=== PATIENT | male | born 1945 | race Caucasian/White ===

== ENCOUNTER → 2018-08-05 10:46 | Outpatient (CLI) | payer MEDICARE, SELFPAY ==
[2018-08-05 11:51] LABS: Alanine Aminotransferase 47 IU/L (21-72); Albumin 4.3 g/dL (3.5-5.0); Albumin Globulin Ratio 1.4 (1.0-2.8); Alkaline Phosphatase 85 U/L (38-126); Aspartate Aminotransferase 38 IU/L (17-59); Bilirubin Total 0.5 mg/dL (0.2-1.3); Blood Urea Nitrogen 19 mg/dL (9-20); Calcium 9.2 mg/dL (8.4-10.2); Carbon Dioxide 30 mmol/L (22-32); Chloride 101 mmol/L (98-107); Estimated Glomerular Filt Rate > 60.0 mL/min (>60); Glucose 139 mg/dL (80-110); HEMOLYSIS < 15 (0-50); Magnesium 2.2 mg/dL (1.6-2.3); Sodium 142 mmol/L (137-145); Total Protein 7.3 g/dL (6.3-8.2)
[2018-08-05 12:33] LABS: Thyroid Stimulating Hormone 2.31 uIU/mL (0.47-4.68)
[2018-08-07 14:20] LABS: Lipoprofile NMR SEE SEPERATE REPORT
== END ==
PROVIDERS: PCP Family Medicine; Visit Provider Specialist
DX: E78.2 Mixed hyperlipidemia (principal); I10 Essential (primary) hypertension
CPT/HCPCS: 36415; 80053; 83704; 83735; 84443

== ENCOUNTER → 2019-04-21 10:41 | Outpatient (CLI) | payer MEDICARE, SELFPAY ==
--- NOTE | 2019-04-21 | DI.US.S_ITS ---
PROCEDURE: US ARTERIAL DUPLEX LE BI INDICATIONS: CLAUDICATION TECHNIQUE: Color and pulse Doppler interrogation was performed of both lower extremity arterial systems, with image documentation. COMPARISON: Located Within [facility], , ABD AORTA ANEURYSM SCREENING, 03/05/2018, 15:48. FINDINGS: Normal-appearing, triphasic waveforms are seen throughout. The flow velocities are likewise within normal limits. No focal area of increased flow velocity is seen to suggest a focal stenosis. Antegrade flow is confirmed to the distal aspects of each of the trifurcation vessels. No significant lozano scale abnormality is seen. IMPRESSION: No hemodynamically significant stenosis can be seen. Dictated by: Oscar Sandoval M.D. on 04/21/2019 at 14:26 Approved by: Oscar Sandoval M.D. on 04/21/2019 at 14:27
== END ==
PROVIDERS: PCP Family Medicine; Visit Provider Family Medicine
DX: I73.9 Peripheral vascular disease, unspecified (principal)
CPT/HCPCS: 93925

== ENCOUNTER → 2019-07-02 11:14 | Outpatient (CLI) | payer MEDICARE, SELFPAY ==
[2019-07-02 12:57] LABS: Alanine Aminotransferase 32 IU/L (21-72); Albumin 4.2 g/dL (3.5-5.0); Albumin Globulin Ratio 1.4 (1.0-2.8); Alkaline Phosphatase 76 U/L (38-126); Aspartate Aminotransferase 27 IU/L (17-59); BUN Creatinine Ratio 15.5 (6-22); Bilirubin Total 0.6 mg/dL (0.2-1.3); Blood Urea Nitrogen 17 mg/dL (9-20); Calcium 9.2 mg/dL (8.4-10.2); Carbon Dioxide 26 mmol/L (22-32); Chloride 101 mmol/L (98-107); Estimated Glomerular Filt Rate > 60.0 mL/min (>60); Glucose 147 mg/dL (80-110); HEMOLYSIS < 15 (0-50); Magnesium 2.1 mg/dL (1.6-2.3); Sodium 139 mmol/L (137-145); Total Protein 7.2 g/dL (6.3-8.2)
[2019-07-02 13:24] LABS: Thyroid Stimulating Hormone 2.23 uIU/mL (0.47-4.68)
[2019-07-06 08:51] LABS: Lipoprofile NMR SEE SEPERATE REPORT
== END ==
PROVIDERS: PCP Family Medicine; Visit Provider Physician Assistant Medical
DX: I48.0 Paroxysmal atrial fibrillation (principal); E78.2 Mixed hyperlipidemia; E03.9 Hypothyroidism, unspecified
CPT/HCPCS: 36415; 80053; 83704; 83735; 84443

== ENCOUNTER → 2019-07-24 13:31 | Outpatient (CLI) | payer MEDICARE, SELFPAY ==
[2019-07-24 14:06] LABS: Blood Urea Nitrogen 18 mg/dL (9-20); Calcium 9.4 mg/dL (8.4-10.2); Carbon Dioxide 26 mmol/L (22-32); Chloride 101 mmol/L (98-107); Estimated Glomerular Filt Rate > 60.0 mL/min (>60); Glucose 109 mg/dL (80-110); HEMOLYSIS < 15 (0-50); Magnesium 1.9 mg/dL (1.6-2.3); Potassium 4.5 mmol/L (3.4-5.1); Sodium 140 mmol/L (137-145)
== END ==
PROVIDERS: PCP Family Medicine; Visit Provider Specialist
DX: I48.0 Paroxysmal atrial fibrillation (principal); I10 Essential (primary) hypertension; E78.2 Mixed hyperlipidemia
CPT/HCPCS: 36415; 80048; 83735

== ENCOUNTER → 2019-12-28 14:49 | Outpatient (CLI) | payer MEDICARE, SELFPAY ==
--- NOTE | 2019-12-28 | DI.ECHO.S_ITS ---
[facility] +---------+ : : [address] : [place] : : : : [id number] : : : : Phone: [phone] Echocardiogram Report + + :Name: NAE COX Study Date: 12/28/2019 Height: 75 in : :[facility] Weight: 339 lb : : Gender: Male BSA: 2.7 m2 : :: 1945 Age: 74 yrs BP: 118/52 mmHg: :Reason For Study: Cardiomyopathy, Dilated : :Ordering Physician: Jim : :Shivam Performed By: Ramon Chang : :Referring: JIM CHAPPELL : + + Interpretation Summary Left ventricular systolic function is normal without focal wall motion abnormalities with the ejection fraction grossly estimated to be 60-65% and appears slightly more dynamic compared to the previous study. The left ventricle is mildly dilated with mild concentric left ventricular hypertrophy that is unchanged compared to the previous study. Diastolic parameters suggest probable normal left ventricular diastolic function and normal filling pressures that are possibly mildly lower compared to the previous study. The right ventricle is mildly dilated but systolic function is normal and appears slightly more dynamic compared to the previous study. Pulmonary artery pressures cannot be estimated because of the lack of a measurable TR jet velocity but the IVC suggests a CVP of around 3 mmHg which is lower compared to the previous study. The left atrium is severely dilated and has significantly increased in size since the prior echo exam. The right atrium is mildly dilated and has mildly increased in size. There is mild aortic valve sclerosis but no significant valvular heart disease. The aortic root is mildly dilated that is unchanged compared to the previous study. Procedure: A two-dimensional transthoracic echocardiogram with color flow and Doppler was performed. The study quality was technically adequate. Prior echo performed on 01/04/17. The patient was in normal sinus rhythm during the exam. Left Ventricle: The left ventricle is mildly dilated. There is mild concentric left ventricular hypertrophy. This is unchanged compared to the previous study. Left ventricular systolic function is normal without focal wall motion abnormalities. The ejection fraction is estimated to be 60-65%. This is slightly more dynamic compared to the previous study. Diastolic parameters suggest probable normal left ventricular diastolic function and normal filling pressures. This is possibly lower compared to the previous study. Right Ventricle: The right ventricle is mildly dilated. The right ventricular systolic function is normal. This is slightly more dynamic compared to the previous study. Atria: The left atrium is severely dilated. The left atrium has significantly increased in size since the prior echo exam. The right atrium is mildly dilated. The right atrium has mildly increased in size since the prior echo exam. The interatrial septum is intact with no evidence for an atrial septal defect. Mitral Valve: The mitral valve leaflets appear mildly thickened, but open well. There is trace mitral regurgitation. This is unchanged compared to the previous study. Aortic Valve: The aortic valve is not well visualized. There is mild aortic valve sclerosis. The aortic valve is mildly calcified. The aortic valve opens well. There is no aortic valve stenosis. No aortic regurgitation is present. Tricuspid Valve: The tricuspid valve is normal in structure and function. There is trace tricuspid regurgitation. Pulmonary artery pressures cannot be estimated because of the lack of a measurable TR jet velocity but the IVC suggests a CVP of around 3 mmHg. This is lower compared to the previous study. Pulmonic Valve: The pulmonic valve is not well visualized. There is no pulmonic valvular regurgitation. There is no significant valvular heart disease. Great Vessels: The aortic root is mildly dilated. This is unchanged compared to the previous study. The ascending aorta could not be visualized. The IVC is of normal diameter and collapses greater than 50% with a sniff. This suggests a low right atrial pressure of 3 mm Hg. Pericardium/ Pleura There is no pericardial effusion. There is no pleural effusion. MMode/2D Measurements & Calculations LVIDd: 6.1 cm LVOT diam: 2.7 cm LVIDs: 4.0 cm Ao root diam: 4.0 cm FS: 34.6 % Aortic Jxn: 3.6 cm EPSS: 0.57 cm IVSd: 1.3 cm LVPWd: 1.3 cm LV carmona. diameter/BSA (cm/m^2): 2.2 LV sys. diameter/BSA (cm/m^2): 1.5 LA A2 area: 47.0 cm2 RA long axis: 6.5 cm LA A4 area: 47.2 cm2 RA area: 27.3 cm2 LA length (vol): 7.3 cm RA vol: 97.0 ml LA vol: 257.3 ml RA : 35.3 ml/m2 LA vol index: 93.7 ml/m2 TAPSE: 2.8 cm Doppler Measurements & Calculations Ao V2 max: 169.7 cm/sec LVOT Max Larry: 159.2 cm/sec Ao V2 mean: 118.6 cm/sec LV V1 max P.1 mmHg Ao max P.5 mmHg LV V1 VTI: 36.1 cm Ao mean P.7 mmHg MARTIR(I,D): 5.6 cm2 Ao V2 VTI: 36.8 cm MARTIR(V,D): 5.4 cm2 sev ratio: 0.98 MARTIR indexed to BSA (cm^2/m^2): 2.1 MV E max larry: 96.2 cm/sec PA V2 max: 128.1 cm/sec MV A max larry: 84.3 cm/sec PA V2 mean: 91.7 cm/sec MV E/A: 1.1 PA mean P.8 mmHg Med Peak E' Larry: 8.4 cm/sec PA Accel Time: 0.12 sec E/E' med: 11.5 Lat Peak E' Larry: 9.0 cm/sec E/E' lat: 10.7 E/e' average: 11.1 MV dec time: 0.20 sec SV(LVOT): 207.7 ml Reading Physician:TAI
== END ==
PROVIDERS: PCP Family Medicine; Visit Provider Specialist
DX: I42.0 Dilated cardiomyopathy (principal); I35.8 Other nonrheumatic aortic valve disorders
CPT/HCPCS: 93306

== ENCOUNTER → 2019-12-31 10:45 | Outpatient (CLI) | payer MEDICARE, SELFPAY ==
[2019-12-31 12:41] LABS: Alanine Aminotransferase 25 IU/L (<50); Albumin 4.4 g/dL (3.5-5.0); Albumin Globulin Ratio 1.4 (1.0-2.8); Alkaline Phosphatase 91 U/L (38-126); Aspartate Aminotransferase 35 IU/L (17-59); BUN Creatinine Ratio 13.8 (6-22); Bilirubin Total 0.5 mg/dL (0.2-1.3); Blood Urea Nitrogen 18 mg/dL (9-20); Calcium 9.3 mg/dL (8.4-10.2); Carbon Dioxide 25 mmol/L (22-32); Chloride 98 mmol/L (98-107); Estimated Glomerular Filt Rate 53.8 mL/min (>60); Globulin 3.2 g/dL (1.7-4.1); Glucose 133 mg/dL (80-110); HEMOLYSIS < 15 (0-50); Magnesium 2.5 mg/dL (1.6-2.3); Potassium 4.8 mmol/L (3.4-5.1); Sodium 138 mmol/L (137-145); Total Protein 7.6 g/dL (6.3-8.2)
[2020-01-04 08:45] LABS: Lipoprofile NMR SEE SEPERATE REPORT
== END ==
PROVIDERS: PCP Family Medicine; Visit Provider Specialist
DX: I48.0 Paroxysmal atrial fibrillation (principal); I10 Essential (primary) hypertension; E78.2 Mixed hyperlipidemia
CPT/HCPCS: 36415; 80053; 83704; 83735

== ENCOUNTER 2020-01-07 15:59 | Inpatient (IN) | payer MEDICARE, SELFPAY ==
[2020-01-07] VITALS (18 sets, daily range): BP systolic 95–138; BP diastolic 50–74; PULSE 72–87; RESP 14–24; TEMP 36.2–37.1; O2SAT 93–100; BMI 38.5; BMI 44.9
--- NOTE | 2020-01-07 16:22 | DI.RAD.S_ITS ---
PROCEDURE: XR CHEST 1V INDICATIONS: chest pain TECHNIQUE: One view of the chest was acquired. COMPARISON: [facility], , CHEST 1 VIEW, 04/09/2015, 20:48. FINDINGS: Surgical changes and devices: None. Lungs and pleura: There is a vague area of increased density within the left hilar region and left infrahilar region. No large effusion or pneumothorax is evident. Mediastinum: Mediastinal contours appear normal. Heart size is borderline enlarged. Bones and chest wall: No suspicious bony lesions. Overlying soft tissues appear unremarkable. IMPRESSION: Left hilar interstitial prominence may be related to chronic interstitial changes. However, developing left infrahilar pneumonia is difficult to exclude and clinical correlation is recommended. Dictated by: Deniz Hsieh M.D. on 01/07/2020 at 16:01 Approved by: Deniz Hsieh M.D. on 01/07/2020 at 16:02
--- NOTE | 2020-01-07 17:10 | ED_ITS ---
HPI - Arrhythmia/Palpitations General Chief Complaint: Arrhythmia/Palpitations Stated Complaint: irregular heart rate and short of breath Time Seen by Provider: 01/07/20 16:29 Source: patient and family () Mode of arrival: Wheelchair Limitations: no limitations History of Present Illness HPI narrative: This is a 74-year-old male who comes to the emergency department with complaint of irregular heart rate and shortness of breath. Patient states that he has felt lightheaded especially when he gets up to walk around. He has not had any syncope but has felt like he might. He has had increasing shortness of breath particularly with exertion. Patient states he knows his blood pressure is a little low at home that his pulse was irregular. He has felt more fatigued over the last several days. Patient states he has not any chest pain or pressure. He states he can lie flat and has not had any difficulty typically does on 1 side or the other. He has had swelling in his lower extremities but states that his normal amount any has had an increase in his weight is up about 10 lb from his last visit. Patient states he does use BiPAP at home with oxygen at night. He has a history of atrial fibrillation and has been cardioverted [address] 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 He did have an 8 echo about a week and a half ago. He has not any cardiac stents or heart catheterizations. He is on aspirin daily as well as medications for his heart, blood pressure, cholesterol, levothyroxine as well as sertraline and omeprazole. Patient has had back surgery x2, knee surgery, carpal tunnel and cataract surgery. Quit smoking 35 years ago but does chew tobacco denies any illicit but does drink 4-5 alcoholic drinks in the evening. PCP is Dr. Landon. Related Data Home Medications Medication Instructions Recorded Confirmed allopurinol 300 mg PO BEDTIME #0 12/09/11 01/07/20 cholecalciferol (vitamin D3) 2,000 unit PO DAILY #0 12/09/11 01/07/20 [Vitamin D3] Prilosec OTC 20 mg PO DAILY #0 12/31/11 01/07/20 psyllium husk [Metamucil] 0.52 gm PO DAILY #0 12/31/11 01/07/20 telmisartan [Micardis] 80 mg PO QPM #0 05/01/17 01/07/20 magnesium oxide 400 mg PO QPM #0 05/15/17 01/07/20 aspirin 81 mg PO QPM 01/07/20 01/07/20 atorvastatin 40 mg PO QPM 01/07/20 01/07/20 diltiazem HCl [Cartia XT] 120 mg PO QPM 01/07/20 01/07/20 furosemide 40 mg PO QAM 01/07/20 01/07/20 levothyroxine 100 mcg PO DAILY 01/07/20 01/07/20 magnesium oxide 800 mg PO QAM 01/07/20 01/07/20 mirtazapine 30 mg PO QPM 01/07/20 01/07/20 sertraline 100 mg PO DAILY 01/07/20 01/07/20 testosterone cypionate 200 mg IM Q2W 01/07/20 01/07/20 Allergies Allergy/AdvReac Type Severity Reaction Status Date / Time epinephrine [EPINEPHRINE] AdvReac Mild EXACERBATES Verified 01/07/20 16:15 TREMORS gabapentin [GABAPENTIN] AdvReac Mild GLOOM AND Verified 01/07/20 16:15 DOOM Review of Systems Review of Systems ROS Unobtainable: All systems reviewed & are unremarkable except as noted in HPI and below Patient History Social History household members: spouse Smoking Status: Current every day smoker alcohol intake: current tobacco type: smokeless tobacco Alcohol type: wine Substance Use Type: does not use Exam Narrative Exam Narrative: GENERAL: Alert and oriented x three, obese male in mild distress. Patient appears pale. HEENT: Head normocephalic, atraumatic, EOMI, pupils reactive, face symmetric, positive for conjunctival pallor bilaterally, moist mucous membranes NECK: Supple, full range of motion CARDIOVASCULAR: Irregularly right rate and rhythm without murmurs, rubs or gallops. No JVD. Patient has bilateral lower extremity edema that is 2+. RESPIRATORY: Breath sounds equal bilaterally, no wheezes rales or rhonchi. Patient has mild tachypnea with no accessory muscle use. Speaks in full sentences. ABDOMEN: Soft, nontender. Normoactive bowel sounds all 4 quadrants. No guarding or rebound, rigidity, no mass. Patient has brown stool but positive stool guaiac on BETTY, no mass. No bright red blood is noted. : No CVA tenderness EXTREMITIES: Normal range of motion, no clubbing or edema. Neurovascularly intact NEUROLOGICAL: Cranial nerves II through XII grossly intact. Moving all extremities SKIN: Warm, dry, no petechiae, no rashes or lesions. Initial Vital Signs Initial Vital Signs: Vital Signs Blood Pressure 134/64 01/07/20 16:10 Pulse Oximetry 100 01/07/20 16:10 Course Orders Ordered: ED Orders 01/07/20 16:22 XR chest 1V Stat EKG-12 Lead Stat 01/07/20 16:32 BNP [NT-proBNP (BNP-Adult 18+)] Stat Complete Blood Count AUTO DIFF Stat Comprehensive Metabolic Panel Stat DD [D Dimer] Stat Lipase Stat Partial Thromboplastin Time Stat Prothrombin Time INR Stat Troponin & CK Cardiac Panel Stat 01/07/20 17:39 Packed Cells Stat Type and Screen Stat Discontinued Medications Furosemide (Lasix) 40 mg IV NOW ONE Stop: 01/07/20 18:41 Last Admin: 01/07/20 20:04 Dose: 40 mg Documented by: HELEN Vital Signs Vital signs: Vital Signs - 8 hr 01/07/20 16:10 01/07/20 16:17 01/07/20 16:30 Temperature 97.9 F Pulse Rate 74 Respiratory Rate 24 16 Blood Pressure Blood Pressure [Right Arm] 134/64 136/64 111/51 L Pulse Oximetry 100 99 100 01/07/20 16:31 01/07/20 17:00 01/07/20 17:30 Temperature Pulse Rate 72 72 73 Respiratory Rate 20 14 20 Blood Pressure Blood Pressure [Right Arm] 111/55 L 106/54 L 111/55 L Pulse Oximetry 98 97 99 01/07/20 18:05 01/07/20 18:10 01/07/20 18:48 Temperature 98.4 F Pulse Rate 73 87 Respiratory Rate 22 20 15 Blood Pressure 123/57 L Blood Pressure [Right Arm] 95/50 L 116/55 L Pulse Oximetry 93 100 01/07/20 19:07 01/07/20 19:11 01/07/20 20:00 Temperature 98.4 F 98.4 F 98.5 F Pulse Rate 80 80 75 Respiratory Rate 16 16 18 Blood Pressure 137/65 133/62 Blood Pressure [Right Arm] 137/65 Pulse Oximetry 100 MDM - Arrhythmia/Palpitations Lab Data Attestation: I reviewed the patient's lab results. Result diagrams: 01/07/20 16:32 01/07/20 16:32 Labs: Lab Results 01/07/20 01/07/20 01/07/20 Range/Units 16:32 16:32 16:32 WBC 4.3 L (4.5-11.0) X10^3/uL RBC 2.56 L (4.5-5.9) X10^6/uL Hgb 4.2 L* (13.5-17.5) g/dL Hct 15.0 L* (41-53) % MCV 58.5 L (80-100) fL MCH 16.5 L (26-34) PG MCHC 28.2 L (30-36) % RDW 20.5 H (11.6-14.8) % Plt Count 158 (150-400) X10^3/uL Neut % (Auto) 67.5 (50-75) % Lymph % (Auto) 18.9 L (25-40) % [place] % (Auto) 10.0 (3-14) % Eos % (Auto) 1.8 L (2-4) % Baso % (Auto) 1.8 (0-2) % Neut # (Auto) 2900 (1689-4992) /uL Lymph # (Auto) 800 L (1228-9910) /uL [place] # (Auto) 400 (0-900) /uL Eos # (Auto) 100 (0-450) /uL Baso # (Auto) 100 (0-100) /uL RBC Morphology See below Hypochromasia 3+ H Microcytosis 3+ H Tear Drop Cells 1+ H Ovalocytes 1+ H PT 14.2 H (10.1-12.7) SECONDS INR 1.2 (0.9-1.3) APTT 29 (26.4-36.2) SECONDS D-Dimer (<230) ng/mL Sodium 138 (137-145) mmol/L Potassium 4.5 (3.4-5.1) mmol/L Chloride 99 (98-107) mmol/L Carbon Dioxide 25 (22-32) mmol/L BUN 22 H (9-20) mg/dL Creatinine 1.30 H (0.66-1.25) mg/dL Estimated GFR 53.8 L (>60) mL/min BUN/Creatinine Ratio 16.9 (6-22) Glucose 124 H (80-110) mg/dL Calcium 9.0 (8.4-10.2) mg/dL Total Bilirubin 0.3 (0.2-1.3) mg/dL AST 31 (17-59) IU/L ALT 22 (<50) IU/L Alkaline Phosphatase 80 (38-126) U/L Total Creatine Kinase 25 L (55-170) U/L CK-MB (CK-2) TNP CK-MB (CK-2) Rel Index TNP Troponin I 0.016 (0.01-0.034) ng/mL NT-Pro-B Natriuret Pep (<450) pg/mL Total Protein 7.3 (6.3-8.2) g/dL Albumin 4.2 (3.5-5.0) g/dL Globulin 3.1 (1.7-4.1) g/dL Albumin/Globulin Ratio 1.4 (1.0-2.8) Lipase 135 (23-300) U/L Blood Type Antibody Screen Crossmatch 01/07/20 01/07/20 01/07/20 Range/Units 16:32 16:32 17:39 WBC (4.5-11.0) X10^3/uL RBC (4.5-5.9) X10^6/uL Hgb (13.5-17.5) g/dL Hct (41-53) % MCV (80-100) fL MCH (26-34) PG MCHC (30-36) % RDW (11.6-14.8) % Plt Count (150-400) X10^3/uL Neut % (Auto) (50-75) % Lymph % (Auto) (25-40) % [place] % (Auto) (3-14) % Eos % (Auto) (2-4) % Baso % (Auto) (0-2) % Neut # (Auto) (1177-4692) /uL Lymph # (Auto) (0076-7620) /uL [place] # (Auto) (0-900) /uL Eos # (Auto) (0-450) /uL Baso # (Auto) (0-100) /uL RBC Morphology Hypochromasia Microcytosis Tear Drop Cells Ovalocytes PT (10.1-12.7) SECONDS INR (0.9-1.3) APTT (26.4-36.2) SECONDS D-Dimer < 200 (<230) ng/mL Sodium (137-145) mmol/L Potassium (3.4-5.1) mmol/L Chloride (98-107) mmol/L Carbon Dioxide (22-32) mmol/L BUN (9-20) mg/dL Creatinine (0.66-1.25) mg/dL Estimated GFR (>60) mL/min BUN/Creatinine Ratio (6-22) Glucose (80-110) mg/dL Calcium (8.4-10.2) mg/dL Total Bilirubin (0.2-1.3) mg/dL AST (17-59) IU/L ALT (<50) IU/L Alkaline Phosphatase (38-126) U/L Total Creatine Kinase (55-170) U/L CK-MB (CK-2) CK-MB (CK-2) Rel Index Troponin I (0.01-0.034) ng/mL NT-Pro-B Natriuret Pep 929 H (<450) pg/mL Total Protein (6.3-8.2) g/dL Albumin (3.5-5.0) g/dL Globulin (1.7-4.1) g/dL Albumin/Globulin Ratio (1.0-2.8) Lipase (23-300) U/L Blood Type A Positive Antibody Screen Negative Crossmatch See Detail Point of Care Testing Stool Occult Blood Positive Imaging Data Chest x-ray: Radiologist's Impresson: [address] [id number] XRay Report Signed Patient: Romeo Henning RMR#: [id number] : 4Acct:[id number] Age/Sex: 74 / MDate of Service: 01/07/20 Loc: ED Accession Number: [id number] Procedure: XR chest 1V Ordering Provider: Kimberly Bueno D.O. PROCEDURE: XR CHEST 1V INDICATIONS: chest pain TECHNIQUE: One view of the chest was acquired. COMPARISON: [facility], CHEST 1 VIEW, 04/09/2015, 20:48. FINDINGS: Surgical changes and devices: None. Lungs and pleura: There is a vague area of increased density within the left hil ar region and left infrahilar region. No large effusion or pneumothorax is evident. Mediastinum: Mediastinal contours appear normal. Heart size is borderline enlarged. Bones and chest wall: No suspicious bony lesions. Overlying soft tissues appear unremarkable. IMPRESSION: Left hilar interstitial prominence may be related to chronic interstitial changes. However, developing left infrahilar pneumonia is difficult to exclude and clinical correlation is recommended. Dictated by: Deniz Hsieh M.D. on 01/07/2020 at 16:01 Approved by: Deniz Hsieh M.D. on 01/07/2020 at 16:02 ECG Data Attestation: I personally reviewed and interpreted this ECG as follows: Interpretation: AFib with a rate of 74 QRS of for 141 QTC of 417. Patient does have some ST depression V2 through V4 which appears new from EKG on 2014. No elevation noted. MDM Narrative Medical decision making narrative: Patient's labs show hemoglobin of 4.2, patient has microcytosis with an RDW of 20. Patient also has normal platelets of 158 and no slightly low white count. Coags show a PT of 14.2 but INR is 1.2 with PTT of 29. Chemistry show elevated 22 creatinine 1.3 which appears normal compared to his December 31, 2019. He was 1 in July. Troponin is negative with BNP of nine hundred twenty-nine. Otherwise normal LFTs. Patient's guaiac is positive. Patient has stated his stools are cristy in color he is not apprec iate any melena or bright red blood. Patient has not had any other sources of bleeding but his hemoglobin is quite low today. Unclear the exact time frame but likely he is having symptomatic anemia which exacerbated his atrial fibrillation. He does have an elevated BNP with some bilateral lower extremity edema some of this could be 3rd spacing secondary to his anemia but I would also be concerned about a little bit of CHF and plan for Lasix in between transfusion. Patient did get consent. Spoke with Dr. Walters who accepts for admission. Discharge Plan Departure Patient Disposition: Admitted As Inpatient Clinical Impression: Symptomatic anemia, Atrial fibrillation Discharge Date/Time: 01/07/20 20:23 Referrals: Tong Landon MD [Primary Care Provider] - Admit Date/Time: 01/07/20 20:19 Admit Provider: Omid Walters
[2020-01-07 17:28] LABS: Add Manual Diff / Slide Review NO; Basophils Absolute Auto 100 /uL (0-100); Basophils Percent Auto 1.8 % (0-2); Eosinophils Absolute Auto 100 /uL (0-450); Eosinophils Percent Auto 1.8 % (2-4); Hemoglobin 4.2 g/dL (13.5-17.5); Lymphocytes Absolute Auto 800 /uL (1100-4500); Lymphocytes Percent Auto 18.9 % (25-40); Mean Corpuscular HGB Conc 28.2 % (30-36); Mean Corpuscular Hemoglobin 16.5 PG (26-34); Mean Corpuscular Volume 58.5 fL (80-100); Monocytes Absolute Auto 400 /uL (0-900); Neutrophils Absolute Auto 2900 /uL (1500-7000); Neutrophils Percent Auto 67.5 % (50-75); Platelet Count 158 X10^3/uL (150-400); Red Blood Cell Count 2.56 X10^6/uL (4.5-5.9); Red Cell Distribution Width 20.5 % (11.6-14.8); White Blood Cell Count 4.3 X10^3/uL (4.5-11.0)
[2020-01-07 17:32] LABS: INR 1.2 (0.9-1.3); Prothrombin Time 14.2 SECONDS (10.1-12.7)
[2020-01-07 17:34] LABS: PTT Partial Thromboplastin Tim 29 SECONDS (26.4-36.2)
[2020-01-07 17:36] LABS: Alanine Aminotransferase 22 IU/L (<50); Albumin 4.2 g/dL (3.5-5.0); Albumin Globulin Ratio 1.4 (1.0-2.8); Alkaline Phosphatase 80 U/L (38-126); Aspartate Aminotransferase 31 IU/L (17-59); BUN Creatinine Ratio 16.9 (6-22); Bilirubin Total 0.3 mg/dL (0.2-1.3); Blood Urea Nitrogen 22 mg/dL (9-20); Carbon Dioxide 25 mmol/L (22-32); Chloride 99 mmol/L (98-107); Creatine Kinase 25 U/L (55-170); Estimated Glomerular Filt Rate 53.8 mL/min (>60); Globulin 3.1 g/dL (1.7-4.1); Glucose 124 mg/dL (80-110); HEMOLYSIS < 15 (0-50); Lipase 135 U/L (23-300); Potassium 4.5 mmol/L (3.4-5.1); Sodium 138 mmol/L (137-145); Total Protein 7.3 g/dL (6.3-8.2)
[2020-01-07 17:42] LABS: D Dimer < 200 ng/mL (<230)
[2020-01-07 17:45] LABS: NT-proBNP (BNP-Adult 18+) 929 pg/mL (<450)
[2020-01-07 17:48] LABS: Hypochromasia 3+; Microcytosis 3+; Troponin I 0.016 ng/mL (0.01-0.034)
[2020-01-07 17:49] LABS: Ovalocytes 1+; Tear Drop Cells 1+
[2020-01-07] MEDS: FUROSEMIDE 40 MG/4 ML VIAL IV (20:04)
--- NOTE | 2020-01-07 20:31 | PC.NURSE ---
Pt arrived from ED via stretcher. Ambulated to bed. Steady on feet during transfer. VSS, 2L NC to help with work of breathing; sats 100% Oriented to room and call system. Elizabeth at bedside.
--- NOTE | 2020-01-07 22:23 | PC.NURSE ---
Addendum entered by Juliet Pete RMichael 01/07/20 23:47: Per SHELLIE James, Dr Walters wanted telemetry continued Original Note: Dr. Walters paged to obtain orders. Tele placed on pt.
[2020-01-07] MEDS: SODIUM CHLORIDE 0.9% FLUSH 10 ML IV (23:05)
[2020-01-08] VITALS (20 sets, daily range): BP systolic 123–157; BP diastolic 55–88; PULSE 14–92; RESP 14–71; TEMP 36.4–37.1; O2SAT 97–100
[2020-01-08] MEDS: MIRTAZAPINE 15 MG TABLET 30 MG PO ×3 (00:32→21:43)
[2020-01-08] MEDS: dilTIAZem CD 120 MG CAP PO ×2 (00:32→18:21)
--- NOTE | 2020-01-08 02:03 | PC.NURSE ---
Addendum entered by Juliet Pete R.N. 01/09/20 00:42: late entry: 699 Day RNCourtney, informed of noted 11kg weight loss overnight even after rezeroing bed. Requested she inform MD when he rounds. Addendum entered by Juliet Pete R.N. 01/08/20 06:51: Dr Walters informed earlier of continued low/critical hgb/hct and order received to transfuse 2 additional units of PRBC. Transfusion of 1st of 2 units started at this time. Addendum entered by Juliet Pete R.N. 01/08/20 05:58: Slept at intervals. Denies any pain. No stools this shift. Original Note: 2304 Blood transfusion complete with no adverse reaction noted. 2345: Patient is alert and oriented. Breath sounds CTA with RA sat of 98% but placed back on oxygen per NC at 2L/min after discussion with who reports patient has sleep apnea and uses bipap + 1-2L oxygen at night. HR irregular and does have past history of afib; telemetry reading at 2240 was afib CVR. Denies nausea. BT present and abdomen is soft. Is able to void sitting on side of bed and using urinal; denies dysuria, frequency or urgency. Is able to turn self in bed. Reports weakness with ambulation and states he was using walker at home; gait not assessed at this time. Denies pain. Has bilateral foot neuropathy. Fall risk score is high and bed alarm is activated; patient verbalizes understanding.
[2020-01-08 05:36] LABS: INR 1.3 (0.9-1.3); Prothrombin Time 14.7 SECONDS (10.1-12.7)
[2020-01-08 05:43] LABS: Alanine Aminotransferase 22 IU/L (<50); Albumin 3.9 g/dL (3.5-5.0); Albumin Globulin Ratio 1.3 (1.0-2.8); Alkaline Phosphatase 74 U/L (38-126); Aspartate Aminotransferase 30 IU/L (17-59); BUN Creatinine Ratio 16.2 (6-22); Bilirubin Total 0.6 mg/dL (0.2-1.3); Blood Urea Nitrogen 21 mg/dL (9-20); Calcium 9.1 mg/dL (8.4-10.2); Carbon Dioxide 29 mmol/L (22-32); Chloride 101 mmol/L (98-107); Estimated Glomerular Filt Rate 53.8 mL/min (>60); Globulin 3.1 g/dL (1.7-4.1); Glucose 109 mg/dL (80-110); HEMOLYSIS < 15 (0-50); Potassium 4.2 mmol/L (3.4-5.1); Sodium 140 mmol/L (137-145)
[2020-01-08 05:51] LABS: Add Manual Diff / Slide Review NO; Basophils Absolute Auto 100 /uL (0-100); Basophils Percent Auto 2.7 % (0-2); Eosinophils Absolute Auto 100 /uL (0-450); Eosinophils Percent Auto 2.3 % (2-4); Lymphocytes Absolute Auto 1100 /uL (1100-4500); Lymphocytes Percent Auto 25.2 % (25-40); Mean Corpuscular HGB Conc 29.1 % (30-36); Mean Corpuscular Hemoglobin 17.8 PG (26-34); Mean Corpuscular Volume 61.3 fL (80-100); Monocytes Absolute Auto 500 /uL (0-900); Monocytes Percent Auto 11.7 % (3-14); Neutrophils Absolute Auto 2400 /uL (1500-7000); Neutrophils Percent Auto 58.1 % (50-75); Platelet Count 156 X10^3/uL (150-400); Red Cell Distribution Width 23.2 % (11.6-14.8); White Blood Cell Count 4.2 X10^3/uL (4.5-11.0)
[2020-01-08] MEDS: LEVOTHYROXINE 100 MCG TABLET PO (05:56)
[2020-01-08 06:06] LABS: Hemoglobin 5.2 g/dL (13.5-17.5)
[2020-01-08 06:07] LABS: Hematocrit 17.8 % (41-53)
[2020-01-08] MEDS: SODIUM CHLORIDE 0.9% FLUSH 10 ML IV ×4 (06:47→23:19)
[2020-01-08 06:56] LABS: Anisocytosis 3+; Hypochromasia 3+; Microcytosis 3+; Ovalocytes 1+; Tear Drop Cells 1+
[2020-01-08] MEDS: FUROSEMIDE 40 MG/4 ML VIAL IV ×2 (09:46→19:44)
--- NOTE | 2020-01-08 10:24 | PC.NURSE ---
Patient guiac tested positive. Patient had large formed, soft bowel movement at 10:20.
--- NOTE | 2020-01-08 12:43 | PC.NURSE ---
Addendum entered by Courtney Yeboah R.N. 01/08/20 15:10: Pts h&h only went up to 6 and 22. 2U of PRBCS ordered and h&h after done. Addendum entered by Courtney Yeboah R.N. 01/08/20 14:05: Patient does have occasional sob, but recovers decently. He was on o2 last night and does not need it during the day. Original Note: Patients second unit of blood almost done infusing. He had a large bowel movement that did guiac positive x1. into see patient and ordered h&H to be drawn after second unit of blood and protonix bid. Patient remains npo. will be over to consult with him later today. He may need a possible egd and colonoscopy.
[2020-01-08] MEDS: PANTOPRAZOLE 40 MG VIAL IV ×2 (13:31→23:18)
[2020-01-08] MEDS: SERTRALINE 50 MG TABLET 100 MG PO (13:31)
[2020-01-08 14:32] LABS: Hematocrit 22.3 % (41-53)
[2020-01-08 14:35] LABS: Hemoglobin 6.9 g/dL (13.5-17.5)
--- NOTE | 2020-01-08 14:47 | P.CONS_ITS ---
History of Present Illness Consult details Date Patient Seen: 01/08/20 Time Patient Seen: 12:45 Chief complaint: irregular heart rate and short of breath Reason for consult: GI bleed Requesting provider: Omid Walters Narrative: This is a 74-year-old man who came into the ER last evening with complaint of weakness and lightheadedness. He says that when he was at home he got up to go to the bathroom and suddenly felt like he was going to fall to the floor. He told his and she brought him into the ER. In the ER he was found to have a hemoglobin of 4. He was admitted to the hospital and has been gradually transfused over the course of the day. I was consulted as the source of his anemia suspected to be his GI tract. The patient denies any abdominal pain, or heartburn. He says he has not noticed any bloody stool, but he does notice some dark colored stool which he has noticed for a long time, he is not sure how long. Past medical history: Atrial fibrillation status post cardioversion times 4 Lower extremity edema BARBER, with BiPAP an oxygen at night Hypo thyroid GERD Depression Hyperlipidemia Gout Past surgical history: spine surgery carpal tunnel release no chest or abdominal surgery Social: Former smoker ETOH times 4-5 per day Lives with spouse Allergies: Epinephrine, gabapentin Family history: No known family history of colon cancers, or colon disorders ROS: Denies syncope, but felt like he may pass out. Reports increasing shortness of breath, increasing WOODS, denies dyspnea on lying down, reports subjective palpitations, fatigue, denies chest pain or chest pressure, reports lower extremity edema which has improved with Lasix, reports sleep apnea and use of BiPAP at home with oxygen at night; Thirteen system review is otherwise negative other than as mentioned below and in HPI. PE: GENERAL: Alert, oriented, comfortable, appears stated age, morbidly obese HENT: Normocephalic, atraumatic. Hearing intact. Oral mucosa is pink and moist. EYES: Conjunctiva pink, sclera white, no periorbital swelling. CARDIOVASCULAR: Regular rate. Trace pedal edema. RESPIRATORY: Non-tachypneic, breathing comfortably on room air. GASTROINTESTINAL: Abdomen soft, obese, rounded, nontender and non-distended GENITALURINARY: No flank tenderness. MUSCULOSKELETAL: Equal tone and mass bilaterally. SKIN: Warm, dry, soft, appropriate color for ethnicity. No other lesions, rashes, or wounds. NEURO: Alert and Oriented X 3. No gross sensory deficits, or cognitive issues. PSYCH: Appropriate affect and mood. Meds Home Medications and Allergies Home Medications Medication Instructions Recorded Confirmed Type allopurinol 300 mg PO BEDTIME #0 12/09/11 01/07/20 History cholecalciferol (vitamin D3) 2,000 unit PO DAILY #0 12/09/11 01/07/20 History [Vitamin D3] Prilosec OTC 20 mg PO DAILY #0 12/31/11 01/07/20 History psyllium husk [Metamucil] 0.52 gm PO DAILY #0 12/31/11 01/07/20 History telmisartan [Micardis] 80 mg PO QPM #0 05/01/17 01/07/20 History magnesium oxide 400 mg PO QPM #0 05/15/17 01/07/20 History aspirin 81 mg PO QPM 01/07/20 01/07/20 History atorvastatin 40 mg PO QPM 01/07/20 01/07/20 History diltiazem HCl [Cartia XT] 120 mg PO QPM 01/07/20 01/07/20 History furosemide 40 mg PO QAM 01/07/20 01/07/20 History levothyroxine 100 mcg PO DAILY 01/07/20 01/07/20 History magnesium oxide 800 mg PO QAM 01/07/20 01/07/20 History mirtazapine 30 mg PO QPM 01/07/20 01/07/20 History sertraline 100 mg PO DAILY 01/07/20 01/07/20 History testosterone cypionate 200 mg IM Q2W 01/07/20 01/07/20 History Allergies Allergy/AdvReac Type Severity Reaction Status Date / Time epinephrine [EPINEPHRINE] AdvReac Mild EXACERBATES Verified 01/07/20 16:15 TREMORS gabapentin [GABAPENTIN] AdvReac Mild GLOOM AND Verified 01/07/20 16:15 DOOM Exam Vital Signs (past 8 hours): - 01/08/20 06:49 01/08/20 07:05 01/08/20 07:07 Temperature 98.1 F 98.7 F Pulse Rate 75 77 Respiratory Rate 18 18 Blood Pressure 139/55 L 136/65 Pulse Oximetry 98 01/08/20 09:14 01/08/20 09:25 01/08/20 09:56 Temperature 98.7 F 98.7 F 98.7 F Pulse Rate 77 78 78 Respiratory Rate 18 14 14 Blood Pressure 136/60 134/74 134/74 Pulse Oximetry 100 01/08/20 10:11 01/08/20 13:00 01/08/20 13:15 Temperature 98.1 F 98 F 98.6 F Pulse Rate 81 76 92 H Respiratory Rate 17 16 16 Blood Pressure 137/76 135/72 125/73 Pulse Oximetry 98 Oxygen Delivery Method Nasal Cannula Oxygen Flow Rate 0 Objective ECG Impression: Chest x-ray 01/07/2020 IMPRESSION: Left hilar interstitial prominence may be related to chronic interstitial changes. However, developing left infrahilar pneumonia is difficult to exclude and clinical correlation is recommended. Labs Result Diagrams: 01/09/20 17:30 01/09/20 05:45 Labs: Laboratory Results - last 24 hr 01/07/20 01/07/20 01/07/20 16:32 16:32 16:32 WBC 4.3 L RBC 2.56 L Hgb 4.2 L* Hct 15.0 L* MCV 58.5 L MCH 16.5 L MCHC 28.2 L RDW 20.5 H Plt Count 158 Neut % (Auto) 67.5 Lymph % (Auto) 18.9 L [place] % (Auto) 10.0 Eos % (Auto) 1.8 L Baso % (Auto) 1.8 Neut # (Auto) 2900 Lymph # (Auto) 800 L [place] # (Auto) 400 Eos # (Auto) 100 Baso # (Auto) 100 RBC Morphology See below Hypochromasia 3+ H Anisocytosis Microcytosis 3+ H Tear Drop Cells 1+ H Ovalocytes 1+ H PT 14.2 H INR 1.2 APTT 29 D-Dimer Sodium 138 Potassium 4.5 Chloride 99 Carbon Dioxide 25 BUN 22 H Creatinine 1.30 H Estimated GFR 53.8 L BUN/Creatinine Ratio 16.9 Glucose 124 H Calcium 9.0 Total Bilirubin 0.3 AST 31 ALT 22 Alkaline Phosphatase 80 Total Creatine Kinase 25 L CK-MB (CK-2) TNP CK-MB (CK-2) Rel Index TNP Troponin I 0.016 NT-Pro-B Natriuret Pep Total Protein 7.3 Albumin 4.2 Globulin 3.1 Albumin/Globulin Ratio 1.4 Lipase 135 Blood Type Antibody Screen Crossmatch 01/07/20 01/07/20 01/07/20 16:32 16:32 17:39 WBC RBC Hgb Hct MCV MCH MCHC RDW Plt Count Neut % (Auto) Lymph % (Auto) [place] % (Auto) Eos % (Auto) Baso % (Auto) Neut # (Auto) Lymph # (Auto) [place] # (Auto) Eos # (Auto) Baso # (Auto) RBC Morphology Hypochromasia Anisocytosis Microcytosis Tear Drop Cells Ovalocytes PT INR APTT D-Dimer < 200 Sodium Potassium Chloride Carbon Dioxide BUN Creatinine Estimated GFR BUN/Creatinine Ratio Glucose Calcium Total Bilirubin AST ALT Alkaline Phosphatase Total Creatine Kinase CK-MB (CK-2) CK-MB (CK-2) Rel Index Troponin I NT-Pro-B Natriuret Pep 929 H Total Protein Albumin Globulin Albumin/Globulin Ratio Lipase Blood Type A Positive Antibody Screen Negative Crossmatch See Detail 01/08/20 01/08/20 01/08/20 05:10 05:10 05:10 WBC 4.2 L RBC 2.90 L Hgb 5.2 L* Hct 17.8 L* MCV 61.3 L MCH 17.8 L MCHC 29.1 L RDW 23.2 H Plt Count 156 Neut % (Auto) 58.1 Lymph % (Auto) 25.2 [place] % (Auto) 11.7 Eos % (Auto) 2.3 Baso % (Auto) 2.7 H Neut # (Auto) 2400 Lymph # (Auto) 1100 [place] # (Auto) 500 Eos # (Auto) 100 Baso # (Auto) 100 RBC Morphology See below Hypochromasia 3+ H Anisocytosis 3+ H Microcytosis 3+ H Tear Drop Cells 1+ H Ovalocytes 1+ H PT 14.7 H INR 1.3 APTT D-Dimer Sodium 140 Potassium 4.2 Chloride 101 Carbon Dioxide 29 BUN 21 H Creatinine 1.30 H Estimated GFR 53.8 L BUN/Creatinine Ratio 16.2 Glucose 109 Calcium 9.1 Total Bilirubin 0.6 AST 30 ALT 22 Alkaline Phosphatase 74 Total Creatine Kinase CK-MB (CK-2) CK-MB (CK-2) Rel Index Troponin I NT-Pro-B Natriuret Pep Total Protein 7.0 Albumin 3.9 Globulin 3.1 Albumin/Globulin Ratio 1.3 Lipase Blood Type Antibody Screen Crossmatch 01/08/20 14:25 WBC RBC Hgb 6.9 L* Hct 22.3 L MCV MCH MCHC RDW Plt Count Neut % (Auto) Lymph % (Auto) [place] % (Auto) Eos % (Auto) Baso % (Auto) Neut # (Auto) Lymph # (Auto) [place] # (Auto) Eos # (Auto) Baso # (Auto) RBC Morphology Hypochromasia Anisocytosis Microcytosis Tear Drop Cells Ovalocytes PT INR APTT D-Dimer Sodium Potassium Chloride Carbon Dioxide BUN Creatinine Estimated GFR BUN/Creatinine Ratio Glucose Calcium Total Bilirubin AST ALT Alkaline Phosphatase Total Creatine Kinase CK-MB (CK-2) CK-MB (CK-2) Rel Index Troponin I NT-Pro-B Natriuret Pep Total Protein Albumin Globulin Albumin/Globulin Ratio Lipase Blood Type Antibody Screen Crossmatch Assessment & Plan Assessment and plan (1) Symptomatic anemia: Current visit: Yes Status: Acute (2) Atrial fibrillation: Current visit: Yes Status: Acute (3) GERD (gastroesophageal reflux disease): Current visit: Yes Status: Acute (4) Gout: Current visit: Yes Status: Acute (5) Morbid obesity with BMI of 40.0-44.9, adult: Current visit: Yes Status: Acute (6) History of cardioversion: Current visit: Yes Status: Acute (7) BARBER (obstructive sleep apnea): Current visit: Yes Status: Acute Assessment & Plan narrative: This is a 74-year-old man with significant anemia with a hemoglobin of 4 on admission. He has gradually been transfused up to 6.9. I've been consulted to evaluate him for a GI source of his bleeding. I spoke with the patient and with Dr. Walters. I recommend that we get him transf used up and stable, give him clear liquids as tolerated today and tomorrow. Start a bowel prep tomorrow as long as his hemoglobin has reached an adequate threshold, I would suspect at least 8 would be appropriate. So long as he is able to tolerate the bowel prep and get a good clean out, we can scope him on Saturday. Plan: Transfuse to hemoglobin greater than 8 Clear liquid diet today and tomorrow Bowel prep tomorrow pending adequately transfused EGD and colonoscopy on Saturday Time Spent With Patient Time with patient: 25 - 35 minutes
--- NOTE | 2020-01-08 15:15 | CM.DANOTE ---
Discharge Planning/Care Management DCP: assessment: case received, EMR reivewed. At this time: 1514 no H&P is available. Masonry Supervisor: Dr. Fuller has a partial consult note in draft. Conferred with SHELLIE Valdez who stated that pt has just received an order for 2 more units of blood for a total of 6 thus far. Met then with pt and his Elizabeth. Introduced self and role. Updated d/c plan template with current info given by both/see those notes below. Pt is a 74 year old who admitted to care of Dr. Walters last night. PCP: Dr. Barnett Payer: Medicare and [employer]. Admission status: INPT: confirmed now by UR SHELLIE Cook. Elizabeth said her understanding of the POC at this point is that pt will go to surgery for a colonoscopy and endoscopy on Wednesday 01/10. She thinks that pt will stay in hospital until then but is not certain. P: will check in tomorrow and follow. Anticipate that more physician documentation will be available by then and thus should have a clearer idea of POC going forward. Advanced directive, confirm from FAMILY Start: 01/07/20 21:06 Freq: Q24H Status: Complete Protocol: Document 01/07/20 20:31 GMP (Rec: 01/07/20 22:21 GMP [id number]) Co-Signed By Kelly Durbin RN 01/07/20 20:31 Advance Directive, confirm on record Time 20:31 Person contacted pt Copy received No Advanced directive available on record No CM Discharge Assessment Start: 01/08/20 15:09 Freq: Status: Active Protocol: Document 01/08/20 15:09 ITV (Rec: 01/08/20 15:15 ITV [id number]) Discharge Planning Assessment Advance Directives? Yes History Provided By Patient,Family Member,Medical Record Prior Living Arrangements House Household Members spouse Is patient alert and oriented? Yes DME Already Rented / Owned FWW / Walker,Oxygen,Other Comment has 2 4wws, one for in house, one for outside has a fww which he keeps upstairs so that when he gets out of bed he can use this. is on BIPAP at night with oxygen: vendor: [employer] Updated in Patient Room with Yes name and ext. # of Shredder Tender Review Status In Process
--- NOTE | 2020-01-08 18:08 | PM.HP.1 ---
History of Present Illness History of Present Illness Date Patient Seen: 01/08/20 Time Patient Seen: 08:01 Chief complaint: irregular heart rate and short of breath Narrative: Patient is 74-year-old male presenting to the emergency room with complaint of feeling weak lightheaded when getting up around to walk and irregular heart rate with shortness of breath. Has a history of atrial fibrillation intermittently the past on calcium channel ngoc and baby aspirin. He had not noticed any bleeding bright red blood vomiting up anything anything black or melanotic below. Has felt increasingly fatigued over the past several days denies chest pain or pressure able to lay flat in bed without getting short of breath had noted that his weight was up about 10 lb from his last visit. Has probably sleep apnea could uses BiPAP at home with oxygen. History of atrial fibrillation as mentioned been cardioverted 4 times. Echo week and half ago. No stents are heart catheterizations or MIs. Takes a baby aspirin a day and meds for lipid and blood pressure control as well as levothyroxine antidepressant and peptic acid medicine. Patient History Comment: Patient has had two back surgeries for cardioversion ends knee surgery carpal tunnel surgery and cataract surgery. Patient has 30+ year smoking history chews tobacco some attend now and has 4-5 alcoholic drinks in the evening Social history is lives at home with spouse and supportive family in the area with good social support system. Family & Social History Social History: household members spouse Prior Living Arrangements House Safety & Behavioral: Feels Safe in Current Yes Environment Been Physically Hurt or No Threatened By a Person Suicidal Ideation Description None Suicide Plan Description No Plan Tobacco & Substance use: Tobacco type smokeless tobacco Smoking Status Current every day smoker alcohol intake current alcohol intake frequency 3 or more drinks per day Substance Use Type does not use Meds Home Medications and Allergies Home Medications Medication Instructions Recorded Confirmed Type allopurinol 300 mg PO BEDTIME #0 12/09/11 01/07/20 History cholecalciferol (vitamin D3) 2,000 unit PO DAILY #0 12/09/11 01/07/20 History [Vitamin D3] Prilosec OTC 20 mg PO DAILY #0 12/31/11 01/07/20 History psyllium husk [Metamucil] 0.52 gm PO DAILY #0 12/31/11 01/07/20 History telmisartan [Micardis] 80 mg PO QPM #0 05/01/17 01/07/20 History magnesium oxide 400 mg PO QPM #0 05/15/17 01/07/20 History aspirin 81 mg PO QPM 01/07/20 01/07/20 History atorvastatin 40 mg PO QPM 01/07/20 01/07/20 History diltiazem HCl [Cartia XT] 120 mg PO QPM 01/07/20 01/07/20 History furosemide 40 mg PO QAM 01/07/20 01/07/20 History levothyroxine 100 mcg PO DAILY 01/07/20 01/07/20 History magnesium oxide 800 mg PO QAM 01/07/20 01/07/20 History mirtazapine 30 mg PO QPM 01/07/20 01/07/20 History sertraline 100 mg PO DAILY 01/07/20 01/07/20 History testosterone cypionate 200 mg IM Q2W 01/07/20 01/07/20 History Allergies Allergy/AdvReac Type Severity Reaction Status Date / Time epinephrine [EPINEPHRINE] AdvReac Mild EXACERBATES Verified 01/07/20 16:15 TREMORS gabapentin [GABAPENTIN] AdvReac Mild GLOOM AND Verified 01/07/20 16:15 DOOM Exam Vital Signs (past 8 hours): - 01/08/20 10:11 01/08/20 13:00 01/08/20 13:15 Temperature 98.1 F 98 F 98.6 F Pulse Rate 81 76 92 H Respiratory Rate 17 16 16 Blood Pressure 137/76 135/72 125/73 Pulse Oximetry 98 01/08/20 15:18 01/08/20 16:24 01/08/20 16:47 Temperature 98.6 F 98.4 F 98.5 F Pulse Rate 83 82 81 Respiratory Rate 19 18 19 Blood Pressure 157/67 H 123/65 140/81 Pulse Oximetry 97 Oxygen Delivery Method Nasal Cannula Oxygen Flow Rate 0 Narrative Exam Narrative: Elderly gentleman lying in bed fatigued in appearance Speech is clear clear and cognitive function intact PERRLA EOMs intact Neck supple without mass although obese Cardiovascular exam shows an irregular rate and rhythm without murmurs most consistent with atrial fibrillation which is was reported from [place] Respiratory breath sounds are equal bilaterally without raises wheezes or rales. Abdomen shows obese abdomen but nontender no guarding or rebound bowel sounds present no mass noted guaiac what showed brown stool but positive guaiac no bright red no bright red blood shows no CVA tenderness Extremities show normal range of motion without clubbing there is 1+ edema Neuro exam shows cranial nerves intact sensory and motor are intact and symmetrical speech clear Skin warm dry without rashes again lesions or breakdowns Objective Labs Result Diagrams: 01/08/20 14:25 01/08/20 05:10 Labs: Laboratory Results - last 24 hr 01/07/20 01/08/20 01/08/20 17:39 05:10 05:10 WBC 4.2 L RBC 2.90 L Hgb 5.2 L* Hct 17.8 L* MCV 61.3 L MCH 17.8 L MCHC 29.1 L RDW 23.2 H Plt Count 156 Neut % (Auto) 58.1 Lymph % (Auto) 25.2 [place] % (Auto) 11.7 Eos % (Auto) 2.3 Baso % (Auto) 2.7 H Neut # (Auto) 2400 Lymph # (Auto) 1100 [place] # (Auto) 500 Eos # (Auto) 100 Baso # (Auto) 100 RBC Morphology See below Hypochromasia 3+ H Anisocytosis 3+ H Microcytosis 3+ H Tear Drop Cells 1+ H Ovalocytes 1+ H PT 14.7 H INR 1.3 Sodium Potassium Chloride Carbon Dioxide BUN Creatinine Estimated GFR BUN/Creatinine Ratio Glucose Calcium Total Bilirubin AST ALT Alkaline Phosphatase Total Protein Albumin Globulin Albumin/Globulin Ratio Blood Type A Positive Antibody Screen Negative Crossmatch See Detail 01/08/20 01/08/20 05:10 14:25 WBC RBC Hgb 6.9 L* Hct 22.3 L MCV MCH MCHC RDW Plt Count Neut % (Auto) Lymph % (Auto) [place] % (Auto) Eos % (Auto) Baso % (Auto) Neut # (Auto) Lymph # (Auto) [place] # (Auto) Eos # (Auto) Baso # (Auto) RBC Morphology Hypochromasia Anisocytosis Microcytosis Tear Drop Cells Ovalocytes PT INR Sodium 140 Potassium 4.2 Chloride 101 Carbon Dioxide 29 BUN 21 H Creatinine 1.30 H Estimated GFR 53.8 L BUN/Creatinine Ratio 16.2 Glucose 109 Calcium 9.1 Total Bilirubin 0.6 AST 30 ALT 22 Alkaline Phosphatase 74 Total Protein 7.0 Albumin 3.9 Globulin 3.1 Albumin/Globulin Ratio 1.3 Blood Type Antibody Screen Crossmatch Assessment & Plan Assessment & Plan narrative: Assessment 1. Severe anemia with guaiac-positive stool. Hemoglobin is 4 and in the emergency room. This is I think the cause of his symptoms of weakness lightheadedness dizziness and shortness of breath. No prior history of GI bleed patient was unaware of bleeding denies any significant abdominal pain and that would help determine a focus. Patient count alone of that transfusion initiated in the emergency room will continue until we get a safe hematocrit. Anticipate that he will have upper and lower endoscopy. Assessment 2. Atrial fibrillation this is been intermittent however patient has been cardioverted out of atrial fibrillation 4 times prior. At this point blood pressure is improving as his H&H improved with transfusion. And a IA he think he is asymptomatic with respect to his AFib I think his symptoms were due to his anemia. If he becomes symptomatic secondary to fib or has changes will get cardiology consult. Troponin and cardiac enzymes were negative in the ER. Assessment 3. Hypertension. Patient has a history of using diltiazem which probably helps with a rate control as well. Will continue that at this point since he has good rate control on this regimen at this point. Assessment 4. Crack chronic edema possible fluid overload. I do not think patient is in overt congestive heart failure but we will continue to give extra Lasix in between units of packed red cells. Continue to monitor labs and renal function. Assessment 5. Hypothyroidism patient feels euthyroid lab is not been checked yet at this point will stay on same dose. Assessment 6. Depression patient is on sertraline 100 mg and feels stable on that point. Will continue with that medication during this admission Assessment 7. Peptic acid reflux disease. Patient not having severe peptic pain but some reflux symptoms and will continue on proton pump inhibitor at this point gout given his GI bleed. Assessment 8 gout patient has been on allopurinol. Takes that at night. No evidence of gout at this time. Time Spent With Patient Time with patient: Greater than 35 minutes Quality VTE Deep Vein Thrombosis/Pulmonary Embolism Present on Admission: No
[2020-01-08] MEDS: ATORVASTATIN 20 MG TABLET 40 MG PO (18:21)
[2020-01-08] MEDS: MAGNESIUM OXIDE 400 MG TABLET PO (18:22)
[2020-01-08] MEDS: TELMISARTAN 40 MG TABLET 80 MG PO (21:43)
--- NOTE | 2020-01-09 00:39 | PC.NURSE ---
Addendum entered by Juliet Pete R.N. 01/09/20 06:06: Noted an additional 3.5kg weight loss this morning but did have 2 doses of IV Lasix yesterday. Addendum entered by Juliet Pete R.N. 01/09/20 05:54: States he was able to sleep well tonight. No stools. Voiding well. Denies pain. Original Note: 2312 PRBC infused without adverse reaction. 2340 Patient is alert and oriented. Breath sounds CTA with RA sat 97%. HR irregular; has history of afib. Telemetry reading was afib CVR with rate of 66. Denies nausea. BT present and is passing flatus. Has urinary urgency/frequency after receiving Lasix but denies at this time; also denies dysuria. Is voiding per urinal while sitting at bedside. Is able to turn self in bed. Noted trace bilateral LE edema. Denies pain. Fall risk score is high and bed alarm is activated.
[2020-01-09 00:46] LABS: Hematocrit 26.3 % (41-53); Hemoglobin 8.1 g/dL (13.5-17.5)
[2020-01-09 05:28] VITALS: BP 141/62; PULSE 71; RESP 18; TEMP 36.5; O2SAT 100
[2020-01-09] MEDS: LEVOTHYROXINE 100 MCG TABLET PO (05:45)
[2020-01-09 06:08] LABS: Add Manual Diff / Slide Review NO; Basophils Absolute Auto 100 /uL (0-100); Basophils Percent Auto 2.4 % (0-2); Eosinophils Absolute Auto 200 /uL (0-450); Eosinophils Percent Auto 4.5 % (2-4); Hematocrit 26.8 % (41-53); Hemoglobin 8.3 g/dL (13.5-17.5); Lymphocytes Absolute Auto 1200 /uL (1100-4500); Lymphocytes Percent Auto 24.6 % (25-40); Mean Corpuscular HGB Conc 31.1 % (30-36); Mean Corpuscular Volume 67.7 fL (80-100); Monocytes Absolute Auto 600 /uL (0-900); Monocytes Percent Auto 12.3 % (3-14); Neutrophils Absolute Auto 2700 /uL (1500-7000); Neutrophils Percent Auto 56.2 % (50-75); Platelet Count 156 X10^3/uL (150-400); Red Blood Cell Count 3.96 X10^6/uL (4.5-5.9); Red Cell Distribution Width 29.3 % (11.6-14.8); White Blood Cell Count 4.8 X10^3/uL (4.5-11.0)
[2020-01-09 06:17] LABS: Alanine Aminotransferase 35 IU/L (<50); Albumin 4.1 g/dL (3.5-5.0); Albumin Globulin Ratio 1.2 (1.0-2.8); Alkaline Phosphatase 82 U/L (38-126); Aspartate Aminotransferase 51 IU/L (17-59); BUN Creatinine Ratio 12.9 (6-22); Bilirubin Total 0.8 mg/dL (0.2-1.3); Blood Urea Nitrogen 18 mg/dL (9-20); Calcium 9.4 mg/dL (8.4-10.2); Carbon Dioxide 31 mmol/L (22-32); Chloride 100 mmol/L (98-107); Estimated Glomerular Filt Rate 49.4 mL/min (>60); Globulin 3.5 g/dL (1.7-4.1); Glucose 109 mg/dL (80-110); HEMOLYSIS < 15 (0-50); Potassium 3.7 mmol/L (3.4-5.1); Sodium 141 mmol/L (137-145); Total Protein 7.6 g/dL (6.3-8.2)
[2020-01-09 06:40] LABS: Hypochromasia 3+
[2020-01-09 06:41] LABS: Anisocytosis 2+
[2020-01-09 06:42] LABS: Microcytosis 3+; Ovalocytes 1+
[2020-01-09 06:43] LABS: Poikilocytosis 2+
[2020-01-09 08:30] VITALS: BP 130/73; PULSE 69; RESP 16; TEMP 36.8; O2SAT 100
--- NOTE | 2020-01-09 08:31 | PC.NURSE ---
Addendum entered by Evans Pratt R.N. 01/09/20 13:40: spoke with Dr. Clinton regarding 's concern about facial droop she noted on Pt. No new orders. Pt follows direction well. facial expression equal when asked to smile. Moves tongue equally left to right up and down. Moves jaw symetrically. assesment reported to Dr. Clinton. will continue to monitor and notify of any changes. Pt presently sitting in chair, chair alarm on. Continues on golytely prep. Original Note: Pt easily arousable, offers no overt c/o. On [place] O2 at 2 ltrs. discussed plan of care. See Nursing assessment. Tele intact. and Daughter at Bedside. Passed on info and told family that Dr. Fuller would see them this afternoon.
[2020-01-09] MEDS: PANTOPRAZOLE 40 MG VIAL IV ×2 (09:36→21:13)
[2020-01-09] MEDS: SODIUM CHLORIDE 0.9% FLUSH 10 ML IV ×2 (09:37→21:14)
[2020-01-09] MEDS: SERTRALINE 50 MG TABLET 100 MG PO (09:37)
[2020-01-09 12:07] VITALS: BP 137/90; PULSE 77; RESP 19; TEMP 36.8; O2SAT 97
--- NOTE | 2020-01-09 12:15 | PM.PN.1 ---
Subjective Subjective Date Patient Seen: 01/09/20 Time Patient Seen: 12:15 Interval history: Met with patient in review chart. Patient had uneventful night. Patient denies any shortness of breath or chest pain. He has not had any bowel movements over the last 12 hours. He has had no further evidence of blood per rectum. He denies any abdominal pain is not had any abdominal pain. He did have a episode of reflux after he took his Zoloft this morning but he did not sit up right and he is on a clear liquid diet. He is hungry. The plan is for colonoscopy and EGD tomorrow morning. Review of systems is negative other than above Exam Vital Signs (past 8 hours): - 01/09/20 05:28 01/09/20 08:30 01/09/20 12:07 Temperature 97.7 F 98.3 F 98.2 F Pulse Rate 71 69 77 Respiratory Rate 18 16 19 Blood Pressure 141/62 H 130/73 137/90 Pulse Oximetry 100 100 97 Oxygen Delivery Method Nasal Cannula Oxygen Flow Rate 0 Narrative Exam Narrative: Afebrile vital signs are stable. Blood pressure stable and no evidence of time cardia with normal O2 sats on room air Patient is alert and oriented in no apparent distress lying in hospital bed. HEENT: Unremarkable Neck: Supple without adenopathy or thyromegaly Chest: Clear to auscultation without wheezes rhonchi or crackles Cor: Irregularly irregular rhythm at a well-controlled rate Abdomen: Obese, positive bowel sounds, soft, nontender, nondistended, no hepatosplenomegaly Extremities: No edema, pulses intact Neurologic exam nonfocal Skin no rashes Objective Labs Result Diagrams: 01/09/20 05:45 01/09/20 05:45 Labs: Laboratory Results - last 24 hr 01/07/20 01/08/20 01/09/20 17:39 14:25 00:31 WBC RBC Hgb 6.9 L* 8.1 L Hct 22.3 L 26.3 L MCV MCH MCHC RDW Plt Count Neut % (Auto) Lymph % (Auto) [place] % (Auto) Eos % (Auto) Baso % (Auto) Neut # (Auto) Lymph # (Auto) [place] # (Auto) Eos # (Auto) Baso # (Auto) RBC Morphology Hypochromasia Poikilocytosis Anisocytosis Microcytosis Ovalocytes Sodium Potassium Chloride Carbon Dioxide BUN Creatinine Estimated GFR BUN/Creatinine Ratio Glucose Calcium Total Bilirubin AST ALT Alkaline Phosphatase Total Protein Albumin Globulin Albumin/Globulin Ratio Blood Type A Positive Antibody Screen Negative Crossmatch See Detail 01/09/20 01/09/20 05:45 05:45 WBC 4.8 RBC 3.96 L Hgb 8.3 L Hct 26.8 L MCV 67.7 L D MCH 21.0 L MCHC 31.1 RDW 29.3 H Plt Count 156 Neut % (Auto) 56.2 Lymph % (Auto) 24.6 L [place] % (Auto) 12.3 Eos % (Auto) 4.5 H Baso % (Auto) 2.4 H Neut # (Auto) 2700 Lymph # (Auto) 1200 [place] # (Auto) 600 Eos # (Auto) 200 Baso # (Auto) 100 RBC Morphology See below Hypochromasia 3+ H Poikilocytosis 2+ H Anisocytosis 2+ H Microcytosis 3+ H Ovalocytes 1+ H Sodium 141 Potassium 3.7 Chloride 100 Carbon Dioxide 31 BUN 18 Creatinine 1.40 H Estimated GFR 49.4 L BUN/Creatinine Ratio 12.9 Glucose 109 Calcium 9.4 Total Bilirubin 0.8 AST 51 ALT 35 Alkaline Phosphatase 82 Total Protein 7.6 Albumin 4.1 Globulin 3.5 Albumin/Globulin Ratio 1.2 Blood Type Antibody Screen Crossmatch Assessment & Plan Assessment & Plan narrative: 74-year-old male admitted for severe anemia secondary to presumed GI bleed Assessment 1. Anemia secondary to acute blood loss source gastrointestinal system. Patient is hemodynamically stable. He has had no further evidence of acute bleed. Plan: Proceed with C scope an EGD tomorrow He has had adequate response to 6 units of packed red blood cells and H&H is stable. We will continue to monitor closely Will continue on clear liquid diet and then he will be NPO after midnight. He will take the prep for the colonoscopy. Will continue on IV proton pump inhibitor Assessment 2. Paroxysmal atrial fibrillation currently in atrial fibrillation with a well-controlled rate Plan: Continue on diltiazem Patient has not been anticoagulated in Um unclear as to why but certainly anticoagulation is contraindicated at this time. He will continue with the diltiazem. We will continue to monitor. Assessment 3. Hypertension currently well controlled Plan: Continue on diltiazem and angiotensin receptor ngoc telmisartan. Continue to monitor. Assessment 4. Hypothyroidism Plan: Continue on outpatient medication Assessment 5. Depression no acute issues Plan: Continue on outpatient Zoloft Appreciate surgical consult Quality VTE Deep Vein Thrombosis/Pulmonary Embolism Present on Admission: No
[2020-01-09] MEDS: PEG3350/SOD SULF,BICARB,CL/KCL 4,000 ML SOLUTION 4000 ML PO ×2 (13:40→18:45)
--- NOTE | 2020-01-09 14:56 | PC.NURSE ---
Pt has had two watery stools since starting bowel prep, brown in color. Pt is sitting up in chair. R.lower lip slightly droopy. Evans actually called Dr. Clinton about this and she is aware. Patient is A&Ox3, memory good, and when he smiles, it is symmetrical. He is resting comfortably in his chair.
[2020-01-09 15:33] VITALS: BP 127/65; PULSE 79; RESP 19; TEMP 36.4; O2SAT 98
[2020-01-09] MEDS: dilTIAZem CD 120 MG CAP PO (16:55)
[2020-01-09] MEDS: MAGNESIUM OXIDE 400 MG TABLET PO (16:55)
[2020-01-09] MEDS: ATORVASTATIN 20 MG TABLET 40 MG PO (16:55)
[2020-01-09 17:50] LABS: Hematocrit 28.3 % (41-53); Hemoglobin 8.6 g/dL (13.5-17.5)
--- NOTE | 2020-01-09 19:00 | P.PN_ITS ---
Subjective Subjective Date Patient Seen: 01/09/20 Time Patient Seen: 19:00 Interval history: No acute events overnight. Pt denies pain. Is taking bowel prep, but still passing brown stool and clumps of stool. Exam Vital Signs (past 8 hours): - 01/09/20 12:07 01/09/20 15:33 Temperature 98.2 F 97.5 F L Pulse Rate 77 79 Respiratory Rate 19 19 Blood Pressure 137/90 127/65 Pulse Oximetry 97 98 Oxygen Delivery Method Nasal Cannula Oxygen Flow Rate 0 Narrative Exam Narrative: Gen: alert, comfortable, appears stated age; HEENT: Unremarkable; MMM, no icterus; no sleral injection Neck: Supple without adenopathy or thyromegaly Chest: non-tachypneic, breathing comfortably on room air Cor: Irregularly irregular rhythm; normal rate Abdomen: Obese, positive bowel sounds, soft, nontender, nondistended, no hepatosplenomegaly Extremities: No edema, pulses intact Neurologic exam nonfocal Skin: no rashes, no petechiae Objective Labs Result Diagrams: 01/09/20 17:30 01/09/20 05:45 Labs: Laboratory Results - last 24 hr 01/07/20 01/09/20 01/09/20 17:39 00:31 05:45 WBC 4.8 RBC 3.96 L Hgb 8.1 L 8.3 L Hct 26.3 L 26.8 L MCV 67.7 L D MCH 21.0 L MCHC 31.1 RDW 29.3 H Plt Count 156 Neut % (Auto) 56.2 Lymph % (Auto) 24.6 L [place] % (Auto) 12.3 Eos % (Auto) 4.5 H Baso % (Auto) 2.4 H Neut # (Auto) 2700 Lymph # (Auto) 1200 [place] # (Auto) 600 Eos # (Auto) 200 Baso # (Auto) 100 RBC Morphology See below Hypochromasia 3+ H Poikilocytosis 2+ H Anisocytosis 2+ H Microcytosis 3+ H Ovalocytes 1+ H Sodium Potassium Chloride Carbon Dioxide BUN Creatinine Estimated GFR BUN/Creatinine Ratio Glucose Calcium Total Bilirubin AST ALT Alkaline Phosphatase Total Protein Albumin Globulin Albumin/Globulin Ratio Blood Type A Positive Antibody Screen Negative Crossmatch See Detail 01/09/20 01/09/20 05:45 17:30 WBC RBC Hgb 8.6 L Hct 28.3 L MCV MCH MCHC RDW Plt Count Neut % (Auto) Lymph % (Auto) [place] % (Auto) Eos % (Auto) Baso % (Auto) Neut # (Auto) Lymph # (Auto) [place] # (Auto) Eos # (Auto) Baso # (Auto) RBC Morphology Hypochromasia Poikilocytosis Anisocytosis Microcytosis Ovalocytes Sodium 141 Potassium 3.7 Chloride 100 Carbon Dioxide 31 BUN 18 Creatinine 1.40 H Estimated GFR 49.4 L BUN/Creatinine Ratio 12.9 Glucose 109 Calcium 9.4 Total Bilirubin 0.8 AST 51 ALT 35 Alkaline Phosphatase 82 Total Protein 7.6 Albumin 4.1 Globulin 3.5 Albumin/Globulin Ratio 1.2 Blood Type Antibody Screen Crossmatch Assessment & Plan Assessment and plan (1) History of cardioversion: Current visit: Yes Status: Acute (2) Morbid obesity with BMI of 40.0-44.9, adult: Current visit: Yes Status: Acute (3) Gout: Current visit: Yes Status: Acute (4) GERD (gastroesophageal reflux disease): Current visit: Yes Status: Acute (5) BARBER (obstructive sleep apnea): Current visit: Yes Status: Acute (6) Atrial fibrillation: Current visit: Yes Status: Acute (7) Symptomatic anemia: Current visit: Yes Status: Acute Assessment & Plan narrative: This is a 74-year-old man with significant anemia with a hemoglobin of 4 on admission. He has gradually been transfused up to >8Hgb. I've been consulted to evaluate him for a GI source of his bleeding. He has been taking clears today, and has started the bowel prep. Per the nurse, he still has some dark stool and solid pieces in the output. He will drink more prep, as tolerated. Plan: Recheck CBC prior to scopes for Hgb >8 NPO at midnight tonight EGD and colonoscopy on Saturday Time Spent With Patient Time with patient: 15-24 minutes Quality VTE Deep Vein Thrombosis/Pulmonary Embolism Present on Admission: No
[2020-01-09 19:19] VITALS: BP 125/60; PULSE 81; RESP 19; TEMP 36.5; O2SAT 99
[2020-01-09] MEDS: MIRTAZAPINE 15 MG TABLET 30 MG PO (21:13)
[2020-01-09] MEDS: TELMISARTAN 40 MG TABLET 80 MG PO (21:13)
[2020-01-09 23:30] VITALS: BP 138/83; PULSE 84; RESP 20; TEMP 36.4; O2SAT 100
[2020-01-10] VITALS (14 sets, daily range): BP systolic 101–166; BP diastolic 35–85; PULSE 69–95; RESP 11–18; TEMP 36.6–37.1; O2SAT 86–99
--- NOTE | 2020-01-10 | PATH_ITS ---
[facility] Accession Number: [id number] . 01 Material submitted: . PART A: duodenum - DUODENUM PART B: gastrointestinal site - GASTRIC ANTRUM PART C: gastrointestinal site - ULCER ON THE GREATER CURVE PART D: esophagus - DISTAL ESOPHAGUS PART E: foreign object - CECAL FOREIGN BODY PART F: colon - CECAL POLYP PART G: colon - COLON POLYP 120 CM . 01 Clinical history: . IRREGULAR HEART RATE AND SHORT OF BREATH . 02 Diagnosis: A. Duodenum, Biopsy: Duodenal mucosa with no diagnostic abnormality. Negative for active inflammation, features of sprue, dysplasia, or malignancy. . B. Gastric Antrum, Biopsy: Gastric antral and body-type mucosa with mild chronic gastritis. Negative for H. pylori organisms by IHC. Negative for intestinal metaplasia. Negative for dysplasia or malignancy. . C. Ulcer on Greater Curvature: Gastric body-type mucosa with a small focus of mucosal erosion and mild chronic gastritis. Negative for H. pylori organisms by IHC. Negative for intestinal metaplasia. Negative for dysplasia or malignancy. . D. Distal Esophagus: Active esophagitis. Negative for fungal organisms by PAS stain. Intraepithelial eosinophils are not increased. Negative for dysplasia or malignancy. . E. Cecal Foreign Body: Gold-colored metal dental crown identified by gross examination. . F. Cecal Polyp: Multiple (approximately eight) portions of tubular adenoma. . G. Colon Polyp at 120 cm: Tubular adenoma. . [facility] 01/15/2020 1245 Local . 02 Electronically signed: . Elva Morales MD, Pathologist NPI- [id number] . 01 Gross description: . (A) Received in formalin, labeled duodenum, are multiple fragments of lozano-white tissue (0.8 x 0.2 x 0.1 cm in aggregate). Entirely submitted in cassette A1. (B) Received in formalin, labeled gastric antrum, are multiple fragments of lozano-white tissue (0.4 x 0.1 by less than 0.1 cm in aggregate). Entirely submitted in cassette B1. (C) Received in formalin, labeled gastric ulcer, the greater curve, is a fragment of hardin tissue (0.2 x 0.1 x 0.1 cm). Entirely submitted in cassette C1. (D) Received in formalin, labeled distal esophagus, are multiple fragments of lozano-white tissue (0.8 x 0.2 by less than 0.1 cm in aggregate). Filtered and entirely submitted in cassette D1. (E) Received in formalin, labeled cecal foreign body, is a gold-colored metal dental crown (1.4 x 1.0 x 0.6 cm). No tissue is identified. The specimen is for gross identification only; therefore, no sections are submitted. (F) Received in formalin, labeled colon cecal polyp, are multiple pieces of hardin rubbery tissue (1.5 x 0.8 x 0.5 cm in aggregate). Entirely submitted in cassette F1. (G) Received in formalin, labeled colon polyp, 120 cm, is a fragment of hardin tissue (0.2 x 0.2 x 0.2 cm). Entirely submitted in cassette G1. ([id number]) /MRV 01/12/2020 [facility] Local . 02 Microscopic: . An immunohistochemical stain was performed on blocks B1 and C1 to evaluate for Helicobacter organisms and is negative for blocks B1 and C1. The control stain showed appropriate reactivity. . D. A PAS stain is performed and is negative for fungal organisms. The control stain shows appropriate reactivity. . * This test was developed and its performance characteristics determined by [employer]. It has not been cleared or approved by the U.S. Food and Drug Administration. The FDA has determined that such clearance or approval is not necessary. This test is used for clinical purposes. It should not be regarded as investigational or for research. . 02 Pathologist provided ICD-10: K63.5 . 02 CPT . 851507, 869032, 823688, 357016, 106462, 654950, E39416, 613046 Performed at: 01 [facility] [address] [place] [address] [address], [place], [place] [id number] MD Joey Beckham MD Phone: [phone] Performed at: 02 [facility] [address] [place] [id number] MD Dorene Romero MD Phone: [phone]
--- NOTE | 2020-01-10 02:20 | PC.NURSE ---
2320 Patient assessed. Is alert and oriented. Breath sounds CTA; oxygen applied at 2L/min per NC for sleep as has sleep apnea and home bipap has not been brought in. O2 sat on 2L is 100%. HR irregular and telemetry reading is afib CVR with BBB. Denies nausea. Reports loose stools related to Go-Lytely prep. Voiding per urinal with no dysuria, frequency or urgency. Is able to move self in bed. Out of bed with SBA and walker. Chronic bilateral foot neuropathy. Denies pain. Fall risk score is high and bed alarm is activated. NPO after 0000 for EGD/colonoscopy in the morning.
[2020-01-10 05:25] LABS: Add Manual Diff / Slide Review NO; Basophils Absolute Auto 100 /uL (0-100); Basophils Percent Auto 1.5 % (0-2); Eosinophils Absolute Auto 200 /uL (0-450); Eosinophils Percent Auto 3.3 % (2-4); Hematocrit 25.6 % (41-53); Hemoglobin 7.9 g/dL (13.5-17.5); Lymphocytes Absolute Auto 1200 /uL (1100-4500); Lymphocytes Percent Auto 21.7 % (25-40); Mean Corpuscular HGB Conc 30.9 % (30-36); Mean Corpuscular Volume 67.9 fL (80-100); Monocytes Absolute Auto 700 /uL (0-900); Monocytes Percent Auto 12.3 % (3-14); Neutrophils Absolute Auto 3300 /uL (1500-7000); Neutrophils Percent Auto 61.2 % (50-75); Platelet Count 142 X10^3/uL (150-400); Red Blood Cell Count 3.77 X10^6/uL (4.5-5.9); Red Cell Distribution Width 30.1 % (11.6-14.8); White Blood Cell Count 5.4 X10^3/uL (4.5-11.0)
[2020-01-10 05:39] LABS: Anisocytosis 3+; Hypochromasia 2+; Microcytosis 3+
[2020-01-10 05:40] LABS: Poikilocytosis 2+; Tear Drop Cells 1+
[2020-01-10 05:41] LABS: Ovalocytes 1+; Polychromasia 1+
--- NOTE | 2020-01-10 09:02 | PM.PREOP ---
Pre-operative Note Interval Note History & Physical reviewed/Exam performed by Physician: Yes Changes to H&P: Yes H&P completed within 30 days and has changed as indicated here:: The patient has been transfused up to 7.9. He is hemodynamically stable and mentating well. He has completed his bowel prep and is passing clear yellowish fluid from below. We have discussed the risks and benefits of upper and lower endoscopy, and procedures for biopsy or hemostasis. Risks of bleeding, perforation, risk of anesthesia, need for additional procedures, need to transfer to tertiary care, need for prolonged hospitalization, need for additional transfusions were discussed with the patient who desires to proceed.
[2020-01-10] MEDS: LACTATED RINGERS 1,000 ML 42 ML IV ×2 (09:37→11:02)
--- NOTE | 2020-01-10 09:43 | SUR.HOLD ---
Received brief verbal update from Evans,primary nurse, regarding patient's need for CIWA protocol and hx of ETOH. Primary nurse also reports that patient has right sided facial droop, present on Saturday01/09/2020, that admitting physician is aware of. On arrival to PACU, patient is GCS 15, no facial droop noted by this nurse when smiling. 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 Notified Anesthesiology and Endo RN of conversation with primary nurse.
--- NOTE | 2020-01-10 10:18 | PC.NURSE ---
Addendum entered by Evans Pratt R.N. 01/10/20 14:55: 's Alina and Clinton in to speak with Pt and his . See new orders. Pt restful, slightly nauseous when up moving. Will start cliq this afternoon. Addendum entered by Evans Pratt R.N. 01/10/20 12:54: Pt arrived back to floor at 12:05. Pt states he is a bit groggy. Pt foolows commands offers no overt c/o. VSS, 97% RA. attentive at bedside. Addendum entered by Evans Pratt R.N. 01/10/20 10:19: Pt continues off the floor at this time. Original Note: Pt a&o offers no overt c/o. Aware of pending scope. at bedside. Pt to OR at 09:20
--- NOTE | 2020-01-10 11:12 | PM.OP.1 ---
Operative Date/Time/Diagnoses Date of procedure: 01/10/20 Time of procedure: 11:12 Pre-op diagnosis: GI bleed, morbid obesity, high risk endoscopy procedure Post-op diagnosis: other (1) EGD: low grade duodenitis, gastritis, and esophagitis; healing ulcer on greater curve of stomach with no visible vessel or active bleeding 2) Colonoscopy: foreign body in cecum (dental filling); Large bleeding polyp in ascending colon at verge of cecum; small polyp at 120 cm) Procedure & Clinicians Procedure: 1) EGD with biopsy of duodenum, gastric antrum, healed gastric ulcer in greater curve, mucosa GE junction, and sloughing epithelium of distal esophagus with cold forceps 2) Colonoscopy with removal foriegn body (dental crown), piecemeal removal of large oozing polyp in ascending colon at cecal verge completely removed piecemeal with hot snare; hemostasis with hot snare; small polyp at 120cm removed with cold forceps; multiple non-bleeding telangiectasias throughout the colon Same procedure as scheduled: Yes Indications: GI bleed with hgb 4 on admission Surgeon: Allyn Fuller Click Yes if Unassisted: Yes Anesthesia Type: General Operative Notes Findings: 1) non bleeding inflammation of duodenum, gastric antrum, distal esophagus, healed gastric ulcer on greater curve; epithelial sloughing of distal esophagus 2) cecal foriegn body (dental crown), large oozing polyp in ascending colon at cecal verge; small polyp at 120cm; multiple non-bleeding telangiectasias throughout the colon Specimen(s): other (biopsies of duodenum, gastric antrum, ulcer in gastric body, distal esophagus; foriegn body (dental crown) from colon; ascending colon large polyp, 120cm small polyp) Estimated Blood Loss (mL): 2 Blood products transfused: none Procedure in detail: The patient was brought to the room and placed in supine position. Lower extremity sequential compression devices were placed on both legs and turned on. General anesthesia was induced patient was intubated by the anesthesiologist. He was then placed in left lateral decubitus position with all bony prominences padded. A surgical time-out was performed. A bite block was placed to protect the lips, teeth, and tongue. The gastroscope was then passed through the bite block and into the esophagus without incident. A tubular view of the esophagus was maintained as the scope was advanced down the esophagus. In the distal 1/3 of the esophagus there was seen epithelial sloughing and evidence of moderate esophagitis without any significant bleeding. The scope was then passed into the stomach, and down to the pylorus. I popped through the pylorus and into the duodenum, and around to the 3rd part of the duodenum. There were some nonbleeding telangiectasias, and some low-grade inflammation of the mucosa. Biopsies were taken for the duodenum, 2nd and 3rd part, and duodenal bulb. I then pulled the scope back into the stomach and biopsy the antrum where saw some low-grade endoscopic gastritis. There was healing ulcer along the greater curve of the stomach, with no exposed vessel in no active bleeding. I took biopsies from the edge of this. I retroflexed and looked up into the cardia, and there was no significant hiatal hernia. No other findings within the stomach were seen to explain the bleeding. I then pulled back into the esophagus and biopsied the distal esophagus where he had some evidence of esophagitis and epithelial sloughing. I then pulled back through the esophagus and found no other pathology. The endoscope was then removed and attention was turned to the colonoscopy. A rectal exam was then performed revealing [no significant abnormalities]. The colonoscope was then introduced to the rectum and advanced to the cecum in the usual fashion. []The cecum was identified by the appendiceal orifice, the mucosal tri-fold, and the ileocecal valve. In the cecum there was foreign body, which looks like a crown from dental work. Was sitting right knee appendiceal orifice. Did not seem to be a source of injury or bleeding. This was removed with a Larry net. The scope was then put back in the low back to the cecum, and the scope was then retracted while rotating side to side and examining each mucosal fold. Just outside the cecum, in the ascending colon was a large partially circumferential polyp which was oozing. The polyp was removed piecemeal with hot snare, until it was completely removed. The bleeding surface was cauterized, and good hemostasis was achieved. At 120 cm another polyp was found, which was fairly benign-appearing, and was completely removed with cold forceps. There were a few small nonbleeding telangiectasias throughout the colon, but no significant source of bleeding other than that using polyp in the upper endoscopy findings were seen. At the conclusion of the procedure retroflexion was performed and [small grade 1-2 internal hemorrhoids without stigmata of bleeding were seen]. The scope was then withdrawn from the rectum the procedure was concluded. The patient tolerated the procedure well and was transferred to the PACU in stable condition. Complications: none Post-operative Condition: stable Disposition: PACU Plan for aftercare: Continue high-dose PPI, follow-up hemoglobin levels, repeat colonoscopy in 3 months to re-evaluate ascending colon polypectomy site, other recommendations to follow pending biopsy results. Consider empiric treatment of H pylori. Addendum: This is a high risk, and prolonged procedure on a patient with a high BMI and severe anemia. This necessitated an anesthesiologist in order to place the patient under general anesthesia and manage his sedation throughout the procedure.
--- NOTE | 2020-01-10 12:12 | SUR.PHASEI ---
Transferred patient to floor, room 207, in stable condition. No distress noted. RR even and unlabored. Report to SHELLIE Valdez.
--- NOTE | 2020-01-10 12:53 | CM.DPC ---
DCP: continued: case discussed in Team Rounds. Pt has been placed today on CIWA protocol as has history of daily alcohol intake. Score: 1 He was taken to surgery this morning at about 0930 and remains in recovery room. Dr. Fuller's op report is reviewed. Endoscopy and colonoscopy completed: findings of large bleeding polyp and dental crown in colon/see her report for details. DCP team will continue to follow as POC unfolds to assist with d/c issues and options.
--- NOTE | 2020-01-10 14:11 | PM.PN.1 ---
Subjective Subjective Date Patient Seen: 01/10/20 Time Patient Seen: 14:11 Interval history: Patient is alert and oriented but somnolent because he had EGD and colonoscopy this morning. He had uneventful night and tolerated the prep without significant difficulty. He denies any further blood or cristy colored stools. He denies any abdominal pain but is having cramping. He denies any chest pain lightheadedness or dizziness. He denies any shortness of breath He does have a CPAP machine that he uses at home. He has not been using it here. Reviewed op note from EGD and colonoscopy. [place] was found that was quite jagged. He had at losing polyp in the colon as well as healed gastric ulcer and inflammation of the esophagus Reviewed with patient his patient previously was on anticoagulation with warfarin for many years and had no further AFib and so was taken off of this several years ago. He had a recent echo and labs and has a follow-up with Dr. Pollack on . Dr. Langley is his regional wildlife agent. Review of systems is negative other than above Exam Vital Signs (past 8 hours): - 01/10/20 09:00 01/10/20 11:20 01/10/20 11:26 Temperature 98.0 F Pulse Rate 78 85 95 H Respiratory Rate 16 12 14 Blood Pressure 149/71 H 119/59 L 106/36 L Pulse Oximetry 95 86 L 89 L 01/10/20 11:30 01/10/20 11:33 01/10/20 11:41 Temperature Pulse Rate 89 88 87 Respiratory Rate 14 12 11 L Blood Pressure 105/35 L 106/36 L 124/51 L Pulse Oximetry 94 91 95 01/10/20 12:05 01/10/20 12:35 01/10/20 13:05 Temperature 98.3 F 98.2 F 97.9 F Pulse Rate 82 78 81 Respiratory Rate 17 16 16 Blood Pressure 135/74 152/80 H 151/85 H Pulse Oximetry 97 97 99 Oxygen Delivery Method Nasal Cannula Oxygen Flow Rate 1 Narrative Exam Narrative: Alert and cooperative in no apparent distress HEENT: Unremarkable Neck: Supple without adenopathy or masses Chest: Clear to auscultation without wheezes rhonchi or crackles Cor: Regular rate and rhythm without murmur but distant S1-S2 Abdomen: Positive bowel sounds, hyperactive, soft, nontender, nondistended, obese Extremities: No edema pulses intact Neurologic exam is nonfocal cranial nerves 2-12 are grossly intact. There is no evidence of facial droop. There is no facial paralysis no other neurologic abnormality noted Objective Labs Result Diagrams: 01/10/20 04:52 01/09/20 05:45 Labs: Laboratory Results - last 24 hr 01/09/20 01/10/20 17:30 04:52 WBC 5.4 RBC 3.77 L Hgb 8.6 L 7.9 L Hct 28.3 L 25.6 L MCV 67.9 L MCH 21.0 L MCHC 30.9 RDW 30.1 H Plt Count 142 L Neut % (Auto) 61.2 Lymph % (Auto) 21.7 L [place] % (Auto) 12.3 Eos % (Auto) 3.3 Baso % (Auto) 1.5 Neut # (Auto) 3300 Lymph # (Auto) 1200 [place] # (Auto) 700 Eos # (Auto) 200 Baso # (Auto) 100 RBC Morphology See below Polychromasia 1+ H Hypochromasia 2+ H Poikilocytosis 2+ H Anisocytosis 3+ H Microcytosis 3+ H Tear Drop Cells 1+ H Ovalocytes 1+ H Assessment & Plan Assessment & Plan narrative: 74-year-old male Assessment 1. Severe anemia secondary to acute GI blood loss. Please see op note from EGD and colonoscopy. Oozing from colonic polyp and crown found in colon. This likely was contributing. No further acute loss. Hemoglobin hematocrit are stable. He is status post 6 units packed red blood cells and last received on 01/08/2020. Plan: Will discuss with surgery but I imagine will do clear liquids and advance as tolerated. Will continue on IV Protonix. Assessment 2. Paroxysmal atrial fibrillation not on anticoagulation obviously anticoagulation contraindicated this time. Plan: Will reassess as outpatient. Will continue diltiazem orally. Assessment 3. Depression stable Plan: Continue on sertraline and Remeron Assessment 4. Hypothyroidism stable Plan: Continue on same thyroid Assessment 5. Hypertension stable plan continue on same telmisartan, Lasix, diltiazem Assessment 6. DVT prophylaxis Plan: Continue with SCDs Assessment 7. Acute renal insufficiency suspect related to GI bleed Plan: Will reassess today Anticipated patient remains stable is able to tolerate p.o. and has no further GI loss or and H&H remained stable will likely be able to be discharged home tomorrow Quality VTE Deep Vein Thrombosis/Pulmonary Embolism Present on Admission: No
[2020-01-10 14:12] LABS: Alanine Aminotransferase 40 IU/L (<50); Albumin 3.8 g/dL (3.5-5.0); Albumin Globulin Ratio 1.2 (1.0-2.8); Alkaline Phosphatase 73 U/L (38-126); Aspartate Aminotransferase 89 IU/L (17-59); BUN Creatinine Ratio 12.5 (6-22); Bilirubin Total 0.7 mg/dL (0.2-1.3); Blood Urea Nitrogen 15 mg/dL (9-20); Calcium 9.3 mg/dL (8.4-10.2); Carbon Dioxide 32 mmol/L (22-32); Chloride 99 mmol/L (98-107); Globulin 3.3 g/dL (1.7-4.1); Glucose 99 mg/dL (80-110); HEMOLYSIS < 15 (0-50); Potassium 3.7 mmol/L (3.4-5.1); Sodium 141 mmol/L (137-145); Total Protein 7.1 g/dL (6.3-8.2)
[2020-01-10] MEDS: ATORVASTATIN 20 MG TABLET 40 MG PO (16:46)
[2020-01-10] MEDS: MAGNESIUM OXIDE 400 MG TABLET PO (16:49)
[2020-01-10] MEDS: dilTIAZem CD 120 MG CAP PO (16:49)
[2020-01-10] MEDS: TELMISARTAN 40 MG TABLET 80 MG PO (20:26)
[2020-01-10] MEDS: MIRTAZAPINE 15 MG TABLET 30 MG PO (20:26)
[2020-01-10] MEDS: PANTOPRAZOLE 40 MG VIAL IV (20:26)
[2020-01-10] MEDS: SODIUM CHLORIDE 0.9% FLUSH 10 ML IV (20:27)
[2020-01-11 03:45] VITALS: BP 126/71; PULSE 78; RESP 18; TEMP 37.1; O2SAT 95
--- NOTE | 2020-01-11 03:48 | PC.NURSE ---
0348 Pt. awake moved him to room 216. Coordinator notified & pt. informed that he is now in room 216.
[2020-01-11] MEDS: LEVOTHYROXINE 100 MCG TABLET PO (06:08)
[2020-01-11 06:41] LABS: Add Manual Diff / Slide Review NO; Basophils Absolute Auto 100 /uL (0-100); Basophils Percent Auto 1.4 % (0-2); Eosinophils Absolute Auto 200 /uL (0-450); Eosinophils Percent Auto 3.4 % (2-4); Hematocrit 25.8 % (41-53); Hemoglobin 7.7 g/dL (13.5-17.5); Lymphocytes Absolute Auto 1000 /uL (1100-4500); Lymphocytes Percent Auto 19.4 % (25-40); Mean Corpuscular Hemoglobin 20.9 PG (26-34); Mean Corpuscular Volume 69.7 fL (80-100); Monocytes Absolute Auto 500 /uL (0-900); Monocytes Percent Auto 9.2 % (3-14); Neutrophils Absolute Auto 3600 /uL (1500-7000); Neutrophils Percent Auto 66.6 % (50-75); Platelet Count 141 X10^3/uL (150-400); Red Cell Distribution Width 30.1 % (11.6-14.8); White Blood Cell Count 5.4 X10^3/uL (4.5-11.0)
[2020-01-11 06:45] LABS: Alanine Aminotransferase 47 IU/L (<50); Albumin 3.8 g/dL (3.5-5.0); Albumin Globulin Ratio 1.2 (1.0-2.8); Alkaline Phosphatase 79 U/L (38-126); Aspartate Aminotransferase 52 IU/L (17-59); BUN Creatinine Ratio 11.7 (6-22); Bilirubin Total 0.7 mg/dL (0.2-1.3); Blood Urea Nitrogen 14 mg/dL (9-20); Calcium 8.9 mg/dL (8.4-10.2); Carbon Dioxide 29 mmol/L (22-32); Chloride 101 mmol/L (98-107); Globulin 3.2 g/dL (1.7-4.1); Glucose 112 mg/dL (80-110); HEMOLYSIS < 15 (0-50); Potassium 3.6 mmol/L (3.4-5.1); Sodium 140 mmol/L (137-145)
[2020-01-11 07:02] LABS: Anisocytosis 3+; Hypochromasia 2+; Poikilocytosis 1+
[2020-01-11 07:03] LABS: Microcytosis 3+; Polychromasia 1+; Tear Drop Cells 1+
[2020-01-11 07:04] LABS: Ovalocytes 1+
[2020-01-11 08:00] VITALS: BP 137/61; PULSE 72; RESP 18; TEMP 36.6; O2SAT 96
[2020-01-11] MEDS: MULTIVITAMIN 1 TABLET 1 TAB PO (08:34)
[2020-01-11] MEDS: THIAMINE 100 MG TABLET PO (08:34)
[2020-01-11] MEDS: FOLIC ACID 1 MG TABLET PO (08:35)
[2020-01-11] MEDS: SODIUM CHLORIDE 0.9% FLUSH 10 ML IV (08:35)
[2020-01-11] MEDS: SERTRALINE 50 MG TABLET 100 MG PO (08:35)
[2020-01-11] MEDS: PANTOPRAZOLE 40 MG VIAL IV (08:35)
[2020-01-11 11:39] VITALS: BP 125/64; PULSE 78; RESP 18; TEMP 36.7; O2SAT 98
--- NOTE | 2020-01-11 13:36 | P.DS_ITS ---
History of Present Illness History of Present Illness Date Patient Seen: 01/11/20 Time Patient Seen: 13:37 Chief complaint: irregular heart rate and short of breath Narrative: See history and physical patient presented with a GI bleed and a hemoglobin 4 Discharge Providers Provider Date of admission: 01/07/20 20:19 Discharge Date: 01/11/20 Primary care physician: Tong Landon MD Discharge provider: Tong Landon MD Summary Hospital Course Discharge Diagnosis: Severe anemia secondary to acute GI blood loss Bleeding colon polyp and healed gastric ulcers Paroxysmal atrial fibrillation Depression Hypothyroidism Hypertension Acute renal insufficiency Hospital Course: Severe anemia secondary to acute GI blood loss. Patient was noted to have a hematocrit of 4 on admission. Over the course of the next 48 hours he got 6 units of packed red blood cells. He remained stable and slowly i mproved. In hematocrit has been stat essentially stable maybe a slightly decreased over the last 3 days. He has had no other symptoms and will go home on iron discharge today discharge follow-up with me in 2 days. Bleeding colon polyp and abnormality in stomach which was not actively bleeding healed ulcers. Colonoscopy an EGD done and treatment was applied at that time. Due to the abnormality is recommendation was for follow-up in 3 months repeats scopes. Did not appear to be actively bleeding. Will be seen by in 1 week and followed. Patient will be placed on Prilosec 40 b.i.d. and followed. Alcohol abuse. Patient has reduced his alcohol intake significantly. It was recommended that he stop and we discussed this. Will see how that goes. Paroxysmal atrial fibrillation. Has appointment with planting supervisor on . Clearly will not be anticoagulated but rate is controlled at this time. No changes has been made. Hypothyroidism. Stable continue on usual dose follow-up as scheduled as outpatient. Hypertension. Been doing well. No change at this time. Will follow. Exam Vital Signs (past 8 hours): - 01/11/20 08:00 01/11/20 11:39 Temperature 98 F 98.1 F Pulse Rate 72 78 Respiratory Rate 18 18 Blood Pressure 137/61 125/64 Pulse Oximetry 96 98 Oxygen Delivery Method Room Air Oxygen Flow Rate 0 Narrative Exam Narrative: Alert obese male lying in bed no acute distress. Bulbar conjunctiva pink. Mucous membranes moist gums appear normal color. Neck supple without adenopathy JVD or bruits. Lungs are clear. Heart regular rate and rhythm although distant. Abdomen is obese soft positive bowel sounds nontender no hepatosplenomegaly no masses extremities without cyanosis clubbing edema. Neurologic exam is nonfocal psychologically interactive appropriate with no other changes Objective Labs Result Diagrams: 01/11/20 05:48 01/11/20 05:48 Labs: Laboratory Results - last 24 hr 01/10/20 01/11/20 01/11/20 04:52 05:48 05:48 WBC 5.4 RBC 3.70 L Hgb 7.7 L Hct 25.8 L MCV 69.7 L MCH 20.9 L MCHC 30.0 RDW 30.1 H Plt Count 141 L Neut % (Auto) 66.6 Lymph % (Auto) 19.4 L [place] % (Auto) 9.2 Eos % (Auto) 3.4 Baso % (Auto) 1.4 Neut # (Auto) 3600 Lymph # (Auto) 1000 L [place] # (Auto) 500 Eos # (Auto) 200 Baso # (Auto) 100 RBC Morphology See below Polychromasia 1+ H Hypochromasia 2+ H Poikilocytosis 1+ H Anisocytosis 3+ H Microcytosis 3+ H Tear Drop Cells 1+ H Ovalocytes 1+ H Sodium 141 140 Potassium 3.7 3.6 Chloride 99 101 Carbon Dioxide 32 29 BUN 15 14 Creatinine 1.20 1.20 Estimated GFR 59.0 L 59.0 L BUN/Creatinine Ratio 12.5 11.7 Glucose 99 112 H Calcium 9.3 8.9 Total Bilirubin 0.7 0.7 AST 89 H 52 ALT 40 47 Alkaline Phosphatase 73 79 Total Protein 7.1 7.0 Albumin 3.8 3.8 Globulin 3.3 3.2 Albumin/Globulin Ratio 1.2 1.2 Discharge Plan Discharge Plan Patient Disposition: Home Discharge orders & Medications Prescriptions: New ferrous gluconate 324 mg (37.5 mg iron) tablet 324 mg PO BID Qty: 90 RF: 2 omeprazole 40 mg capsule,delayed release(DR/EC) 40 mg PO BID Qty: 90 RF: 0 Continued allopurinol 300 MG tablet 300 mg PO BEDTIME Qty: 0 RF: 0 cholecalciferol (vitamin D3) [Vitamin D3] 2,000 unit Tablet 2,000 unit PO DAILY Qty: 0 RF: 0 psyllium husk [Metamucil] 0.52 GM capsule 0.52 gm PO DAILY Qty: 0 RF: 0 telmisartan [Micardis] 80 MG tablet 80 mg PO QPM Qty: 0 RF: 0 magnesium oxide 400 MG capsule 400 mg PO QPM Qty: 0 RF: 0 sertraline 100 mg tablet 100 mg PO DAILY RF: 0 levothyroxine 100 mcg tablet 100 mcg PO DAILY RF: 0 mirtazapine 30 mg tablet 30 mg PO QPM RF: 0 atorvastatin 40 mg Tablet 40 mg PO QPM RF: 0 diltiazem HCl [Cartia XT] 120 mg Capsule,Extended Release 24hr 120 mg PO QPM RF: 0 furosemide 20 mg Tablet 40 mg PO QAM RF: 0 testosterone cypionate 200 mg/mL Oil 200 mg IM Q2W RF: 0 magnesium oxide 400 mg magnesium Capsule 800 mg PO QAM RF: 0 Discontinued Prilosec OTC 20 MG tablet,delayed release (DR/EC) 20 mg PO DAILY Qty: 0 RF: 0 aspirin 81 mg Tablet,Delayed Release (Dr/Ec) 81 mg PO QPM RF: 0 Other Ambulatory Orders: Complete Blood Count MAN DIFF (Stat) Timeframe: 2 Days Facility: [facility] - Location: Laboratory Ordered By: Tong Landon Follow up/Referrals: Tong Landon MD [Primary Care Provider] - 01/13/20 Allyn Fuller MD [Physician] - 1 Week (follow up in 10 -14 days to review patholo gy results and follow up plans) Discharge Health Status Multidrug resistant organism: No MDRO Diet/Activity/Treatments Diet: Diet as Tolerated Activity: as tolerated Discharge Data Primary Care Provider: Tong Landon Quality VTE Deep Vein Thrombosis/Pulmonary Embolism Present on Admission: No
--- NOTE | 2020-01-11 15:43 | PC.NURSE ---
AM NOTE - pt is alert, denies abd pain or nausea, savanah gen diet, states no dizziness when up ambul to br, hat placed for stool, voiding only, hr occassionally irreg 90, after lunch Dr. Landon in to dc home, req that we contact surgery to locate the crown that had been removed, called [facility] and Dr. Fuller not in today, contacted surgery and change over Elsa was in yesterday and said that the tooth was put in a cup by , pt will contact office to follow up, saline lock dc'd, tele dc'd, reviewed dc instructions with pt, scripts sent electronically to [facility], belongings gathered, including cell phone, no advertiser, has clothing, glasses, tsf to and escorted by cardiac rehabilitation program director to family car.
== END 2020-01-11 15:48 | disposition home or self-care (01) | DRG 394 ==
LOC: ED 19:19 → AC 20:20
PROVIDERS: Family Medicine; Surgery; Admitting Provider Family Medicine; Emergency Provider Emergency Medicine; PCP Family Medicine; Referring Provider Emergency Medicine; Visit Provider Family Medicine
PROC: 0DJ08ZZ Inspection of Upper Intestinal Tract, Via Natural or Artificial Opening Endoscopic (ICD-10-PCS; CPT 43235; principal; 2020-01-10 09:00)
PROC: 0DJD8ZZ Inspection of Lower Intestinal Tract, Via Natural or Artificial Opening Endoscopic (ICD-10-PCS; CPT 45378; 2020-01-10 09:00)
DX: K63.5 Polyp of colon (principal); K92.1 Melena; Z68.41 Body mass index [BMI] 40.0-44.9, adult; D62 Acute posthemorrhagic anemia; E66.01 Morbid (severe) obesity due to excess calories; G47.33 Obstructive sleep apnea (adult) (pediatric); I48.0 Paroxysmal atrial fibrillation; T18.4XXA Foreign body in colon, initial encounter; X58.XXXA Exposure to other specified factors, initial encounter; K29.80 Duodenitis without bleeding; K29.70 Gastritis, unspecified, without bleeding; K20.9 Esophagitis, unspecified; K25.9 Gastric ulcer, unspecified as acute or chronic, without hemorrhage or perforation; Z72.0 Tobacco use; N28.9 Disorder of kidney and ureter, unspecified
CPT/HCPCS: 36415; 36430; 71045; 80053; 82272; 82550; 83690; 83880; 84484; 85014; 85018; 85025; 85379; 85610; 85730; 86850; 86900; 86901; 93005; 96374; 99285; P9016; C9113; J0330; J1940; J2704; J3010

== ENCOUNTER → 2020-01-13 13:15 | Outpatient (CLI) | payer MEDICARE, SELFPAY ==
[2020-01-07 20:56] VITALS: BMI 44.9
[2020-01-13 13:31] LABS: Hematocrit 27.3 % (41-53); Hemoglobin 8.2 g/dL (13.5-17.5); Mean Corpuscular Volume 70.1 fL (80-100); Platelet Count 139 X10^3/uL (150-400); Red Cell Distribution Width 30.8 % (11.6-14.8); White Blood Cell Count 5.8 X10^3/uL (4.5-11.0)
[2020-01-13 14:07] LABS: Anisocytosis 3+; Neutrophils Absolute Manual 3538 /uL (3000-5900); Nucleated Red Blood Cells 1 #/Diff; Platelet Estimate Decreased on smear; Total Cells Counted 100
[2020-01-13 14:08] LABS: Hypochromasia 2+; Microcytosis 2+; Poikilocytosis 2+; Polychromasia 1+
[2020-01-13 14:10] LABS: Ovalocytes 1+; Tear Drop Cells 1+
== END ==
PROVIDERS: PCP Family Medicine; Referring Provider Family Medicine; Visit Provider Family Medicine
DX: D64.9 Anemia, unspecified (principal)
CPT/HCPCS: 36415; 85025

== ENCOUNTER → 2020-01-20 13:11 | Outpatient (CLI) | payer MEDICARE, SELFPAY ==
[2020-01-07 20:56] VITALS: BMI 44.9
[2020-01-20 13:45] LABS: Add Manual Diff / Slide Review NO; Basophils Absolute Auto 100 /uL (0-100); Eosinophils Absolute Auto 200 /uL (0-450); Eosinophils Percent Auto 3.2 % (2-4); Hematocrit 28.6 % (41-53); Hemoglobin 8.9 g/dL (13.5-17.5); Lymphocytes Absolute Auto 1300 /uL (1100-4500); Lymphocytes Percent Auto 22.7 % (25-40); Mean Corpuscular Hemoglobin 21.6 PG (26-34); Mean Corpuscular Volume 69.8 fL (80-100); Monocytes Absolute Auto 700 /uL (0-900); Monocytes Percent Auto 12.5 % (3-14); Neutrophils Absolute Auto 3300 /uL (1500-7000); Neutrophils Percent Auto 59.6 % (50-75); Platelet Count 216 X10^3/uL (150-400); Red Blood Cell Count 4.09 X10^6/uL (4.5-5.9); Red Cell Distribution Width 30.5 % (11.6-14.8); White Blood Cell Count 5.6 X10^3/uL (4.5-11.0)
[2020-01-20 13:56] LABS: Anisocytosis 3+; Dimorphic RBC 2; Ovalocytes 1+
[2020-01-20 16:17] LABS: BUN Creatinine Ratio 13.6 (6-22); Blood Urea Nitrogen 15 mg/dL (9-20); Calcium 9.8 mg/dL (8.4-10.2); Carbon Dioxide 29 mmol/L (22-32); Chloride 100 mmol/L (98-107); Estimated Glomerular Filt Rate > 60.0 mL/min (>60); Glucose 113 mg/dL (80-110); HEMOLYSIS < 15 (0-50); Potassium 4.3 mmol/L (3.4-5.1); Sodium 139 mmol/L (137-145)
[2020-01-20 17:21] LABS: Thyroid Stimulating Hormone 3.24 uIU/mL (0.47-4.68)
== END ==
PROVIDERS: PCP Family Medicine; Referring Provider Specialist; Visit Provider Specialist
DX: I48.0 Paroxysmal atrial fibrillation (principal); I42.0 Dilated cardiomyopathy; D64.9 Anemia, unspecified
CPT/HCPCS: 36415; 80048; 83735; 84443; 85025

== ENCOUNTER → 2020-04-10 13:25 | Outpatient (CLI) | payer MEDICARE, SELFPAY ==
[2020-03-30 10:33] VITALS: BMI 44.9
[2020-04-11 03:08] LABS: COVID19 Sendout Not Detected (Not Detect)
== END ==
PROVIDERS: PCP Family Medicine; Visit Provider Registered Nurse
DX: Z01.812 Encounter for preprocedural laboratory examination (principal)
CPT/HCPCS: 87635

== ENCOUNTER 2020-04-13 09:50 | Day surgery (SDC) | payer MEDICARE, SELFPAY ==
[2020-01-07 20:56] VITALS: BMI 44.9
[2020-03-30 10:33] VITALS: BMI 44.9
--- NOTE | 2020-04-13 | PATH_ITS ---
[facility] Accession Number: [id number] . 01 Material submitted: . PART A: duodenum - DUODENAL MUCOSA BIOPSY PART B: gastrointestinal site - GASTRIC ANTRUM MUCOSA BIOPSY PART C: gastrointestinal site - GASTRIC POLYP (CARDIA OF STOMACH) PART D: esophagus - DISTAL ESOPHAGUS BIOPSY . 01 Clinical history: . EGD/COLONOSCOPY . 02 Diagnosis: A. Duodenum, Biopsy: Duodenal mucosa with no diagnostic abnormality. Negative for active inflammation, features of sprue, dysplasia, or malignancy. . B. Stomach, Antrum, Biopsy: Antral mucosa with no diagnostic abnormality. Negative for Helicobacter by immunohistochemistry. Negative for intestinal metaplasia. Negative for dysplasia and malignancy. . C. Stomach, Polyp, Biopsy: Gastric hyperplastic polyp. Negative for Helicobacter by immunohistochemistry. Negative for intestinal metaplasia. Negative for dysplasia and malignancy. . D. Distal Esophagus, Biopsy: Squamous mucosa with no diagnostic abnormality. Intraepithelial eosinophils are not increased. Negative for dysplasia and malignancy. . . . . . . . . . . . . . . . . . . . . . . . . . . . . . . . . . . . . . . [facility] 04/15/2020 1605 Local . 02 Electronically signed: . Dorene Romero MD, Pathologist NPI- [id number] . 01 Gross description: . Part A: DUODENAL MUCOSA BIOPSY: Received in formalin is 1 fragment(s) of hardin, soft tissue measuring 0.2 x 0.2 x 0.1 cm submitted entirely in 1 cassette(s) Part B: GASTRIC ANTRUM MUCOSA BIOPSY: Received in formalin is 1 fragment(s) of hardin, soft tissue measuring 0.1 x 0.1 x 0.1 cm submitted entirely in 1 cassette(s) Part C: GASTRIC POLYP (CARDIA OF STOMACH): Received in formalin is 1 fragment(s) of hardin, soft tissue measuring 0.2 x 0.2 x 0.2 cm submitted entirely in 1 cassette(s) Part D: DISTAL ESOPHAGUS BIOPSY: Received in formalin is 1 fragment(s) of hardin, soft tissue measuring 0.2 x 0.2 x 0.1 cm submitted entirely in 1 cassette(s) /[facility] 04/13/2020 2044 Local . 02 Microscopic: . B.-C. Immunohistochemical stains were performed to evaluate for Helicobacter organisms on blocks B and C, and are both negative. The control stain showed appropriate reactivity. . D. A PAS stain was performed to evaluate for fungal organisms, and is negative. The control stain showed appropriate reactivity. . * This test was developed and its performance characteristics determined by [employer] It has not been cleared or approved by the U.S. Food and Drug Administration. The FDA has determined that such clearance or approval is not necessary. This test is used for clinical purposes. It should not be regarded as investigational or for research. . 02 Pathologist provided ICD-10: K92.2 . 02 CPT . 836507, 046055, 133765, U41702, 491199 Performed at: 01 [facility] [address] [facility], [place], [place] [id number] MD Joey Beckham MD Phone: [phone] Performed at: 02 [facility] [address] [place], [place] [id number] MD Dorene Romero MD Phone: [phone]
[2020-04-13] MEDS: LACTATED RINGERS 1,000 ML 100 ML IV (10:30)
[2020-04-13 10:34] VITALS: BP 160/84; PULSE 82; RESP 20; TEMP 36.4; O2SAT 99; BMI 40.8
--- NOTE | 2020-04-13 10:45 | SUR.PREOP ---
Out-patient, didn't order IP precautions.
[2020-04-13 10:59] VITALS: BMI 40.8
[2020-04-13 11:27] LABS: Add Manual Diff / Slide Review NO; Basophils Absolute Auto 100 /uL (0-100); Eosinophils Absolute Auto 200 /uL (0-450); Eosinophils Percent Auto 3.9 % (2-4); Hematocrit 37.1 % (41-53); Hemoglobin 12.2 g/dL (13.5-17.5); Lymphocytes Absolute Auto 1200 /uL (1100-4500); Lymphocytes Percent Auto 21.9 % (25-40); Mean Corpuscular HGB Conc 32.9 % (30-36); Mean Corpuscular Hemoglobin 27.1 PG (26-34); Mean Corpuscular Volume 82.4 fL (80-100); Monocytes Absolute Auto 500 /uL (0-900); Monocytes Percent Auto 9.5 % (3-14); Neutrophils Absolute Auto 3400 /uL (1500-7000); Neutrophils Percent Auto 63.7 % (50-75); Platelet Count 112 X10^3/uL (150-400); Red Cell Distribution Width 19.1 % (11.6-14.8); White Blood Cell Count 5.3 X10^3/uL (4.5-11.0)
--- NOTE | 2020-04-13 11:36 | PM.PREOP ---
Pre-operative Note COVID-19 COVID-19 status: Negative Interval Note History & Physical reviewed/Exam performed by Physician: Yes Changes to H&P: No
--- NOTE | 2020-04-13 12:37 | PM.OP.ENDO ---
Operative Date/Time/Diagnoses Date of procedure: 04/13/20 Time of procedure: 12:37 Pre-op diagnosis: history of GI bleed, gastritis, duodenitis Post-op diagnosis: other (gastric polyp at cardia, gastritis, duodenitis) Procedure & Clinicians Study performed: 1) EGD with biopsy of duodenal bulb, gastric antral mucosa, gastric cardia polyp, distal esophagus 2) surveillance Colonoscopy Same procedure as scheduled: Yes Indications: GI bleed, gastritis, duodenitis, esophagitis three months ago, now on double dose PPI; colonoscopy with piecemeal resection of tubular adenoma Surgeon: Allyn Fuller Procedure Notes SCOAP/Timeout: Performed Procedure in detail: The patient was brought to the room and placed in left lateral decubitus position with all bony prominences padded. General anesthesia was induced by Dr. Alberto, and the patient was intubated. A bite block was positioned in the patient's mouth to protect the lips, teeth, and tongue for the procedure. A time-out was performed. Once adequately sedated, the procedure was begun. The lubricated gastroscope was passed through the bite block and across the tongue and into the esophagus without incident. A tubular view of the esophagus was maintained as the scope was advanced through the esophagus and into the stomach. The scope was advanced through the stomach and to the pylorus. The scope was gently popped through the pylorus and into the duodenal bulb. The scope was flexed and advanced into the second and third portions of the duodenum. The duodenum and duodenal bulb had some mild duodenitis present in the bulb. This was biopsied.. The scope was withdrawn into the stomach. The stomach had some moderate endoscopic gastritis in the antrum. This was biopsied. The scope was retroflexed and the gastric cardia was examined. There was a small polyp in the gastric cardia right next to the hiatus, and this was biopsied. The hiatus appeared otherwise normal. The scope was then straightened, and withdrawn into the esophagus. The Z-line was at 45 cm, and appeared normal. The distal esophagus appeared normal, and was biopsied. The scope was then withdrawn through the esophagus with a tubular view. The scope was then withdrawn from the patient and this portion of the procedure was concluded. Attention was then turned to the colonoscopic exam. A rectal exam was performed revealing no abnormalities. The colonoscope was then introduced to the rectum and advanced to the cecum in the usual fashion. The cecum was identified by the appendiceal orifice, the mucosal tri-fold, and the ileocecal valve. The area of the prior polypectomy, was clean, with no signs of residual polyp or regrowth. The scope was then retracted while rotating side to side and examining each mucosal fold. At the conclusion of the procedure retroflexion was performed and moderate grade 2-3 internal hemorrhoids without stigmata of bleeding were seen. The scope was then withdrawn from the rectum the procedure was concluded. The patient was awaken from anesthesia and extubated, he tolerated the procedure well and was transferred to the PACU in stable condition. Scope withdrawal time: 23 Findings: gastritis, internal hemorrhoids and other findings (Gastric polyp in the cardia, duodenitis) Specimen(s): other (Duodenal bulb, gastric antrum, polyp from gastric cardia, distal esophagus) Complications: none Impression: Much improvement in the colon, with no signs of any residual polyp were regrowth of the polyp which was removed from the cecum. Although he has had some improvement in his gastritis, he does have some residual gastritis and should continue on the double-dose PPI. Post-procedure Recommendations: Colonscopy in 3 years (Due to history of large tubular adenoma in the cecum will need surveillance colonoscopy in 3 years) and Other recommendation (Repeat EGD will depend on pathology results from biopsies) Follow up: as needed
[2020-04-13 13:13] VITALS: BP 126/83; PULSE 94; PULSE 96; RESP 14; RESP 16; TEMP 36.3; O2SAT 92
[2020-04-13 13:17] VITALS: BP 124/86; PULSE 89; PULSE 96; RESP 16; O2SAT 93; O2SAT 94
[2020-04-13 13:22] VITALS: BP 106/70; PULSE 82; RESP 14; O2SAT 94
[2020-04-13 13:28] VITALS: BP 120/90; PULSE 81; RESP 14; O2SAT 92
--- NOTE | 2020-04-13 13:49 | SUR.PHASEII ---
Reported off to Dagoberto Madrid RN. Pt enjoying ice, denies pain other than sore throat.
[2020-04-13 13:50] VITALS: BP 129/78; PULSE 74; RESP 20; TEMP 36.4; O2SAT 93
== END 2020-04-13 14:02 | disposition home or self-care (01) ==
PROVIDERS: PCP Family Medicine; Referring Provider Surgery; Visit Provider Surgery
PROC: 0DJ08ZZ Inspection of Upper Intestinal Tract, Via Natural or Artificial Opening Endoscopic (ICD-10-PCS; CPT 43235; principal; 2020-04-13 11:00)
PROC: 0DJD8ZZ Inspection of Lower Intestinal Tract, Via Natural or Artificial Opening Endoscopic (ICD-10-PCS; CPT 45378; 2020-04-13 11:00)
DX: K29.70 Gastritis, unspecified, without bleeding (principal); Z86.010 Personal history of colon polyps; I48.91 Unspecified atrial fibrillation; E66.01 Morbid (severe) obesity due to excess calories; D64.9 Anemia, unspecified; F17.210 Nicotine dependence, cigarettes, uncomplicated; G47.33 Obstructive sleep apnea (adult) (pediatric); Z68.41 Body mass index [BMI] 40.0-44.9, adult; K64.1 Second degree hemorrhoids; K31.7 Polyp of stomach and duodenum; K29.80 Duodenitis without bleeding
CPT/HCPCS: 43239; 45378; 85025; 99152; J0330; J2704; J3010

== ENCOUNTER → 2020-05-11 11:24 | Outpatient (CLI) | payer MEDICARE, SELFPAY ==
[2020-03-30 10:33] VITALS: BMI 44.9
[2020-05-11 12:40] LABS: Add Manual Diff / Slide Review NO; Basophils Absolute Auto 100 /uL (0-100); Basophils Percent Auto 1.2 % (0-2); Eosinophils Absolute Auto 200 /uL (0-450); Eosinophils Percent Auto 3.8 % (2-4); Hematocrit 40.1 % (41-53); Hemoglobin 13.5 g/dL (13.5-17.5); Lymphocytes Absolute Auto 1500 /uL (1100-4500); Lymphocytes Percent Auto 25.4 % (25-40); Mean Corpuscular HGB Conc 33.6 % (30-36); Mean Corpuscular Volume 83.2 fL (80-100); Monocytes Absolute Auto 600 /uL (0-900); Monocytes Percent Auto 9.6 % (3-14); Neutrophils Absolute Auto 3500 /uL (1500-7000); Platelet Count 121 X10^3/uL (150-400); Red Blood Cell Count 4.82 X10^6/uL (4.5-5.9); Red Cell Distribution Width 17.4 % (11.6-14.8); White Blood Cell Count 5.8 X10^3/uL (4.5-11.0)
[2020-05-11 13:26] LABS: Alanine Aminotransferase 42 IU/L (<50); Albumin 4.3 g/dL (3.5-5.0); Albumin Globulin Ratio 1.4 (1.0-2.8); Alkaline Phosphatase 108 U/L (38-126); Aspartate Aminotransferase 37 IU/L (17-59); BUN Creatinine Ratio 13.6 (6-22); Bilirubin Total 0.5 mg/dL (0.2-1.3); Blood Urea Nitrogen 14 mg/dL (9-20); Carbon Dioxide 29 mmol/L (22-32); Chloride 99 mmol/L (98-107); Cholesterol 154 mg/dL (140-199); Estimated Glomerular Filt Rate > 60.0 mL/min (>60); Globulin 3.1 g/dL (1.7-4.1); Glucose 143 mg/dL (80-110); HDL Cholesterol 36 mg/dL (40-60); HEMOLYSIS < 15 (0-50); LDL Cholesterol Calculated 64 mg/dL (<100); Magnesium 1.8 mg/dL (1.6-2.3); Potassium 4.6 mmol/L (3.4-5.1); Sodium 138 mmol/L (137-145); Total Protein 7.4 g/dL (6.3-8.2); Triglycerides 269 mg/dL (35-150); VLDL Cholesterol Calculated 54 mg/dL (2-30)
== END ==
PROVIDERS: PCP Family Medicine; Referring Provider Specialist; Visit Provider Family Medicine
DX: I48.0 Paroxysmal atrial fibrillation (principal); I42.0 Dilated cardiomyopathy; D64.9 Anemia, unspecified; E78.5 Hyperlipidemia, unspecified
CPT/HCPCS: 36415; 80053; 80061; 83735; 85025

== ENCOUNTER → 2020-11-01 11:05 | Outpatient (CLI) | payer MEDICARE, SELFPAY ==
[2020-03-30 10:33] VITALS: BMI 44.9
[2020-11-01 13:08] LABS: Add Manual Diff / Slide Review NO; Basophils Absolute Auto 100 /uL (0-100); Basophils Percent Auto 1.2 % (0-2); Eosinophils Absolute Auto 200 /uL (0-450); Eosinophils Percent Auto 3.4 % (2-4); Hematocrit 32.5 % (41-53); Hemoglobin 10.3 g/dL (13.5-17.5); Lymphocytes Absolute Auto 1200 /uL (1100-4500); Lymphocytes Percent Auto 24.3 % (25-40); Mean Corpuscular HGB Conc 31.8 % (30-36); Mean Corpuscular Hemoglobin 26.2 PG (26-34); Mean Corpuscular Volume 82.3 fL (80-100); Monocytes Absolute Auto 500 /uL (0-900); Monocytes Percent Auto 9.3 % (3-14); Neutrophils Absolute Auto 3200 /uL (1500-7000); Neutrophils Percent Auto 61.8 % (50-75); Platelet Count 162 X10^3/uL (150-400); Red Blood Cell Count 3.94 X10^6/uL (4.5-5.9); Red Cell Distribution Width 15.4 % (11.6-14.8); White Blood Cell Count 5.1 X10^3/uL (4.5-11.0)
[2020-11-01 13:43] LABS: Alanine Aminotransferase 41 IU/L (<50); Albumin 4.3 g/dL (3.5-5.0); Albumin Globulin Ratio 1.5 (1.0-2.8); Alkaline Phosphatase 96 U/L (38-126); Aspartate Aminotransferase 37 IU/L (17-59); BUN Creatinine Ratio 15.2 (6-22); Bilirubin Total 0.5 mg/dL (0.2-1.3); Blood Urea Nitrogen 16 mg/dL (9-20); Calcium 9.2 mg/dL (8.4-10.2); Carbon Dioxide 31 mmol/L (22-32); Chloride 100 mmol/L (98-107); Estimated Glomerular Filt Rate > 60.0 mL/min (>60); Globulin 2.9 g/dL (1.7-4.1); Glucose 151 mg/dL (80-110); HEMOLYSIS < 15 (0-50); Magnesium 1.9 mg/dL (1.6-2.3); Potassium 4.8 mmol/L (3.4-5.1); Sodium 137 mmol/L (137-145); Total Protein 7.2 g/dL (6.3-8.2)
== END ==
PROVIDERS: PCP Family Medicine; Referring Provider Specialist; Visit Provider Specialist
DX: R06.09 Other forms of dyspnea (principal); I48.0 Paroxysmal atrial fibrillation; E78.2 Mixed hyperlipidemia
CPT/HCPCS: 36415; 80053; 80061; 83704; 83735; 85025

== ENCOUNTER 2021-10-17 12:09 | Emergency (ER) | payer MEDICARE, SELFPAY ==
[2021-01-02 09:05] VITALS: BMI 44.9
[2021-10-17] VITALS (34 sets, daily range): BP systolic 128–189; BP diastolic 65–108; PULSE 67–92; RESP 13–23; TEMP 36.8–37.2; O2SAT 98–100; BMI 44.9
--- NOTE | 2021-10-17 12:42 | DI.RAD.S_ITS ---
PROCEDURE: XR CHEST 2V INDICATIONS: shortness of breath TECHNIQUE: 2 views of the chest were acquired. COMPARISON: [facility], CHEST 2 VIEW, 01/30/2015, 11:07. [facility], CHEST 1 VIEW, 01/28/2015, 13:23. [facility], CHEST 1 VIEW, 04/09/2015, 20:48. [facility], XR CHEST 1V, 01/07/2020, 16:28. FINDINGS: Surgical changes and devices: None. Lungs and pleura: There is pleural thickening or pleural based mass in the right apex. No pleural effusions or pneumothorax. Mediastinum: Mediastinal contours are normal. Heart size is normal. Bones and chest wall: No suspicious bony abnormalities. Soft tissues appear unremarkable. IMPRESSION: Pleural thickening or pleural based mass in the right apex. Recommend CT with contrast for follow-up evaluation. The result was discussed with Lionel Lisa. Dictated by: Odalys Jackman M.D. on 10/17/2021 at 13:25 Approved by: Odalys Jackman M.D. on 10/17/2021 at 13:31
[2021-10-17 13:44] LABS: Add Manual Diff / Slide Review NO; Basophils Absolute Auto 100 /uL (0-100); Eosinophils Absolute Auto 200 /uL (0-450); Eosinophils Percent Auto 3.3 % (2-4); Lymphocytes Absolute Auto 700 /uL (1100-4500); Lymphocytes Percent Auto 15.6 % (25-40); Mean Corpuscular HGB Conc 29.9 % (30-36); Mean Corpuscular Hemoglobin 20.4 PG (26-34); Monocytes Absolute Auto 400 /uL (0-900); Monocytes Percent Auto 8.1 % (3-14); Neutrophils Absolute Auto 3400 /uL (1500-7000); Platelet Count 148 X10^3/uL (150-400); Red Blood Cell Count 3.05 X10^6/uL (4.5-5.9); Red Cell Distribution Width 18.5 % (11.6-14.8); White Blood Cell Count 4.8 X10^3/uL (4.5-11.0)
[2021-10-17 13:46] LABS: Hematocrit 20.7 % (41-53); Hemoglobin 6.2 g/dL (13.5-17.5)
[2021-10-17 13:51] LABS: Alanine Aminotransferase 16 IU/L (<50); Albumin 4.2 g/dL (3.5-5.0); Albumin Globulin Ratio 1.4 (1.0-2.8); Alkaline Phosphatase 62 U/L (38-126); Aspartate Aminotransferase 23 IU/L (17-59); BUN Creatinine Ratio 9.8 (6-22); Bilirubin Total 0.4 mg/dL (0.2-1.3); Blood Urea Nitrogen 13 mg/dL (9-20); Calcium 9.2 mg/dL (8.4-10.2); Carbon Dioxide 29 mmol/L (22-32); Chloride 100 mmol/L (98-107); Estimated Glomerular Filt Rate 52.1 mL/min (>60); Globulin 2.9 g/dL (1.7-4.1); Glucose 173 mg/dL (80-110); HEMOLYSIS < 15 (0-50); Potassium 4.2 mmol/L (3.4-5.1); Sodium 138 mmol/L (137-145); Total Protein 7.1 g/dL (6.3-8.2)
[2021-10-17 13:52] LABS: Lactate (Lactic Acid) 2.5 mmol/L (0.7-2.1)
[2021-10-17 13:56] LABS: COVID19 -Nasal RAPID Negative (Negative)
[2021-10-17 14:00] LABS: NT-proBNP (BNP-Adult 18+) 802 pg/mL (<450)
[2021-10-17 14:03] LABS: Troponin I < 0.012 ng/mL (0.01-0.034)
[2021-10-17 14:14] LABS: Anisocytosis 2+; Hypochromasia 1+; Poikilocytosis 1+; Target Cells 1+
[2021-10-17 14:15] LABS: Ovalocytes 1+
[2021-10-17 14:17] LABS: D Dimer < 200 ng/mL (<230)
--- NOTE | 2021-10-17 14:17 | DI.CT.S_ITS ---
PROCEDURE: CT CHEST W CON INDICATIONS: ?lung mass on CXR TECHNIQUE: After the administration of intravenous contrast, 5 mm thick sections acquired from the pulmonary apices to the posterior costophrenic angles. 1 mm axial lung, 5 mm thick coronal and sagittal reformats and 7 mm axial MIP were acquired. For radiation dose reduction, the following was used: automated exposure control, adjustment of mA and/or kV according to patient size. COMPARISON: [facility], CR, XR CHEST 2V, 10/17/2021, 12:40. FINDINGS: Image quality: Excellent. Lungs and pleura: There is a plaque-like pleural base soft tissue mass in the superior right hemithorax along the right upper lobe measuring up to approximately 4.2 x 0.8 x 3.6 cm. There are a few small foci of calcifications within the mass. More anteriorly along the right upper lobe, there is a a smaller region of pleural thickening measuring up to approximately 1.3 x 0.4 cm. Elsewhere, there is mild dependent atelectasis bilaterally. No acute consolidation. No pleural effusions or pneumothorax. Central and peripheral airways are patent and normal in caliber. Mediastinum: Heart size is normal. No pericardial effusion. There is coronary arterial vascular calcification. No mediastinal or hilar adenopathy by size criteria. Thoracic aorta and central pulmonary arteries are normal in size. Esophagus is normal in caliber. No hiatal hernia. Bones and chest wall: No suspicious bony lesions. No vertebral body compression fractures. No axillary or supraclavicular adenopathy by size criteria. The visualized thyroid demonstrates no discrete nodules. Abdomen: Visualized upper abdominal solid organs appear normal. Upper abdominal bowel loops are normal in caliber. IMPRESSION: 1. Plaque-like pleural base masses demonstrated along the right upper lobe. The findings are nonspecific and the differential includes sequelae of prior trauma or infection. However, the differential also includes neoplastic process such as mesothelioma. Consider further evaluation with PET-CT. Given the plaque-like appearance, there is increased risk of pneumothorax with percutaneous biopsy. Dictated by: Joey Johnson M.D. on 10/17/2021 at 15:20 Approved by: Joey Johnson M.D. on 10/17/2021 at 15:33
[2021-10-17 14:21] LABS: INR 1.7 (0.9-1.3); Prothrombin Time 19.6 SECONDS (10.1-12.7)
--- NOTE | 2021-10-17 14:54 | ED_ITS ---
HPI - SOB/Dyspnea <Lionel Lisa PA-C - Last Filed: 10/17/21 20:49> General Chief Complaint: Shortness of Breath/Dyspnea Stated Complaint: Shortness of Breath/fatigue x14 Time Seen by Provider: 10/17/21 12:35 Source: patient Mode of arrival: Wheelchair Limitations: no limitations History of Present Illness HPI Narrative: 76-year-old male with past medical history AFib, cardiomyopathy, GERD, peptic ulcer, gout, GI bleed presents to the ED with 2 weeks of worsening shortness of breath. Patient's shortness of breath is worse with activity. Shortness of breath not aggravated by position. No history of DVTs/PE. Patient is on Eliquis for the AFib. Patient denies fever, chills, cough, chest pain, nausea, vomiting, abdominal pain, dysuria, syncope. Patient does endorse lightheadedness. Patient has a history of anemia for which he has been transfused in the past. His hemoglobin a week ago was 6.9, not transfused at that time. The cause of the GI bleed was attribute it to a polyp that they found, and his H&H remained stable after the polyp removal. Related Data Home Medications Medication Instructions Recorded Confirmed allopurinol 300 mg tablet 300 mg PO BEDTIME #0 12/09/11 01/10/21 cholecalciferol (vitamin D3) 50 2,000 unit PO DAILY #0 12/09/11 01/10/21 mcg (2,000 unit) tablet (Vitamin D3) psyllium husk 0.52 gram capsule 500 gm PO DAILY #0 12/31/11 01/10/21 (Metamucil) telmisartan 80 mg tablet (Micardis) 80 mg PO QPM #0 05/01/17 01/10/21 furosemide 20 mg tablet 40 mg PO QAM 01/07/20 01/10/21 levothyroxine 100 mcg tablet 100 mcg PO DAILY 01/07/20 01/10/21 magnesium oxide 400 mg PO QAM 01/07/20 01/10/21 mirtazapine 30 mg tablet 30 mg PO QPM 01/07/20 01/10/21 sertraline 100 mg tablet 100 mg PO DAILY 01/07/20 01/10/21 testosterone cypionate 200 mg/mL 200 mg IM Q2W 01/07/20 04/13/20 intramuscular oil apixaban 5 mg tablet (Eliquis) 5 mg PO BID 01/10/21 01/10/21 diltiazem HCl 120 mg 300 mg PO QPM cap 01/10/21 01/10/21 capsule,extended release 24 hr (Cartia XT) rosuvastatin 40 mg tablet 40 mg PO DAILY 01/10/21 01/10/21 Previous Rx's Medication Instructions Recorded ferrous gluconate 324 mg (37.5 mg 324 mg PO BID #90 tab 01/11/20 iron) tablet omeprazole 40 mg capsule,delayed 40 mg PO BID #90 cap 01/11/20 release sodium,potassium,mag sulfates 17.5 177 ml PO DAILY #354 ml 01/25/20 gram-3.13 gram-1.6 gram oral soln Allergies Allergy/AdvReac Type Severity Reaction Status Date / Time epinephrine [EPINEPHRINE] AdvReac Mild EXACERBATES Verified 10/17/21 12:43 TREMORS gabapentin [GABAPENTIN] AdvReac Mild GLOOM AND Verified 10/17/21 12:43 DOOM Review of Systems <Lionel Lisa PA-C - Last Filed: 10/17/21 20:49> Review of Systems ROS Unobtainable: All systems reviewed & are unremarkable except as noted in HPI and below Constitutional Constitutional: Denies chills, Reports fatigue, Denies fever(s), Denies frequent falls, Denies lethargy and Denies weakness Eyes Eyes: Denies change in vision, Denies eye discharge, Denies irritation and David es loss of vision ENT Ears, Nose, Mouth, and Throat: Denies change in voice, Denies dizziness, Denies neck pain, Denies sore throat and Denies throat swelling Cardiovascular Cardiovascular: Denies chest pain, Denies irregular heart rhythm, Reports lightheadedness, Denies palpitations, Reports dyspnea, Reports dyspnea on exertion and Denies orthopnea Respiratory Respiratory: Denies cough, Reports dyspnea, Reports dyspnea on exertion and Denies wheezing Gastrointestinal Gastrointestinal: Denies abdominal pain, Denies change in bowel habits, Denies diarrhea, Denies nausea and Denies vomiting Genitourinary Genitourinary: Denies hematuria, Denies flank pain, Denies urinary incontinence and Denies urinary urgency Musculoskeletal Musculoskeletal: Denies back pain, Denies muscle weakness, Denies neck pain, Denies numbness and Denies tingling Integumentary/Breasts Skin/Breast: Denies pruritus, Denies erythema, Denies rash and Denies wounds Neurologic Neurologic: Denies behavioral changes, Denies confusion, Denies dizziness, Denies frequent falls, Denies loss of vision, Denies numbness, Denies tingling and Denies weakness Psychiatric Psychiatric: Denies anxiety, Denies behavioral changes, Denies confusion, Denies depression, Denies homicidal ideation and Denies suicidal ideation Endocrine Endocrine: Reports fatigue, Denies flushing and Denies palpitations Hematologic/Lymphatic Hematologic/Lymphatic: Denies easy bruising Allergic/Immunologic Allergic/Immunologic: Denies urticaria, Denies throat swelling and Denies wheezing Patient History <Lionel Lisa PA-C - Last Filed: 10/17/21 20:49> Medical History Anemia Arthritis Depression Elevated cholesterol History of back pain History of GI bleed HTN (hypertension) Hypothyroidism Knee pain, bilateral Neuropathy BARBER (obstructive sleep apnea) Shortness of breath Sleep apnea Family History Father Loud snoring Hypertension Heart disease Alcohol abuse Mother Obesity Family/Other Restless leg Obesity Hypertension Depression Anxiety Social History household members: spouse Smoking Status: Former smoker alcohol intake: current Smoking Status: Former smoker tobacco type: smokeless tobacco alcohol intake frequency: 0-2 drinks per day Alcohol type: wine Substance Use Type: does not use Exam <Lionel Lisa PA-C - Last Filed: 10/17/21 20:49> Initial Vital Signs Initial Vital Signs: Vital Signs Temperature 98.4 F 10/17/21 12:38 Pulse Rate 91 H 10/17/21 12:38 Respiratory Rate 18 10/17/21 12:38 Blood Pressure 174/80 H 10/17/21 12:38 Pulse Oximetry 99 10/17/21 12:38 Const General: cooperative HENMT Head: normal to inspection Eyes General: appearance normal, both eyes and all related structures Neck Neck: normal visual inspection Chest Chest: normal inspection of the chest Resp Effort & Inspection: normal respiratory effort Auscultation: clear to auscultation bilaterally Cardio Rate: regular rate Rhythm: abnormal rhythm (AFib) irregularly irregular GI Other: Abdomen is soft, nontender to palpation. Abdomen appears distended, which is baseline. Abdomen is not tense. General: No CVA tenderness Neuro General: patient alert, patient awake and patient oriented x3 Extrem Right lower extremity: edema Left lower extremity: edema <Omid Dow DO - Last Filed: 10/18/21 07:03> Initial Vital Signs Initial Vital Signs: Vital Signs Temperature 98.4 F 10/17/21 12:38 Pulse Rate 91 H 10/17/21 12:38 Respiratory Rate 18 10/17/21 12:38 Blood Pressure 174/80 H 10/17/21 12:38 Pulse Oximetry 99 10/17/21 12:38 Course <Lionel Lisa PA-C - Last Filed: 10/17/21 20:49> Course Course Narrative: Guaiac-positive for GI bleed. H&H 6.2/20.7, PT INR 1.7, lactate 2.5, creatinine 1.33. Started transfusion of PRBCs, 2 units. Will recheck CBC. Lactate improved to 2.2 after fluids. Cardiology consulted, they recommend pausing Eliquis until the GI bleed is controlled. Dr. Braxton from surgery consulted, she recommends outpatient follow-up with [facility] for further workup. Patient to hold Eliquis until the GI bleed is addressed. Patient's repeat CBC shows hemoglobin of 7.3 post 2 units PRBCs, vitals stable, SOB improved. Precautions discussed with patient. Patient verbalizes understanding. Discharged home. Orders Ordered: Discontinued Medications Sodium Chloride (Normal Saline 0.9%) 1,000 mls @ 1,000 mls/hr IV BOLUS ONE Stop: 10/17/21 15:01 Last Infusion: 10/17/21 19:07 Dose: 0 mls/hr Documented by: Admin: 10/17/21 16:30 Dose: 1,000 mls/hr Documented by: LEVI Vital Signs Vital signs: Vital Signs - 8 hr 10/17/21 13:00 10/17/21 13:11 10/17/21 13:30 Temperature Pulse Rate 85 92 H 83 Respiratory Rate 20 20 22 Blood Pressure 154/67 H 176/79 H Pulse Oximetry 100 99 99 10/17/21 13:31 10/17/21 14:00 10/17/21 14:30 Temperature Pulse Rate 80 77 73 Respiratory Rate 18 16 17 Blood Pressure 134/65 128/67 Pulse Oximetry 99 98 100 10/17/21 14:51 10/17/21 14:54 10/17/21 15:00 Temperature 98.3 F Pulse Rate 77 72 76 Respiratory Rate 19 16 18 Blood Pressure 139/77 139/77 152/75 H Pulse Oximetry 99 100 10/17/21 15:11 10/17/21 15:15 10/17/21 15:30 Temperature 99 F Pulse Rate 77 77 75 Respiratory Rate 16 17 17 Blood Pressure 154/69 H 154/69 H 140/73 Pulse Oximetry 100 99 10/17/21 15:45 10/17/21 15:54 10/17/21 16:00 Temperature 98.5 F Pulse Rate 71 80 84 Respiratory Rate 17 17 20 Blood Pressure 144/71 H 166/81 H 166/81 H Pulse Oximetry 99 100 10/17/21 16:15 10/17/21 16:30 10/17/21 16:45 Temperature Pulse Rate 76 74 71 Respiratory Rate 17 15 17 Blood Pressure 138/71 136/65 135/68 Pulse Oximetry 100 99 98 10/17/21 17:00 10/17/21 17:15 10/17/21 17:26 Temperature 98.7 F 99 F Pulse Rate 71 69 78 Respiratory Rate 17 13 16 Blood Pressure 138/65 142/78 H 142/78 H Pulse Oximetry 100 100 10/17/21 17:30 10/17/21 17:31 10/17/21 17:41 Temperature 98.4 F Pulse Rate 70 70 68 Respiratory Rate 18 17 16 Blood Pressure 175/90 H 174/88 H Pulse Oximetry 99 99 10/17/21 17:45 10/17/21 18:00 10/17/21 18:15 Temperature Pulse Rate 77 89 69 Respiratory Rate 21 23 19 Blood Pressure 174/88 H 189/108 H 146/79 H Pulse Oximetry 99 99 98 10/17/21 18:26 10/17/21 18:30 10/17/21 18:45 Temperature 98.7 F Pulse Rate 69 80 73 Respiratory Rate 14 21 16 Blood Pressure 170/79 H 170/79 H 182/87 H Pulse Oximetry 99 99 10/17/21 18:59 10/17/21 19:00 Temperature 99 F Pulse Rate 67 75 Respiratory Rate 17 19 Blood Pressure 182/87 H 160/77 H Pulse Oximetry 99 <Omid Dow, DO - Last Filed: 10/18/21 07:03> Orders Ordered: Discontinued Medications Sodium Chloride (Normal Saline 0.9%) 1,000 mls @ 1,000 mls/hr IV BOLUS ONE Stop: 10/17/21 15:01 Last Infusion: 10/17/21 19:07 Dose: 0 mls/hr Documented by: Admin: 10/17/21 16:30 Dose: 1,000 mls/hr Documented by: LEVI Vital Signs Vital signs: Vital Signs - 8 hr 10/17/21 13:00 10/17/21 13:11 10/17/21 13:30 Temperature Pulse Rate 85 92 H 83 Respiratory Rate 20 20 22 Blood Pressure 154/67 H 176/79 H Pulse Oximetry 100 99 99 10/17/21 13:31 10/17/21 14:00 10/17/21 14:30 Temperature Pulse Rate 80 77 73 Respiratory Rate 18 16 17 Blood Pressure 134/65 128/67 Pulse Oximetry 99 98 100 10/17/21 14:51 10/17/21 14:54 10/17/21 15:00 Temperature 98.3 F Pulse Rate 77 72 76 Respiratory Rate 19 16 18 Blood Pressure 139/77 139/77 152/75 H Pulse Oximetry 99 100 10/17/21 15:11 10/17/21 15:15 10/17/21 15:30 Temperature 99 F Pulse Rate 77 77 75 Respiratory Rate 16 17 17 Blood Pressure 154/69 H 154/69 H 140/73 Pulse Oximetry 100 99 10/17/21 15:45 10/17/21 15:54 10/17/21 16:00 Temperature 98.5 F Pulse Rate 71 80 84 Respiratory Rate 17 17 20 Blood Pressure 144/71 H 166/81 H 166/81 H Pulse Oximetry 99 100 10/17/21 16:15 10/17/21 16:30 10/17/21 16:45 Temperature Pulse Rate 76 74 71 Respiratory Rate 17 15 17 Blood Pressure 138/71 136/65 135/68 Pulse Oximetry 100 99 98 10/17/21 17:00 10/17/21 17:15 10/17/21 17:26 Temperature 98.7 F 99 F Pulse Rate 71 69 78 Respiratory Rate 17 13 16 Blood Pressure 138/65 142/78 H 142/78 H Pulse Oximetry 100 100 10/17/21 17:30 10/17/21 17:31 10/17/21 17:41 Temperature 98.4 F Pulse Rate 70 70 68 Respiratory Rate 18 17 16 Blood Pressure 175/90 H 174/88 H Pulse Oximetry 99 99 10/17/21 17:45 10/17/21 18:00 10/17/21 18:15 Temperature Pulse Rate 77 89 69 Respiratory Rate 21 23 19 Blood Pressure 174/88 H 189/108 H 146/79 H Pulse Oximetry 99 99 98 10/17/21 18:26 10/17/21 18:30 10/17/21 18:45 Temperature 98.7 F Pulse Rate 69 80 73 Respiratory Rate 14 21 16 Blood Pressure 170/79 H 170/79 H 182/87 H Pulse Oximetry 99 99 10/17/21 18:59 10/17/21 19:00 Temperature 99 F Pulse Rate 67 75 Respiratory Rate 17 19 Blood Pressure 182/87 H 160/77 H Pulse Oximetry 99 MDM - SOB/Dyspnea <Lionel Lisa PA-C - Last Filed: 10/17/21 20:49> Lab Data Lab results narrative: H&H 6.2/20.7. PT INR 1.7 Result diagrams: 10/17/21 19:21 10/17/21 19:21 Labs: Lab Results 10/17/21 10/17/21 10/17/21 Range/Units 13:30 13:30 13:30 WBC 4.8 (4.5-11.0) X10^3/uL RBC 3.05 L (4.5-5.9) X10^6/uL Hgb 6.2 L* (13.5-17.5) g/dL Hct 20.7 L* (41-53) % MCV 68.0 L (80-100) fL MCH 20.4 L (26-34) PG MCHC 29.9 L (30-36) % RDW 18.5 H (11.6-14.8) % Plt Count 148 L (150-400) X10^3/uL Neut % (Auto) 71.0 (50-75) % Lymph % (Auto) 15.6 L (25-40) % [place] % (Auto) 8.1 (3-14) % Eos % (Auto) 3.3 (2-4) % Baso % (Auto) 2.0 (0-2) % Neut # (Auto) 3400 (9983-7649) /uL Lymph # (Auto) 700 L (9394-1797) /uL [place] # (Auto) 400 (0-900) /uL Eos # (Auto) 200 (0-450) /uL Baso # (Auto) 100 (0-100) /uL RBC Morphology See below Hypochromasia 1+ H Poikilocytosis 1+ H Anisocytosis 2+ H Target Cells 1+ H Ovalocytes 1+ H PT 19.6 H (10.1-12.7) SECONDS INR 1.7 H (0.9-1.3) D-Dimer (<230) ng/mL Sodium 138 (137-145) mmol/L Potassium 4.2 (3.4-5.1) mmol/L Chloride 100 (98-107) mmol/L Carbon Dioxide 29 (22-32) mmol/L BUN 13 (9-20) mg/dL Creatinine 1.33 H (0.66-1.25) mg/dL Estimated GFR 52.1 L (>60) mL/min BUN/Creatinine Ratio 9.8 (6-22) Glucose 173 H (80-110) mg/dL Lactate (0.7-2.1) mmol/L Calcium 9.2 (8.4-10.2) mg/dL Total Bilirubin 0.4 (0.2-1.3) mg/dL AST 23 (17-59) IU/L ALT 16 (<50) IU/L Alkaline Phosphatase 62 (38-126) U/L Troponin I (0.01-0.034) ng/mL NT-Pro-B Natriuret Pep 802 H (<450) pg/mL Total Protein 7.1 (6.3-8.2) g/dL Albumin 4.2 (3.5-5.0) g/dL Globulin 2.9 (1.7-4.1) g/dL Albumin/Globulin Ratio 1.4 (1.0-2.8) SARS-CoV-2 (PCR) (Negative) Blood Type Antibody Screen Crossmatch 10/17/21 10/17/21 10/17/21 Range/Units 13:30 13:30 13:30 WBC (4.5-11.0) X10^3/uL RBC (4.5-5.9) X10^6/uL Hgb (13.5-17.5) g/dL Hct (41-53) % MCV (80-100) fL MCH (26-34) PG MCHC (30-36) % RDW (11.6-14.8) % Plt Count (150-400) X10^3/uL Neut % (Auto) (50-75) % Lymph % (Auto) (25-40) % [place] % (Auto) (3-14) % Eos % (Auto) (2-4) % Baso % (Auto) (0-2) % Neut # (Auto) (4531-3974) /uL Lymph # (Auto) (1010-4585) /uL [place] # (Auto) (0-900) /uL Eos # (Auto) (0-450) /uL Baso # (Auto) (0-100) /uL RBC Morphology Hypochromasia Poikilocytosis Anisocytosis Target Cells Ovalocytes PT (10.1-12.7) SECONDS INR (0.9-1.3) D-Dimer (<230) ng/mL Sodium (137-145) mmol/L Potassium (3.4-5.1) mmol/L Chloride (98-107) mmol/L Carbon Dioxide (22-32) mmol/L BUN (9-20) mg/dL Creatinine (0.66-1.25) mg/dL Estimated GFR (>60) mL/min BUN/Creatinine Ratio (6-22) Glucose (80-110) mg/dL Lactate 2.5 H (0.7-2.1) mmol/L Calcium (8.4-10.2) mg/dL Total Bilirubin (0.2-1.3) mg/dL AST (17-59) IU/L ALT (<50) IU/L Alkaline Phosphatase (38-126) U/L Troponin I < 0.012 (0.01-0.034) ng/mL NT-Pro-B Natriuret Pep (<450) pg/mL Total Protein (6.3-8.2) g/dL Albumin (3.5-5.0) g/dL Globulin (1.7-4.1) g/dL Albumin/Globulin Ratio (1.0-2.8) SARS-CoV-2 (PCR) Negative (Negative) Blood Type Antibody Screen Crossmatch 10/17/21 10/17/21 10/17/21 Range/Units 13:30 13:30 16:04 WBC (4.5-11.0) X10^3/uL RBC (4.5-5.9) X10^6/uL Hgb (13.5-17.5) g/dL Hct (41-53) % MCV (80-100) fL MCH (26-34) PG MCHC (30-36) % RDW (11.6-14.8) % Plt Count (150-400) X10^3/uL Neut % (Auto) (50-75) % Lymph % (Auto) (25-40) % [place] % (Auto) (3-14) % Eos % (Auto) (2-4) % Baso % (Auto) (0-2) % Neut # (Auto) (1939-8272) /uL Lymph # (Auto) (3049-8029) /uL [place] # (Auto) (0-900) /uL Eos # (Auto) (0-450) /uL Baso # (Auto) (0-100) /uL RBC Morphology Hypochromasia Poikilocytosis Anisocytosis Target Cells Ovalocytes PT (10.1-12.7) SECONDS INR (0.9-1.3) D-Dimer < 200 (<230) ng/mL Sodium (137-145) mmol/L Potassium (3.4-5.1) mmol/L Chloride (98-107) mmol/L Carbon Dioxide (22-32) mmol/L BUN (9-20) mg/dL Creatinine (0.66-1.25) mg/dL Estimated GFR (>60) mL/min BUN/Creatinine Ratio (6-22) Glucose (80-110) mg/dL Lactate 2.2 H (0.7-2.1) mmol/L Calcium (8.4-10.2) mg/dL Total Bilirubin (0.2-1.3) mg/dL AST (17-59) IU/L ALT (<50) IU/L Alkaline Phosphatase (38-126) U/L Troponin I (0.01-0.034) ng/mL NT-Pro-B Natriuret Pep (<450) pg/mL Total Protein (6.3-8.2) g/dL Albumin (3.5-5.0) g/dL Globulin (1.7-4.1) g/dL Albumin/Globulin Ratio (1.0-2.8) SARS-CoV-2 (PCR) (Negative) Blood Type A Positive Antibody Screen Negative Crossmatch See Detail 10/17/21 10/17/21 Range/Units 19:21 19:21 WBC 5.0 (4.5-11.0) X10^3/uL RBC 3.39 L (4.5-5.9) X10^6/uL Hgb 7.3 L (13.5-17.5) g/dL Hct 23.8 L (41-53) % MCV 70.1 L (80-100) fL MCH 21.6 L (26-34) PG MCHC 30.9 (30-36) % RDW 19.7 H (11.6-14.8) % Plt Count 139 L (150-400) X10^3/uL Neut % (Auto) 66.4 (50-75) % Lymph % (Auto) 20.1 L (25-40) % [place] % (Auto) 8.8 (3-14) % Eos % (Auto) 3.0 (2-4) % Baso % (Auto) 1.7 (0-2) % Neut # (Auto) 3300 (5521-8217) /uL Lymph # (Auto) 1000 L (8616-0632) /uL [place] # (Auto) 400 (0-900) /uL Eos # (Auto) 200 (0-450) /uL Baso # (Auto) 100 (0-100) /uL RBC Morphology Hypochromasia Poikilocytosis Anisocytosis Target Cells Ovalocytes PT (10.1-12.7) SECONDS INR (0.9-1.3) D-Dimer (<230) ng/mL Sodium 138 (137-145) mmol/L Potassium 4.2 (3.4-5.1) mmol/L Chloride 101 (98-107) mmol/L Carbon Dioxide 30 (22-32) mmol/L BUN 12 (9-20) mg/dL Creatinine 1.29 H (0.66-1.25) mg/dL Estimated GFR 54.0 L (>60) mL/min BUN/Creatinine Ratio 9.3 (6-22) Glucose 133 H (80-110) mg/dL Lactate (0.7-2.1) mmol/L Calcium 9.2 (8.4-10.2) mg/dL Total Bilirubin 0.8 (0.2-1.3) mg/dL AST 22 (17-59) IU/L ALT 15 (<50) IU/L Alkaline Phosphatase 66 (38-126) U/L Troponin I (0.01-0.034) ng/mL NT-Pro-B Natriuret Pep (<450) pg/mL Total Protein 6.9 (6.3-8.2) g/dL Albumin 4.0 (3.5-5.0) g/dL Globulin 2.9 (1.7-4.1) g/dL Albumin/Globulin Ratio 1.4 (1.0-2.8) SARS-CoV-2 (PCR) (Negative) Blood Type Antibody Screen Crossmatch Imaging Data Chest x-ray: Radiologist's Impression: PROCEDURE:? XR CHEST 2V ? INDICATIONS:? shortness of breath ? TECHNIQUE:? 2 views of the chest were acquired.? ? COMPARISON:? [facility], CHEST 2 VIEW, 01/30/2015, 11:07.? [facility], CHEST 1 VIEW, 01/28/2015, 13:23.? [facility], CHEST 1 VIEW, 04/09/2015, 20:48.? [facility], XR CHEST 1V, 01/07/2020, 16:28. ? FINDINGS:? ? Surgical changes and devices:? None.? ? Lungs and pleura:? There is pleural thickening or pleural based mass in the right apex.? No pleural effusions or pneumothorax.? ? Mediastinum:? Mediastinal contours are normal.? Heart size is normal.? ? Bones and chest wall:? No suspicious bony abnormalities.? Soft tissues appear unremarkable.? ? IMPRESSION:? Pleural thickening or pleural based mass in the right apex.? Recommend CT with contrast for follow-up evaluation. ? ? The result was discussed with Lionel Lisa. ? Dictated by: Odalys Jackman M.D. on 10/17/2021 at 13:25 ? ? Approved by: Odalys Jackman M.D. on 10/17/2021 at 13:31 ? CT scan - chest: Radiologist's Impression: PROCEDURE:? CT CHEST W CON ? INDICATIONS:? ?lung mass on CXR ? TECHNIQUE:? After the administration of intravenous contrast, 5 mm thick sections acquired from the pulmonary apices to the posterior costophrenic angles.? 1 mm axial lung, 5 mm thick coronal and sagittal reformats and 7 mm axial MIP were acquired.? For radiation dose reduction, the following was used:? automated exposure control, adjustment of mA and/or kV according to patient size.? ? COMPARISON:? [facility], CR, XR CHEST 2V, 10/17/2021, 12:40. ? FINDINGS:? Image quality:? Excellent.? ? Lungs and pleura:? There is a plaque-like pleural base soft tissue mass in the superior right hemithorax along the right upper lobe measuring up to approximately 4.2 x 0.8 x 3.6 cm.? There are a few small foci of calcifications within the mass.? More anteriorly along the right upper lobe, there is a a smaller region of pleural thickening measuring up to approximately 1.3 x 0.4 cm.? Elsewhere, there is mild dependent atelectasis bilaterally.? No acute consolidation.? No pleural effusions or pneumothorax.? Central and peripheral airways are patent and normal in caliber.? ? Mediastinum:? Heart size is normal.? No pericardial effusion.? There is coronary arterial vascular calcification.? No mediastinal or hilar adenopathy by size criteria.? Thoracic aorta and central pulmonary arteries are normal in size.? Esophagus is normal in caliber. ?No hiatal hernia.? ? Bones and chest wall:? No suspicious bony lesions.? No vertebral body compression fractures.? No axillary or supraclavicular adenopathy by size criteria.? The visualized thyroid demonstrates no discrete nodules. ? Abdomen:? Visualized upper abdominal solid organs appear normal.? Upper abdomi nal bowel loops are normal in caliber.? ? IMPRESSION:? ? 1. Plaque-like pleural base masses demonstrated along the right upper lobe.? The findings are nonspecific and the differential includes sequelae of prior trauma or infection.? However, the differential also includes neoplastic process such as mesothelioma.? Consider further evaluation with PET-CT.? Given the plaque-like appearance, there is increased risk of pneumothorax with percutaneous biopsy.? ? Dictated by: Joey Johnson M.D. on 10/17/2021 at 15:20 ? ? Approved by: Joey Johnson M.D. on 10/17/2021 at 15:33 ? ECG Data Interpretation: AFib, no acute ST-T changes, no axis deviation. MDM Narrative Medical decision making narrative: 76-year-old male with past medical history AFib, cardiomyopathy, GERD, peptic ulcer, gout, GI bleed presents to the ED with 2 weeks of worsening shortness of breath. Concern for anemia versus GI bleed versus versus PE versus CHF exacerbation versus ACS versus sepsis versus pneumonia. Will order labs, chest x-ray, EKG, D-dimer, BNP, lactate, coags, type and screen. Will reassess. <Omid Dow, - Last Filed: 10/18/21 07:03> Lab Data Labs: Lab Results 10/17/21 10/17/21 10/17/21 Range/Units 13:30 13:30 13:30 WBC 4.8 (4.5-11.0) X10^3/uL RBC 3.05 L (4.5-5.9) X10^6/uL Hgb 6.2 L* (13.5-17.5) g/dL Hct 20.7 L* (41-53) % MCV 68.0 L (80-100) fL MCH 20.4 L (26-34) PG MCHC 29.9 L (30-36) % RDW 18.5 H (11.6-14.8) % Plt Count 148 L (150-400) X10^3/uL Neut % (Auto) 71.0 (50-75) % Lymph % (Auto) 15.6 L (25-40) % [place] % (Auto) 8.1 (3-14) % Eos % (Auto) 3.3 (2-4) % Baso % (Auto) 2.0 (0-2) % Neut # (Auto) 3400 (2680-5972) /uL Lymph # (Auto) 700 L (0976-8079) /uL [place] # (Auto) 400 (0-900) /uL Eos # (Auto) 200 (0-450) /uL Baso # (Auto) 100 (0-100) /uL RBC Morphology See below Hypochromasia 1+ H Poikilocytosis 1+ H Anisocytosis 2+ H Target Cells 1+ H Ovalocytes 1+ H PT 19.6 H (10.1-12.7) SECONDS INR 1.7 H (0.9-1.3) D-Dimer (<230) ng/mL Sodium 138 (137-145) mmol/L Potassium 4.2 (3.4-5.1) mmol/L Chloride 100 (98-107) mmol/L Carbon Dioxide 29 (22-32) mmol/L BUN 13 (9-20) mg/dL Creatinine 1.33 H (0.66-1.25) mg/dL Estimated GFR 52.1 L (>60) mL/min BUN/Creatinine Ratio 9.8 (6-22) Glucose 173 H (80-110) mg/dL Lactate (0.7-2.1) mmol/L Calcium 9.2 (8.4-10.2) mg/dL Total Bilirubin 0.4 (0.2-1.3) mg/dL AST 23 (17-59) IU/L ALT 16 (<50) IU/L Alkaline Phosphatase 62 (38-126) U/L Troponin I (0.01-0.034) ng/mL NT-Pro-B Natriuret Pep 802 H (<450) pg/mL Total Protein 7.1 (6.3-8.2) g/dL Albumin 4.2 (3.5-5.0) g/dL Globulin 2.9 (1.7-4.1) g/dL Albumin/Globulin Ratio 1.4 (1.0-2.8) SARS-CoV-2 (PCR) (Negative) Blood Type Antibody Screen Crossmatch 10/17/21 10/17/21 10/17/21 Range/Units 13:30 13:30 13:30 WBC (4.5-11.0) X10^3/uL RBC (4.5-5.9) X10^6/uL Hgb (13.5-17.5) g/dL Hct (41-53) % MCV (80-100) fL MCH (26-34) PG MCHC (30-36) % RDW (11.6-14.8) % Plt Count (150-400) X10^3/uL Neut % (Auto) (50-75) % Lymph % (Auto) (25-40) % [place] % (Auto) (3-14) % Eos % (Auto) (2-4) % Baso % (Auto) (0-2) % Neut # (Auto) (9242-8000) /uL Lymph # (Auto) (4028-9019) /uL [place] # (Auto) (0-900) /uL Eos # (Auto) (0-450) /uL Baso # (Auto) (0-100) /uL RBC Morphology Hypochromasia Poikilocytosis Anisocytosis Target Cells Ovalocytes PT (10.1-12.7) SECONDS INR (0.9-1.3) D-Dimer (<230) ng/mL Sodium (137-145) mmol/L Potassium (3.4-5.1) mmol/L Chloride (98-107) mmol/L Carbon Dioxide (22-32) mmol/L BUN (9-20) mg/dL Creatinine (0.66-1.25) mg/dL Estimated GFR (>60) mL/min BUN/Creatinine Ratio (6-22) Glucose (80-110) mg/dL Lactate 2.5 H (0.7-2.1) mmol/L Calcium (8.4-10.2) mg/dL Total Bilirubin (0.2-1.3) mg/dL AST (17-59) IU/L ALT (<50) IU/L Alkaline Phosphatase (38-126) U/L Troponin I < 0.012 (0.01-0.034) ng/mL NT-Pro-B Natriuret Pep (<450) pg/mL Total Protein (6.3-8.2) g/dL Albumin (3.5-5.0) g/dL Globulin (1.7-4.1) g/dL Albumin/Globulin Ratio (1.0-2.8) SARS-CoV-2 (PCR) Negative (Negative) Blood Type Antibody Screen Crossmatch 10/17/21 10/17/21 10/17/21 Range/Units 13:30 13:30 16:04 WBC (4.5-11.0) X10^3/uL RBC (4.5-5.9) X10^6/uL Hgb (13.5-17.5) g/dL Hct (41-53) % MCV (80-100) fL MCH (26-34) PG MCHC (30-36) % RDW (11.6-14.8) % Plt Count (150-400) X10^3/uL Neut % (Auto) (50-75) % Lymph % (Auto) (25-40) % [place] % (Auto) (3-14) % Eos % (Auto) (2-4) % Baso % (Auto) (0-2) % Neut # (Auto) (0900-4450) /uL Lymph # (Auto) (8355-6657) /uL [place] # (Auto) (0-900) /uL Eos # (Auto) (0-450) /uL Baso # (Auto) (0-100) /uL RBC Morphology Hypochromasia Poikilocytosis Anisocytosis Target Cells Ovalocytes PT (10.1-12.7) SECONDS INR (0.9-1.3) D-Dimer < 200 (<230) ng/mL Sodium (137-145) mmol/L Potassium (3.4-5.1) mmol/L Chloride (98-107) mmol/L Carbon Dioxide (22-32) mmol/L BUN (9-20) mg/dL Creatinine (0.66-1.25) mg/dL Estimated GFR (>60) mL/min BUN/Creatinine Ratio (6-22) Glucose (80-110) mg/dL Lactate 2.2 H (0.7-2.1) mmol/L Calcium (8.4-10.2) mg/dL Total Bilirubin (0.2-1.3) mg/dL AST (17-59) IU/L ALT (<50) IU/L Alkaline Phosphatase (38-126) U/L Troponin I (0.01-0.034) ng/mL NT-Pro-B Natriuret Pep (<450) pg/mL Total Protein (6.3-8.2) g/dL Albumin (3.5-5.0) g/dL Globulin (1.7-4.1) g/dL Albumin/Globulin Ratio (1.0-2.8) SARS-CoV-2 (PCR) (Negative) Blood Type A Positive Antibody Screen Negative Crossmatch See Detail 10/17/21 10/17/21 Range/Units 19:21 19:21 WBC 5.0 (4.5-11.0) X10^3/uL RBC 3.39 L (4.5-5.9) X10^6/uL Hgb 7.3 L (13.5-17.5) g/dL Hct 23.8 L (41-53) % MCV 70.1 L (80-100) fL MCH 21.6 L (26-34) PG MCHC 30.9 (30-36) % RDW 19.7 H (11.6-14.8) % Plt Count 139 L (150-400) X10^3/uL Neut % (Auto) 66.4 (50-75) % Lymph % (Auto) 20.1 L (25-40) % [place] % (Auto) 8.8 (3-14) % Eos % (Auto) 3.0 (2-4) % Baso % (Auto) 1.7 (0-2) % Neut # (Auto) 3300 (2665-9822) /uL Lymph # (Auto) 1000 L (5491-3267) /uL [place] # (Auto) 400 (0-900) /uL Eos # (Auto) 200 (0-450) /uL Baso # (Auto) 100 (0-100) /uL RBC Morphology Hypochromasia Poikilocytosis Anisocytosis Target Cells Ovalocytes PT (10.1-12.7) SECONDS INR (0.9-1.3) D-Dimer (<230) ng/mL Sodium 138 (137-145) mmol/L Potassium 4.2 (3.4-5.1) mmol/L Chloride 101 (98-107) mmol/L Carbon Dioxide 30 (22-32) mmol/L BUN 12 (9-20) mg/dL Creatinine 1.29 H (0.66-1.25) mg/dL Estimated GFR 54.0 L (>60) mL/min BUN/Creatinine Ratio 9.3 (6-22) Glucose 133 H (80-110) mg/dL Lactate (0.7-2.1) mmol/L Calcium 9.2 (8.4-10.2) mg/dL Total Bilirubin 0.8 (0.2-1.3) mg/dL AST 22 (17-59) IU/L ALT 15 (<50) IU/L Alkaline Phosphatase 66 (38-126) U/L Troponin I (0.01-0.034) ng/mL NT-Pro-B Natriuret Pep (<450) pg/mL Total Protein 6.9 (6.3-8.2) g/dL Albumin 4.0 (3.5-5.0) g/dL Globulin 2.9 (1.7-4.1) g/dL Albumin/Globulin Ratio 1.4 (1.0-2.8) SARS-CoV-2 (PCR) (Negative) Blood Type Antibody Screen Crossmatch Discharge Plan Departure Patient Disposition: Home Clinical Impression: Anemia Instructions: Gastrointestinal Bleeding Activity Restrictions/Additional Instructions: You were evaluated in the ED today for shortness of breath. Your hemoglobin was low at 6.2 today. Your stool was positive for a GI bleed. You were transfused with 2 units of blood. Your hemoglobin is 7.3 after the transfusion. Please follow-up with [facility] tomorrow morning at [phone] for further workup of the GI bleed. You are to stop taking the Eliquis until you see the GI specialist. This has been discussed with your direct support staff member office as well. Please return to the ED if your symptoms worsen, you of chest pain, trouble breathing. 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 Please follow-up with a elevator installer to get further workup on the lung mass. Prescriptions: No Action allopurinol 300 MG tablet 300 mg PO BEDTIME Qty: 0 0RF cholecalciferol (vitamin D3) [Vitamin D3] 2,000 unit Tablet 2,000 unit PO DAILY Qty: 0 0RF psyllium husk [Metamucil] 0.52 GM capsule 500 gm PO DAILY Qty: 0 0RF telmisartan [Micardis] 80 MG tablet 80 mg PO QPM Qty: 0 0RF sodium,potassium,mag sulfates 17.5-3.13-1.6 gram recon soln 177 ml PO DAILY Qty: 354 0RF Rx Instructions: drink entire amount PM before + AM of procedure, 10-12 hr apart sertraline 100 mg tablet 100 mg PO DAILY 0RF levothyroxine 100 mcg tablet 100 mcg PO DAILY 0RF mirtazapine 30 mg tablet 30 mg PO QPM 0RF furosemide 20 mg Tablet 40 mg PO QAM 0RF testosterone cypionate 200 mg/mL Oil 200 mg IM Q2W 0RF Label Comments: 2 months ago r/t meds (per patient) magnesium oxide 400 mg magnesium Capsule 400 mg PO QAM 0RF ferrous gluconate 324 mg (37.5 mg iron) tablet 324 mg PO BID Qty: 90 2RF omeprazole 40 mg capsule,delayed release(DR/EC) 40 mg PO BID Qty: 90 0RF diltiazem HCl [Cartia XT] 120 mg capsule,extended release 24hr 300 mg PO QPM 0RF Eliquis 5 mg tablet 5 mg PO BID 0RF rosuvastatin 40 mg tablet 40 mg PO DAILY 0RF Referrals: Tong Landon MD [Primary Care Provider] - <Omid Dow DO - Last Filed: 10/18/21 07:03> Cosign ED Attending Cosignature Attestation: Dr Dow Co-Sign Statement: I was available for consultation during this patient's emergency department visit. This chart is signed by myself for administrative purposes only. I did not have direct contact with this patient during this visit. They were seen independently by the APC.
[2021-10-17 15:33] LABS: Reflexed Lactate in 2 Hours Y
--- NOTE | 2021-10-17 15:41 | PC.NURSE ---
known history of anemia
[2021-10-17] MEDS: SODIUM CHLORIDE 0.9% 1,000 ML 1000 ML IV (16:30)
[2021-10-17 16:33] LABS: Lactate 2HR (Lactic Acid Rflx) 2.2 mmol/L (0.7-2.1)
[2021-10-17 19:27] LABS: Add Manual Diff / Slide Review NO; Basophils Absolute Auto 100 /uL (0-100); Basophils Percent Auto 1.7 % (0-2); Eosinophils Absolute Auto 200 /uL (0-450); Hematocrit 23.8 % (41-53); Hemoglobin 7.3 g/dL (13.5-17.5); Lymphocytes Absolute Auto 1000 /uL (1100-4500); Lymphocytes Percent Auto 20.1 % (25-40); Mean Corpuscular HGB Conc 30.9 % (30-36); Mean Corpuscular Hemoglobin 21.6 PG (26-34); Mean Corpuscular Volume 70.1 fL (80-100); Monocytes Absolute Auto 400 /uL (0-900); Monocytes Percent Auto 8.8 % (3-14); Neutrophils Absolute Auto 3300 /uL (1500-7000); Neutrophils Percent Auto 66.4 % (50-75); Platelet Count 139 X10^3/uL (150-400); Red Blood Cell Count 3.39 X10^6/uL (4.5-5.9); Red Cell Distribution Width 19.7 % (11.6-14.8)
[2021-10-17 19:51] LABS: Alanine Aminotransferase 15 IU/L (<50); Albumin Globulin Ratio 1.4 (1.0-2.8); Alkaline Phosphatase 66 U/L (38-126); Aspartate Aminotransferase 22 IU/L (17-59); BUN Creatinine Ratio 9.3 (6-22); Bilirubin Total 0.8 mg/dL (0.2-1.3); Blood Urea Nitrogen 12 mg/dL (9-20); Calcium 9.2 mg/dL (8.4-10.2); Carbon Dioxide 30 mmol/L (22-32); Chloride 101 mmol/L (98-107); Globulin 2.9 g/dL (1.7-4.1); Glucose 133 mg/dL (80-110); HEMOLYSIS < 15 (0-50); Potassium 4.2 mmol/L (3.4-5.1); Sodium 138 mmol/L (137-145); Total Protein 6.9 g/dL (6.3-8.2)
== END 2021-10-17 20:07 | disposition home or self-care (01) ==
PROVIDERS: Emergency Provider Student in an Organized Health Care Education/Training Program; PCP Family Medicine
DX: K92.2 Gastrointestinal hemorrhage, unspecified (principal); Z79.01 Long term (current) use of anticoagulants; R91.8 Other nonspecific abnormal finding of lung field; D64.9 Anemia, unspecified
CPT/HCPCS: 36415; 36430; 71046; 71260; 80053; 83605; 83880; 84484; 85025; 85379; 85610; 86850; 86900; 86901; 87635; 93005; 96360; 96361; 99285; C9803; P9016

== ENCOUNTER → 2021-10-20 15:57 | Outpatient (CLI) | payer MEDICARE, SELFPAY ==
[2021-01-02 09:05] VITALS: BMI 44.9
[2021-10-20 16:29] LABS: Hemoglobin 7.6 g/dL (13.5-17.5); Mean Corpuscular HGB Conc 30.5 % (30-36); Mean Corpuscular Hemoglobin 21.3 PG (26-34); Mean Corpuscular Volume 69.8 fL (80-100); Platelet Count 156 X10^3/uL (150-400); Red Blood Cell Count 3.58 X10^6/uL (4.5-5.9); Red Cell Distribution Width 20.3 % (11.6-14.8)
[2021-10-20 18:57] LABS: Anisocytosis 2+; Hypochromasia 2+; Microcytosis 2+; Ovalocytes 2+; Platelet Estimate Adequate on smear
== END ==
PROVIDERS: PCP Family Medicine; Referring Provider Family Medicine; Visit Provider Family Medicine
DX: K92.2 Gastrointestinal hemorrhage, unspecified (principal)
CPT/HCPCS: 36415; 85027

== ENCOUNTER 2021-10-31 02:55 | Emergency (ER) | payer MEDICARE, SELFPAY ==
[2021-01-02 09:05] VITALS: BMI 44.9
[2021-10-31] VITALS (16 sets, daily range): BP systolic 116–159; BP diastolic 56–88; PULSE 63–82; RESP 17–22; TEMP 36.6; O2SAT 87–97; BMI 45.7
--- NOTE | 2021-10-31 03:23 | DI.RAD.S_ITS ---
PROCEDURE: XR HIP W PEL IF DONE LT 2V INDICATIONS: pain fall TECHNIQUE: AP pelvis with lateral view(s) of the left hip(s). COMPARISON: [facility], , HIP 2V LEFT, 02/21/2011, 10:22. FINDINGS: Bones: No fractures or dislocations. Pelvic ring appears intact. No suspicious bony lesions. Lumbar spine fixation hardware. Soft tissues: The visualized bowel gas pattern is normal. No suspicious soft tissue calcifications. IMPRESSION: No fracture. No acute osseous lesion. If symptoms and/or clinical suspicion for pathology persists, further assessment with repeat radiographs (7-10 days) or advanced imaging (e.g. CT, MRI or bone scan) should be considered. Dictated by: Brittany Oliver MD, PhD on 10/31/2021 at 8:12 Approved by: Brittany Oliver MD, PhD on 10/31/2021 at 8:13
--- NOTE | 2021-10-31 04:33 | ED_ITS ---
HPI - Extremity Injury (Lower) <Yana Xiao, DO - Last Filed: 10/31/21 20:50> General Chief Complaint: Extremity Injury, Lower Stated Complaint: Hip Pain Time Seen by Provider: 10/31/21 04:33 Source: patient and EMS Mode of arrival: EMS Limitations: no limitations History of Present Illness HPI Narrative: 76-year-old male with history of atrial fibrillation previously on anticoagulation but not any longer, cardiomyopathy, GERD, peptic ulcer presenting today with left hip pain. He said he stood up to use the restroom he turned and felt something pop. He was able to get himself back into bed and apparently pain was so bad he called EMS. However he was able to ambulate for the medics. Currently lying on his left side on gurney because it is position of comfort. He has no back pain. No numbness tingling or weakness. Related Data Home Medications Medication Instructions Recorded Confirmed allopurinol 300 mg tablet 300 mg PO BEDTIME #0 12/09/11 10/19/21 cholecalciferol (vitamin D3) 50 2,000 unit PO DAILY #0 12/09/11 10/19/21 mcg (2,000 unit) tablet (Vitamin D3) psyllium husk 0.52 gram capsule 500 gm PO DAILY #0 12/31/11 10/19/21 (Metamucil) telmisartan 80 mg tablet (Micardis) 80 mg PO QPM #0 05/01/17 10/19/21 furosemide 20 mg tablet 40 mg PO QAM 01/07/20 10/19/21 mirtazapine 30 mg tablet 30 mg PO QPM 01/07/20 10/19/21 sertraline 100 mg tablet 100 mg PO DAILY 01/07/20 10/19/21 diltiazem HCl 120 mg 300 mg PO QPM cap 01/10/21 10/19/21 capsule,extended release 24 hr (Cartia XT) rosuvastatin 40 mg tablet 40 mg PO DAILY 01/10/21 10/19/21 levothyroxine 125 mcg tablet 125 mcg PO DAILY tab 10/19/21 10/19/21 magnesium oxide 800 mg PO QPM cap 10/19/21 10/19/21 Previous Rx's Medication Instructions Recorded omeprazole 40 mg capsule,delayed 40 mg PO BID #90 cap 01/11/20 release sodium,potassium,mag sulfates 17.5 177 ml PO DAILY #354 ml 01/25/20 gram-3.13 gram-1.6 gram oral soln sodium,potassium,mag sulfates 17.5 See Rx Instructions PO .COMPLEX 10/19/21 gram-3.13 gram-1.6 gram oral soln #354 ml (Suprep Bowel Prep Kit) hydrocodone 5 mg-acetaminophen 325 1 tab PO Q6H PRN #20 tab 10/31/21 mg tablet ondansetron 4 mg disintegrating 4 mg PO Q8H PRN #10 tab 10/31/21 tablet Allergies Allergy/AdvReac Type Severity Reaction Status Date / Time epinephrine [EPINEPHRINE] AdvReac Mild EXACERBATES Verified 10/19/21 14:07 TREMORS gabapentin [GABAPENTIN] AdvReac Mild GLOOM AND Verified 10/19/21 14:07 DOOM Review of Systems <Yana Xiao DO - Last Filed: 10/31/21 20:50> Review of Systems Narrative: GENERAL: Denies chills,fever HEENT: Denies throat pain RESPIRATORY: Denies dyspnea, cough, wheezing CARDIOVASCULAR: Denies chest pain, palpitations GASTROINTESTINAL: Denies nausea, vomiting MUSCULOSKELETAL: See HPI SKIN: No rash, no laceration, no pruritus NEUROLOGIC: Denies weakness, dizziness, headache, numbness 8 point review of systems is negative except for those stated above and HPI Patient History <DO Mahendra Ferrara Last Filed: 10/31/21 20:50> Medical History Anemia Arthritis Depression Elevated cholesterol History of back pain History of GI bleed HTN (hypertension) Hypothyroidism Knee pain, bilateral Neuropathy BARBER (obstructive sleep apnea) Shortness of breath Sleep apnea Family History Father Loud snoring Hypertension Heart disease Alcohol abuse Mother Obesity Family/Other Restless leg Obesity Hypertension Depression Anxiety Social History household members: spouse Smoking Status: Former smoker alcohol intake: current Smoking Status: Former smoker tobacco type: smokeless tobacco alcohol intake frequency: 0-2 drinks per day Alcohol type: wine Substance Use Type: does not use Exam <Yana Xiao DO - Last Filed: 10/31/21 20:50> Initial Vital Signs Initial Vital Signs: Vital Signs Temperature 97.9 F 10/31/21 03:01 Pulse Rate 78 10/31/21 03:01 Respiratory Rate 17 10/31/21 03:01 Blood Pressure 133/58 L 10/31/21 03:01 Pulse Oximetry 96 10/31/21 03:01 GENERAL: Alert 76-year-old male BMI 45 lying on left side in mild pain CARDIOVASCULAR: peripheral pulses in tact, cap refill <2 sec RESPIRATORY: No respiratory distress, speaks in full sentences without difficulty BACK no vertebral tenderness no step-off EXTREMITIES: Normal range of motion, no clubbing or edema. Neurovascularly intact Patient is able to roll over onto his back. He is able to flex and extend at the hip with no pain internal external rotation. However while moving it he does get significant muscle spasm. Distal pedal pulses intact. NEUROLOGICAL: Cranial nerves II through XII grossly intact. Normal gait and speech. SKIN: Warm, dry, no petechiae, no rashes or lesions. <Ernesto Ruiz MD - Last Filed: 10/31/21 08:32> Initial Vital Signs Initial Vital Signs: Vital Signs Temperature 97.9 F 10/31/21 03:01 Pulse Rate 78 10/31/21 03:01 Respiratory Rate 17 10/31/21 03:01 Blood Pressure 133/58 L 10/31/21 03:01 Pulse Oximetry 96 10/31/21 03:01 Course <Yana Xiao DO - Last Filed: 10/31/21 20:50> Orders Ordered: Discontinued Medications Cyclobenzaprine HCl (Cyclobenzaprine 10 Mg Tablet) 5 mg PO NOW ONE Stop: 10/31/21 06:27 Last Admin: 10/31/21 06:39 Dose: 5 mg Documented by: BLU Hydromorphone HCl (Hydromorphone 2 Mg Inj) 1 mg SUBCUT Q4H PRN PRN Reason: Pain, Severe (7-10) Last Admin: 10/31/21 04:57 Dose: 1 mg Documented by: BLU Vital Signs Vital signs: Vital Signs - 8 hr 10/31/21 03:01 10/31/21 03:32 10/31/21 04:00 Temperature 97.9 F Pulse Rate 78 68 71 Respiratory Rate 17 Blood Pressure 133/58 L 124/58 L Pulse Oximetry 96 96 95 10/31/21 04:30 10/31/21 05:00 10/31/21 05:30 Temperature Pulse Rate 63 71 81 Respiratory Rate Blood Pressure 116/56 L 127/61 Pulse Oximetry 89 L 95 87 L 10/31/21 05:33 10/31/21 06:00 10/31/21 06:01 Temperature Pulse Rate 75 70 68 Respiratory Rate Blood Pressure 151/66 H 154/65 H Pulse Oximetry 96 91 90 L 10/31/21 06:30 10/31/21 06:31 10/31/21 07:00 Temperature Pulse Rate 68 69 68 Respiratory Rate Blood Pressure 140/63 Pulse Oximetry 91 95 93 10/31/21 07:01 10/31/21 07:30 10/31/21 07:31 Temperature Pulse Rate 68 71 72 Respiratory Rate 22 Blood Pressure 159/69 H 148/75 H Pulse Oximetry 93 94 95 <Ernesto Ruiz MD - Last Filed: 10/31/21 08:32> Course Course Narrative: 7:00 a.m.. s/o from dr xiao, patient here for hip pain. X-rays reassuring. Pain control at this time needs reassessment. Patient and spouse states they have walkers at home to utilize. Will give referral to patient for orthopedics. Orders Ordered: Discontinued Medications Cyclobenzaprine HCl (Cyclobenzaprine 10 Mg Tablet) 5 mg PO NOW ONE Stop: 10/31/21 06:27 Last Admin: 10/31/21 06:39 Dose: 5 mg Documented by: BLU Hydromorphone HCl (Hydromorphone 2 Mg Inj) 1 mg SUBCUT Q4H PRN PRN Reason: Pain, Severe (7-10) Last Admin: 10/31/21 04:57 Dose: 1 mg Documented by: BLU Reevaluation(s) Reevaluation #1: Pain has improved. Reviewed imaging with patient and . They agree with treatment plan and follow-up with orthopedics. They do have walkers at home. They are comfortable with home management at this time. Time: 07:51 Vital Signs Vital signs: Vital Signs - 8 hr 10/31/21 03:01 10/31/21 03:32 10/31/21 04:00 Temperature 97.9 F Pulse Rate 78 68 71 Respiratory Rate 17 Blood Pressure 133/58 L 124/58 L Pulse Oximetry 96 96 95 10/31/21 04:30 10/31/21 05:00 10/31/21 05:30 Temperature Pulse Rate 63 71 81 Respiratory Rate Blood Pressure 116/56 L 127/61 Pulse Oximetry 89 L 95 87 L 10/31/21 05:33 10/31/21 06:00 10/31/21 06:01 Temperature Pulse Rate 75 70 68 Respiratory Rate Blood Pressure 151/66 H 154/65 H Pulse Oximetry 96 91 90 L 10/31/21 06:30 10/31/21 06:31 10/31/21 07:00 Temperature Pulse Rate 68 69 68 Respiratory Rate Blood Pressure 140/63 Pulse Oximetry 91 95 93 10/31/21 07:01 10/31/21 07:30 10/31/21 07:31 Temperature Pulse Rate 68 71 72 Respiratory Rate 22 Blood Pressure 159/69 H 148/75 H Pulse Oximetry 93 94 95 MDM - Extremity Injury (Lower) <Yana Xiao DO - Last Filed: 10/31/21 20:50> Imaging Data Extremity x-ray #1: Radiologist's Impression: Preliminary report no fracture CT pelvis: Radiologist's Impression: Preliminary report no acute fracture or dislocation [facility] Narrative Medical decision making narrative: Patient is given Dilaudid. He is lying on his left side which he says hurts. He is given pain medication. Signed out to Dr. Ruiz. Anticipate discharge home when pain is controlled Appropriate for discharge home. Patient will use walkers that he has at home. Return precautions reviewed with him. Needs follow-up with orthopedics. Short course of pain medication prescribed <Ernesto Ruiz MD - Last Filed: 10/31/21 08:32> Differential Diagnosis Differential diagnosis: Likely other (Osteoarthritis/fracture/dislocation.) MDM Narrative Medical decision making narrative: Patient is given Dilaudid Appropriate for discharge home. Patient will use walkers that he has at home. Return precautions reviewed with him. Needs follow-up with orthopedics. Short course of pain medication prescribed Discharge Plan Departure Patient Disposition: Home Clinical Impression: Strain of left hip Instructions: DI for Hip Pain Activity Restrictions/Additional Instructions: No driving or operating machinery today. Or when taking prescribed pain medication. Call provided orthopedic office today to make appointment for re- evaluation of your hip pain. May need outpatient MRI of the hip. Prescriptions: New hydrocodone-acetaminophen 5-325 mg tablet 1 tab PO Q6H PRN (Reason: pain) Qty: 20 0RF ondansetron 4 mg tablet,disintegrating 4 mg PO Q8H PRN (Reason: nausea and vomiting) Qty: 10 0RF No Action allopurinol 300 MG tablet 300 mg PO BEDTIME Qty: 0 0RF cholecalciferol (vitamin D3) [Vitamin D3] 2,000 unit Tablet 2,000 unit PO DAILY Qty: 0 0RF psyllium husk [Metamucil] 0.52 GM capsule 500 gm PO DAILY Qty: 0 0RF telmisartan [Micardis] 80 MG tablet 80 mg PO QPM Qty: 0 0RF sodium,potassium,mag sulfates 17.5-3.13-1.6 gram recon soln 177 ml PO DAILY Qty: 354 0RF Rx Instructions: drink entire amount PM before + AM of procedure, 10-12 hr apart Suprep Bowel Prep Kit 17.5-3.13-1.6 gram recon soln See Rx Instructions PO .COMPLEX Qty: 354 0RF Rx Instructions: DILUTE; drink full amount early evening before AND next morning at least 2 hr before procedure; follow w 32 oz. water PO levothyroxine 125 mcg tablet 125 mcg PO DAILY 0RF Label Comments: TAKE 1 TABLET BY MOUTH EVERY DAY sertraline 100 mg tablet 100 mg PO DAILY 0RF mirtazapine 30 mg tablet 30 mg PO QPM 0RF furosemide 20 mg Tablet 40 mg PO QAM 0RF omeprazole 40 mg capsule,delayed release(DR/EC) 40 mg PO BID Qty: 90 0RF diltiazem HCl [Cartia XT] 120 mg capsule,extended release 24hr 300 mg PO QPM 0RF magnesium oxide 400 mg magnesium capsule 800 mg PO QPM 0RF rosuvastatin 40 mg tablet 40 mg PO DAILY 0RF Referrals: Cadence Bolton MD [Physician] - Tong Landon MD [Primary Care Provider] -
--- NOTE | 2021-10-31 04:45 | DI.CT.S_ITS ---
PROCEDURE: CT PEL WO CON INDICATIONS: severe left hip pain TECHNIQUE: Noncontrast 3 mm axial sections acquired through the bony pelvis, with coronal and sagittal reformatting. COMPARISON: None. FINDINGS: Image quality: Excellent. Bones: No fracture or dislocation. Discectomy, eminectomy and posterior fusion at L4-L5-S1. Mild hip and sacroiliac joint degeneration bilaterally. Soft tissues: Visualized pelvic visceral organs are normal. There is a 2.5 cm subcutaneous nodule in the right buttock, partially visualized. IMPRESSION: 1. No fracture or dislocation. 2. Postsurgical changes in lumbar spine. 3. Partial visualization of a 2.5 cm subcutaneous nodule in the right buttock. Please correlate clinically. No significant discrepancy with the [facility] radiology preliminary report. Please note that the nonurgent finding of 2.5 cm subcutaneous nodule was not mentioned on the preliminary interpretation. Dictated by: Odalys Jackman M.D. on 10/31/2021 at 8:00 Approved by: Odalys Jackman M.D. on 10/31/2021 at 8:07
[2021-10-31] MEDS: HYDROMORPHONE 2 MG INJ 1 MG SUBCUT (04:57)
[2021-10-31] MEDS: CYCLOBENZAPRINE 10 MG TABLET 5 MG PO (06:39)
== END 2021-10-31 07:45 | disposition home or self-care (01) ==
PROVIDERS: Emergency Provider Emergency Medicine; PCP Family Medicine
DX: S76.012A Strain of muscle, fascia and tendon of left hip, initial encounter (principal); X50.1XXA Overexertion from prolonged static or awkward postures, initial encounter
CPT/HCPCS: 72192; 73502; 99284; J1170

== ENCOUNTER → 2021-11-10 15:53 | Outpatient (CLI) | payer MEDICARE, SELFPAY ==
[2021-01-02 09:05] VITALS: BMI 44.9
[2021-11-10 16:51] LABS: Add Manual Diff / Slide Review NO; Basophils Absolute Auto 0 /uL (0-100); Basophils Percent Auto 0.1 % (0-2); Eosinophils Absolute Auto 200 /uL (0-450); Eosinophils Percent Auto 2.1 % (2-4); Hematocrit 29.9 % (41-53); Hemoglobin 9.1 g/dL (13.5-17.5); Lymphocytes Absolute Auto 1300 /uL (1100-4500); Lymphocytes Percent Auto 12.3 % (25-40); Mean Corpuscular HGB Conc 30.4 % (30-36); Mean Corpuscular Hemoglobin 20.3 PG (26-34); Mean Corpuscular Volume 66.7 fL (80-100); Monocytes Absolute Auto 800 /uL (0-900); Monocytes Percent Auto 8.4 % (3-14); Neutrophils Absolute Auto 7800 /uL (1500-7000); Neutrophils Percent Auto 77.1 % (50-75); Red Blood Cell Count 4.47 X10^6/uL (4.5-5.9); Red Cell Distribution Width 20.5 % (11.6-14.8); White Blood Cell Count 10.2 X10^3/uL (4.5-11.0)
[2021-11-10 17:02] LABS: Platelet Count 112 X10^3/uL (150-400)
[2021-11-10 17:17] LABS: Anisocytosis 1+; Poikilocytosis 2+; Polychromasia 1+
[2021-11-10 17:18] LABS: Microcytosis 2+; Ovalocytes 1+
== END ==
PROVIDERS: PCP Family Medicine; Referring Provider Family Medicine; Visit Provider Family Medicine
DX: D64.9 Anemia, unspecified (principal)
CPT/HCPCS: 85025; 86900; 86901

== ENCOUNTER → 2021-11-20 11:04 | Outpatient (CLI) | payer MEDICARE, SELFPAY ==
[2021-01-02 09:05] VITALS: BMI 44.9
[2021-11-20 11:45] LABS: COVID19 -Nasal RAPID Negative (Negative)
== END ==
PROVIDERS: PCP Family Medicine; Visit Provider Surgery
DX: Z01.812 Encounter for preprocedural laboratory examination (principal); Z20.822 Contact with and (suspected) exposure to COVID-19
CPT/HCPCS: 87635; C9803

== ENCOUNTER 2021-11-21 09:47 | Day surgery (SDC) | payer MEDICARE, SELFPAY ==
[2021-01-02 09:05] VITALS: BMI 44.9
[2021-11-21] VITALS (7 sets, daily range): BP systolic 109–141; BP diastolic 61–82; PULSE 81–93; RESP 14–20; TEMP 36.6–37.1; O2SAT 91–97; BMI 44.9
--- NOTE | 2021-11-21 | PATH_ITS ---
[facility] Accession Number: [id number] . 01 Material submitted: . PART A: gastrointestinal site - GASTRIC BIOPSY PART B: rectum - RECTAL POLYP . 02 Diagnosis: A. Gastric Biopsy: Gastric body-type mucosa with mild chronic inflammation. Negative for Helicobacter organisms by immunohistochemistry. Negative for intestinal metaplasia. Negative for dysplasia or malignancy. . B. Rectal Polyp: Tubular adenoma. MRV 11/29/2021 1451 Local . 02 Electronically signed: . Elva Morales MD, Pathologist NPI- [id number] . 01 Gross description: . Part A: GASTRIC BIOPSY: Received in formalin are 2 fragment(s) of hardin, soft tissue measuring 0.1 x 0.1 x 0.1 cm to 0.3 x 0.2 x 0.2 cm submitted entirely in 1 cassette(s) Part B: RECTAL POLYP : Received in formalin is 1 fragment(s) of hardin, soft tissue measuring 0.1 x 0.1 x 0.1 cm submitted entirely in 1 cassette(s) /ROBERT 11/22/2021 1907 Local . 02 Microscopic: . A. An immunohistochemical stain was performed to evaluate for Helicobacter organisms and is negative. The control stain showed appropriate reactivity. . * This test was developed and its performance characteristics determined by [facility]. It has not been cleared or approved by the U.S. Food and Drug Administration. The FDA has determined that such clearance or approval is not necessary. This test is used for clinical purposes. It should not be regarded as investigational or for research. . 02 Pathologist provided ICD-10: K63.5 . 02 CPT . 396562, 113798, [id number] Performed at: 01 [facility] [address] [id number] MD Joey Beckham MD Phone: [phone] Performed at: 02 [facility] [address] [place] [id number] MD Dorene Romero MD Phone: [phone]
[2021-11-21] MEDS: LACTATED RINGERS 1,000 ML 200 ML IV (10:57)
--- NOTE | 2021-11-21 11:50 | PM.HP.1 ---
History of Present Illness History of Present Illness Date Patient Seen: 11/21/21 Time Patient Seen: 11:50 Chief complaint: EGD & COLONOSCOPY Narrative: 76M here for diagnostic EGD and colonoscopy secondary to anemia. Feeling well today. No interval changes in health since last seen October 2021. Patient History Medical History Anemia Arthritis Depression Elevated cholesterol History of back pain History of GI bleed HTN (hypertension) Hypothyroidism Knee pain, bilateral Neuropathy BARBER (obstructive sleep apnea) Shortness of breath Sleep apnea Family & Social History Family History Father Loud snoring Hypertension Heart disease Alcohol abuse Mother Obesity Family/Other Restless leg Obesity Hypertension Depression Anxiety Social History: household members spouse Tobacco & Substance use: Tobacco type smokeless tobacco Smoking Status Former smoker alcohol intake current alcohol intake frequency 3 or more drinks per day Substance Use Type does not use Meds Home Medications and Allergies Home Medications Medication Instructions Recorded Confirmed Type allopurinol 300 mg tablet 300 mg PO BEDTIME #0 12/09/11 11/21/21 History cholecalciferol (vitamin D3) 50 2,000 unit PO DAILY #0 12/09/11 11/21/21 History mcg (2,000 unit) tablet (Vitamin D3) psyllium husk 0.52 gram capsule 500 gm PO DAILY #0 12/31/11 11/21/21 History (Metamucil) telmisartan 80 mg tablet (Micardis) 80 mg PO QPM #0 05/01/17 11/21/21 History furosemide 20 mg tablet 40 mg PO QAM 01/07/20 11/21/21 History mirtazapine 30 mg tablet 30 mg PO QPM 01/07/20 11/21/21 History sertraline 100 mg tablet 100 mg PO DAILY 01/07/20 11/21/21 History omeprazole 40 mg capsule,delayed 40 mg PO BID #90 cap 01/11/20 11/21/21 Rx release diltiazem HCl 120 mg 300 mg PO QPM cap 01/10/21 11/21/21 History capsule,extended release 24 hr (Cartia XT) rosuvastatin 40 mg tablet 40 mg PO DAILY 01/10/21 11/21/21 History levothyroxine 125 mcg tablet 125 mcg PO DAILY tab 10/19/21 11/21/21 History magnesium oxide 800 mg PO QPM cap 10/19/21 11/21/21 History sodium,potassium,mag sulfates 17.5 See Rx Instructions PO .COMPLEX 10/19/21 11/21/21 Rx gram-3.13 gram-1.6 gram oral soln #354 ml (Suprep Bowel Prep Kit) hydrocodone 5 mg-acetaminophen 325 1 tab PO Q6H PRN #20 tab 10/31/21 11/21/21 Rx mg tablet ondansetron 4 mg disintegrating 4 mg PO Q8H PRN #10 tab 10/31/21 11/21/21 Rx tablet Allergies Allergy/AdvReac Type Severity Reaction Status Date / Time epinephrine [EPINEPHRINE] AdvReac Mild EXACERBATES Verified 11/21/21 10:17 TREMORS gabapentin [GABAPENTIN] AdvReac Mild GLOOM AND Verified 11/21/21 10:17 DOOM Exam Vital Signs (past 8 hours): - 11/21/21 10:42 Temperature 98.7 F Pulse Rate 85 Respiratory Rate 20 Blood Pressure 127/78 Pulse Oximetry 97 Oxygen Delivery Method Room Air Narrative Exam Narrative: Gen-Elderly man obese no distress Abdomen-Soft non tender. Assessment & Plan Assessment and plan (1) Symptomatic anemia: Status: Acute Assessment & Plan narrative: 76M with anemia here for diagnostic colonoscopy and esophagoduodenoscopy. Procedure again discussed with the patient. Procedural risks including bleeding, missed diagnosis, intestinal perforation were discussed. His questions have been answered and he is in agreement with this plan. Time Spent With Patient Critical Care time: I spent a total of [] minutes of critical care time on this patient's care today; this time is exclusive of procedural time.
--- NOTE | 2021-11-21 12:45 | PM.OP.EC ---
Operative Date/Time/Diagnoses Date of procedure: 11/21/21 Time of procedure: 12:45 Pre-op diagnosis: Anemia Post-op diagnosis: other (Gastritis, colonic polyp) Procedure & Clinicians Study performed: Esophagoduodenoscopy and colonoscopy Same procedure as scheduled: Yes Indications: Anemia Surgeon: Malachi Connolly Procedure Notes Procedure in detail: The history and physical was performed/updated and the patient is ASA class is 4. The procedure was discussed in detail with the patient. Potential risks complications including infection, bleeding, missed diagnosis, perforation, need for surgery, and were explained. Their questions were answered and informed consent was obtained. Patient placed in left lateral decubitus position. Time out was performed. General anesthesia was induced patient was intubated with an endotracheal tube by Anesthesia. . A bite block was placed. the scope was inserted into the mouth and advanced through the esophagus and into the stomach. The pylorus was intubated and the duodenum was normal to the 2nd portion. The scope was retroflexed within the stomach and there was no hiatal hernia. There was no discrete gastric ulcer but there was diffuse gastritis. No active bleeding. Biopsy of the stomach was performed with forceps. The scope was withdrawn into the esophagus the Z line was seen at 45 cm from the incisions. There was no Gant's esophagitis or masses or strictures. Stomach was desufflated and scope removed. Patient tolerated procedure well. Examination began with a thorough inspection of the perianal area there was no evidence of fissures, fistulae, external hemorrhoids or cutaneous malignancy. The colonoscopy scope was then placed into the anal canal and was advanced to the cecum, which was identified by the ileocecal valve, the appendiceal orifice and the confluence of the taenia. The scope was then slowly withdrawn examining colon thoroughly in all directions, irrigating it of any residual stool. FINDINGS 1. Gastritis 2. 5 mm rectal polyp removed with forceps The patient tolerated the procedure well. They will be discharged once criteria are met. The prep was of good/excellent quality. The withdrawl time was 8 minutes. Specimen(s): other (Gastric, rectal polyp) Complications: none Impression: Gastritis Post-procedure Plan for aftercare: Continue omeprazole 40 mg b.i.d. Start Carafate. Will notify with pathology Disposition: same day surgery
== END 2021-11-21 13:30 | disposition home or self-care (01) ==
PROVIDERS: PCP Family Medicine; Referring Provider Surgery; Visit Provider Surgery
PROC: 0DJ08ZZ Inspection of Upper Intestinal Tract, Via Natural or Artificial Opening Endoscopic (ICD-10-PCS; CPT 43235; principal; 2021-11-21 11:45)
PROC: 0DJD8ZZ Inspection of Lower Intestinal Tract, Via Natural or Artificial Opening Endoscopic (ICD-10-PCS; CPT 45378; 2021-11-21 11:45)
DX: D64.9 Anemia, unspecified (principal); G47.33 Obstructive sleep apnea (adult) (pediatric); I10 Essential (primary) hypertension; E78.00 Pure hypercholesterolemia, unspecified; E66.01 Morbid (severe) obesity due to excess calories; Z68.42 Body mass index [BMI] 45.0-49.9, adult; K29.50 Unspecified chronic gastritis without bleeding; D12.8 Benign neoplasm of rectum
CPT/HCPCS: 45380; 43239; J0330; J2250; J2704; J3010

== ENCOUNTER → 2021-11-29 16:36 | Outpatient (CLI) | payer MEDICARE, SELFPAY ==
[2021-01-02 09:05] VITALS: BMI 44.9
--- NOTE | 2021-11-29 | DI.US.S_ITS ---
PROCEDURE: US PERIPH VENOUS LOW EXTREM LT INDICATIONS: Calf swelling TECHNIQUE: Real-time imaging, as well as color and pulse Doppler interrogation, were performed of the lower extremity deep veins from the inguinal ligament to the popliteal fossa. COMPARISON: None. FINDINGS: There is fully occlusive thrombus in the left superficial femoral vein within the mid and distal segments. Proximal to the superficial vein there is no obvious thrombus in the profundus femoris or common femoral vein. IMPRESSION: Acute fully occlusive DVT in the left superficial femoral vein and popliteal vein. Dictated by: Louis Altman M.D. on 11/29/2021 at 17:38 Approved by: Louis Altman M.D. on 11/29/2021 at 17:45
== END ==
PROVIDERS: PCP Family Medicine; Referring Provider Orthopaedic Surgery; Visit Provider Orthopaedic Surgery
DX: I82.432 Acute embolism and thrombosis of left popliteal vein (principal); I82.812 Embolism and thrombosis of superficial veins of left lower extremity; M79.605 Pain in left leg
CPT/HCPCS: 93971

== ENCOUNTER 2021-11-29 17:24 | Emergency (ER) | payer MEDICARE, SELFPAY ==
[2021-01-02 09:05] VITALS: BMI 44.9
[2021-11-29] VITALS (12 sets, daily range): BP systolic 159–171; BP diastolic 74–95; PULSE 74–92; RESP 15–22; TEMP 36.4; O2SAT 94–99; BMI 44.9
--- NOTE | 2021-11-29 18:14 | DI.RAD.S_ITS ---
PROCEDURE: XR CHEST 1V INDICATIONS: Chest pain TECHNIQUE: One view of the chest was acquired. COMPARISON: [facility], CR, XR CHEST 1V, 01/07/2020, 16:28. FINDINGS: Surgical changes and devices: None. Lungs and pleura: Lungs are clear. No pleural effusions or pneumothorax. Mediastinum: Mediastinal contours appear normal. Heart size is normal. Bones and chest wall: No suspicious bony lesions. Overlying soft tissues appear unremarkable. IMPRESSION: No acute cardiopulmonary process demonstrated radiographically. Dictated by: Luois Altman M.D. on 11/29/2021 at 18:36 Approved by: Louis Altman M.D. on 11/29/2021 at 18:36
--- NOTE | 2021-11-29 18:49 | ED.EXTPRO ---
HPI - Extremity Problem General Chief complaint: Extremity Problem,Nontraumatic Stated complaint: Lower Left Leg DVT Time Seen by Provider: 11/29/21 18:17 Source: patient Mode of arrival: Wheelchair History of Present Illness HPI Narrative: 76-year-old male former smoker with history of atrial fibrillation (no longer anticoagulated), chronic hip and knee pain, chronic anemia presents with his after having been told earlier today that he had an ultrasound demonstrating a clot. He had been complaining of pain in his hip and knee and had an appointment to see his orthopedist today, during their discussion it was determined that his left leg had become swollen and increasingly painful over the past week or so. This is in the absence of any fall or injury. He has had no fever chills denies any numbness or tingling. The orthopedist ordered an outpatient ultrasound which demonstrated a large clot burden of which point he was referred to our emergency department. At no point has he had any increase in chest pain or shortness of breath. He has been in his normal state of health and denies any fatigue, cough hemoptysis or other significant complaint. He is not dizzy nor weak or lightheaded. He denies any nausea, vomiting or diarrhea. He has been having difficulty with chronic anemia and as result his anticoagulation was stopped 1-2 months ago. Related Data Home Medications Medication Instructions Recorded Confirmed allopurinol 300 mg tablet 300 mg PO BEDTIME #0 12/09/11 11/21/21 cholecalciferol (vitamin D3) 50 2,000 unit PO DAILY #0 12/09/11 11/21/21 mcg (2,000 unit) tablet (Vitamin D3) psyllium husk 0.52 gram capsule 500 gm PO DAILY #0 12/31/11 11/21/21 (Metamucil) telmisartan 80 mg tablet (Micardis) 80 mg PO QPM #0 05/01/17 11/21/21 furosemide 20 mg tablet 40 mg PO QAM 01/07/20 11/21/21 mirtazapine 30 mg tablet 30 mg PO QPM 01/07/20 11/21/21 sertraline 100 mg tablet 100 mg PO DAILY 01/07/20 11/21/21 diltiazem HCl 120 mg 300 mg PO QPM cap 01/10/21 11/21/21 capsule,extended release 24 hr (Cartia XT) rosuvastatin 40 mg tablet 40 mg PO DAILY 01/10/21 11/21/21 levothyroxine 125 mcg tablet 125 mcg PO DAILY tab 10/19/21 11/21/21 magnesium oxide 800 mg PO QPM cap 10/19/21 11/21/21 Previous Rx's Medication Instructions Recorded omeprazole 40 mg capsule,delayed 40 mg PO BID #90 cap 01/11/20 release hydrocodone 5 mg-acetaminophen 325 1 tab PO Q6H PRN #20 tab 10/31/21 mg tablet ondansetron 4 mg disintegrating 4 mg PO Q8H PRN #10 tab 10/31/21 tablet sucralfate 1 gram tablet See Rx Instructions .ROUTE 11/21/21 .COMPLEX #180 tab Allergies Allergy/AdvReac Type Severity Reaction Status Date / Time epinephrine [EPINEPHRINE] AdvReac Mild EXACERBATES Verified 11/29/21 17:29 TREMORS gabapentin [GABAPENTIN] AdvReac Mild GLOOM AND Verified 11/29/21 17:29 DOOM Review of Systems Review of Systems Narrative: GENERAL: Denies chills, fatigue, malaise, fever, sweats. HEENT: Denies sinus pain, ear pain, sore throat, difficulty swallowing, dizziness. RESPIRATORY: Denies dyspnea, cough, wheezing, hemoptysis, sputum. CARDIOVASCULAR: Denies chest pain, palpitations, orthopnea, edema, GASTROINTESTINAL: Denies nausea, vomiting, abdominal pain, diarrhea, constipation, melena. : Denies dysuria, frequency, incontinence, hematuria, urinary retention. MUSCULOSKELETAL: d see HPI SKIN: Denies rash, skin lesions, or other NEUROLOGIC: Denies weakness, headache, numbness, change in speech, confusion, seizures, incoordination. PSYCHIATRIC: No concerning psychosocial issues. 12 point review of systems is negative except for those stated above Patient History Medical History Anemia Arthritis Depression Elevated cholesterol History of back pain History of GI bleed HTN (hypertension) Hypothyroidism Knee pain, bilateral Neuropathy BARBER (obstructive sleep apnea) Shortness of breath Sleep apnea Family History Father Loud snoring Hypertension Heart disease Alcohol abuse Mother Obesity Family/Other Restless leg Obesity Hypertension Depression Anxiety Social History household members: spouse Smoking Status: Former smoker alcohol intake: current Smoking Status: Former smoker tobacco type: smokeless tobacco alcohol intake frequency: 3 or more drinks per day Alcohol type: wine Substance Use Type: does not use Exam Narrative Exam Narrative: GENERAL: [76 year old patient appears stated age. Well-developed patient, in no obvious distress HEAD: Atraumatic. Normocephalic. EYES: Pupils equal round and reactive. Extraocular motions intact. No scleral icterus. No injection or drainage. ENT: Nose without bleeding, purulent drainage. Throat without erythema, tonsillar hypertrophy or exudate. Airway patent. NECK: Trachea midline. Non tender CARDIOVASCULAR irregular rate and rhythm without murmurs, gallops, or rubs. RESPIRATORY: No significant increased work of breathing, no tachypnea, no use of accessory muscles, no need for supplemental oxygen GASTROINTESTINAL: Abdomen soft, non-tender, nondistended. EXTREMITIES: Left lower extremity with notable swelling of thigh into knee BACK: Nontender without deformity or crepitance. No flank tenderness. NEURO: AOx3. SKIN: No rash or erythema of visible areas Initial Vital Signs Initial Vital Signs: Vital Signs Temperature 97.5 F L 11/29/21 17:29 Pulse Rate 77 11/29/21 17:29 Respiratory Rate 15 11/29/21 17:29 Blood Pressure 159/74 H 11/29/21 17:29 Pulse Oximetry 98 11/29/21 17:29 Course Orders Ordered: ED Orders 11/29/21 18:14 XR chest 1V Stat EKG-12 Lead Stat 11/29/21 18:26 Complete Blood Count AUTO DIFF Stat Comprehensive Metabolic Panel Stat Lipase Stat Magnesium Stat Partial Thromboplastin Time Stat Prothrombin Time INR Stat Troponin & CK Cardiac Panel Stat 11/29/21 19:40 CT angio chest PE protocol Stat Consultations Consultation #1: Discussed with patient PCP, we sure the opinion that given his lack of respiratory complaints, stable vital signs and no evidence of right heart strain there is no indication for hospitalization. Vital Signs Vital signs: Vital Signs - 8 hr 11/29/21 21:00 11/29/21 21:28 11/29/21 21:29 Pulse Rate 79 75 Respiratory Rate 17 21 Blood Pressure 162/95 H Pulse Oximetry 98 97 MDM - Extremity (Nontraumatic) Lab Data Result diagrams: 11/29/21 18:26 11/29/21 18:26 Labs: Lab Results 11/29/21 11/29/21 11/29/21 Range/Units 18:26 18:26 18:26 WBC 5.4 (4.5-11.0) X10^3/uL RBC 4.12 L (4.5-5.9) X10^6/uL Hgb 8.7 L (13.5-17.5) g/dL Hct 29.0 L (41-53) % MCV 70.5 L (80-100) fL MCH 21.2 L (26-34) PG MCHC 30.1 (30-36) % RDW 24.3 H (11.6-14.8) % Plt Count 284 (150-400) X10^3/uL Neut % (Auto) 63.2 (50-75) % Lymph % (Auto) 20.9 L (25-40) % Roosevelt % (Auto) 10.0 (3-14) % Eos % (Auto) 4.6 H (2-4) % Baso % (Auto) 1.3 (0-2) % Neut # (Auto) 3400 (2101-7426) /uL Lymph # (Auto) 1100 (0730-0038) /uL Roosevelt # (Auto) 500 (0-900) /uL Eos # (Auto) 300 (0-450) /uL Baso # (Auto) 100 (0-100) /uL RBC Morphology See below Poikilocytosis 3+ H Anisocytosis 2+ H Microcytosis 1+ H Tear Drop Cells 1+ H Ovalocytes 2+ H PT 14.6 H (10.1-12.7) SECONDS INR 1.3 (0.9-1.3) APTT 33 (26.4-36.2) SECONDS Sodium 140 (137-145) mmol/L Potassium 4.2 (3.4-5.1) mmol/L Chloride 104 (98-107) mmol/L Carbon Dioxide 32 (22-32) mmol/L BUN 14 (9-20) mg/dL Creatinine 1.21 (0.66-1.25) mg/dL Estimated GFR 58.1 L (>60) mL/min BUN/Creatinine Ratio 11.6 (6-22) Glucose 117 H (80-110) mg/dL Calcium 9.2 (8.4-10.2) mg/dL Magnesium 1.9 (1.6-2.3) mg/dL Total Bilirubin 0.4 (0.2-1.3) mg/dL AST 24 (17-59) IU/L ALT 19 (<50) IU/L Alkaline Phosphatase 105 (38-126) U/L Total Creatine Kinase 22 L (55-170) U/L CK-MB (CK-2) TNP CK-MB (CK-2) Rel Index TNP Troponin I < 0.012 (0.01-0.034) ng/mL Total Protein 7.4 (6.3-8.2) g/dL Albumin 3.9 (3.5-5.0) g/dL Globulin 3.5 (1.7-4.1) g/dL Albumin/Globulin Ratio 1.1 (1.0-2.8) Lipase 68 (23-300) U/L MDM Narrative Medical decision making narrative: Patient with very reassuring history and physical exam. He has a newly discovered a deep vein thrombosis which prompted an evaluation that demonstrates multiple small pulmonary emboli. He is in no respiratory distress, has no evidence of heart strain, certainly meets no criteria for mechanical retrieval or catheter directed lysis, has no complaints or exam findings that suggest he would need hospitalization. Patient's family, primary care provider and myself are all in agreement about this. Return precautions have been discussed, PCP will discuss follow-up with the patient tomorrow. Questions answered to patient's satisfaction. Discharge Plan Departure Patient Disposition: Home Clinical Impression: Pulmonary embolism Instructions: DI for Deep Vein Thrombosis, DI for Pulmonary Embolism Activity Restrictions/Additional Instructions: *You have been diagnosed with [left lower extremity DVT and multiple small pulmonary embolisms *What to do: * as we discussed, you will need to take the treatment dose of Eliquis which is 10mg by mouth twice daily for 7 days and then return to your normal 5mg by mouth twice daily after that *Please contact Dr. Landon's office in the morning so he can arrange follow-up and repeat blood test for you *Return to Emergency Department if you should have any new, worsening or concerning symptoms, such as [dizziness, weakness, lightheadedness, chest pain, shortness of breath or any abnormal breathing Prescriptions: No Action allopurinol 300 MG tablet 300 mg PO BEDTIME Qty: 0 0RF cholecalciferol (vitamin D3) [Vitamin D3] 2,000 unit Tablet 2,000 unit PO DAILY Qty: 0 0RF psyllium husk [Metamucil] 0.52 GM capsule 500 gm PO DAILY Qty: 0 0RF telmisartan [Micardis] 80 MG tablet 80 mg PO QPM Qty: 0 0RF sucralfate 1 gram tablet See Rx Instructions .ROUTE .COMPLEX Qty: 180 0RF Dose Instruction: TAKE 1 TABLET BY MOUTH TWICE DAILY Rx Instructions: TAKE 1 TABLET BY MOUTH TWICE DAILY levothyroxine 125 mcg tablet 125 mcg PO DAILY 0RF Label Comments: TAKE 1 TABLET BY MOUTH EVERY DAY hydrocodone-acetaminophen 5-325 mg tablet 1 tab PO Q6H PRN (Reason: pain) Qty: 20 0RF ondansetron 4 mg tablet,disintegrating 4 mg PO Q8H PRN (Reason: nausea and vomiting) Qty: 10 0RF Rx Instructions: NEVER STARTED sertraline 100 mg tablet 100 mg PO DAILY 0RF mirtazapine 30 mg tablet 30 mg PO QPM 0RF furosemide 20 mg Tablet 40 mg PO QAM 0RF omeprazole 40 mg capsule,delayed release(DR/EC) 40 mg PO BID Qty: 90 0RF diltiazem HCl [Cartia XT] 120 mg capsule,extended release 24hr 300 mg PO QPM 0RF magnesium oxide 400 mg magnesium capsule 800 mg PO QPM 0RF rosuvastatin 40 mg tablet 40 mg PO DAILY 0RF Referrals: Tong Landon MD [Primary Care Provider] -
[2021-11-29 19:04] LABS: INR 1.3 (0.9-1.3); Prothrombin Time 14.6 SECONDS (10.1-12.7)
--- NOTE | 2021-11-29 19:04 | PC.NURSE ---
Pt has known DVT in LLE confirmed by outpatient US and was sent to ED for evaluation and treatment.
[2021-11-29 19:07] LABS: Add Manual Diff / Slide Review NO; Basophils Absolute Auto 100 /uL (0-100); Basophils Percent Auto 1.3 % (0-2); Eosinophils Absolute Auto 300 /uL (0-450); Eosinophils Percent Auto 4.6 % (2-4); Hemoglobin 8.7 g/dL (13.5-17.5); Lymphocytes Absolute Auto 1100 /uL (1100-4500); Lymphocytes Percent Auto 20.9 % (25-40); Mean Corpuscular HGB Conc 30.1 % (30-36); Mean Corpuscular Hemoglobin 21.2 PG (26-34); Mean Corpuscular Volume 70.5 fL (80-100); Monocytes Absolute Auto 500 /uL (0-900); Neutrophils Absolute Auto 3400 /uL (1500-7000); Neutrophils Percent Auto 63.2 % (50-75); PTT Partial Thromboplastin Tim 33 SECONDS (26.4-36.2); Platelet Count 284 X10^3/uL (150-400); Red Blood Cell Count 4.12 X10^6/uL (4.5-5.9); Red Cell Distribution Width 24.3 % (11.6-14.8); White Blood Cell Count 5.4 X10^3/uL (4.5-11.0)
[2021-11-29 19:13] LABS: Alanine Aminotransferase 19 IU/L (<50); Albumin 3.9 g/dL (3.5-5.0); Albumin Globulin Ratio 1.1 (1.0-2.8); Alkaline Phosphatase 105 U/L (38-126); Aspartate Aminotransferase 24 IU/L (17-59); BUN Creatinine Ratio 11.6 (6-22); Bilirubin Total 0.4 mg/dL (0.2-1.3); Blood Urea Nitrogen 14 mg/dL (9-20); Calcium 9.2 mg/dL (8.4-10.2); Carbon Dioxide 32 mmol/L (22-32); Chloride 104 mmol/L (98-107); Creatine Kinase 22 U/L (55-170); Estimated Glomerular Filt Rate 58.1 mL/min (>60); Globulin 3.5 g/dL (1.7-4.1); Glucose 117 mg/dL (80-110); HEMOLYSIS < 15 (0-50); Lipase 68 U/L (23-300); Magnesium 1.9 mg/dL (1.6-2.3); Potassium 4.2 mmol/L (3.4-5.1); Sodium 140 mmol/L (137-145); Total Protein 7.4 g/dL (6.3-8.2)
[2021-11-29 19:21] LABS: Microcytosis 1+; Tear Drop Cells 1+
[2021-11-29 19:22] LABS: Anisocytosis 2+; Ovalocytes 2+; Poikilocytosis 3+
[2021-11-29 19:24] LABS: Troponin I < 0.012 ng/mL (0.01-0.034)
--- NOTE | 2021-11-29 19:40 | DI.CT.S_ITS ---
PROCEDURE: CT ANGIO CHEST PE PROTOCOL INDICATIONS: PE study, large new DVT, SOB TECHNIQUE: After the administration of intravenous contrast, 2 mm thick sections acquired from the pulmonary apices to the posterior costophrenic angles. 3-dimensional maximum intensity projection (MIP) coronal and sagittal reformats were then acquired through the thorax. For radiation dose reduction, the following was used: automated exposure control, adjustment of mA and/or kV according to patient size. COMPARISON: None. FINDINGS: Image quality: Excellent. Pulmonary arteries: There are bilateral pulmonary artery filling defects, beginning at the level of the main upper and lower lobar branches and extending into numerous segmental and subsegmental branches. No embolus within the pulmonary trunk or within the main left or right pulmonary arteries. Lungs and pleura: No acute airspace opacity or significant pleural abnormality. Central airways clear. Mediastinum: No threshold enlarged mediastinal or hilar lymph node. Normal heart size without findings of right heart strain. No pericardial effusion. Bones and chest wall: No axillary lymphadenopathy. No suspicious lytic or blastic osseous lesion in the chest wall. Abdomen: Small gallstone. IMPRESSION: Multiple acute bilateral pulmonary emboli. Dictated by: Louis Altman M.D. on 11/29/2021 at 20:11 Approved by: Louis Altman M.D. on 11/29/2021 at 20:15
== END 2021-11-29 21:37 | disposition home or self-care (01) ==
PROVIDERS: Emergency Medicine; Emergency Provider Emergency Medicine; PCP Family Medicine
DX: I82.402 Acute embolism and thrombosis of unspecified deep veins of left lower extremity (principal); I26.99 Other pulmonary embolism without acute cor pulmonale; I49.9 Cardiac arrhythmia, unspecified
CPT/HCPCS: 36415; 71045; 71275; 80053; 82550; 83690; 83735; 84484; 85025; 85610; 85730; 93005; 93971; 99284; Q9967

== ENCOUNTER → 2021-12-18 10:39 | Outpatient (CLI) | payer MEDICARE, SELFPAY ==
[2021-01-02 09:05] VITALS: BMI 44.9
[2021-12-18 12:26] LABS: Add Manual Diff / Slide Review NO; Basophils Absolute Auto 100 /uL (0-100); Basophils Percent Auto 1.2 % (0-2); Eosinophils Absolute Auto 100 /uL (0-450); Eosinophils Percent Auto 2.8 % (2-4); Hematocrit 21.4 % (41-53); Lymphocytes Absolute Auto 800 /uL (1100-4500); Lymphocytes Percent Auto 17.7 % (25-40); Mean Corpuscular HGB Conc 30.4 % (30-36); Mean Corpuscular Volume 72.3 fL (80-100); Monocytes Absolute Auto 300 /uL (0-900); Monocytes Percent Auto 7.2 % (3-14); Neutrophils Absolute Auto 3200 /uL (1500-7000); Neutrophils Percent Auto 71.1 % (50-75); Platelet Count 143 X10^3/uL (150-400); Red Blood Cell Count 2.95 X10^6/uL (4.5-5.9); Red Cell Distribution Width 23.1 % (11.6-14.8); White Blood Cell Count 4.5 X10^3/uL (4.5-11.0)
[2021-12-18 12:34] LABS: Hemoglobin 6.5 g/dL (13.5-17.5)
[2021-12-18 13:09] LABS: Anisocytosis 2+
[2021-12-18 13:11] LABS: Microcytosis 2+
[2021-12-18 13:12] LABS: Hypochromasia 3+; Ovalocytes 1+
[2021-12-18 13:26] LABS: Ferritin 10 ng/mL (18-464)
[2021-12-18 13:30] LABS: Iron 51 ug/dL (49-181)
[2021-12-18 13:38] LABS: Transferrin 319 mg/dL (206-381)
== END ==
PROVIDERS: PCP Family Medicine; Referring Provider Family Medicine; Visit Provider Family Medicine
DX: K92.2 Gastrointestinal hemorrhage, unspecified (principal)
CPT/HCPCS: 36415; 82728; 83540; 84466; 85025

== ENCOUNTER 2021-12-18 14:21 | Emergency (ER) | payer MEDICARE, SELFPAY ==
[2021-01-02 09:05] VITALS: BMI 44.9
[2021-12-18] VITALS (19 sets, daily range): BP systolic 117–149; BP diastolic 58–77; PULSE 65–86; RESP 16–18; TEMP 35.8–36.9; O2SAT 97–99; BMI 44.9
--- NOTE | 2021-12-18 14:57 | DI.RAD.S_ITS ---
PROCEDURE: XR CHEST 1V INDICATIONS: chest pain TECHNIQUE: One view of the chest was acquired. COMPARISON: [facility], CR, XR CHEST 1V, 01/07/2020, 16:28. [facility], CT, CT ANGIO CHEST PE PROTOCOL, 11/29/2021, 20:01. [facility], CR, XR CHEST 2V, 10/17/2021, 12:40. [facility], CR, XR CHEST 1V, 11/29/2021, 18:17. FINDINGS: Surgical changes and devices: None. Lungs and pleura: Stable pleural mass in the right lateral apex. Lungs are clear. No pleural effusions or pneumothorax. Mediastinum: Mediastinal contours appear normal. Heart size is normal. Bones and chest wall: No suspicious bony lesions. Overlying soft tissues appear unremarkable. IMPRESSION: 1. No acute cardiopulmonary disease. 2. Stable pleural mass in the right apex. Dictated by: Odalys Jackman M.D. on 12/18/2021 at 15:26 Approved by: Odalys Jackman M.D. on 12/18/2021 at 15:29
--- NOTE | 2021-12-18 15:17 | ED.RECABL ---
HPI - Recheck/Abnormal Lab/Rx <Kimberly Bueno, DO - Last Filed: 12/19/21 09:42> General Chief Complaint: Recheck/Abnormal Lab/Rx Stated Complaint: Low RBC Count Time Seen by Provider: 12/18/21 15:16 Source: patient Mode of arrival: Ambulatory Limitations: no limitations History of Present Illness HPI narrative: This is a 76-year-old emergency department with complaint of increasing shortness of breath and dizziness. Patient was sent by his primary care his hemoglobin today is 6.5 with hematocrit of 22. He was 8.7 on the 29 November. Patient has known pulmonary emboli. He has a left lower extremity DVT. He is on Eliquis. Patient has been having some dark stools but was on iron so he was not aware of having a GI bleed but he has had GI bleeds in the past and had a scope in October that showed gastritis as well as a polyp. Patient denies any chest pain no syncope. No abdominal pain, no back or flank pain. He denies any dysuria urgency or frequency. He also has a history of atrial fibrillation, dyslipidemia. Related Data Home Medications Medication Instructions Recorded Confirmed allopurinol 300 mg tablet 300 mg PO BEDTIME #0 12/09/11 12/18/21 cholecalciferol (vitamin D3) 50 2,000 unit PO QAM #0 12/09/11 12/18/21 mcg (2,000 unit) tablet (Vitamin D3) psyllium husk 0.52 gram capsule 500 gm PO QAM #0 12/31/11 12/18/21 (Metamucil) telmisartan 80 mg tablet (Micardis) 80 mg PO QPM #0 05/01/17 12/18/21 furosemide 20 mg tablet 40 mg PO QAM 01/07/20 12/18/21 mirtazapine 30 mg tablet 30 mg PO QPM 01/07/20 12/18/21 sertraline 100 mg tablet 100 mg PO QAM 01/07/20 12/18/21 diltiazem HCl 120 mg 300 mg PO QPM cap 01/10/21 12/18/21 capsule,extended release 24 hr (Cartia XT) rosuvastatin 40 mg tablet 40 mg PO BEDTIME 01/10/21 12/18/21 levothyroxine 125 mcg tablet 125 mcg PO QAM tab 10/19/21 12/18/21 magnesium oxide 400 mg PO QAM cap 10/19/21 12/18/21 magnesium oxide 800 mg PO BEDTIME 12/18/21 12/18/21 sucralfate 1 gram tablet 1 g PO BID 12/18/21 12/18/21 Previous Rx's Medication Instructions Recorded omeprazole 40 mg capsule,delayed 40 mg PO BID #90 cap 01/11/20 release Allergies Allergy/AdvReac Type Severity Reaction Status Date / Time epinephrine [EPINEPHRINE] AdvReac Mild EXACERBATES Verified 12/18/21 14:56 TREMORS gabapentin [GABAPENTIN] AdvReac Mild GLOOM AND Verified 12/18/21 14:56 DOOM <Yana Wheeler DO - Last Filed: 12/19/21 02:53> History of Present Illness HPI narrative: This is a 76-year-old emergency department with complaint of increasing shortness of breath and dizziness. Patient was sent by his primary care his hemoglobin today is 6.5 with hematocrit of 22. He was 8.7 on the 29 November. Patient has known pulmonary emboli. He has a left lower extremity DVT. He is on Eliquis. Patient has been having some dark stools but was on iron so he was not aware of having a GI bleed but he has had GI bleeds in the past and had a scope in October that showed gastritis as well as a polyp. Patient denies any chest pain no syncope. No abdominal pain, no back or flank pain. He denies any dysuria urgency or frequency. He also has a history of atrial fibrillation, dyslipidemia. Review of Systems <Kimberly Bueno DO - Last Filed: 12/19/21 09:42> Review of Systems ROS Unobtainable: All systems reviewed & are unremarkable except as noted in HPI and below Patient History <Kimberly Bueno DO - Last Filed: 12/19/21 09:42> Medical History Anemia Arthritis Depression Elevated cholesterol History of back pain History of GI bleed HTN (hypertension) Hypothyroidism Knee pain, bilateral Neuropathy BARBER (obstructive sleep apnea) Shortness of breath Sleep apnea Family History Father Loud snoring Hypertension Heart disease Alcohol abuse Mother Obesity Family/Other Restless leg Obesity Hypertension Depression Anxiety Social History household members: spouse Smoking Status: Former smoker alcohol intake: current Smoking Status: Former smoker tobacco type: smokeless tobacco alcohol intake frequency: 3 or more drinks per day Alcohol type: wine Substance Use Type: does not use Exam <Kimberly Bueno DO - Last Filed: 12/19/21 09:42> Narrative Exam Narrative: GENERAL: Alert and oriented x three, male in mild distress. HEENT: Head normocephalic, atraumatic, EOMI, pupils reactive, pale conjunctiva, face symmetric, moist mucous membranes NECK: Supple, full range of motion CARDIOVASCULAR: Regular rate and rhythm without murmurs, rubs or gallops. RESPIRATORY: Breath sounds equal bilaterally, no wheezes rales or rhonchi. ABDOMEN: Soft, nontender. Normoactive bowel sounds all 4 quadrants. No guarding or rebound, rigidity, no mass : No CVA tenderness EXTREMITIES: Normal range of motion, no clubbing or edema. Neurovascularly intact NEUROLOGICAL: Cranial nerves II through XII grossly intact. Moving all extremities SKIN: Warm, dry, no petechiae, no rashes or lesions. Initial Vital Signs Initial Vital Signs: Vital Signs Temperature 96.5 F L 12/18/21 14:54 <Yana Wheeler DO - Last Filed: 12/19/21 02:53> Initial Vital Signs Initial Vital Signs: Vital Signs Temperature 96.5 F L 12/18/21 14:54 Course <Kimberly Bueno DO - Last Filed: 12/19/21 09:42> Orders Ordered: Discontinued Medications Allopurinol (Allopurinol 300 Mg Tablet) 300 mg PO BEDTIME [facility] Last Admin: 12/18/21 22:41 Dose: 300 mg Documented by: ATAYLOR Diltiazem HCl (Diltiazem Cd 120 Mg Cap) 120 mg PO BEDTIME [facility] Last Admin: 12/18/21 22:40 Dose: 120 mg Documented by: ATAYLOR Diltiazem HCl (Diltiazem Cd 180 Mg Cap) 180 mg PO BEDTIME [facility] Last Admin: 12/18/21 22:40 Dose: 180 mg Documented by: ATAYLOR Furosemide (Furosemide 40 Mg Tablet) 40 mg PO DAILY [facility] Levothyroxine Sodium (Levothyroxine 125 Mcg Tablet) 125 mcg PO DAILY@0600 [facility] Magnesium Oxide (Magnesium Oxide 400 Mg Tablet) 400 mg PO DAILY [facility] Magnesium Oxide (Magnesium Oxide 400 Mg Tablet) 800 mg PO BEDTIME [facility] Last Admin: 12/18/21 22:41 Dose: 800 mg Documented by: MARY Mirtazapine (Mirtazapine 15 Mg Tablet) 30 mg PO BEDTIME [facility] Last Admin: 12/18/21 22:38 Dose: 30 mg Documented by: MAYR Pantoprazole Sodium (Pantoprazole 40 Mg Vial) 80 mg IV NOW ONE Stop: 12/18/21 17:18 Last Admin: 12/18/21 18:42 Dose: 80 mg Documented by: YANELI Pantoprazole Sodium (Pantoprazole Dr 20 Mg Tablet) 20 mg PO BID [facility] Last Admin: 12/18/21 22:19 Dose: Not Given Documented by: MARY Psyllium Hydrophilic Mucilloid (Psyllium Husk 1 Packet) 1 packet PO DAILY [facility] Sertraline HCl (Sertraline 50 Mg Tablet) 100 mg PO DAILY [facility] Sucralfate (Sucralfate 1 Gm Tablet) 1 gm PO BID [facility] Last Admin: 12/18/21 22:38 Dose: 1 gm Documented by: MARY Vitamin D (Cholecalciferol (Vitamin D3) 1,000 Unit Tablet) 2,000 unit PO DAILY [facility] Stop: 12/22/21 08:59 Consultations Consultation #1: Hem/Onc. Dr. Hollis, would recommend stopping thinners. Even heparin drip at this point he would be reluctant. Patient likely does need a filter. And once patient is GI bleeding is controlled can restart anticoagulation Vital Signs Vital signs: Vital Signs - 8 hr 12/18/21 18:58 12/18/21 19:00 12/18/21 19:18 Temperature 97 F L 98.4 F Pulse Rate 65 72 86 Respiratory Rate 18 17 Blood Pressure 134/61 125/60 129/67 Pulse Oximetry 99 12/18/21 19:19 12/18/21 19:30 12/18/21 20:00 Temperature Pulse Rate 73 68 69 Respiratory Rate Blood Pressure 129/67 131/67 Pulse Oximetry 98 98 97 12/18/21 20:01 12/18/21 20:30 12/18/21 21:00 Temperature 97.3 F L Pulse Rate 69 70 67 Respiratory Rate 16 Blood Pressure 119/58 L 127/64 Pulse Oximetry 97 98 97 12/18/21 21:01 12/18/21 21:30 12/18/21 22:00 Temperature Pulse Rate 71 85 74 Respiratory Rate Blood Pressure 117/71 118/61 126/64 Pulse Oximetry 97 98 98 12/18/21 22:30 12/18/21 23:00 12/18/21 23:30 Temperature Pulse Rate 68 69 73 Respiratory Rate Blood Pressure 124/63 119/70 Pulse Oximetry 97 97 98 12/18/21 23:31 12/19/21 00:00 12/19/21 00:30 Temperature Pulse Rate 76 77 77 Respiratory Rate Blood Pressure 149/77 H 145/74 H Pulse Oximetry 97 98 97 12/19/21 00:31 Temperature Pulse Rate 74 Respiratory Rate Blood Pressure 147/70 H Pulse Oximetry 97 <Yana Wheeler, DO - Last Filed: 12/19/21 02:53> Orders Ordered: Discontinued Medications Allopurinol (Allopurinol 300 Mg Tablet) 300 mg PO BEDTIME [facility] Last Admin: 12/18/21 22:41 Dose: 300 mg Documented by: ATAYLOR Diltiazem HCl (Diltiazem Cd 120 Mg Cap) 120 mg PO BEDTIME [facility] Last Admin: 12/18/21 22:40 Dose: 120 mg Documented by: ATAYLOR Diltiazem HCl (Diltiazem Cd 180 Mg Cap) 180 mg PO BEDTIME [facility] Last Admin: 12/18/21 22:40 Dose: 180 mg Documented by: ATAYLOR Furosemide (Furosemide 40 Mg Tablet) 40 mg PO DAILY [facility] Levothyroxine Sodium (Levothyroxine 125 Mcg Tablet) 125 mcg PO DAILY@0600 [facility] Magnesium Oxide (Magnesium Oxide 400 Mg Tablet) 400 mg PO DAILY [facility] Magnesium Oxide (Magnesium Oxide 400 Mg Tablet) 800 mg PO BEDTIME [facility] Last Admin: 12/18/21 22:41 Dose: 800 mg Documented by: ATAYLOR Mirtazapine (Mirtazapine 15 Mg Tablet) 30 mg PO BEDTIME [facility] Last Admin: 12/18/21 22:38 Dose: 30 mg Documented by: ATAYLOR Pantoprazole Sodium (Pantoprazole 40 Mg Vial) 80 mg IV NOW ONE Stop: 12/18/21 17:18 Last Admin: 12/18/21 18:42 Dose: 80 mg Documented by: YANELI Pantoprazole Sodium (Pantoprazole Dr 20 Mg Tablet) 20 mg PO BID [facility] Last Admin: 12/18/21 22:19 Dose: Not Given Documented by: MARY Psyllium Hydrophilic Mucilloid (Psyllium Husk 1 Packet) 1 packet PO DAILY [facility] Sertraline HCl (Sertraline 50 Mg Tablet) 100 mg PO DAILY [facility] Sucralfate (Sucralfate 1 Gm Tablet) 1 gm PO BID [facility] Last Admin: 12/18/21 22:38 Dose: 1 gm Documented by: MARY Vitamin D (Cholecalciferol (Vitamin D3) 1,000 Unit Tablet) 2,000 unit PO DAILY [facility] Stop: 12/22/21 08:59 Vital Signs Vital signs: Vital Signs - 8 hr 12/18/21 18:58 12/18/21 19:00 12/18/21 19:18 Temperature 97 F L 98.4 F Pulse Rate 65 72 86 Respiratory Rate 18 17 Blood Pressure 134/61 125/60 129/67 Pulse Oximetry 99 12/18/21 19:19 12/18/21 19:30 12/18/21 20:00 Temperature Pulse Rate 73 68 69 Respiratory Rate Blood Pressure 129/67 131/67 Pulse Oximetry 98 98 97 12/18/21 20:01 12/18/21 20:30 12/18/21 21:00 Temperature 97.3 F L Pulse Rate 69 70 67 Respiratory Rate 16 Blood Pressure 119/58 L 127/64 Pulse Oximetry 97 98 97 12/18/21 21:01 12/18/21 21:30 12/18/21 22:00 Temperature Pulse Rate 71 85 74 Respiratory Rate Blood Pressure 117/71 118/61 126/64 Pulse Oximetry 97 98 98 12/18/21 22:30 12/18/21 23:00 12/18/21 23:30 Temperature Pulse Rate 68 69 73 Respiratory Rate Blood Pressure 124/63 119/70 Pulse Oximetry 97 97 98 12/18/21 23:31 12/19/21 00:00 12/19/21 00:30 Temperature Pulse Rate 76 77 77 Respiratory Rate Blood Pressure 149/77 H 145/74 H Pulse Oximetry 97 98 97 12/19/21 00:31 Temperature Pulse Rate 74 Respiratory Rate Blood Pressure 147/70 H Pulse Oximetry 97 MDM - Recheck/Abnormal Lab/Rx <Kimberly C Mank, DO - Last Filed: 12/19/21 09:42> Lab Data Result diagrams: 12/18/21 22:30 12/18/21 15:25 Labs: Lab Results 12/18/21 12/18/21 12/18/21 Range/Units 15:25 15:25 15:25 WBC 4.9 (4.5-11.0) X10^3/uL RBC 2.87 L (4.5-5.9) X10^6/uL Hgb 6.4 L* (13.5-17.5) g/dL Hct 20.8 L* (41-53) % MCV 72.5 L (80-100) fL MCH 22.2 L (26-34) PG MCHC 30.6 (30-36) % RDW 23.0 H (11.6-14.8) % Plt Count 136 L (150-400) X10^3/uL Neut % (Auto) 70.8 (50-75) % Lymph % (Auto) 16.7 L (25-40) % [place] % (Auto) 9.2 (3-14) % Eos % (Auto) 2.2 (2-4) % Baso % (Auto) 1.1 (0-2) % Neut # (Auto) 3500 (5563-8275) /uL Lymph # (Auto) 800 L (2950-1279) /uL [place] # (Auto) 400 (0-900) /uL Eos # (Auto) 100 (0-450) /uL Baso # (Auto) 100 (0-100) /uL RBC Morphology See below Hypochromasia 3+ H Anisocytosis 3+ H Target Cells 2+ H Tear Drop Cells 1+ H Ovalocytes 1+ H PT 18.6 H (10.1-12.7) SECONDS INR 1.6 H (0.9-1.3) APTT 34 (26.4-36.2) SECONDS Sodium 139 (137-145) mmol/L Potassium 3.9 (3.4-5.1) mmol/L Chloride 105 (98-107) mmol/L Carbon Dioxide 32 (22-32) mmol/L BUN 17 (9-20) mg/dL Creatinine 1.20 (0.66-1.25) mg/dL Estimated GFR 58.7 L (>60) mL/min BUN/Creatinine Ratio 14.2 (6-22) Glucose 116 H (80-110) mg/dL Calcium 9.1 (8.4-10.2) mg/dL Magnesium 2.0 (1.6-2.3) mg/dL Total Bilirubin 0.3 (0.2-1.3) mg/dL AST 21 (17-59) IU/L ALT 15 (<50) IU/L Alkaline Phosphatase 64 (38-126) U/L Total Creatine Kinase 25 L (55-170) U/L CK-MB (CK-2) TNP CK-MB (CK-2) Rel Index TNP Troponin I < 0.012 (0.01-0.034) ng/mL Total Protein 6.5 (6.3-8.2) g/dL Albumin 3.8 (3.5-5.0) g/dL Globulin 2.7 (1.7-4.1) g/dL Albumin/Globulin Ratio 1.4 (1.0-2.8) Lipase 87 (23-300) U/L SARS-CoV-2 (PCR) (Negative) Blood Type Antibody Screen Crossmatch 12/18/21 12/18/21 12/18/21 Range/Units 15:25 15:32 22:30 WBC (4.5-11.0) X10^3/uL RBC (4.5-5.9) X10^6/uL Hgb 7.3 L (13.5-17.5) g/dL Hct 23.1 L (41-53) % MCV (80-100) fL MCH (26-34) PG MCHC (30-36) % RDW (11.6-14.8) % Plt Count (150-400) X10^3/uL Neut % (Auto) (50-75) % Lymph % (Auto) (25-40) % [place] % (Auto) (3-14) % Eos % (Auto) (2-4) % Baso % (Auto) (0-2) % Neut # (Auto) (3375-7818) /uL Lymph # (Auto) (4216-6144) /uL [place] # (Auto) (0-900) /uL Eos # (Auto) (0-450) /uL Baso # (Auto) (0-100) /uL RBC Morphology Hypochromasia Anisocytosis Target Cells Tear Drop Cells Ovalocytes PT (10.1-12.7) SECONDS INR (0.9-1.3) APTT (26.4-36.2) SECONDS Sodium (137-145) mmol/L Potassium (3.4-5.1) mmol/L Chloride (98-107) mmol/L Carbon Dioxide (22-32) mmol/L BUN (9-20) mg/dL Creatinine (0.66-1.25) mg/dL Estimated GFR (>60) mL/min BUN/Creatinine Ratio (6-22) Glucose (80-110) mg/dL Calcium (8.4-10.2) mg/dL Magnesium (1.6-2.3) mg/dL Total Bilirubin (0.2-1.3) mg/dL AST (17-59) IU/L ALT (<50) IU/L Alkaline Phosphatase (38-126) U/L Total Creatine Kinase (55-170) U/L CK-MB (CK-2) CK-MB (CK-2) Rel Index Troponin I (0.01-0.034) ng/mL Total Protein (6.3-8.2) g/dL Albumin (3.5-5.0) g/dL Globulin (1.7-4.1) g/dL Albumin/Globulin Ratio (1.0-2.8) Lipase (23-300) U/L SARS-CoV-2 (PCR) Negative (Negative) Blood Type A Positive Antibody Screen Negative Crossmatch See Detail Imaging Data Chest x-ray: Radiologist's Impression: [address] [address] XRay Report Signed Patient: Romeo Henning MR#: [id number] : 1945 Acct:[id number] Age/Sex: 76 / M Date of Service: 12/18/21 Loc: ED Accession Number: [id number] ?? Procedure: XR chest 1V Ordering Provider: Kimberly Bueno D.O. PROCEDURE:? XR CHEST 1V ? INDICATIONS:? chest pain ? TECHNIQUE:? One view of the chest was acquired.? ? COMPARISON:? [facility], CR, XR CHEST 1V, 01/07/2020, 16:28.? [facility], CT, CT ANGIO CHEST PE PROTOCOL, 11/29/2021, 20:01.? [facility], CR, XR CHEST 2V, 10/17/2021, 12:40.? [facility], CR, XR CHEST 1V, 11/29/2021, 18:17. ? FINDINGS:? ? Surgical changes and devices:? None.? ? Lungs and pleura:? Stable pleural mass in the right lateral apex.? Lungs are clear.? No pleural effusions or pneumothorax.? ? Mediastinum:? Mediastinal contours appear normal.? Heart size is normal.? ? Bones and chest wall:? No suspicious bony lesions.? Overlying soft tissues appear unremarkable.? ? IMPRESSION:? ? 1. No acute cardiopulmonary disease.? ? 2. Stable pleural mass in the right apex. ? ? ? Dictated by: Odalys Jackman M.D. on 12/18/2021 at 15:26 ? ? Approved by: Odalys Jackman M.D. on 12/18/2021 at 15:29?? MDM Narrative Medical decision making narrative: This is a 76-year-old male who comes emergency department for GI bleeding which has been persistent on Eliquis for PE as well as DVT. Patient was diagnosed on 11/29 2021 with pulmonary emboli and left lower extremity DVT. He has a history of atrial fibrillation as well. Patient has had some increased dizziness and shortness of breath his hemoglobin is 6.4 today had on repeat is still the same transfusion was initiated with 2 units. Patient's renal function and electrolytes and other labs do not show major abnormalities. DVT ultrasound was repeated and shows a persistent left lower extremity DVT. Anticoagulation was held. Because of his concurrent bleeding issues along with clotting issues we are currently seeking placement for an IVC filter. We have called facilities up and down the [facility] as well as the [facility] hotline. There are no acute beds currently available. At this time will hold his anticoagulation, blood is being replaced. Patient signed out to Dr. Wheeler while seeking placement. <Yana Wheeler, DO - Last Filed: 12/19/21 02:53> Lab Data Labs: Lab Results 12/18/21 12/18/21 12/18/21 Range/Units 15:25 15:25 15:25 WBC 4.9 (4.5-11.0) X10^3/uL RBC 2.87 L (4.5-5.9) X10^6/uL Hgb 6.4 L* (13.5-17.5) g/dL Hct 20.8 L* (41-53) % MCV 72.5 L (80-100) fL MCH 22.2 L (26-34) PG MCHC 30.6 (30-36) % RDW 23.0 H (11.6-14.8) % Plt Count 136 L (150-400) X10^3/uL Neut % (Auto) 70.8 (50-75) % Lymph % (Auto) 16.7 L (25-40) % [place] % (Auto) 9.2 (3-14) % Eos % (Auto) 2.2 (2-4) % Baso % (Auto) 1.1 (0-2) % Neut # (Auto) 3500 (8062-2120) /uL Lymph # (Auto) 800 L (5678-2667) /uL [place] # (Auto) 400 (0-900) /uL Eos # (Auto) 100 (0-450) /uL Baso # (Auto) 100 (0-100) /uL RBC Morphology See below Hypochromasia 3+ H Anisocytosis 3+ H Target Cells 2+ H Tear Drop Cells 1+ H Ovalocytes 1+ H PT 18.6 H (10.1-12.7) SECONDS INR 1.6 H (0.9-1.3) APTT 34 (26.4-36.2) SECONDS Sodium 139 (137-145) mmol/L Potassium 3.9 (3.4-5.1) mmol/L Chloride 105 (98-107) mmol/L Carbon Dioxide 32 (22-32) mmol/L BUN 17 (9-20) mg/dL Creatinine 1.20 (0.66-1.25) mg/dL Estimated GFR 58.7 L (>60) mL/min BUN/Creatinine Ratio 14.2 (6-22) Glucose 116 H (80-110) mg/dL Calcium 9.1 (8.4-10.2) mg/dL Magnesium 2.0 (1.6-2.3) mg/dL Total Bilirubin 0.3 (0.2-1.3) mg/dL AST 21 (17-59) IU/L ALT 15 (<50) IU/L Alkaline Phosphatase 64 (38-126) U/L Total Creatine Kinase 25 L (55-170) U/L CK-MB (CK-2) TNP CK-MB (CK-2) Rel Index TNP Troponin I < 0.012 (0.01-0.034) ng/mL Total Protein 6.5 (6.3-8.2) g/dL Albumin 3.8 (3.5-5.0) g/dL Globulin 2.7 (1.7-4.1) g/dL Albumin/Globulin Ratio 1.4 (1.0-2.8) Lipase 87 (23-300) U/L SARS-CoV-2 (PCR) (Negative) Blood Type Antibody Screen Crossmatch 12/18/21 12/18/21 12/18/21 Range/Units 15:25 15:32 22:30 WBC (4.5-11.0) X10^3/uL RBC (4.5-5.9) X10^6/uL Hgb 7.3 L (13.5-17.5) g/dL Hct 23.1 L (41-53) % MCV (80-100) fL MCH (26-34) PG MCHC (30-36) % RDW (11.6-14.8) % Plt Count (150-400) X10^3/uL Neut % (Auto) (50-75) % Lymph % (Auto) (25-40) % [place] % (Auto) (3-14) % Eos % (Auto) (2-4) % Baso % (Auto) (0-2) % Neut # (Auto) (3918-3920) /uL Lymph # (Auto) (9429-5155) /uL [place] # (Auto) (0-900) /uL Eos # (Auto) (0-450) /uL Baso # (Auto) (0-100) /uL RBC Morphology Hypochromasia Anisocytosis Target Cells Tear Drop Cells Ovalocytes PT (10.1-12.7) SECONDS INR (0.9-1.3) APTT (26.4-36.2) SECONDS Sodium (137-145) mmol/L Potassium (3.4-5.1) mmol/L Chloride (98-107) mmol/L Carbon Dioxide (22-32) mmol/L BUN (9-20) mg/dL Creatinine (0.66-1.25) mg/dL Estimated GFR (>60) mL/min BUN/Creatinine Ratio (6-22) Glucose (80-110) mg/dL Calcium (8.4-10.2) mg/dL Magnesium (1.6-2.3) mg/dL Total Bilirubin (0.2-1.3) mg/dL AST (17-59) IU/L ALT (<50) IU/L Alkaline Phosphatase (38-126) U/L Total Creatine Kinase (55-170) U/L CK-MB (CK-2) CK-MB (CK-2) Rel Index Troponin I (0.01-0.034) ng/mL Total Protein (6.3-8.2) g/dL Albumin (3.5-5.0) g/dL Globulin (1.7-4.1) g/dL Albumin/Globulin Ratio (1.0-2.8) Lipase (23-300) U/L SARS-CoV-2 (PCR) Negative (Negative) Blood Type A Positive Antibody Screen Negative Crossmatch See Detail MDM Narrative Medical decision making narrative: This is a 76-year-old male who comes emergency department for GI bleeding which has been persistent on Eliquis for PE as well as DVT. Patient was diagnosed on 11/29 2021 with pulmonary emboli and left lower extremity DVT. He has a history of atrial fibrillation as well. Patient has had some increased dizziness and shortness of breath his hemoglobin is 6.4 today had on repeat is still the same transfusion was initiated with 2 units. Patient's renal function and electrolytes and other labs do not show major abnormalities. DVT ultrasound was repeated and shows a persistent left lower extremity DVT. Anticoagulation was held. Because of his concurrent bleeding issues along with clotting issues we are currently seeking placement for an IVC filter. We have called facilities up and down the [address] as well as the [facility] hotline. There are no acute beds currently available. At this time will hold his anticoagulation, blood is being replaced. Patient signed out to Dr. Wheeler while seeking placement. [id number], I received sign-out from Dr. Bueno. I have seen evaluated patient myself. Initially diagnosed with atrial fibrillation January 2020 he was anemic at that time with hemoglobin 4.2. He was started on anticoagulation in September of 2020. Became anemic in 2020 had any EGD and colonoscopy 10/19/2021. He had been taken off anticoagulation at that time. Subsequently developed DVT and pulmonary embolism November 29 2021, restarted on anticoagulation. He has had some intermittent black tarry stools but has also been taking iron. Presents today with shortness of breath. He had 2 units of blood hemoglobin has improved to 7.3. Dr. Ramos at [facility] has been updated patient's symptoms test results and graciously accepts. Patient has remained hemodynamically stable in the ED and distinctly medication without being anticoagulation. Discharge Plan Departure Patient Disposition: [facility] Clinical Impression: Symptomatic anemia, GI bleed, DVT (deep venous thrombosis), Pulmonary embolism Prescriptions: No Action allopurinol 300 MG tablet 300 mg PO BEDTIME Qty: 0 0RF cholecalciferol (vitamin D3) [Vitamin D3] 2,000 unit Tablet 2,000 unit PO QAM Qty: 0 0RF psyllium husk [Metamucil] 0.52 GM capsule 500 gm PO QAM Qty: 0 0RF telmisartan [Micardis] 80 MG tablet 80 mg PO QPM Qty: 0 0RF levothyroxine 125 mcg tablet 125 mcg PO QAM 0RF Label Comments: TAKE 1 TABLET BY MOUTH EVERY DAY sertraline 100 mg tablet 100 mg PO QAM 0RF mirtazapine 30 mg tablet 30 mg PO QPM 0RF furosemide 20 mg Tablet 40 mg PO QAM 0RF omeprazole 40 mg capsule,delayed release(DR/EC) 40 mg PO BID Qty: 90 0RF diltiazem HCl [Cartia XT] 120 mg capsule,extended release 24hr 300 mg PO QPM 0RF magnesium oxide 400 mg magnesium capsule 400 mg PO QAM 0RF sucralfate 1 gram tablet 1 g PO BID 0RF magnesium oxide 400 mg magnesium Tablet 800 mg PO BEDTIME 0RF rosuvastatin 40 mg tablet 40 mg PO BEDTIME 0RF Referrals: Tong Landon MD [Primary Care Provider] -
[2021-12-18 15:41] LABS: Add Manual Diff / Slide Review NO; Basophils Absolute Auto 100 /uL (0-100); Basophils Percent Auto 1.1 % (0-2); Eosinophils Absolute Auto 100 /uL (0-450); Eosinophils Percent Auto 2.2 % (2-4); Lymphocytes Absolute Auto 800 /uL (1100-4500); Lymphocytes Percent Auto 16.7 % (25-40); Mean Corpuscular HGB Conc 30.6 % (30-36); Mean Corpuscular Hemoglobin 22.2 PG (26-34); Mean Corpuscular Volume 72.5 fL (80-100); Monocytes Absolute Auto 400 /uL (0-900); Monocytes Percent Auto 9.2 % (3-14); Neutrophils Absolute Auto 3500 /uL (1500-7000); Neutrophils Percent Auto 70.8 % (50-75); Platelet Count 136 X10^3/uL (150-400); Red Blood Cell Count 2.87 X10^6/uL (4.5-5.9); White Blood Cell Count 4.9 X10^3/uL (4.5-11.0)
[2021-12-18 15:43] LABS: Hemoglobin 6.4 g/dL (13.5-17.5)
[2021-12-18 15:44] LABS: Hematocrit 20.8 % (41-53)
[2021-12-18 15:48] LABS: INR 1.6 (0.9-1.3); Prothrombin Time 18.6 SECONDS (10.1-12.7)
[2021-12-18 15:51] LABS: PTT Partial Thromboplastin Tim 34 SECONDS (26.4-36.2)
[2021-12-18 15:55] LABS: Alanine Aminotransferase 15 IU/L (<50); Albumin 3.8 g/dL (3.5-5.0); Albumin Globulin Ratio 1.4 (1.0-2.8); Alkaline Phosphatase 64 U/L (38-126); Aspartate Aminotransferase 21 IU/L (17-59); BUN Creatinine Ratio 14.2 (6-22); Bilirubin Total 0.3 mg/dL (0.2-1.3); Blood Urea Nitrogen 17 mg/dL (9-20); Calcium 9.1 mg/dL (8.4-10.2); Carbon Dioxide 32 mmol/L (22-32); Chloride 105 mmol/L (98-107); Creatine Kinase 25 U/L (55-170); Estimated Glomerular Filt Rate 58.7 mL/min (>60); Globulin 2.7 g/dL (1.7-4.1); Glucose 116 mg/dL (80-110); HEMOLYSIS < 15 (0-50); Lipase 87 U/L (23-300); Potassium 3.9 mmol/L (3.4-5.1); Sodium 139 mmol/L (137-145); Total Protein 6.5 g/dL (6.3-8.2)
[2021-12-18 16:06] LABS: Troponin I < 0.012 ng/mL (0.01-0.034)
--- NOTE | 2021-12-18 16:13 | DI.US.S_ITS ---
PROCEDURE: US [facility] VENOUS LOW EXTREM BI INDICATIONS: dvt in left leg. TECHNIQUE: Real-time imaging, as well as color and pulse Doppler interrogation, were performed of the deep veins of both legs from the inguinal ligament to the popliteal fossa. COMPARISON: [facility], , [facility] VENOUS LOW EXTREM LT, 11/29/2021, 16:52. FINDINGS: Right: The common femoral, femoral and popliteal veins are normally compressible, and free of intraluminal thrombus. Color and pulse Doppler demonstrate normal phasic intravascular flow. There is normal augmentation response to distal compression maneuver. Left: Occlusive thrombus persists in the distal left superficial femoral vein in the left popliteal vein. IMPRESSION: 1. Persistent deep vein thrombosis involving the distal left superficial femoral vein in the left popliteal vein. 2. No evidence of deep vein thrombosis involving the right lower extremity. Dictated by: Brittany Oliver MD, PhD on 12/18/2021 at 16:11 Approved by: Brittany Oliver MD, PhD on 12/18/2021 at 16:13
[2021-12-18 16:21] LABS: COVID19 - ADMIT (NP swab/PCR) Negative (Negative)
[2021-12-18 17:11] LABS: Anisocytosis 3+; Hypochromasia 3+; Target Cells 2+
[2021-12-18 17:12] LABS: Ovalocytes 1+; Tear Drop Cells 1+
[2021-12-18] MEDS: PANTOPRAZOLE 40 MG VIAL 80 MG IV (18:42)
[2021-12-18] MEDS: MIRTAZAPINE 15 MG TABLET 30 MG PO (22:38)
[2021-12-18] MEDS: SUCRALFATE 1 GM TABLET PO (22:38)
[2021-12-18] MEDS: dilTIAZem CD 180 MG CAP PO (22:40)
[2021-12-18] MEDS: dilTIAZem CD 120 MG CAP PO (22:40)
--- NOTE | 2021-12-18 22:40 | PC.NURSE ---
Pt took home telmisartan 80mg and rosuvastatin 40mg, brought in by and approved by provider, specific medications unavailable through inpatient pharmacy.
[2021-12-18] MEDS: MAGNESIUM OXIDE 400 MG TABLET 800 MG PO (22:41)
[2021-12-18] MEDS: allopurinoL 300 MG TABLET PO (22:41)
[2021-12-18 22:54] LABS: Hemoglobin 7.3 g/dL (13.5-17.5)
[2021-12-18 22:57] LABS: Hematocrit 23.1 % (41-53)
--- NOTE | 2021-12-18 23:18 | PC.NURSE ---
Report given to Tong mackey [facility].
[2021-12-19] VITALS: BP 145/74; PULSE 77; O2SAT 98
[2021-12-19 00:30] VITALS: PULSE 77; O2SAT 97
[2021-12-19 00:31] VITALS: BP 147/70; PULSE 74; O2SAT 97
== END 2021-12-19 00:43 | disposition short-term general hospital (02) ==
PROVIDERS: Emergency Medicine; Emergency Provider Emergency Medicine; PCP Family Medicine
DX: D64.9 Anemia, unspecified (principal); K92.2 Gastrointestinal hemorrhage, unspecified; I82.402 Acute embolism and thrombosis of unspecified deep veins of left lower extremity; I26.99 Other pulmonary embolism without acute cor pulmonale; Z87.891 Personal history of nicotine dependence; Z79.01 Long term (current) use of anticoagulants; Z20.822 Contact with and (suspected) exposure to COVID-19
CPT/HCPCS: 36415; 36430; 71045; 80053; 82550; 82728; 83540; 83690; 83735; 84466; 84484; 85014; 85018; 85025; 85610; 85730; 86850; 86900; 86901; 87635; 93005; 93010; 93970; 96374; 99285; C9803; P9016; C9113

== ENCOUNTER 2022-12-31 13:45 | Outpatient (RCR) | payer MEDICARE, SELFPAY ==
[2021-01-02 09:05] VITALS: BMI 44.9
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
--- NOTE | 2022-08-14 15:23 | PT.OPPOC ---
Physical, Occupational & Speech Therapy At Current Diagnoses Weakness (08/14/22) Visit Care Team Role Provider Type Tong Landon MD Attending Provider Physician Primary Care Provider Referring Provider Specialty: Family Practice Address: [address] [place] [address], [id number] Email: [email or web address] Plan Of Care PT-OP-T Assessment and Plan Start: 08/14/22 08:13 Freq: Status: Active Protocol: Document 08/14/22 11:16 [facility] (Rec: 08/14/22 12:16 [facility] [id number]) Physical Therapy Assessment Rehab Potential Rehabilitation Potential Good Evaluation Complexity Number of Personal Factors/Comorbidities 1-2 Number of Body Systems Impaired 3 Clinical Presentation at Evaluation Evolving Impairments Impairments Activity Tolerance,Gait,Pain, Posture,Strength Goals Five Impairment balance dysfunction Impairment Tinetti gait and balance score 11/28 indicating at high risk for falls Short Term Goal (STG) Improve Tinetti score to moderate fall risk range STG Duration 09/13/22 Drip Molder Goal (LTG) Improve Tinetti score to low fall risk range as measure of improved mobility and safety LTG Duration 11/13/22 Four Impairment trunk weakness and postural impairment Impairment patient with excess lumbar lordosis and forward flexion at trunk Short Term Goal (STG) Patient to be independent in HEP addressing trunk muscle weakness and postural correction STG Duration 09/13/22 Fdc Goal (LTG) Patient will demonstrate improved functional trunk strength as evidenced by at least 50% improvement in standing and walking posture LTG Duration 11/13/22 Three Impairment LE weakness Impairment unable to move from sit to stand from standard height chair without moderate use of UE's Short Term Goal (STG) Patient will be able to transfer from sit to stand from standard height chair without minimal to no use of UE's and be independent in HEP for LE strengthening STG Duration 09/13/22 Drip Molder Goal (LTG) Patient will improve functional LE strength as evidenced by ability to transfer sit to stand from standard height chair 10x in a row LTG Duration 11/13/22 Two Impairment pain ranging from 1-9/10 lumbar spine Short Term Goal (STG) decrease pain to no greater than 6/10 with all usual activities STG Duration 09/13/22 Fdc Goal (LTG) Decrease pain to no greater than 3/10 with all usual activities LTG Duration 11/13/22 One Impairment gait impairment Impairment 2 min walk test 237 ft using 4WW, limited by low back pain and fatigue Short Term Goal (STG) Patient will be able to tolerate 6 min walk test and ambulate at least 800 ft with least restrictive device STG Duration 09/13/22 Fdc Goal (LTG) 1400 ft on 6 min walk test using SPC to improve functional gait in the home and community LTG Duration 11/13/22 Assessment Summary Assessment Patient is a 77 y/o male 10 years s/p spinal fusion with impairments in strength, activity tolerance, balance, and strength. Has a history of falls due to weakness and balance dysfunction. Other medical issues including cardiac complicate his function and potential. Feel he would benefit from PT to address above impairments and help him return to more safe and functional lifestyle. Physical Therapy Plan Frequency and Duration Frequency of Treatment 2x/Week Duration of Treatment 12 weeks Plan of Care Start Date 08/14/22 Plan of Care End Date 11/12/22 Therapeutic Interventions Therapeutic Interventions Aquatic Therapy,Balance Training,Gait Training,Home Exercise Program,Manual Therapy,Neuromuscular Re- education,Patient/Caregiver Education,Self-Care/Home Management,Soft Tissue Mobilization,Taping, Therapeutic Activities, Therapeutic Exercises Modalities Cold Pack/Ice Massage,Electric Stimulation,Hot Packs Next Visit Focus/Plan Next Note Type Treatment Note Next Visit Plan Review HEP, gentle progression of ther ex for core strengthening and stabilization, LE strengthening and flexibility, balance, postural correction. Modalities and manual therapy as needed for pain. Plan of Care Dates Plan of Care Start Date 08/14/22 Plan of Care End Date 11/12/22 Electronically Signed by: Dyana Carey, PT 08/15/22 [id number] If you are in agreement with this Plan of Care, please return a signed and dated copy. I have reviewed this Plan of Care and certify that the skilled therapy services above are required to meet the patient?s needs. Physician Signature Date Printed Name and Credentials Clinical Instructor Signature Printed Name and Credentials
--- NOTE | 2022-08-16 13:28 | PT.OTN ---
Current Diagnoses Weakness (08/16/22) Physical Therapy Treatment Note PT-OP-A Visit Information Start: 08/14/22 08:13 Freq: Status: Active Protocol: Document 08/16/22 11:17 [facility] (Rec: 08/16/22 12:25 [facility] [id number]) Out-Patient Physical Therapy Visit Information Visit Information Visit Type Treatment Note Visit Start Time 11:18 Visit Stop Time 12:00 Total Visit Minutes 42 Visit Number 2 Evaluation Information Evaluation Date 08/14/22 Precautions Precautions HTN, a-fib, depression, history blood clots, falls, neuropathy, PE, SOB, thyroid dysfunction, carpal tunnel surgery. PT-OP-B Current Condition Start: 08/14/22 08:13 Freq: Status: Active Protocol: Document 08/16/22 11:17 [facility] (Rec: 08/16/22 12:25 [facility] [id number]) Current Condition History of Current Condition Onset Date 10 years. Current Complaints weakness History of Current Condition back surgery 15 years ago, major back surgery 10 years ago with fusion; prior to surgery flat on back 6 months prior to surgery. Reports fair recovery from surger but states stamina and weakness very low at this time, uses cane or FWW at home and in the community. Self-care independent but painful and takes a long time. No regular exercise routine. 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 Has treadmill at home, hasn't used for 20 yrs, recumbant bike hasn't used for 1 year. Prior Treatments and Tests No recent imaging. Future Testing and Treatments Planned unsure of any further MD appointment schedule. Treatment Goals Patient/Caregiver Goals move easier, improve balance, reeceptive to HEP PT-OP-C Subjective Start: 08/14/22 08:13 Freq: Status: Active Protocol: Document 08/16/22 11:17 [facility] (Rec: 08/16/22 12:25 [facility] [id number]) OP-PT Subjective Patient Comments Patient Comments No new c/o, states had leaky grouping of veins in stomach that were cauterized 1 month ago. PT-OP-D Balance Start: 08/14/22 08:13 Freq: Status: Active Protocol: Document 08/14/22 11:16 [facility] (Rec: 08/15/22 15:21 [facility] [id number]) OP-PT Balance Assessment Sitting Balance Static Sitting Balance Ability Normal Dynamic Sitting Balance Ability Normal Standing Balance Device Used 4WW Tinetti Balance Assessment Sitting Balance Sitting Balance Steady, safe Arising from Chair Ability to Arise Able, uses arms to help Attempts to Arise Arises on 1st attempt Standing Balance Immediate Standing Balance Steady with support Standing Balance Steady, wide stance Nudged Response Staggers, catches self Standing with Eyes Closed Unsteady Turning Step Pattern Turning 360 Degrees Discontinuous steps Stability Turning 360 Degrees Unsteady, grabs/staggers Sitting Down Sitting Down Uses arms or unsteady Gait and Step Initiation of Gait No hesitancy Right Foot Step Length Does not pass stance ft. Right Foot Step Height Does not clear floor Left Foot Step Length Does not pass stance foot Left Foot Step Height Does not clear floor Step Description Step Symmetry Step length appears equal Step Continuity Steps appear continuous Gait Description Path Description Mild/moderate deviation Trunk Description Marked sway or uses aide Walking Stance Heels apart Scoring and Interpretation Tinetti Composite Score (points) 12 Pepe Fall Scale Copyright Permission PT-OP-G Mobility & Gait Start: 08/14/22 08:13 Freq: Status: Active Protocol: Document 08/14/22 11:16 [facility] (Rec: 08/15/22 15:21 [facility] [id number]) OP Gait Assessment Gait Gait Assistance Required: Independent Distance (Feet) 237 Assistive Devices Assistive Device 4 Wheeled Walker Gait Deviations General Gait Pattern Decreased Stride Length, Decreased Feet Clearance, Flexed Trunk,Wide Based Gait Factors Limiting Gait Function Factors Limiting Gait Function Decreased Strength,Pain PT-OP-H Neuro Start: 08/14/22 08:13 Freq: Status: Active Protocol: Document 08/14/22 11:16 [facility] (Rec: 08/15/22 15:21 [facility] [id number]) Sensation Evaluation Gross Sensation Gross Sensation Left LE Impaired,Right LE Impaired Sensation Description Paresthesia,Numbness,Tingling PT-OP-J Posture/Palpation/Skin Start: 08/14/22 08:13 Freq: Status: Active Protocol: Document 08/14/22 11:16 [facility] (Rec: 08/15/22 15:21 [facility] [id number]) Posture Evaluation Position Standing Head/C-Spine Posture Forward Head T-Spine Posture Increased Kyphosis L-Spine Posture Increased Lordosis Shoulder Posture (L) Rounded,(R) Rounded Scapula Posture (L) Protracted,(R) Protracted Arm Posture (L) Internally Rotated,(R) Internally Rotated Pelvis Posture Anteriorly Tilted PT-OP-K Range of Motion Start: 08/14/22 08:13 Freq: Status: Active Protocol: Document 08/14/22 11:16 [facility] (Rec: 08/15/22 15:21 [facility] [id number]) Lumbar Spine Range of Motion Lumbar Spine Active ROM Limitations Pain Comments moderate decrease due to pain Hip Goniometric Range of Motion Hip ROM Limitations Hip ROM Limitations Soft Tissue Tightness,Pain Comments moderate decrease oxana Knee Goniometric Range of Motion Knee oxana Knee ROM WFL Yes Ankle and Foot Goniometric Range of Motion Ankle and Foot oxana Ankle/Foot ROM WFL Yes PT-OP-M Strength Start: 08/14/22 08:13 Freq: Status: Active Protocol: Document 08/14/22 11:16 [facility] (Rec: 08/15/22 15:21 [facility] [id number]) Trunk Strength Trunk Manual Muscle Testing Core Stabilization poor Hip Strength Hip Manual Muscle Testing Left Flexion (L2) 3- Fair- Extension (S1) 2+ Poor+ Abduction 3- Fair- Adduction 3- Fair- External Rotation 3- Fair- Internal Rotation 3- Fair- Right Flexion (L2) 3- Fair- Extension (S1) 3- Fair- Abduction 3- Fair- Adduction 3- Fair- External Rotation 3- Fair- Internal Rotation 3+ Fair+ Knee Strength Knee Manual Muscle Testing Left Flexion (S2) 4- Good- Extension (L3) 4- Good- Right Flexion (S2) 4 Good Extension (L3) 4 Good Ankle/Foot Strength Ankle and Foot Manual Muscle Testing Left Dorsiflexion (L4) 3+ Fair+ Plantarflexion (S1) 3+ Fair+ Right Dorsiflexion (L4) 4+ Good+ Plantarflexion (S1) 4+ Good+ PT-OP-Q Treatments Start: 08/14/22 08:13 Freq: Status: Active Protocol: Document 08/16/22 11:17 [facility] (Rec: 08/16/22 12:25 [facility] [id number]) Cardio Equipment Recumbent Stepper (Sci-Fit) Duration (Minutes) 5 Resistance 1 Other [id number] Therapeutic Exercises Sitting Exercises shoulder ext Resistance L2 TB Reps/Minutes 10x row Resistance L2 TB Reps/Minutes 10x crunch Reps/Minutes 10x Comments sitting on walker seat, arms across chest LAQ Resistance 1# Reps/Minutes 10 hip abduction Sitting Exercise Name seated clam Equipment Used L3 TB Reps/Minutes 10 ball squeeze Reps/Minutes 10x Standing Exercises march Reps/Minutes 10x mini-squat Reps/Minutes 10x heel raises Reps/Minutes 10 Neuro Re-Education Treatment Balance Activities foam stand Details EO, head turns Reps/Duration 3 min Self-Care/Home Management Treatment Education Patient Education Home Exercise Program,Posture Other Education updated written HEP PT-OP-T Assessment and Plan Start: 08/14/22 08:13 Freq: Status: Active Protocol: Document 08/16/22 11:17 [facility] (Rec: 08/16/22 12:25 [facility] [id number]) Physical Therapy Assessment Goals Five Impairment balance dysfunction Impairment Tinetti gait and balance score 11/28 indicating at high risk for falls Short Term Goal (STG) Improve Tinetti score to moderate fall risk range STG Duration 09/13/22 [facility] Goal (LTG) Improve Tinetti score to low fall risk range as measure of improved mobility and safety LTG Duration 11/13/22 Four Impairment trunk weakness and postural impairment Impairment patient with excess lumbar lordosis and forward flexion at trunk Short Term Goal (STG) Patient to be independent in HEP addressing trunk muscle weakness and postural correction STG Duration 09/13/22 [facility] Goal (LTG) Patient will demonstrate improved functional trunk strength as evidenced by at least 50% improvement in standing and walking posture LTG Duration 11/13/22 Three Impairment LE weakness Impairment unable to move from sit to stand from standard height chair without moderate use of UE's Short Term Goal (STG) Patient will be able to transfer from sit to stand from standard height chair without minimal to no use of UE's and be independent in HEP for LE strengthening STG Duration 09/13/22 [facility] [employer] Goal (LTG) Patient will improve functional LE strength as evidenced by ability to transfer sit to stand from standard height chair 10x in a row LTG Duration 11/13/22 Two Impairment pain ranging from 1-9/10 lumbar spine Short Term Goal (STG) decrease pain to no greater than 6/10 with all usual activities STG Duration 09/13/22 [facility] Goal (LTG) Decrease pain to no greater than 3/10 with all usual activities LTG Duration 11/13/22 One Impairment gait impairment Impairment 2 min walk test 237 ft using 4WW, limited by low back pain and fatigue Short Term Goal (STG) Patient will be able to tolerate 6 min walk test and ambulate at least 800 ft with least restrictive device STG Duration 09/13/22 [facility] Goal (LTG) 1400 ft on 6 min walk test using SPC to improve functional gait in the home and community LTG Duration 11/13/22 Assessment Summary Assessment Patient tolerated ther ex well with frequent rest breaks, O2 sats varied 94-98% at rest and with exercise. Unable to do toe raises in standing on left LE due to weakness. Patient discussing getting his recumbant bike workable again ; has one with electric assist . Improved posture standing in parallel bars with lateral support vs fb posture with 4WW . May want to try FWW or oxana canes as assistive device option. Physical Therapy Plan Frequency and Duration Frequency of Treatment 2x/Week Duration of Treatment 12 weeks Plan of Care Start Date 08/14/22 Plan of Care End Date 11/12/22 Therapeutic Interventions Therapeutic Interventions Aquatic Therapy,Balance Training,Gait Training,Home Exercise Program,Manual Therapy,Neuromuscular Re- education,Patient/Caregiver Education,Self-Care/Home Management,Soft Tissue Mobilization,Taping, Therapeutic Activities, Therapeutic Exercises Modalities Cold Pack/Ice Massage,Electric Stimulation,Hot Packs Next Visit Focus/Plan Next Note Type Treatment Note Next Visit Plan Review HEP, gentle progression of ther ex for core strengthening and stabilization, LE strengthening and flexibility, balance, postural correction. Modalities and manual therapy as needed for pain.
--- NOTE | 2022-08-21 13:45 | PT.OTN ---
Current Diagnoses Weakness (08/21/22) Physical Therapy Treatment Note PT-OP-A Visit Information Start: 08/14/22 08:13 Freq: Status: Active Protocol: Document 08/21/22 13:04 [facility] (Rec: 08/21/22 13:54 [facility] [id number]) Out-Patient Physical Therapy Visit Information Visit Information Visit Type Treatment Note Visit Note vitals post scifit: seated BP 132/72 , HR 92, SaO2 98% onRA, HR decrease 85bpm after 1 min rest SaO2 98% with gait, HR 101 Visit Start Time 13:04 Visit Stop Time 13:45 Total Visit Minutes 41 Visit Number 3 Number of WING MAILER MACHINE OPERATOR Visits 1 Evaluation Information Evaluation Date 08/14/22 Precautions Precautions HTN, a-fib, depression, history blood clots, falls, neuropathy, PE, SOB, thyroid dysfunction, carpal tunnel surgery. PT-OP-B Current Condition Start: 08/14/22 08:13 Freq: Status: Active Protocol: Document 08/16/22 11:17 [facility] (Rec: 08/16/22 12:25 [facility] [id number]) Current Condition History of Current Condition Onset Date 10 years. Current Complaints weakness History of Current Condition back surgery 15 years ago, major back surgery 10 years ago with fusion; prior to surgery flat on back 6 months prior to surgery. Reports fair recovery from surger but states stamina and weakness very low at this time, uses cane or FWW at home and in the community. Self-care independent but painful and takes a long time. No regular exercise routine. 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 Has treadmill at home, hasn't used for 20 yrs, recumbant bike hasn't used for 1 year. Prior Treatments and Tests No recent imaging. Future Testing and Treatments Planned unsure of any further MD appointment schedule. Treatment Goals Patient/Caregiver Goals move easier, improve balance, reeceptive to HEP PT-OP-C Subjective Start: 08/14/22 08:13 Freq: Status: Active Protocol: Document 08/21/22 13:04 [facility] (Rec: 08/21/22 13:54 [facility] [id number]) OP-PT Subjective Patient Comments Patient Comments Pt reports knees little sore after last tx. Did more walking with SPC about 1-1.5 blocks at time before back hurts, after 4-5 min stop stand/sit rest feels better then continues back. PT-OP-D Balance Start: 08/14/22 08:13 Freq: Status: Active Protocol: Document 08/14/22 11:16 [facility] (Rec: 08/15/22 15:21 [facility] [id number]) OP-PT Balance Assessment Sitting Balance Static Sitting Balance Ability Normal Dynamic Sitting Balance Ability Normal Standing Balance Device Used 4WW Tinetti Balance Assessment Sitting Balance Sitting Balance Steady, safe Arising from Chair Ability to Arise Able, uses arms to help Attempts to Arise Arises on 1st attempt Standing Balance Immediate Standing Balance Steady with support Standing Balance Steady, wide stance Nudged Response Staggers, catches self Standing with Eyes Closed Unsteady Turning Step Pattern Turning 360 Degrees Discontinuous steps Stability Turning 360 Degrees Unsteady, grabs/staggers Sitting Down Sitting Down Uses arms or unsteady Gait and Step Initiation of Gait No hesitancy Right Foot Step Length Does not pass stance ft. Right Foot Step Height Does not clear floor Left Foot Step Length Does not pass stance foot Left Foot Step Height Does not clear floor Step Description Step Symmetry Step length appears equal Step Continuity Steps appear continuous Gait Description Path Description Mild/moderate deviation Trunk Description Marked sway or uses aide Walking Stance Heels apart Scoring and Interpretation Tinetti Composite Score (points) 12 Pepe Fall Scale Copyright Permission PT-OP-G Mobility & Gait Start: 08/14/22 08:13 Freq: Status: Active Protocol: Document 08/14/22 11:16 [facility] (Rec: 08/15/22 15:21 [facility] [id number]) OP Gait Assessment Gait Gait Assistance Required: Independent Distance (Feet) 237 Assistive Devices Assistive Device 4 Wheeled Walker Gait Deviations General Gait Pattern Decreased Stride Length, Decreased Feet Clearance, Flexed Trunk,Wide Based Gait Factors Limiting Gait Function Factors Limiting Gait Function Decreased Strength,Pain PT-OP-H Neuro Start: 08/14/22 08:13 Freq: Status: Active Protocol: Document 08/14/22 11:16 [facility] (Rec: 08/15/22 15:21 [facility] [id number]) Sensation Evaluation Gross Sensation Gross Sensation Left LE Impaired,Right LE Impaired Sensation Description Paresthesia,Numbness,Tingling PT-OP-J Posture/Palpation/Skin Start: 08/14/22 08:13 Freq: Status: Active Protocol: Document 08/14/22 11:16 [facility] (Rec: 08/15/22 15:21 [facility] [id number]) Posture Evaluation Position Standing Head/C-Spine Posture Forward Head T-Spine Posture Increased Kyphosis L-Spine Posture Increased Lordosis Shoulder Posture (L) Rounded,(R) Rounded Scapula Posture (L) Protracted,(R) Protracted Arm Posture (L) Internally Rotated,(R) Internally Rotated Pelvis Posture Anteriorly Tilted PT-OP-K Range of Motion Start: 08/14/22 08:13 Freq: Status: Active Protocol: Document 08/14/22 11:16 [facility] (Rec: 08/15/22 15:21 [facility] [id number]) Lumbar Spine Range of Motion Lumbar Spine Active ROM Limitations Pain Comments moderate decrease due to pain Hip Goniometric Range of Motion Hip ROM Limitations Hip ROM Limitations Soft Tissue Tightness,Pain Comments moderate decrease oxana Knee Goniometric Range of Motion Knee oxana Knee ROM WFL Yes Ankle and Foot Goniometric Range of Motion Ankle and Foot oxana Ankle/Foot ROM WFL Yes PT-OP-M Strength Start: 08/14/22 08:13 Freq: Status: Active Protocol: Document 08/14/22 11:16 [facility] (Rec: 08/15/22 15:21 [facility] [id number]) Trunk Strength Trunk Manual Muscle Testing Core Stabilization poor Hip Strength Hip Manual Muscle Testing Left Flexion (L2) 3- Fair- Extension (S1) 2+ Poor+ Abduction 3- Fair- Adduction 3- Fair- External Rotation 3- Fair- Internal Rotation 3- Fair- Right Flexion (L2) 3- Fair- Extension (S1) 3- Fair- Abduction 3- Fair- Adduction 3- Fair- External Rotation 3- Fair- Internal Rotation 3+ Fair+ Knee Strength Knee Manual Muscle Testing Left Flexion (S2) 4- Good- Extension (L3) 4- Good- Right Flexion (S2) 4 Good Extension (L3) 4 Good Ankle/Foot Strength Ankle and Foot Manual Muscle Testing Left Dorsiflexion (L4) 3+ Fair+ Plantarflexion (S1) 3+ Fair+ Right Dorsiflexion (L4) 4+ Good+ Plantarflexion (S1) 4+ Good+ PT-OP-Q Treatments Start: 08/14/22 08:13 Freq: Status: Active Protocol: Document 08/21/22 13:04 [facility] (Rec: 08/21/22 13:54 [facility] [id number]) Cardio Equipment Recumbent Stepper (Sci-Fit) Duration (Minutes) 7 Resistance 1>4 7.5 min Seat Position 13 Other 35-40 RPMs, good breath rate UEs/LEs 0.95 miles Therapeutic Exercises Sitting Exercises shoulder ext Sitting Exercise Name seated and stand Resistance L2> L3 TB Reps/Minutes 10x x2 seated, x10 standing Comments cued tall posture row Resistance TB Lv2> Lv3 Reps/Minutes 10x2 seated, x10 standing Comments cued slow, no [place] recruit crunch Sitting Exercise Name reviewed HEP Resistance AROM> TB #2 anchored at wall shld height Reps/Minutes 10x Comments sitting on walker seat, arms across chest LAQ Sitting Exercise Name HEP review: seated on 4WW Resistance 1#> #2 leg wt Reps/Minutes 2 x 10, 1 sec hold Comments good hip abduction Sitting Exercise Name seated clam Equipment Used L3 TB Reps/Minutes 10 ball squeeze Sitting Exercise Name HEP reviewed Resistance green small kick ball Reps/Minutes 10s hold x10 Comments good form Gait Training Gait Activity gait 4WW Description assess home endurance outside pavement is performing Device Used 4WW Level of Assistance S Surface firm Distance/Duration 372ft, 505 ft Treatment Focus tall posturing, proper breath/ SaO2 Comments Errors in timing so just distance calculated. Pt required seated rest between distances 4 min, + SOB recovery/ LB discomfort. DIscussed think 4WW handles 1knotch to low. PT-OP-T Assessment and Plan Start: 08/14/22 08:13 Freq: Status: Active Protocol: Document 08/21/22 13:04 [facility] (Rec: 08/21/22 13:54 SP [id number]) Physical Therapy Assessment Goals Five Impairment balance dysfunction Impairment Tinetti gait and balance score 11/28 indicating at high risk for falls Short Term Goal (STG) Improve Tinetti score to moderate fall risk range STG Duration 09/13/22 Railroad Engineer Goal (LTG) Improve Tinetti score to low fall risk range as measure of improved mobility and safety LTG Duration 11/13/22 Four Impairment trunk weakness and postural impairment Impairment patient with excess lumbar lordosis and forward flexion at trunk Short Term Goal (STG) Patient to be independent in HEP addressing trunk muscle weakness and postural correction STG Duration 09/13/22 Railroad Engineer Goal (LTG) Patient will demonstrate improved functional trunk strength as evidenced by at least 50% improvement in standing and walking posture LTG Duration 11/13/22 Three Impairment LE weakness Impairment unable to move from sit to stand from standard height chair without moderate use of UE's Short Term Goal (STG) Patient will be able to transfer from sit to stand from standard height chair without minimal to no use of UE's and be independent in HEP for LE strengthening STG Duration 09/13/22 Railroad Engineer Goal (LTG) Patient will improve functional LE strength as evidenced by ability to transfer sit to stand from standard height chair 10x in a row LTG Duration 11/13/22 Two Impairment pain ranging from 1-9/10 lumbar spine Short Term Goal (STG) decrease pain to no greater than 6/10 with all usual activities STG Duration 09/13/22 [facility] Goal (LTG) Decrease pain to no greater than 3/10 with all usual activities LTG Duration 11/13/22 One Impairment gait impairment Impairment 2 min walk test 237 ft using 4WW, limited by low back pain and fatigue Short Term Goal (STG) Patient will be able to tolerate 6 min walk test and ambulate at least 800 ft with least restrictive device STG Duration 09/13/22 [facility] Goal (LTG) 1400 ft on 6 min walk test using SPC to improve functional gait in the home and community LTG Duration 11/13/22 Assessment Summary Assessment Pt tolerated increase resistance with seated UE HEP, initiated standing for core and balance component without LB pain reported. Pt was able to walk outside 372 ft before requiring seated rest 4 min on 4WW used for support due to decrease endurance, back tiring, +SOB. WING MAILER MACHINE OPERATOR suggested use 4WW for rest and support of BUE to allow energy conservation and back support. Pt elevated HR in good range, good SaO2 high 90s. Physical Therapy Plan Frequency and Duration Frequency of Treatment 2x/Week Duration of Treatment 12 weeks Plan of Care Start Date 08/14/22 Plan of Care End Date 11/12/22 Therapeutic Interventions Therapeutic Interventions Aquatic Therapy,Balance Training,Gait Training,Home Exercise Program,Manual Therapy,Neuromuscular Re- education,Patient/Caregiver Education,Self-Care/Home Management,Soft Tissue Mobilization,Taping, Therapeutic Activities, Therapeutic Exercises Modalities Cold Pack/Ice Massage,Electric Stimulation,Hot Packs Next Visit Focus/Plan Next Note Type Treatment Note Next Visit Plan Review HEP, next tx continue standing and add flexibility and wall posture. Gait SPC POC: gentle progression of ther ex for core strengthening and stabilization, LE strengthening and flexibility, balance, postural correction. Modalities and manual therapy as needed for pain.
--- NOTE | 2022-08-24 13:00 | PT.OTN ---
Current Diagnoses Weakness (08/24/22) Physical Therapy Treatment Note PT-OP-A Visit Information Start: 08/14/22 08:13 Freq: Status: Active Protocol: Document 08/24/22 12:17 SP (Rec: 08/24/22 13:03 SP [id number]) Out-Patient Physical Therapy Visit Information Visit Information Visit Type Treatment Note Visit Note vitals post scifit and during shuttle recovery: supine: 146/85 HR 83 SaO2 99 post standing ex: 146/76, HR 88-92 SaO2 99% Noted hand tremors with donning oximeter- states takes Magnesium and finds helps. Visit Start Time 12:17 Visit Stop Time 13:00 Total Visit Minutes 43 Visit Number 4 Number of SWEAT BOX ATTENDANT Visits 2 Evaluation Information Evaluation Date 08/14/22 Precautions Precautions HTN, a-fib, depression, history blood clots, falls, neuropathy, PE, SOB, thyroid dysfunction, carpal tunnel surgery. *08/24/22: pt reported PMH caution exersion with UEs can cause tingling and lower SaO2 and gets weak/lightheadedness/ low RBCs feeling that can cause instability. PT-OP-B Current Condition Start: 08/14/22 08:13 Freq: Status: Active Protocol: Document 08/16/22 11:17 SAK (Rec: 08/16/22 12:25 SAK [id number]) Current Condition History of Current Condition Onset Date 10 years. Current Complaints weakness History of Current Condition back surgery 15 years ago, major back surgery 10 years ago with fusion; prior to surgery flat on back 6 months prior to surgery. Reports fair recovery from surger but states stamina and weakness very low at this time, uses cane or FWW at home and in the community. Self-care independent but painful and takes a long time. No regular exercise routine. 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 Has treadmill at home, hasn't used for 20 yrs, recumbant bike hasn't used for 1 year. Prior Treatments and Tests No recent imaging. Future Testing and Treatments Planned unsure of any further MD appointment schedule. Treatment Goals Patient/Caregiver Goals move easier, improve balance, reeceptive to HEP PT-OP-C Subjective Start: 08/14/22 08:13 Freq: Status: Active Protocol: Document 08/24/22 12:17 SP (Rec: 08/24/22 13:03 SP [id number]) OP-PT Subjective Patient Comments Patient Comments Pt reports UEs pretty tired after last tx but recovered within that day. PT-OP-D Balance Start: 08/14/22 08:13 Freq: Status: Active Protocol: Document 08/14/22 11:16 [facility] (Rec: 08/15/22 15:21 [facility] [id number]) OP-PT Balance Assessment Sitting Balance Static Sitting Balance Ability Normal Dynamic Sitting Balance Ability Normal Standing Balance Device Used 4WW Tinetti Balance Assessment Sitting Balance Sitting Balance Steady, safe Arising from Chair Ability to Arise Able, uses arms to help Attempts to Arise Arises on 1st attempt Standing Balance Immediate Standing Balance Steady with support Standing Balance Steady, wide stance Nudged Response Staggers, catches self Standing with Eyes Closed Unsteady Turning Step Pattern Turning 360 Degrees Discontinuous steps Stability Turning 360 Degrees Unsteady, grabs/staggers Sitting Down Sitting Down Uses arms or unsteady Gait and Step Initiation of Gait No hesitancy Right Foot Step Length Does not pass stance ft. Right Foot Step Height Does not clear floor Left Foot Step Length Does not pass stance foot Left Foot Step Height Does not clear floor Step Description Step Symmetry Step length appears equal Step Continuity Steps appear continuous Gait Description Path Description Mild/moderate deviation Trunk Description Marked sway or uses aide Walking Stance Heels apart Scoring and Interpretation Tinetti Composite Score (points) 12 Pepe Fall Scale Copyright Permission PT-OP-G Mobility & Gait Start: 08/14/22 08:13 Freq: Status: Active Protocol: Document 08/14/22 11:16 [facility] (Rec: 08/15/22 15:21 [facility] [id number]) OP Gait Assessment Gait Gait Assistance Required: Independent Distance (Feet) 237 Assistive Devices Assistive Device 4 Wheeled Walker Gait Deviations General Gait Pattern Decreased Stride Length, Decreased Feet Clearance, Flexed Trunk,Wide Based Gait Factors Limiting Gait Function Factors Limiting Gait Function Decreased Strength,Pain PT-OP-H Neuro Start: 08/14/22 08:13 Freq: Status: Active Protocol: Document 08/14/22 11:16 [facility] (Rec: 08/15/22 15:21 [facility] [id number]) Sensation Evaluation Gross Sensation Gross Sensation Left LE Impaired,Right LE Impaired Sensation Description Paresthesia,Numbness,Tingling PT-OP-J Posture/Palpation/Skin Start: 08/14/22 08:13 Freq: Status: Active Protocol: Document 08/14/22 11:16 SAK (Rec: 08/15/22 15:21 [facility] [id number]) Posture Evaluation Position Standing Head/C-Spine Posture Forward Head T-Spine Posture Increased Kyphosis L-Spine Posture Increased Lordosis Shoulder Posture (L) Rounded,(R) Rounded Scapula Posture (L) Protracted,(R) Protracted Arm Posture (L) Internally Rotated,(R) Internally Rotated Pelvis Posture Anteriorly Tilted PT-OP-K Range of Motion Start: 08/14/22 08:13 Freq: Status: Active Protocol: Document 08/14/22 11:16 SAK (Rec: 08/15/22 15:21 [facility] [id number]) Lumbar Spine Range of Motion Lumbar Spine Active ROM Limitations Pain Comments moderate decrease due to pain Hip Goniometric Range of Motion Hip ROM Limitations Hip ROM Limitations Soft Tissue Tightness,Pain Comments moderate decrease oxana Knee Goniometric Range of Motion Knee oxana Knee ROM WFL Yes Ankle and Foot Goniometric Range of Motion Ankle and Foot oxana Ankle/Foot ROM WFL Yes PT-OP-M Strength Start: 08/14/22 08:13 Freq: Status: Active Protocol: Document 08/14/22 11:16 [facility] (Rec: 08/15/22 15:21 [facility] [id number]) Trunk Strength Trunk Manual Muscle Testing Core Stabilization poor Hip Strength Hip Manual Muscle Testing Left Flexion (L2) 3- Fair- Extension (S1) 2+ Poor+ Abduction 3- Fair- Adduction 3- Fair- External Rotation 3- Fair- Internal Rotation 3- Fair- Right Flexion (L2) 3- Fair- Extension (S1) 3- Fair- Abduction 3- Fair- Adduction 3- Fair- External Rotation 3- Fair- Internal Rotation 3+ Fair+ Knee Strength Knee Manual Muscle Testing Left Flexion (S2) 4- Good- Extension (L3) 4- Good- Right Flexion (S2) 4 Good Extension (L3) 4 Good Ankle/Foot Strength Ankle and Foot Manual Muscle Testing Left Dorsiflexion (L4) 3+ Fair+ Plantarflexion (S1) 3+ Fair+ Right Dorsiflexion (L4) 4+ Good+ Plantarflexion (S1) 4+ Good+ PT-OP-Q Treatments Start: 08/14/22 08:13 Freq: Status: Active Protocol: Document 08/24/22 12:17 SP (Rec: 08/24/22 13:03 SP [id number]) Cardio Equipment Recumbent Stepper (Sci-Fit) Duration (Minutes) 6 Resistance 1>4 7.5 min Seat Position 13 Other 35-40 RPMs, good breath rate LEs 0.57 miles Gym Equipment Shuttle Recovery Single squats Details cued knee alignment Resistance 37# Shuttle Recovery Platform Stable Reps/Time 2x10- *be sure start position far from platform. B squats Details cued knees more medial/midline Resistance 75# Shuttle Recovery Platform Stable Reps/Time x10 Therapeutic Exercises Sitting Exercises shoulder ext Sitting Exercise Name seated and stand Resistance L2> L3 TB Reps/Minutes 10x x2 seated, x10 standing Comments cued tall posture row Resistance TB Lv2> Lv3 Reps/Minutes 10x2 seated, x10 standing Comments cued slow, no [place] recruit Standing Exercises side stepping Standing Exercise Name back and side stepping- trialed in PT Side bilateral Resistance AROM Reps/Minutes 10 ft x3 laps, seated rest between laps for recovery Comments cued tall, UE support as needed, march Standing Exercise Name forward march Equipment Used rail support Reps/Minutes 10 ft x2 laps mini-squat Standing Exercise Name HEP reviewed Reps/Minutes x5 before anterior knee pain Comments cued hip hinge posterior chain recruitment heel raises Standing Exercise Name HEP reviewed Reps/Minutes 10 Comments good form. PT-OP-T Assessment and Plan Start: 08/14/22 08:13 Freq: Status: Active Protocol: Document 08/24/22 12:17 SP (Rec: 08/24/22 13:03 SP [id number]) Physical Therapy Assessment Goals Five Impairment balance dysfunction Impairment Tinetti gait and balance score 11/28 indicating at high risk for falls Short Term Goal (STG) Improve Tinetti score to moderate fall risk range STG Duration 09/13/22 Referral Nurse Goal (LTG) Improve Tinetti score to low fall risk range as measure of improved mobility and safety LTG Duration 11/13/22 Four Impairment trunk weakness and postural impairment Impairment patient with excess lumbar lordosis and forward flexion at trunk Short Term Goal (STG) Patient to be independent in HEP addressing trunk muscle weakness and postural correction STG Duration 09/13/22 Referral Nurse Goal (LTG) Patient will demonstrate improved functional trunk strength as evidenced by at least 50% improvement in standing and walking posture LTG Duration 11/13/22 Three Impairment LE weakness Impairment unable to move from sit to stand from standard height chair without moderate use of UE's Short Term Goal (STG) Patient will be able to transfer from sit to stand from standard height chair without minimal to no use of UE's and be independent in HEP for LE strengthening STG Duration 09/13/22 Detention Goal (LTG) Patient will improve functional LE strength as evidenced by ability to transfer sit to stand from standard height chair 10x in a row LTG Duration 11/13/22 Two Impairment pain ranging from 1-9/10 lumbar spine Short Term Goal (STG) decrease pain to no greater than 6/10 with all usual activities STG Duration 09/13/22 Detention Goal (LTG) Decrease pain to no greater than 3/10 with all usual activities LTG Duration 11/13/22 One Impairment gait impairment Impairment 2 min walk test 237 ft using 4WW, limited by low back pain and fatigue Short Term Goal (STG) Patient will be able to tolerate 6 min walk test and ambulate at least 800 ft with least restrictive device STG Duration 09/13/22 Detention Goal (LTG) 1400 ft on 6 min walk test using SPC to improve functional gait in the home and community LTG Duration 11/13/22 Assessment Summary Assessment Pt responded well to tx, requires rests for breath and tiring recovery. Balanced UE/ LE activity so not over stress UEs as reported can cause decrease in SaO2, see precautions for details. Physical Therapy Plan Frequency and Duration Frequency of Treatment 2x/Week Duration of Treatment 12 weeks Plan of Care Start Date 08/14/22 Plan of Care End Date 11/12/22 Therapeutic Interventions Therapeutic Interventions Aquatic Therapy,Balance Training,Gait Training,Home Exercise Program,Manual Therapy,Neuromuscular Re- education,Patient/Caregiver Education,Self-Care/Home Management,Soft Tissue Mobilization,Taping, Therapeutic Activities, Therapeutic Exercises Modalities Cold Pack/Ice Massage,Electric Stimulation,Hot Packs Next Visit Focus/Plan Next Note Type Treatment Note Next Visit Plan Review HEP, continue standing edurance/strength and add flexibility and wall posture. Gait SPC POC: gentle progression of ther ex for core strengthening and stabilization, LE strengthening and flexibility, balance, postural correction. Modalities and manual therapy as needed for pain.
--- NOTE | 2022-08-28 14:30 | PT.OTN ---
Current Diagnoses Weakness (08/28/22) Physical Therapy Treatment Note PT-OP-A Visit Information Start: 08/14/22 08:13 Freq: Status: Active Protocol: Document 08/28/22 13:49 [facility] (Rec: 08/28/22 14:28 [facility] [id number]) Out-Patient Physical Therapy Visit Information Visit Information Visit Type Treatment Note Visit Note vitals post scifit and during shuttle recovery: Visit Start Time 13:49 Total Visit Minutes 43 Visit Number 5 Number of DRAINAGE ENGINEER Visits 0 Evaluation Information Evaluation Date 08/14/22 Precautions Precautions HTN, a-fib, depression, history blood clots, falls, neuropathy, PE, SOB, thyroid dysfunction, carpal tunnel surgery. *08/24/22: pt reported PMH caution exersion with UEs can cause tingling and lower SaO2 and gets weak/lightheadedness/ low RBCs feeling that can cause instability. PT-OP-B Current Condition Start: 08/14/22 08:13 Freq: Status: Active Protocol: Document 08/16/22 11:17 [facility] (Rec: 08/16/22 12:25 [facility] [id number]) Current Condition History of Current Condition Onset Date 10 years. Current Complaints weakness History of Current Condition back surgery 15 years ago, major back surgery 10 years ago with fusion; prior to surgery flat on back 6 months prior to surgery. Reports fair recovery from surger but states stamina and weakness very low at this time, uses cane or FWW at home and in the community. Self-care independent but painful and takes a long time. No regular exercise routine. 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 Has treadmill at home, hasn't used for 20 yrs, recumbant bike hasn't used for 1 year. Prior Treatments and Tests No recent imaging. Future Testing and Treatments Planned unsure of any further MD appointment schedule. Treatment Goals Patient/Caregiver Goals move easier, improve balance, reeceptive to HEP PT-OP-C Subjective Start: 08/14/22 08:13 Freq: Status: Active Protocol: Document 08/28/22 13:49 [facility] (Rec: 08/28/22 14:28 [facility] [id number]) OP-PT Subjective Patient Comments Patient Comments Went to [employer] yesterday, was able to walk with walker. Arms got pretty tired, but legs didn't. Mental Health Clinician appt yesterday; doctor told him he is stable, improved red blood cell count. Patient Reported Progress Improving PT-OP-D Balance Start: 08/14/22 08:13 Freq: Status: Active Protocol: Document 08/14/22 11:16 [facility] (Rec: 08/15/22 15:21 [facility] [id number]) OP-PT Balance Assessment Sitting Balance Static Sitting Balance Ability Normal Dynamic Sitting Balance Ability Normal Standing Balance Device Used 4WW Tinetti Balance Assessment Sitting Balance Sitting Balance Steady, safe Arising from Chair Ability to Arise Able, uses arms to help Attempts to Arise Arises on 1st attempt Standing Balance Immediate Standing Balance Steady with support Standing Balance Steady, wide stance Nudged Response Staggers, catches self Standing with Eyes Closed Unsteady Turning Step Pattern Turning 360 Degrees Discontinuous steps Stability Turning 360 Degrees Unsteady, grabs/staggers Sitting Down Sitting Down Uses arms or unsteady Gait and Step Initiation of Gait No hesitancy Right Foot Step Length Does not pass stance ft. Right Foot Step Height Does not clear floor Left Foot Step Length Does not pass stance foot Left Foot Step Height Does not clear floor Step Description Step Symmetry Step length appears equal Step Continuity Steps appear continuous Gait Description Path Description Mild/moderate deviation Trunk Description Marked sway or uses aide Walking Stance Heels apart Scoring and Interpretation Tinetti Composite Score (points) 12 Pepe Fall Scale Copyright Permission PT-OP-G Mobility & Gait Start: 08/14/22 08:13 Freq: Status: Active Protocol: Document 08/14/22 11:16 [facility] (Rec: 08/15/22 15:21 [facility] [id number]) OP Gait Assessment Gait Gait Assistance Required: Independent Distance (Feet) 237 Assistive Devices Assistive Device 4 Wheeled Walker Gait Deviations General Gait Pattern Decreased Stride Length, Decreased Feet Clearance, Flexed Trunk,Wide Based Gait Factors Limiting Gait Function Factors Limiting Gait Function Decreased Strength,Pain PT-OP-H Neuro Start: 08/14/22 08:13 Freq: Status: Active Protocol: Document 08/14/22 11:16 [facility] (Rec: 08/15/22 15:21 [facility] [id number]) Sensation Evaluation Gross Sensation Gross Sensation Left LE Impaired,Right LE Impaired Sensation Description Paresthesia,Numbness,Tingling PT-OP-J Posture/Palpation/Skin Start: 08/14/22 08:13 Freq: Status: Active Protocol: Document 08/14/22 11:16 [facility] (Rec: 08/15/22 15:21 [facility] [id number]) Posture Evaluation Position Standing Head/C-Spine Posture Forward Head T-Spine Posture Increased Kyphosis L-Spine Posture Increased Lordosis Shoulder Posture (L) Rounded,(R) Rounded Scapula Posture (L) Protracted,(R) Protracted Arm Posture (L) Internally Rotated,(R) Internally Rotated Pelvis Posture Anteriorly Tilted PT-OP-K Range of Motion Start: 08/14/22 08:13 Freq: Status: Active Protocol: Document 08/14/22 11:16 [facility] (Rec: 08/15/22 15:21 [facility] [id number]) Lumbar Spine Range of Motion Lumbar Spine Active ROM Limitations Pain Comments moderate decrease due to pain Hip Goniometric Range of Motion Hip ROM Limitations Hip ROM Limitations Soft Tissue Tightness,Pain Comments moderate decrease oxana Knee Goniometric Range of Motion Knee oxana Knee ROM WFL Yes Ankle and Foot Goniometric Range of Motion Ankle and Foot oxana Ankle/Foot ROM WFL Yes PT-OP-M Strength Start: 08/14/22 08:13 Freq: Status: Active Protocol: Document 08/14/22 11:16 [facility] (Rec: 08/15/22 15:21 [facility] [id number]) Trunk Strength Trunk Manual Muscle Testing Core Stabilization poor Hip Strength Hip Manual Muscle Testing Left Flexion (L2) 3- Fair- Extension (S1) 2+ Poor+ Abduction 3- Fair- Adduction 3- Fair- External Rotation 3- Fair- Internal Rotation 3- Fair- Right Flexion (L2) 3- Fair- Extension (S1) 3- Fair- Abduction 3- Fair- Adduction 3- Fair- External Rotation 3- Fair- Internal Rotation 3+ Fair+ Knee Strength Knee Manual Muscle Testing Left Flexion (S2) 4- Good- Extension (L3) 4- Good- Right Flexion (S2) 4 Good Extension (L3) 4 Good Ankle/Foot Strength Ankle and Foot Manual Muscle Testing Left Dorsiflexion (L4) 3+ Fair+ Plantarflexion (S1) 3+ Fair+ Right Dorsiflexion (L4) 4+ Good+ Plantarflexion (S1) 4+ Good+ PT-OP-Q Treatments Start: 08/14/22 08:13 Freq: Status: Active Protocol: Document 08/28/22 13:49 [facility] (Rec: 08/28/22 14:28 [facility] [id number]) Cardio Equipment Recumbent Stepper (Sci-Fit) Duration (Minutes) 8 Resistance 1>4 7.5 min Seat Position 14 Other 40-45 RPMs, good breath rate LEs 0.80 miles Gym Equipment Shuttle Recovery Single squats Details cued knee alignment Resistance 37# Shuttle Recovery Platform Stable Reps/Time 2x10- *be sure start position far from platform. B squats Details cued knees more medial/midline Resistance 75# Shuttle Recovery Platform Stable Reps/Time 2x10 Therapeutic Exercises Sitting Exercises shoulder ext Sitting Exercise Name stand Resistance L3 TB Reps/Minutes 10x2 standing Comments cued tall posture row Resistance Lv3 Reps/Minutes 10x2 standing Comments cued slow, no [place] recruit Standing Exercises side stepping Standing Exercise Name back and side stepping- trialed in PT Side bilateral Resistance AROM Reps/Minutes 10 ft x3 laps, seated rest between laps for recovery Comments cued tall, UE support as needed, march Standing Exercise Name forward march Equipment Used rail support Reps/Minutes 10 ft x2 laps mini-squat Standing Exercise Name HEP reviewed Reps/Minutes x5 before anterior knee pain Comments cued hip hinge posterior chain recruitment Neuro Re-Education Treatment Balance Activities tiltboard Details bal and wt shift fwd/bck and side/side Reps/Duration 2 min x 2 PT-OP-T Assessment and Plan Start: 08/14/22 08:13 Freq: Status: Active Protocol: Document 08/28/22 13:49 [facility] (Rec: 08/28/22 14:28 [facility] [id number]) Physical Therapy Assessment Goals Five Impairment balance dysfunction Impairment Tinetti gait and balance score 11/28 indicating at high risk for falls Short Term Goal (STG) Improve Tinetti score to moderate fall risk range STG Duration 09/13/22 Mcfp Goal (LTG) Improve Tinetti score to low fall risk range as measure of improved mobility and safety LTG Duration 11/13/22 Four Impairment trunk weakness and postural impairment Impairment patient with excess lumbar lordosis and forward flexion at trunk Short Term Goal (STG) Patient to be independent in HEP addressing trunk muscle weakness and postural correction STG Duration 09/13/22 Chemist Physical Goal (LTG) Patient will demonstrate improved functional trunk strength as evidenced by at least 50% improvement in standing and walking posture LTG Duration 11/13/22 Three Impairment LE weakness Impairment unable to move from sit to stand from standard height chair without moderate use of UE's Short Term Goal (STG) Patient will be able to transfer from sit to stand from standard height chair without minimal to no use of UE's and be independent in HEP for LE strengthening STG Duration 09/13/22 Mcfp Goal (LTG) Patient will improve functional LE strength as evidenced by ability to transfer sit to stand from standard height chair 10x in a row LTG Duration 11/13/22 Two Impairment pain ranging from 1-9/10 lumbar spine Short Term Goal (STG) decrease pain to no greater than 6/10 with all usual activities STG Duration 09/13/22 Mcfp Goal (LTG) Decrease pain to no greater than 3/10 with all usual activities LTG Duration 11/13/22 One Impairment gait impairment Impairment 2 min walk test 237 ft using 4WW, limited by low back pain and fatigue Short Term Goal (STG) Patient will be able to tolerate 6 min walk test and ambulate at least 800 ft with least restrictive device STG Duration 09/13/22 Chemist Physical Goal (LTG) 1400 ft on 6 min walk test using SPC to improve functional gait in the home and community LTG Duration 11/13/22 Assessment Summary Assessment Improving activity tolerance Physical Therapy Plan Frequency and Duration Frequency of Treatment 2x/Week Plan of Care Start Date 08/14/22 Next Visit Focus/Plan Next Note Type Treatment Note Next Visit Plan Review HEP, continue standing edurance/strength and add flexibility and wall posture. Gait SPC POC: gentle progression of ther ex for core strengthening and stabilization, LE strengthening and flexibility, balance, postural correction. Modalities and manual therapy as needed for pain.
--- NOTE | 2022-08-30 13:44 | PT.OTN ---
Current Diagnoses Weakness (08/30/22) Physical Therapy Treatment Note PT-OP-A Visit Information Start: 08/14/22 08:13 Freq: Status: Active Protocol: Document 08/30/22 13:00 [facility] (Rec: 08/30/22 13:44 [facility] [id number]) Out-Patient Physical Therapy Visit Information Visit Information Visit Type Treatment Note Visit Note vitals post scifit and during shuttle recovery: sittin/90, HR 80 pre exercise Visit Start Time 13:00 Visit Stop Time 13:42 Total Visit Minutes 42 Visit Number 6 Number of UM NURSE Visits 0 Evaluation Information Evaluation Date 08/14/22 Precautions Precautions HTN, a-fib, depression, history blood clots, falls, neuropathy, PE, SOB, thyroid dysfunction, carpal tunnel surgery. *08/24/22: pt reported PMH caution exersion with UEs can cause tingling and lower SaO2 and gets weak/lightheadedness/ low RBCs feeling that can cause instability. PT-OP-B Current Condition Start: 08/14/22 08:13 Freq: Status: Active Protocol: Document 08/30/22 13:00 [facility] (Rec: 08/30/22 13:44 [facility] [id number]) Current Condition History of Current Condition Onset Date 10 years. Current Complaints weakness History of Current Condition back surgery 15 years ago, major back surgery 10 years ago with fusion; prior to surgery flat on back 6 months prior to surgery. Reports fair recovery from surger but states stamina and weakness very low at this time, uses cane or FWW at home and in the community. Self-care independent but painful and takes a long time. No regular exercise routine. 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 Has treadmill at home, hasn't used for 20 yrs, recumbant bike hasn't used for 1 year. Prior Treatments and Tests No recent imaging. Future Testing and Treatments Planned unsure of any further MD appointment schedule. Treatment Goals Patient/Caregiver Goals move easier, improve balance, reeceptive to HEP PT-OP-C Subjective Start: 08/14/22 08:13 Freq: Status: Active Protocol: Document 08/30/22 13:00 [facility] (Rec: 08/30/22 13:44 [facility] [id number]) OP-PT Subjective Patient Comments Patient Comments No new c/o. PT-OP-D Balance Start: 08/14/22 08:13 Freq: Status: Active Protocol: Document 08/14/22 11:16 [facility] (Rec: 08/15/22 15:21 [facility] [id number]) OP-PT Balance Assessment Sitting Balance Static Sitting Balance Ability Normal Dynamic Sitting Balance Ability Normal Standing Balance Device Used 4WW Tinetti Balance Assessment Sitting Balance Sitting Balance Steady, safe Arising from Chair Ability to Arise Able, uses arms to help Attempts to Arise Arises on 1st attempt Standing Balance Immediate Standing Balance Steady with support Standing Balance Steady, wide stance Nudged Response Staggers, catches self Standing with Eyes Closed Unsteady Turning Step Pattern Turning 360 Degrees Discontinuous steps Stability Turning 360 Degrees Unsteady, grabs/staggers Sitting Down Sitting Down Uses arms or unsteady Gait and Step Initiation of Gait No hesitancy Right Foot Step Length Does not pass stance ft. Right Foot Step Height Does not clear floor Left Foot Step Length Does not pass stance foot Left Foot Step Height Does not clear floor Step Description Step Symmetry Step length appears equal Step Continuity Steps appear continuous Gait Description Path Description Mild/moderate deviation Trunk Description Marked sway or uses aide Walking Stance Heels apart Scoring and Interpretation Tinetti Composite Score (points) 12 Pepe Fall Scale Copyright Permission PT-OP-G Mobility & Gait Start: 08/14/22 08:13 Freq: Status: Active Protocol: Document 08/14/22 11:16 [facility] (Rec: 08/15/22 15:21 [facility] [id number]) OP Gait Assessment Gait Gait Assistance Required: Independent Distance (Feet) 237 Assistive Devices Assistive Device 4 Wheeled Walker Gait Deviations General Gait Pattern Decreased Stride Length, Decreased Feet Clearance, Flexed Trunk,Wide Based Gait Factors Limiting Gait Function Factors Limiting Gait Function Decreased Strength,Pain PT-OP-H Neuro Start: 08/14/22 08:13 Freq: Status: Active Protocol: Document 08/14/22 11:16 [facility] (Rec: 08/15/22 15:21 [facility] [id number]) Sensation Evaluation Gross Sensation Gross Sensation Left LE Impaired,Right LE Impaired Sensation Description Paresthesia,Numbness,Tingling PT-OP-J Posture/Palpation/Skin Start: 08/14/22 08:13 Freq: Status: Active Protocol: Document 08/14/22 11:16 [facility] (Rec: 08/15/22 15:21 [facility] [id number]) Posture Evaluation Position Standing Head/C-Spine Posture Forward Head T-Spine Posture Increased Kyphosis L-Spine Posture Increased Lordosis Shoulder Posture (L) Rounded,(R) Rounded Scapula Posture (L) Protracted,(R) Protracted Arm Posture (L) Internally Rotated,(R) Internally Rotated Pelvis Posture Anteriorly Tilted PT-OP-K Range of Motion Start: 08/14/22 08:13 Freq: Status: Active Protocol: Document 08/14/22 11:16 [facility] (Rec: 08/15/22 15:21 [facility] [id number]) Lumbar Spine Range of Motion Lumbar Spine Active ROM Limitations Pain Comments moderate decrease due to pain Hip Goniometric Range of Motion Hip ROM Limitations Hip ROM Limitations Soft Tissue Tightness,Pain Comments moderate decrease oxana Knee Goniometric Range of Motion Knee oxana Knee ROM WFL Yes Ankle and Foot Goniometric Range of Motion Ankle and Foot oxana Ankle/Foot ROM WFL Yes PT-OP-M Strength Start: 08/14/22 08:13 Freq: Status: Active Protocol: Document 08/14/22 11:16 [facility] (Rec: 08/15/22 15:21 [facility] [id number]) Trunk Strength Trunk Manual Muscle Testing Core Stabilization poor Hip Strength Hip Manual Muscle Testing Left Flexion (L2) 3- Fair- Extension (S1) 2+ Poor+ Abduction 3- Fair- Adduction 3- Fair- External Rotation 3- Fair- Internal Rotation 3- Fair- Right Flexion (L2) 3- Fair- Extension (S1) 3- Fair- Abduction 3- Fair- Adduction 3- Fair- External Rotation 3- Fair- Internal Rotation 3+ Fair+ Knee Strength Knee Manual Muscle Testing Left Flexion (S2) 4- Good- Extension (L3) 4- Good- Right Flexion (S2) 4 Good Extension (L3) 4 Good Ankle/Foot Strength Ankle and Foot Manual Muscle Testing Left Dorsiflexion (L4) 3+ Fair+ Plantarflexion (S1) 3+ Fair+ Right Dorsiflexion (L4) 4+ Good+ Plantarflexion (S1) 4+ Good+ PT-OP-Q Treatments Start: 08/14/22 08:13 Freq: Status: Active Protocol: Document 08/30/22 13:00 [facility] (Rec: 08/30/22 13:44 [facility] [id number]) Cardio Equipment Recumbent Stepper (Sci-Fit) Duration (Minutes) 8 Resistance 4 Seat Position 15 Other 40-45 RPM's, 1.02 miles Gym Equipment Shuttle Recovery Single squats Details cued knee alignment Resistance 37# Shuttle Recovery Platform Stable Reps/Time 2x10- *be sure start position far from platform. B squats Details cued knees more medial/midline Resistance 75# Shuttle Recovery Platform Stable Reps/Time 2x10 Therapeutic Exercises Sitting Exercises HS stretch Reps/Minutes 2x30 shoulder ext Sitting Exercise Name stand Resistance L3 TB Reps/Minutes 10x2 standing Comments cued tall posture row Resistance Lv3 Reps/Minutes 10x2 standing Comments cued slow, no [employer] recruit Standing Exercises row, shoulder ext Reps/Minutes 10x ea wall posture Reps/Minutes 5x5 Gait Training Gait Activity walk without device Description fwd,back Device Used parallel bars Level of Assistance min UE support Surface firm Distance/Duration 10'x4 Treatment Focus upright posture, dec support gait with SPC Device Used SPC Distance/Duration 150 ft, Self-Care/Home Management Treatment Education Patient Education Home Exercise Program,Posture PT-OP-T Assessment and Plan Start: 08/14/22 08:13 Freq: Status: Active Protocol: Document 08/30/22 13:00 [facility] (Rec: 08/30/22 13:44 [facility] [id number]) Physical Therapy Assessment Impairments Impairments Activity Tolerance,Gait,Pain, Posture,Strength Goals Five Impairment balance dysfunction Impairment Tinetti gait and balance score 11/28 indicating at high risk for falls Short Term Goal (STG) Improve Tinetti score to moderate fall risk range STG Duration 09/13/22 Senior Care Goal (LTG) Improve Tinetti score to low fall risk range as measure of improved mobility and safety LTG Duration 11/13/22 Four Impairment trunk weakness and postural impairment Impairment patient with excess lumbar lordosis and forward flexion at trunk Short Term Goal (STG) Patient to be independent in HEP addressing trunk muscle weakness and postural correction STG Duration 09/13/22 Chair Goal (LTG) Patient will demonstrate improved functional trunk strength as evidenced by at least 50% improvement in standing and walking posture LTG Duration 11/13/22 Three Impairment LE weakness Impairment unable to move from sit to stand from standard height chair without moderate use of UE's Short Term Goal (STG) Patient will be able to transfer from sit to stand from standard height chair without minimal to no use of UE's and be independent in HEP for LE strengthening STG Duration 09/13/22 Chair Goal (LTG) Patient will improve functional LE strength as evidenced by ability to transfer sit to stand from standard height chair 10x in a row LTG Duration 11/13/22 Two Impairment pain ranging from 1-9/10 lumbar spine Short Term Goal (STG) decrease pain to no greater than 6/10 with all usual activities STG Duration 09/13/22 Senior Care Goal (LTG) Decrease pain to no greater than 3/10 with all usual activities LTG Duration 11/13/22 One Impairment gait impairment Impairment 2 min walk test 237 ft using 4WW, limited by low back pain and fatigue Short Term Goal (STG) Patient will be able to tolerate 6 min walk test and ambulate at least 800 ft with least restrictive device STG Duration 09/13/22 Chair Goal (LTG) 1400 ft on 6 min walk test using SPC to improve functional gait in the home and community LTG Duration 11/13/22 Physical Therapy Plan Frequency and Duration Frequency of Treatment 2x/Week Duration of treatment (weeks) 12 Plan of Care Start Date 08/14/22 Plan of Care End Date 11/12/22 Therapeutic Interventions Therapeutic Interventions Aquatic Therapy,Balance Training,Gait Training,Home Exercise Program,Manual Therapy,Neuromuscular Re- education,Patient/Caregiver Education,Self-Care/Home Management,Soft Tissue Mobilization,Taping, Therapeutic Activities, Therapeutic Exercises Modalities Cold Pack/Ice Massage,Electric Stimulation,Hot Packs Next Visit Focus/Plan Next Note Type Treatment Note Next Visit Plan POC: gentle progression of ther ex for core strengthening and stabilization, LE strengthening and flexibility, balance, postural correction. Modalities and manual therapy as needed for pain.
--- NOTE | 2022-09-04 13:45 | PT.OTN ---
Current Diagnoses Weakness (09/04/22) Physical Therapy Treatment Note PT-OP-A Visit Information Start: 08/14/22 08:13 Freq: Status: Active Protocol: Document 09/04/22 13:03 [facility] (Rec: 09/04/22 13:49 [facility] [id number]) Out-Patient Physical Therapy Visit Information Visit Information Visit Type Treatment Note Visit Start Time 13:03 Visit Stop Time 13:45 Total Visit Minutes 42 Visit Number 7 Number of BIODIESEL ENGINEERING MANAGER Visits 1 Evaluation Information Evaluation Date 08/14/22 Precautions Precautions HTN, a-fib, depression, history blood clots, falls, neuropathy, PE, SOB, thyroid dysfunction, carpal tunnel surgery. *08/24/22: pt reported PMH caution exersion with UEs can cause tingling and lower SaO2 and gets weak/lightheadedness/ low RBCs feeling that can cause instability. PT-OP-B Current Condition Start: 08/14/22 08:13 Freq: Status: Active Protocol: Document 08/30/22 13:00 [facility] (Rec: 08/30/22 13:44 [facility] [id number]) Current Condition History of Current Condition Onset Date 10 years. Current Complaints weakness History of Current Condition back surgery 15 years ago, major back surgery 10 years ago with fusion; prior to surgery flat on back 6 months prior to surgery. Reports fair recovery from surger but states stamina and weakness very low at this time, uses cane or FWW at home and in the community. Self-care independent but painful and takes a long time. No regular exercise routine. 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 Has treadmill at home, hasn't used for 20 yrs, recumbant bike hasn't used for 1 year. Prior Treatments and Tests No recent imaging. Future Testing and Treatments Planned unsure of any further MD appointment schedule. Treatment Goals Patient/Caregiver Goals move easier, improve balance, reeceptive to HEP PT-OP-C Subjective Start: 08/14/22 08:13 Freq: Status: Active Protocol: Document 09/04/22 13:03 [facility] (Rec: 09/04/22 13:49 [facility] [id number]) OP-PT Subjective Patient Comments Patient Comments Pt reported had little R posterior hip discomfort lately. PT-OP-D Balance Start: 08/14/22 08:13 Freq: Status: Active Protocol: Document 08/14/22 11:16 [facility] (Rec: 08/15/22 15:21 [facility] [id number]) OP-PT Balance Assessment Sitting Balance Static Sitting Balance Ability Normal Dynamic Sitting Balance Ability Normal Standing Balance Device Used 4WW Tinetti Balance Assessment Sitting Balance Sitting Balance Steady, safe Arising from Chair Ability to Arise Able, uses arms to help Attempts to Arise Arises on 1st attempt Standing Balance Immediate Standing Balance Steady with support Standing Balance Steady, wide stance Nudged Response Staggers, catches self Standing with Eyes Closed Unsteady Turning Step Pattern Turning 360 Degrees Discontinuous steps Stability Turning 360 Degrees Unsteady, grabs/staggers Sitting Down Sitting Down Uses arms or unsteady Gait and Step Initiation of Gait No hesitancy Right Foot Step Length Does not pass stance ft. Right Foot Step Height Does not clear floor Left Foot Step Length Does not pass stance foot Left Foot Step Height Does not clear floor Step Description Step Symmetry Step length appears equal Step Continuity Steps appear continuous Gait Description Path Description Mild/moderate deviation Trunk Description Marked sway or uses aide Walking Stance Heels apart Scoring and Interpretation Tinetti Composite Score (points) 12 Pepe Fall Scale Copyright Permission PT-OP-G Mobility & Gait Start: 08/14/22 08:13 Freq: Status: Active Protocol: Document 08/14/22 11:16 [facility] (Rec: 08/15/22 15:21 [facility] [id number]) OP Gait Assessment Gait Gait Assistance Required: Independent Distance (Feet) 237 Assistive Devices Assistive Device 4 Wheeled Walker Gait Deviations General Gait Pattern Decreased Stride Length, Decreased Feet Clearance, Flexed Trunk,Wide Based Gait Factors Limiting Gait Function Factors Limiting Gait Function Decreased Strength,Pain PT-OP-H Neuro Start: 08/14/22 08:13 Freq: Status: Active Protocol: Document 08/14/22 11:16 [facility] (Rec: 08/15/22 15:21 [facility] [id number]) Sensation Evaluation Gross Sensation Gross Sensation Left LE Impaired,Right LE Impaired Sensation Description Paresthesia,Numbness,Tingling PT-OP-J Posture/Palpation/Skin Start: 08/14/22 08:13 Freq: Status: Active Protocol: Document 08/14/22 11:16 [facility] (Rec: 08/15/22 15:21 [facility] [id number]) Posture Evaluation Position Standing Head/C-Spine Posture Forward Head T-Spine Posture Increased Kyphosis L-Spine Posture Increased Lordosis Shoulder Posture (L) Rounded,(R) Rounded Scapula Posture (L) Protracted,(R) Protracted Arm Posture (L) Internally Rotated,(R) Internally Rotated Pelvis Posture Anteriorly Tilted PT-OP-K Range of Motion Start: 08/14/22 08:13 Freq: Status: Active Protocol: Document 08/14/22 11:16 [facility] (Rec: 08/15/22 15:21 [facility] [id number]) Lumbar Spine Range of Motion Lumbar Spine Active ROM Limitations Pain Comments moderate decrease due to pain Hip Goniometric Range of Motion Hip ROM Limitations Hip ROM Limitations Soft Tissue Tightness,Pain Comments moderate decrease oxana Knee Goniometric Range of Motion Knee oxana Knee ROM WFL Yes Ankle and Foot Goniometric Range of Motion Ankle and Foot oxana Ankle/Foot ROM WFL Yes PT-OP-M Strength Start: 08/14/22 08:13 Freq: Status: Active Protocol: Document 08/14/22 11:16 [facility] (Rec: 08/15/22 15:21 [facility] [id number]) Trunk Strength Trunk Manual Muscle Testing Core Stabilization poor Hip Strength Hip Manual Muscle Testing Left Flexion (L2) 3- Fair- Extension (S1) 2+ Poor+ Abduction 3- Fair- Adduction 3- Fair- External Rotation 3- Fair- Internal Rotation 3- Fair- Right Flexion (L2) 3- Fair- Extension (S1) 3- Fair- Abduction 3- Fair- Adduction 3- Fair- External Rotation 3- Fair- Internal Rotation 3+ Fair+ Knee Strength Knee Manual Muscle Testing Left Flexion (S2) 4- Good- Extension (L3) 4- Good- Right Flexion (S2) 4 Good Extension (L3) 4 Good Ankle/Foot Strength Ankle and Foot Manual Muscle Testing Left Dorsiflexion (L4) 3+ Fair+ Plantarflexion (S1) 3+ Fair+ Right Dorsiflexion (L4) 4+ Good+ Plantarflexion (S1) 4+ Good+ PT-OP-Q Treatments Start: 08/14/22 08:13 Freq: Status: Active Protocol: Document 09/04/22 13:03 [facility] (Rec: 09/04/22 13:49 [facility] [id number]) Cardio Equipment Recumbent Elliptical (Biodex) Duration (Minutes) 6 Resistance 30-35 RPMs Seat Position see 13 Other LEs only, 405 steps Gym Equipment Shuttle Recovery Single squats Details cued knee alignment target adduction midline Resistance 37# Shuttle Recovery Platform Stable Reps/Time 2x10- *be sure start position far from platform. B squats Details red kickball btwn knees more medial/midline Resistance 75# Shuttle Recovery Platform Stable Reps/Time x20 Therapeutic Exercises Sitting Exercises shoulder ext Sitting Exercise Name stand Resistance L3 TB therapist anchored Reps/Minutes 10x2 standing Comments good posturing row Resistance Lv3 Equipment Used TB #3 therapist anchored Reps/Minutes sit x10 Comments cued slow, no [place] recruit crunch Sitting Exercise Name flexion and rotation- reviewed HEP Resistance AROM> TB #3 therapist anchored Reps/Minutes 10x Comments on black table arms across chest Standing Exercises sit <> stands Standing Exercise Name 1. floor 2. blue foam Equipment Used black table 19, arms front, blue foam 3 reps Reps/Minutes 5x STS 25 sec, foam not timed Comments cued knees closer, quad/core fac into full stand Gait Training Gait Activity gait with SPC Device Used SPC Level of Assistance SBA Surface carpet/tile Distance/Duration 150 ft, Treatment Focus posturing, equal WB stability Comments cued scap and core increase upright posture PT-OP-T Assessment and Plan Start: 08/14/22 08:13 Freq: Status: Active Protocol: Document 09/04/22 13:03 SP (Rec: 09/04/22 13:49 [facility] [id number]) Physical Therapy Assessment Goals Five Impairment balance dysfunction Impairment Tinetti gait and balance score 28 indicating at high risk for falls Short Term Goal (STG) Improve Tinetti score to moderate fall risk range STG Duration 09/13/22 Turbo Generator Oiler Goal (LTG) Improve Tinetti score to low fall risk range as measure of improved mobility and safety LTG Duration 11/13/22 Four Impairment trunk weakness and postural impairment Impairment patient with excess lumbar lordosis and forward flexion at trunk Short Term Goal (STG) Patient to be independent in HEP addressing trunk muscle weakness and postural correction STG Duration 09/13/22 Turbo Generator Oiler Goal (LTG) Patient will demonstrate improved functional trunk strength as evidenced by at least 50% improvement in standing and walking posture LTG Duration 11/13/22 Three Impairment LE weakness Impairment unable to move from sit to stand from standard height chair without moderate use of UE's Short Term Goal (STG) Patient will be able to transfer from sit to stand from standard height chair without minimal to no use of UE's and be independent in HEP for LE strengthening STG Duration 09/13/22 Custodial Goal (LTG) Patient will improve functional LE strength as evidenced by ability to transfer sit to stand from standard height chair 10x in a row LTG Duration 11/13/22 Two Impairment pain ranging from 1-9/10 lumbar spine Short Term Goal (STG) decrease pain to no greater than 6/10 with all usual activities STG Duration 09/13/22 Custodial Goal (LTG) Decrease pain to no greater than 3/10 with all usual activities LTG Duration 11/13/22 One Impairment gait impairment Impairment 2 min walk test 237 ft using 4WW, limited by low back pain and fatigue Short Term Goal (STG) Patient will be able to tolerate 6 min walk test and ambulate at least 800 ft with least restrictive device STG Duration 09/13/22 Turbo Generator Oiler Goal (LTG) 1400 ft on 6 min walk test using SPC to improve functional gait in the home and community LTG Duration 11/13/22 Assessment Summary Assessment Pt responded well to ther ex. Good core facilitation with TB resistance sitting today and balance STS firm> foam cushion tired quickly. IMproved posturing gait w/ SPC post ther ex. Requires seated rests for recovery. Physical Therapy Plan Frequency and Duration Frequency of Treatment 2x/Week Duration of treatment (weeks) 12 Plan of Care Start Date 08/14/22 Plan of Care End Date 11/12/22 Therapeutic Interventions Therapeutic Interventions Aquatic Therapy,Balance Training,Gait Training,Home Exercise Program,Manual Therapy,Neuromuscular Re- education,Patient/Caregiver Education,Self-Care/Home Management,Soft Tissue Mobilization,Taping, Therapeutic Activities, Therapeutic Exercises Modalities Cold Pack/Ice Massage,Electric Stimulation,Hot Packs Next Visit Focus/Plan Next Note Type Treatment Note Next Visit Plan assess reponse to STS from foam uneven surface and gait SPC. POC: gentle progression of ther ex for core strengthening and stabilization, LE strengthening and flexibility, balance, postural correction. Modalities and manual therapy as needed for pain.
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
--- NOTE | 2022-10-03 13:51 | PT.OTN ---
Current Diagnoses Weakness (10/03/22) Physical Therapy Treatment Note PT-OP-A Visit Information Start: 08/14/22 08:13 Freq: Status: Active Protocol: Document 10/03/22 12:52 [facility] (Rec: 10/03/22 14:21 [facility] [id number]) Out-Patient Physical Therapy Visit Information Visit Information Visit Type Treatment Note Visit Note SPTA Gopal performed ther ex, gait and balance activites under the supervision of CHRISTINE Shaw. Visit Start Time 13:07 Visit Stop Time 13:51 Total Visit Minutes 44 Visit Number 9 Number of RELAY ASSOCIATE Visits 1 PT-OP-B Current Condition Start: 08/14/22 08:13 Freq: Status: Active Protocol: Document 08/30/22 13:00 [facility] (Rec: 08/30/22 13:44 [facility] [id number]) Current Condition History of Current Condition Onset Date 10 years. Current Complaints weakness History of Current Condition back surgery 15 years ago, major back surgery 10 years ago with fusion; prior to surgery flat on back 6 months prior to surgery. Reports fair recovery from surger but states stamina and weakness very low at this time, uses cane or FWW at home and in the community. Self-care independent but painful and takes a long time. No regular exercise routine. 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 Has treadmill at home, hasn't used for 20 yrs, recumbant bike hasn't used for 1 year. Prior Treatments and Tests No recent imaging. Future Testing and Treatments Planned unsure of any further MD appointment schedule. Treatment Goals Patient/Caregiver Goals move easier, improve balance, reeceptive to HEP PT-OP-C Subjective Start: 08/14/22 08:13 Freq: Status: Active Protocol: Document 10/03/22 12:52 [facility] (Rec: 10/03/22 14:21 [facility] [id number]) OP-PT Subjective Patient Comments Patient Comments Pt reports hes feeling good today with occasional pain in his back. He reports he has been doing some of his HEP. PT-OP-D Balance Start: 08/14/22 08:13 Freq: Status: Active Protocol: Document 08/14/22 11:16 [facility] (Rec: 08/15/22 15:21 [facility] [id number]) OP-PT Balance Assessment Sitting Balance Static Sitting Balance Ability Normal Dynamic Sitting Balance Ability Normal Standing Balance Device Used 4WW Tinetti Balance Assessment Sitting Balance Sitting Balance Steady, safe Arising from Chair Ability to Arise Able, uses arms to help Attempts to Arise Arises on 1st attempt Standing Balance Immediate Standing Balance Steady with support Standing Balance Steady, wide stance Nudged Response Staggers, catches self Standing with Eyes Closed Unsteady Turning Step Pattern Turning 360 Degrees Discontinuous steps Stability Turning 360 Degrees Unsteady, grabs/staggers Sitting Down Sitting Down Uses arms or unsteady Gait and Step Initiation of Gait No hesitancy Right Foot Step Length Does not pass stance ft. Right Foot Step Height Does not clear floor Left Foot Step Length Does not pass stance foot Left Foot Step Height Does not clear floor Step Description Step Symmetry Step length appears equal Step Continuity Steps appear continuous Gait Description Path Description Mild/moderate deviation Trunk Description Marked sway or uses aide Walking Stance Heels apart Scoring and Interpretation Tinetti Composite Score (points) 12 Pepe Fall Scale Copyright Permission PT-OP-G Mobility & Gait Start: 08/14/22 08:13 Freq: Status: Active Protocol: Document 08/14/22 11:16 [facility] (Rec: 08/15/22 15:21 [facility] [id number]) OP Gait Assessment Gait Gait Assistance Required: Independent Distance (Feet) 237 Assistive Devices Assistive Device 4 Wheeled Walker Gait Deviations General Gait Pattern Decreased Stride Length, Decreased Feet Clearance, Flexed Trunk,Wide Based Gait Factors Limiting Gait Function Factors Limiting Gait Function Decreased Strength,Pain PT-OP-H Neuro Start: 08/14/22 08:13 Freq: Status: Active Protocol: Document 08/14/22 11:16 [facility] (Rec: 08/15/22 15:21 [facility] [id number]) Sensation Evaluation Gross Sensation Gross Sensation Left LE Impaired,Right LE Impaired Sensation Description Paresthesia,Numbness,Tingling PT-OP-J Posture/Palpation/Skin Start: 08/14/22 08:13 Freq: Status: Active Protocol: Document 08/14/22 11:16 [facility] (Rec: 08/15/22 15:21 [facility] [id number]) Posture Evaluation Position Standing Head/C-Spine Posture Forward Head T-Spine Posture Increased Kyphosis L-Spine Posture Increased Lordosis Shoulder Posture (L) Rounded,(R) Rounded Scapula Posture (L) Protracted,(R) Protracted Arm Posture (L) Internally Rotated,(R) Internally Rotated Pelvis Posture Anteriorly Tilted PT-OP-K Range of Motion Start: 08/14/22 08:13 Freq: Status: Active Protocol: Document 08/14/22 11:16 [facility] (Rec: 08/15/22 15:21 [facility] [id number]) Lumbar Spine Range of Motion Lumbar Spine Active ROM Limitations Pain Comments moderate decrease due to pain Hip Goniometric Range of Motion Hip ROM Limitations Hip ROM Limitations Soft Tissue Tightness,Pain Comments moderate decrease oxana Knee Goniometric Range of Motion Knee oxana Knee ROM WFL Yes Ankle and Foot Goniometric Range of Motion Ankle and Foot oxana Ankle/Foot ROM WFL Yes PT-OP-M Strength Start: 08/14/22 08:13 Freq: Status: Active Protocol: Document 08/14/22 11:16 [facility] (Rec: 08/15/22 15:21 [facility] [id number]) Trunk Strength Trunk Manual Muscle Testing Core Stabilization poor Hip Strength Hip Manual Muscle Testing Left Flexion (L2) 3- Fair- Extension (S1) 2+ Poor+ Abduction 3- Fair- Adduction 3- Fair- External Rotation 3- Fair- Internal Rotation 3- Fair- Right Flexion (L2) 3- Fair- Extension (S1) 3- Fair- Abduction 3- Fair- Adduction 3- Fair- External Rotation 3- Fair- Internal Rotation 3+ Fair+ Knee Strength Knee Manual Muscle Testing Left Flexion (S2) 4- Good- Extension (L3) 4- Good- Right Flexion (S2) 4 Good Extension (L3) 4 Good Ankle/Foot Strength Ankle and Foot Manual Muscle Testing Left Dorsiflexion (L4) 3+ Fair+ Plantarflexion (S1) 3+ Fair+ Right Dorsiflexion (L4) 4+ Good+ Plantarflexion (S1) 4+ Good+ PT-OP-Q Treatments Start: 08/14/22 08:13 Freq: Status: Active Protocol: Document 10/03/22 12:52 [facility] (Rec: 10/03/22 14:21 TS [id number]) Therapeutic Exercises Sitting Exercises TS rotation Sitting Exercise Name TS rotation, PT anchoring Side bilateral Resistance LVL 3 Equipment Used MAt table Reps/Minutes 2x10 Comments Cues to keep glutes on table. seated crunch Sitting Exercise Name lean back Resistance TB LVL 3 Reps/Minutes 2x10 Comments Good posturing shoulder ext Sitting Exercise Name stand Resistance L3 TB therapist anchored Reps/Minutes 10x2 standing Comments good posturing row Resistance Lv3 Equipment Used TB #3 therapist anchored Reps/Minutes sit x10 Comments cued slow, no [place] recruit Standing Exercises sit <> stands Equipment Used black table 19, arms front Reps/Minutes x7 in 30secs Comments cued quad/core fac into full stand, hip hinging january Standing Exercise Name january in place Equipment Used // bars Reps/Minutes x10 each LE Comments Cues for upright posture and eyes up. BUE for rebalancing Gait Training Gait Activity 6 Min walk test Description 6 min walk test laps around gym Device Used 4FWW, gait belt Level of Assistance SBA Comments 405ft in 4 mins 21sec Neuro Re-Education Treatment Balance Activities Tinetti Equipment Gait belt Comments 10/03/22: . PT-OP-T Assessment and Plan Start: 08/14/22 08:13 Freq: Status: Active Protocol: Document 10/03/22 12:52 [facility] (Rec: 10/03/22 14:21 [facility] [id number]) Physical Therapy Assessment Goals Five Impairment balance dysfunction Impairment Tinetti gait and balance score 11/28 indicating at high risk for falls Short Term Goal (STG) Improve Tinetti score to moderate fall risk range. 10/03/22 Goal Met- Tinetti: Balance:16/16, Gait:10/13, total. STG Duration 09/13/22 Detention Goal (LTG) Improve Tinetti score to low fall risk range as measure of improved mobility and safety. 10/03/22 Goal Met- Tinetti: Balance:16/16, Gait:10/13, total. LTG Duration 11/13/22 Met Goal. Four Impairment trunk weakness and postural impairment Impairment patient with excess lumbar lordosis and forward flexion at trunk Short Term Goal (STG) Patient to be independent in HEP addressing trunk muscle weakness and postural correction STG Duration 09/13/22 Detention Goal (LTG) Patient will demonstrate improved functional trunk strength as evidenced by at least 50% improvement in standing and walking posture LTG Duration 11/13/22 Three Impairment LE weakness Impairment unable to move from sit to stand from standard height chair without moderate use of UE's Short Term Goal (STG) Patient will be able to transfer from sit to stand from standard height chair without minimal to no use of UE's and be independent in HEP for LE strengthening. 10/03/22: progressin STS in 30 sec, on black 19 height table without use UEs STG Duration 09/13/22 progressin10/03/22 Cut File Clerk Goal (LTG) Patient will improve functional LE strength as evidenced by ability to transfer sit to stand from standard height chair 10x in a row 10/03/22: progressin10/03/22: progressin STS in 30 sec, on black 19 height table without use UEs LTG Duration 11/13/22 progressing 10/03/22 Two Impairment pain ranging from 1-9/10 lumbar spine Short Term Goal (STG) decrease pain to no greater than 6/10 with all usual activities. 10/03/22- Slow progression able to stand 4 mins before pain increases to 9/10. STG Duration 09/13/22 Cut File Clerk Goal (LTG) Decrease pain to no greater than 3/10 with all usual activities LTG Duration 11/13/22 One Impairment gait impairment Impairment 2 min walk test 237 ft using 4WW, limited by low back pain and fatigue Short Term Goal (STG) Patient will be able to tolerate 6 min walk test and ambulate at least 800 ft with least restrictive device. 10/03/22- progressin min walk test: Performed 405ft in 4 Min 21sec w/ use of 4WW. STG Duration 09/13/22 progressing 10/03/22 Detention Goal (LTG) 1400 ft on 6 min walk test using SPC to improve functional gait in the home and community 10/03/22- progressin min walk test: Performed 405ft in 4 Min 21sec w/ use of 4WW. LTG Duration 11/13/22 progressing 10/03/22 Progress Towards Goals Progress Comments Met long-term goal #5 of 27/28 on tinetti. Assessment Summary Assessment Sukumar progressed his 6 min walk test to 4 mins 21 sec going a distance of 405ft before back pain limited him from continuing. He met his goal of being low fall risk with a tinetti score of 27/28. Pt had some SOB and fatigue due to his pain today. He would continue to benefit from continued intervention to improve activty tolerance. Physical Therapy Plan Next Visit Focus/Plan Next Note Type Treatment Note Next Visit Plan Assess repsonse to STS on foam and incorporate more balance ex. POC: gentle progression of ther ex for core strengthening and stabilization, LE strengthening and flexibility, balance, postural correction. Modalities and manual therapy as needed for pain.
--- NOTE | 2022-10-10 13:45 | PT.OTN ---
Current Diagnoses Weakness (10/10/22) Physical Therapy Treatment Note PT-OP-A Visit Information Start: 08/14/22 08:13 Freq: Status: Active Protocol: Document 10/10/22 12:54 TS (Rec: 10/10/22 14:16 TS [id number]) Out-Patient Physical Therapy Visit Information Visit Information Visit Type Treatment Note Visit Note SPTA Gopal performed ther ex, gait and balance activites under the supervision of CHRISTINE Shaw. Visit Start Time 13:02 Visit Stop Time 13:45 Total Visit Minutes 43 Visit Number 10 Number of CUP MACHINE OPERATOR Visits 2 PT-OP-B Current Condition Start: 08/14/22 08:13 Freq: Status: Active Protocol: Document 08/30/22 13:00 SAK (Rec: 08/30/22 13:44 SAK [id number]) Current Condition History of Current Condition Onset Date 10 years. Current Complaints weakness History of Current Condition back surgery 15 years ago, major back surgery 10 years ago with fusion; prior to surgery flat on back 6 months prior to surgery. Reports fair recovery from surger but states stamina and weakness very low at this time, uses cane or FWW at home and in the community. Self-care independent but painful and takes a long time. No regular exercise routine. 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 Has treadmill at home, hasn't used for 20 yrs, recumbant bike hasn't used for 1 year. Prior Treatments and Tests No recent imaging. Future Testing and Treatments Planned unsure of any further MD appointment schedule. Treatment Goals Patient/Caregiver Goals move easier, improve balance, reeceptive to HEP PT-OP-C Subjective Start: 08/14/22 08:13 Freq: Status: Active Protocol: Document 10/10/22 12:54 TS (Rec: 10/10/22 14:16 TS [id number]) OP-PT Subjective Patient Comments Patient Comments Pt reports he is still having some pain in his back. He hasn 't been doing his HEP much at home. PT-OP-D Balance Start: 08/14/22 08:13 Freq: Status: Active Protocol: Document 08/14/22 11:16 SAK (Rec: 08/15/22 15:21 SAK [id number]) OP-PT Balance Assessment Sitting Balance Static Sitting Balance Ability Normal Dynamic Sitting Balance Ability Normal Standing Balance Device Used 4WW Tinetti Balance Assessment Sitting Balance Sitting Balance Steady, safe Arising from Chair Ability to Arise Able, uses arms to help Attempts to Arise Arises on 1st attempt Standing Balance Immediate Standing Balance Steady with support Standing Balance Steady, wide stance Nudged Response Staggers, catches self Standing with Eyes Closed Unsteady Turning Step Pattern Turning 360 Degrees Discontinuous steps Stability Turning 360 Degrees Unsteady, grabs/staggers Sitting Down Sitting Down Uses arms or unsteady Gait and Step Initiation of Gait No hesitancy Right Foot Step Length Does not pass stance ft. Right Foot Step Height Does not clear floor Left Foot Step Length Does not pass stance foot Left Foot Step Height Does not clear floor Step Description Step Symmetry Step length appears equal Step Continuity Steps appear continuous Gait Description Path Description Mild/moderate deviation Trunk Description Marked sway or uses aide Walking Stance Heels apart Scoring and Interpretation Tinetti Composite Score (points) 12 Pepe Fall Scale Copyright Permission PT-OP-G Mobility & Gait Start: 08/14/22 08:13 Freq: Status: Active Protocol: Document 08/14/22 11:16 [facility] (Rec: 08/15/22 15:21 [facility] [id number]) OP Gait Assessment Gait Gait Assistance Required: Independent Distance (Feet) 237 Assistive Devices Assistive Device 4 Wheeled Walker Gait Deviations General Gait Pattern Decreased Stride Length, Decreased Feet Clearance, Flexed Trunk,Wide Based Gait Factors Limiting Gait Function Factors Limiting Gait Function Decreased Strength,Pain PT-OP-H Neuro Start: 08/14/22 08:13 Freq: Status: Active Protocol: Document 08/14/22 11:16 [facility] (Rec: 08/15/22 15:21 [facility] [id number]) Sensation Evaluation Gross Sensation Gross Sensation Left LE Impaired,Right LE Impaired Sensation Description Paresthesia,Numbness,Tingling PT-OP-J Posture/Palpation/Skin Start: 08/14/22 08:13 Freq: Status: Active Protocol: Document 08/14/22 11:16 [facility] (Rec: 08/15/22 15:21 [facility] [id number]) Posture Evaluation Position Standing Head/C-Spine Posture Forward Head T-Spine Posture Increased Kyphosis L-Spine Posture Increased Lordosis Shoulder Posture (L) Rounded,(R) Rounded Scapula Posture (L) Protracted,(R) Protracted Arm Posture (L) Internally Rotated,(R) Internally Rotated Pelvis Posture Anteriorly Tilted PT-OP-K Range of Motion Start: 08/14/22 08:13 Freq: Status: Active Protocol: Document 08/14/22 11:16 SAK (Rec: 08/15/22 15:21 SAK [id number]) Lumbar Spine Range of Motion Lumbar Spine Active ROM Limitations Pain Comments moderate decrease due to pain Hip Goniometric Range of Motion Hip ROM Limitations Hip ROM Limitations Soft Tissue Tightness,Pain Comments moderate decrease oxana Knee Goniometric Range of Motion Knee oxana Knee ROM WFL Yes Ankle and Foot Goniometric Range of Motion Ankle and Foot oxana Ankle/Foot ROM WFL Yes PT-OP-M Strength Start: 08/14/22 08:13 Freq: Status: Active Protocol: Document 08/14/22 11:16 SAK (Rec: 08/15/22 15:21 SAK [id number]) Trunk Strength Trunk Manual Muscle Testing Core Stabilization poor Hip Strength Hip Manual Muscle Testing Left Flexion (L2) 3- Fair- Extension (S1) 2+ Poor+ Abduction 3- Fair- Adduction 3- Fair- External Rotation 3- Fair- Internal Rotation 3- Fair- Right Flexion (L2) 3- Fair- Extension (S1) 3- Fair- Abduction 3- Fair- Adduction 3- Fair- External Rotation 3- Fair- Internal Rotation 3+ Fair+ Knee Strength Knee Manual Muscle Testing Left Flexion (S2) 4- Good- Extension (L3) 4- Good- Right Flexion (S2) 4 Good Extension (L3) 4 Good Ankle/Foot Strength Ankle and Foot Manual Muscle Testing Left Dorsiflexion (L4) 3+ Fair+ Plantarflexion (S1) 3+ Fair+ Right Dorsiflexion (L4) 4+ Good+ Plantarflexion (S1) 4+ Good+ PT-OP-Q Treatments Start: 08/14/22 08:13 Freq: Status: Active Protocol: Document 10/10/22 12:54 TS (Rec: 10/10/22 14:16 TS [id number]) Therapeutic Exercises Sitting Exercises Punches Sitting Exercise Name in PT Side bilateral Resistance LVL 4 Equipment Used pt anchoring Reps/Minutes 2x10 TS rotation Sitting Exercise Name TS rotation, PT anchoring Side bilateral Resistance LVL 4 Equipment Used MAt table Reps/Minutes 1x10 Comments Cues for less sidebend and more rotation seated crunch Sitting Exercise Name lean back Resistance TB LVL 4 Reps/Minutes 1x10 Comments Good posturing shoulder ext Sitting Exercise Name stand Resistance L4 TB therapist anchored Reps/Minutes 10x1 standing Comments Good carryover of sequencing row Resistance Lvl 4 Equipment Used TB #3 therapist anchored Reps/Minutes sit x10 Comments cues for scapular squeeze. Standing Exercises sit <> stands Equipment Used black table 18, arms front Reps/Minutes x8 Comments cued quad/core fac into full stand, hip hinging Gait Training Gait Activity gait with SPC Device Used SPC Level of Assistance SBA Surface carpet/tile Distance/Duration 180 ft, Treatment Focus posturing, equal WB stability Comments cued scap and upright posture , required rest break after 1 lap, declined a 2nd lap. Neuro Re-Education Treatment Balance Activities Corner balance Details HT's, EC, NBOS, WBOS Surface flat Equipment 4WW for support Reps/Duration HT's x5 Comments EC (20 secs) caused dizziness, ~ 30 secs to recover, during HT's NBOS back was fatiguing. Tandem stance Details Static stance, HT's Surface flat Equipment Handrail Reps/Duration HTs x5 Comments RLE in front 22 secs static stance, LLE in front 16 secs static stance. PT-OP-T Assessment and Plan Start: 08/14/22 08:13 Freq: Status: Active Protocol: Document 10/10/22 12:54 TS (Rec: 10/10/22 14:16 TS [id number]) Physical Therapy Assessment Goals Five Impairment balance dysfunction Impairment Tinetti gait and balance score 11/28 indicating at high risk for falls Short Term Goal (STG) Improve Tinetti score to moderate fall risk range. 10/03/22 Goal Met- Tinetti: Balance:16, Gait:10/13, total. STG Duration 09/13/22 Transit Coach Operator Goal (LTG) Improve Tinetti score to low fall risk range as measure of improved mobility and safety. 10/03/22 Goal Met- Tinetti: Balance:1616, Gait:10/13, total. LTG Duration 11/13/22 Met Goal. Four Impairment trunk weakness and postural impairment Impairment patient with excess lumbar lordosis and forward flexion at trunk Short Term Goal (STG) Patient to be independent in HEP addressing trunk muscle weakness and postural correction STG Duration 09/13/22 Senior Care Goal (LTG) Patient will demonstrate improved functional trunk strength as evidenced by at least 50% improvement in standing and walking posture LTG Duration 12/13/22 Three Impairment LE weakness Impairment unable to move from sit to stand from standard height chair without moderate use of UE's Short Term Goal (STG) Patient will be able to transfer from sit to stand from standard height chair without minimal to no use of UE's and be independent in HEP for LE strengthening. 10/03/22: progressin STS in 30 sec, on black 19 height table without use UEs STG Duration 09/13/22 progressin10/03/22 Transit Coach Operator Goal (LTG) Patient will improve functional LE strength as evidenced by ability to transfer sit to stand from standard height chair 10x in a row 10/03/22: progressin10/03/22: progressin STS in 30 sec, on black 19 height table without use UEs 10/10/22: 8 reps from 18 table before quads tire and SOB. LTG Duration 11/13/22 progressing 10/10/22 Two Impairment pain ranging from 1-9/10 lumbar spine Short Term Goal (STG) decrease pain to no greater than 6/10 with all usual activities. 10/03/22- Slow progression able to stand 4 mins before pain increases to 9/10. STG Duration 09/13/22 Transit Coach Operator Goal (LTG) Decrease pain to no greater than 3/10 with all usual activities 10/10/22:Pain has been 2-3/10 in lower back and into quads since last tx. He reports he knows his limits and can limit his pain. LTG Duration 11/13/22 progressing/not consistent 10/10/22 One Impairment gait impairment Impairment 2 min walk test 237 ft using 4WW, limited by low back pain and fatigue Short Term Goal (STG) Patient will be able to tolerate 6 min walk test and ambulate at least 800 ft with least restrictive device. 10/03/22- progressin min walk test: Performed 405ft in 4 Min 21sec w/ use of 4WW. STG Duration 09/13/22 progressing 10/03/22 Transit Coach Operator Goal (LTG) 1400 ft on 6 min walk test using SPC to improve functional gait in the home and community 10/03/22- progressin min walk test: Performed 405ft in 4 Min 21sec w/ use of 4WW. LTG Duration 11/13/22 progressing 10/03/22 Assessment Summary Assessment Pt progressed core ex from LVL 3 to LVL 4 tb. Progressed sit to stands x8 from 18 table. He has difficulty tolerating standing ex with fatigue/pain and requires frequent rest breaks. During corner balance with eyes closed he became dizzy and required to sit down for a rest break. He demonstrated good ankle/hip strategies to maintain balance during tandem stances. Pt will continue to benefit from continued intervention to improve STS reps, balance and activity tolerance. Physical Therapy Plan Frequency and Duration Frequency of Treatment 2x/Week Duration of treatment (weeks) 12 Plan of Care Start Date 08/14/22 Plan of Care End Date 11/12/22 Therapeutic Interventions Therapeutic Interventions Aquatic Therapy,Balance Training,Gait Training,Home Exercise Program,Manual Therapy,Neuromuscular Re- education,Patient/Caregiver Education,Self-Care/Home Management,Soft Tissue Mobilization,Taping, Therapeutic Activities, Therapeutic Exercises Modalities Cold Pack/Ice Massage,Electric Stimulation,Hot Packs Next Visit Focus/Plan Next Note Type Treatment Note Next Visit Plan Assess STS and continue balance ex w HTs. POC: gentle progression of ther ex for core strengthening and stabilization, LE strengthening and flexibility, balance, postural correction. Modalities and manual therapy as needed for pain.
--- NOTE | 2022-10-17 13:43 | PT.OTN ---
Current Diagnoses Weakness (10/17/22) Physical Therapy Treatment Note PT-OP-A Visit Information Start: 08/14/22 08:13 Freq: Status: Active Protocol: Document 10/17/22 12:37 TS (Rec: 10/17/22 16:44 TS [id number]) Out-Patient Physical Therapy Visit Information Visit Information Visit Type Treatment Note Visit Note SPTA Gopal insructed ther ex, gait and balance activites under the supervision of CHRISTINE Shaw. Visit Start Time 13:05 Visit Stop Time 13:43 Total Visit Minutes 38 Visit Number 11 Number of SAFETY PROFESSIONAL Visits 3 PT-OP-B Current Condition Start: 08/14/22 08:13 Freq: Status: Active Protocol: Document 08/30/22 13:00 SAK (Rec: 08/30/22 13:44 SAK [id number]) Current Condition History of Current Condition Onset Date 10 years. Current Complaints weakness History of Current Condition back surgery 15 years ago, major back surgery 10 years ago with fusion; prior to surgery flat on back 6 months prior to surgery. Reports fair recovery from surger but states stamina and weakness very low at this time, uses cane or FWW at home and in the community. Self-care independent but painful and takes a long time. No regular exercise routine. 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 Has treadmill at home, hasn't used for 20 yrs, recumbant bike hasn't used for 1 year. Prior Treatments and Tests No recent imaging. Future Testing and Treatments Planned unsure of any further MD appointment schedule. Treatment Goals Patient/Caregiver Goals move easier, improve balance, reeceptive to HEP PT-OP-C Subjective Start: 08/14/22 08:13 Freq: Status: Active Protocol: Document 10/17/22 12:37 TS (Rec: 10/17/22 16:44 TS [id number]) OP-PT Subjective Patient Comments Patient Comments Pt reports he has been walking one to two blocks a couple times a week, is doing his HEP occassionally, reports his back pain has been very minimal. PT-OP-D Balance Start: 08/14/22 08:13 Freq: Status: Active Protocol: Document 08/14/22 11:16 SAK (Rec: 08/15/22 15:21 SAK [id number]) OP-PT Balance Assessment Sitting Balance Static Sitting Balance Ability Normal Dynamic Sitting Balance Ability Normal Standing Balance Device Used 4WW Tinetti Balance Assessment Sitting Balance Sitting Balance Steady, safe Arising from Chair Ability to Arise Able, uses arms to help Attempts to Arise Arises on 1st attempt Standing Balance Immediate Standing Balance Steady with support Standing Balance Steady, wide stance Nudged Response Staggers, catches self Standing with Eyes Closed Unsteady Turning Step Pattern Turning 360 Degrees Discontinuous steps Stability Turning 360 Degrees Unsteady, grabs/staggers Sitting Down Sitting Down Uses arms or unsteady Gait and Step Initiation of Gait No hesitancy Right Foot Step Length Does not pass stance ft. Right Foot Step Height Does not clear floor Left Foot Step Length Does not pass stance foot Left Foot Step Height Does not clear floor Step Description Step Symmetry Step length appears equal Step Continuity Steps appear continuous Gait Description Path Description Mild/moderate deviation Trunk Description Marked sway or uses aide Walking Stance Heels apart Scoring and Interpretation Tinetti Composite Score (points) 12 Pepe Fall Scale Copyright Permission PT-OP-G Mobility & Gait Start: 08/14/22 08:13 Freq: Status: Active Protocol: Document 08/14/22 11:16 [facility] (Rec: 08/15/22 15:21 [facility] [id number]) OP Gait Assessment Gait Gait Assistance Required: Independent Distance (Feet) 237 Assistive Devices Assistive Device 4 Wheeled Walker Gait Deviations General Gait Pattern Decreased Stride Length, Decreased Feet Clearance, Flexed Trunk,Wide Based Gait Factors Limiting Gait Function Factors Limiting Gait Function Decreased Strength,Pain PT-OP-H Neuro Start: 08/14/22 08:13 Freq: Status: Active Protocol: Document 08/14/22 11:16 SAK (Rec: 08/15/22 15:21 [facility] [id number]) Sensation Evaluation Gross Sensation Gross Sensation Left LE Impaired,Right LE Impaired Sensation Description Paresthesia,Numbness,Tingling PT-OP-J Posture/Palpation/Skin Start: 08/14/22 08:13 Freq: Status: Active Protocol: Document 08/14/22 11:16 SAK (Rec: 08/15/22 15:21 [facility] [id number]) Posture Evaluation Position Standing Head/C-Spine Posture Forward Head T-Spine Posture Increased Kyphosis L-Spine Posture Increased Lordosis Shoulder Posture (L) Rounded,(R) Rounded Scapula Posture (L) Protracted,(R) Protracted Arm Posture (L) Internally Rotated,(R) Internally Rotated Pelvis Posture Anteriorly Tilted PT-OP-K Range of Motion Start: 08/14/22 08:13 Freq: Status: Active Protocol: Document 08/14/22 11:16 SAK (Rec: 08/15/22 15:21 SAK [id number]) Lumbar Spine Range of Motion Lumbar Spine Active ROM Limitations Pain Comments moderate decrease due to pain Hip Goniometric Range of Motion Hip ROM Limitations Hip ROM Limitations Soft Tissue Tightness,Pain Comments moderate decrease oxana Knee Goniometric Range of Motion Knee oxana Knee ROM WFL Yes Ankle and Foot Goniometric Range of Motion Ankle and Foot oxana Ankle/Foot ROM WFL Yes PT-OP-M Strength Start: 08/14/22 08:13 Freq: Status: Active Protocol: Document 08/14/22 11:16 [facility] (Rec: 08/15/22 15:21 [facility] [id number]) Trunk Strength Trunk Manual Muscle Testing Core Stabilization poor Hip Strength Hip Manual Muscle Testing Left Flexion (L2) 3- Fair- Extension (S1) 2+ Poor+ Abduction 3- Fair- Adduction 3- Fair- External Rotation 3- Fair- Internal Rotation 3- Fair- Right Flexion (L2) 3- Fair- Extension (S1) 3- Fair- Abduction 3- Fair- Adduction 3- Fair- External Rotation 3- Fair- Internal Rotation 3+ Fair+ Knee Strength Knee Manual Muscle Testing Left Flexion (S2) 4- Good- Extension (L3) 4- Good- Right Flexion (S2) 4 Good Extension (L3) 4 Good Ankle/Foot Strength Ankle and Foot Manual Muscle Testing Left Dorsiflexion (L4) 3+ Fair+ Plantarflexion (S1) 3+ Fair+ Right Dorsiflexion (L4) 4+ Good+ Plantarflexion (S1) 4+ Good+ PT-OP-Q Treatments Start: 08/14/22 08:13 Freq: Status: Active Protocol: Document 10/17/22 12:37 TS (Rec: 10/17/22 16:44 TS [id number]) Gym Equipment Therapeutic Ball EX Ball- ts rotation, punches, seated crunch, shoulder ext, row Ball Size/Color Red 75cm, lvl 4 TB Body Position Sitting Reps/Duration 2x10 Comments Good carryover of ex, good posture, didn't require any cueing. Therapeutic Exercises Standing Exercises sit <> stands Equipment Used black table 18, arms front Reps/Minutes x10, 53 secs Comments good posture, fatiguing after 8 reps. side stepping Standing Exercise Name Side stepping with hurdles Side bilateral Equipment Used hurdles, 1 handrail for support Reps/Minutes 2x10 Comments Good strategies for foot clearance, cues for keeping toe pointed straight, PT-OP-T Assessment and Plan Start: 08/14/22 08:13 Freq: Status: Active Protocol: Document 10/17/22 12:37 TS (Rec: 10/17/22 16:44 TS [id number]) Physical Therapy Assessment Goals Five Impairment balance dysfunction Impairment Tinetti gait and balance score 11/28 indicating at high risk for falls Short Term Goal (STG) Improve Tinetti score to moderate fall risk range. 10/03/22 Goal Met- Tinetti: Balance:, Gait:10/13, total. STG Duration 09/13/22 Fdc Goal (LTG) Improve Tinetti score to low fall risk range as measure of improved mobility and safety. 10/03/22 Goal Met- Tinetti: Balance:, Gait:10/13, total. LTG Duration 11/13/22 Met Goal. Four Impairment trunk weakness and postural impairment Impairment patient with excess lumbar lordosis and forward flexion at trunk Short Term Goal (STG) Patient to be independent in HEP addressing trunk muscle weakness and postural correction STG Duration 09/13/22 Fdc Goal (LTG) Patient will demonstrate improved functional trunk strength as evidenced by at least 50% improvement in standing and walking posture LTG Duration 11/13/22 Three Impairment LE weakness Impairment unable to move from sit to stand from standard height chair without moderate use of UE's Short Term Goal (STG) Patient will be able to transfer from sit to stand from standard height chair without minimal to no use of UE's and be independent in HEP for LE strengthening. 10/03/22: progressin STS in 30 sec, on black 19 height table without use UEs 10/17/22: progressing 10 STS in 53 from 18 table. STG Duration 09/13/22 progressin10/03/22 Spring Maker Goal (LTG) Patient will improve functional LE strength as evidenced by ability to transfer sit to stand from standard height chair 10x in a row. 10/03/22: progressin10/03/22: progressin STS in 30 sec, on black 19 height table without use UEs 10/10/22: 8 reps from 18 table before quads tire and SOB. 10/17/22: Goal Met form 18 table. LTG Duration 11/13/22 Goal Met 10/17/22 Two Impairment pain ranging from 1-9/10 lumbar spine Short Term Goal (STG) decrease pain to no greater than 6/10 with all usual activities. 10/03/22- Slow progression able to stand 4 mins before pain increases to 9/10. STG Duration 09/13/22 Fdc Goal (LTG) Decrease pain to no greater than 3/10 with all usual activities 10/10/22:Pain has been 2-3/10 in lower back and into quads since last tx. He reports he knows his limits and can limit his pain. LTG Duration 11/13/22 progressing/not consistent 10/10/22 One Impairment gait impairment Impairment 2 min walk test 237 ft using 4WW, limited by low back pain and fatigue Short Term Goal (STG) Patient will be able to tolerate 6 min walk test and ambulate at least 800 ft with least restrictive device. 10/03/22- progressin min walk test: Performed 405ft in 4 Min 21sec w/ use of 4WW. 10/17/22-progressin min walk test: Performed 480 ft in 4 mins 16 secs w/ use of 4ww. STG Duration 09/13/22 progressing 10/03/22 Spring Maker Goal (LTG) 1400 ft on 6 min walk test using SPC to improve functional gait in the home and community 10/03/22- progressin min walk test: Performed 405ft in 4 Min 21sec w/ use of 4WW. 10/17/22: 6 min walk test: 480ft 4 mins 16 secs w/ use of 4ww. LTG Duration 11/13/22 progressing 10/03/22 Assessment Summary Assessment Pt met goal of performing sit to stands x10 in a row. Progressed 6 min walk by 75ft. Continues to lack endurance to tolerate walking and standing exercises. Pt will benefit form cont intervention to improve activity tolerance , core strength and endurance. Physical Therapy Plan Frequency and Duration Frequency of Treatment 2x/Week Duration of treatment (weeks) 12 Plan of Care Start Date 08/14/22 Plan of Care End Date 12/12/22 Therapeutic Interventions Therapeutic Interventions Aquatic Therapy,Balance Training,Gait Training,Home Exercise Program,Manual Therapy,Neuromuscular Re- education,Patient/Caregiver Education,Self-Care/Home Management,Soft Tissue Mobilization,Taping, Therapeutic Activities, Therapeutic Exercises Modalities Cold Pack/Ice Massage,Electric Stimulation,Hot Packs Next Visit Focus/Plan Next Note Type Treatment Note Next Visit Plan Continue and progress dynamic balance ex, endurance in standing ex, gait.
--- NOTE | 2022-10-29 16:07 | PT.OTN ---
Current Diagnoses Weakness (10/29/22) Physical Therapy Treatment Note PT-OP-A Visit Information Start: 08/14/22 08:13 Freq: Status: Active Protocol: Document 10/29/22 15:16 [facility] (Rec: 10/29/22 16:07 [facility] [id number]) Out-Patient Physical Therapy Visit Information Visit Information Visit Type Treatment Note Visit Start Time 15:15 Visit Number 12 Number of SPORTS BOOK WRITER Visits 0 Evaluation Information Evaluation Date 08/14/22 PT-OP-B Current Condition Start: 08/14/22 08:13 Freq: Status: Active Protocol: Document 08/30/22 13:00 [facility] (Rec: 08/30/22 13:44 [facility] [id number]) Current Condition History of Current Condition Onset Date 10 years. Current Complaints weakness History of Current Condition back surgery 15 years ago, major back surgery 10 years ago with fusion; prior to surgery flat on back 6 months prior to surgery. Reports fair recovery from surger but states stamina and weakness very low at this time, uses cane or FWW at home and in the community. Self-care independent but painful and takes a long time. No regular exercise routine. 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 Has treadmill at home, hasn't used for 20 yrs, recumbant bike hasn't used for 1 year. Prior Treatments and Tests No recent imaging. Future Testing and Treatments Planned unsure of any further MD appointment schedule. Treatment Goals Patient/Caregiver Goals move easier, improve balance, reeceptive to HEP PT-OP-C Subjective Start: 08/14/22 08:13 Freq: Status: Active Protocol: Document 10/29/22 15:16 [facility] (Rec: 10/29/22 16:07 [facility] [id number]) OP-PT Subjective Patient Comments Patient Comments No new c/o, feeling stronger. PT-OP-D Balance Start: 08/14/22 08:13 Freq: Status: Active Protocol: Document 08/14/22 11:16 [facility] (Rec: 08/15/22 15:21 [facility] [id number]) OP-PT Balance Assessment Sitting Balance Static Sitting Balance Ability Normal Dynamic Sitting Balance Ability Normal Standing Balance Device Used 4WW Tinetti Balance Assessment Sitting Balance Sitting Balance Steady, safe Arising from Chair Ability to Arise Able, uses arms to help Attempts to Arise Arises on 1st attempt Standing Balance Immediate Standing Balance Steady with support Standing Balance Steady, wide stance Nudged Response Staggers, catches self Standing with Eyes Closed Unsteady Turning Step Pattern Turning 360 Degrees Discontinuous steps Stability Turning 360 Degrees Unsteady, grabs/staggers Sitting Down Sitting Down Uses arms or unsteady Gait and Step Initiation of Gait No hesitancy Right Foot Step Length Does not pass stance ft. Right Foot Step Height Does not clear floor Left Foot Step Length Does not pass stance foot Left Foot Step Height Does not clear floor Step Description Step Symmetry Step length appears equal Step Continuity Steps appear continuous Gait Description Path Description Mild/moderate deviation Trunk Description Marked sway or uses aide Walking Stance Heels apart Scoring and Interpretation Tinetti Composite Score (points) 12 Pepe Fall Scale Copyright Permission PT-OP-G Mobility & Gait Start: 08/14/22 08:13 Freq: Status: Active Protocol: Document 08/14/22 11:16 [facility] (Rec: 08/15/22 15:21 [facility] [id number]) OP Gait Assessment Gait Gait Assistance Required: Independent Distance (Feet) 237 Assistive Devices Assistive Device 4 Wheeled Walker Gait Deviations General Gait Pattern Decreased Stride Length, Decreased Feet Clearance, Flexed Trunk,Wide Based Gait Factors Limiting Gait Function Factors Limiting Gait Function Decreased Strength,Pain PT-OP-H Neuro Start: 08/14/22 08:13 Freq: Status: Active Protocol: Document 08/14/22 11:16 [facility] (Rec: 08/15/22 15:21 [facility] [id number]) Sensation Evaluation Gross Sensation Gross Sensation Left LE Impaired,Right LE Impaired Sensation Description Paresthesia,Numbness,Tingling PT-OP-J Posture/Palpation/Skin Start: 08/14/22 08:13 Freq: Status: Active Protocol: Document 08/14/22 11:16 [facility] (Rec: 08/15/22 15:21 [facility] [id number]) Posture Evaluation Position Standing Head/C-Spine Posture Forward Head T-Spine Posture Increased Kyphosis L-Spine Posture Increased Lordosis Shoulder Posture (L) Rounded,(R) Rounded Scapula Posture (L) Protracted,(R) Protracted Arm Posture (L) Internally Rotated,(R) Internally Rotated Pelvis Posture Anteriorly Tilted PT-OP-K Range of Motion Start: 08/14/22 08:13 Freq: Status: Active Protocol: Document 08/14/22 11:16 [facility] (Rec: 08/15/22 15:21 [facility] [id number]) Lumbar Spine Range of Motion Lumbar Spine Active ROM Limitations Pain Comments moderate decrease due to pain Hip Goniometric Range of Motion Hip ROM Limitations Hip ROM Limitations Soft Tissue Tightness,Pain Comments moderate decrease oxana Knee Goniometric Range of Motion Knee oxana Knee ROM WFL Yes Ankle and Foot Goniometric Range of Motion Ankle and Foot oxana Ankle/Foot ROM WFL Yes PT-OP-M Strength Start: 08/14/22 08:13 Freq: Status: Active Protocol: Document 08/14/22 11:16 [facility] (Rec: 08/15/22 15:21 [facility] [id number]) Trunk Strength Trunk Manual Muscle Testing Core Stabilization poor Hip Strength Hip Manual Muscle Testing Left Flexion (L2) 3- Fair- Extension (S1) 2+ Poor+ Abduction 3- Fair- Adduction 3- Fair- External Rotation 3- Fair- Internal Rotation 3- Fair- Right Flexion (L2) 3- Fair- Extension (S1) 3- Fair- Abduction 3- Fair- Adduction 3- Fair- External Rotation 3- Fair- Internal Rotation 3+ Fair+ Knee Strength Knee Manual Muscle Testing Left Flexion (S2) 4- Good- Extension (L3) 4- Good- Right Flexion (S2) 4 Good Extension (L3) 4 Good Ankle/Foot Strength Ankle and Foot Manual Muscle Testing Left Dorsiflexion (L4) 3+ Fair+ Plantarflexion (S1) 3+ Fair+ Right Dorsiflexion (L4) 4+ Good+ Plantarflexion (S1) 4+ Good+ PT-OP-Q Treatments Start: 08/14/22 08:13 Freq: Status: Active Protocol: Document 10/29/22 15:16 [facility] (Rec: 10/29/22 16:07 [facility] [id number]) Cardio Equipment Recumbent Stepper (Sci-Fit) Duration (Minutes) 8 Resistance 2 Seat Position 14 Other 40-45 RPM's, Therapeutic Exercises Standing Exercises sit <> stands Equipment Used black table 18, arms front Reps/Minutes x8 (end of session) fatigued Comments good posture side stepping Standing Exercise Name Side stepping with hurdles Side bilateral Equipment Used hurdles, 1 handrail for support Reps/Minutes 2x10 Comments Good strategies for foot clearance, cues for keeping toe pointed straight, Gait Training Gait Activity gait with SPC Device Used SPCx2 Level of Assistance SBA Surface carpet/tile Distance/Duration 189 ft x 2, 46 ft x 2 Treatment Focus posturing, equal WB stability, activity tolerance Comments cued scap and upright posture , required rest break after 1 lap Neuro Re-Education Treatment Balance Activities balloon vb Surface blue foam Equipment parallel bars Reps/Duration 2 min x 2 Comments tendency to lose balance backward, mod unil UE support on parallel bars hurdles Details forward and sideways Equipment parallel bars Self-Care/Home Management Treatment Education Other Education encouraged to increase compliance with HEP PT-OP-T Assessment and Plan Start: 08/14/22 08:13 Freq: Status: Active Protocol: Document 10/29/22 15:16 [facility] (Rec: 10/29/22 16:07 [facility] [id number]) Physical Therapy Assessment Goals Five Impairment balance dysfunction Impairment Tinetti gait and balance score 11/28 indicating at high risk for falls Short Term Goal (STG) Improve Tinetti score to moderate fall risk range. 10/03/22 Goal Met- Tinetti: Balance:16/16, Gait:10/13, total. STG Duration 09/13/22 Mcc Goal (LTG) Improve Tinetti score to low fall risk range as measure of improved mobility and safety. 10/03/22 Goal Met- Tinetti: Balance:1616, Gait:10/13, total. LTG Duration 11/13/22 Met Goal. Four Impairment trunk weakness and postural impairment Impairment patient with excess lumbar lordosis and forward flexion at trunk Short Term Goal (STG) Patient to be independent in HEP addressing trunk muscle weakness and postural correction STG Duration 09/13/22 It Service Manager Goal (LTG) Patient will demonstrate improved functional trunk strength as evidenced by at least 50% improvement in standing and walking posture LTG Duration 11/13/22 Three Impairment LE weakness Impairment unable to move from sit to stand from standard height chair without moderate use of UE's Short Term Goal (STG) Patient will be able to transfer from sit to stand from standard height chair without minimal to no use of UE's and be independent in HEP for LE strengthening. 10/03/22: progressin STS in 30 sec, on black 19 height table without use UEs 10/17/22: progressing 10 STS in 53 from 18 table. STG Duration 09/13/22 progressin10/03/22 It Service Manager Goal (LTG) Patient will improve functional LE strength as evidenced by ability to transfer sit to stand from standard height chair 10x in a row. 10/03/22: progressin10/03/22: progressin STS in 30 sec, on black 19 height table without use UEs 10/10/22: 8 reps from 18 table before quads tire and SOB. 10/17/22: Goal Met form 18 table. LTG Duration 11/13/22 Goal Met 10/17/22 Two Impairment pain ranging from 1-9/10 lumbar spine Short Term Goal (STG) decrease pain to no greater than 6/10 with all usual activities. 10/03/22- Slow progression able to stand 4 mins before pain increases to 9/10. STG Duration 09/13/22 Mcc Goal (LTG) Decrease pain to no greater than 3/10 with all usual activities 10/10/22:Pain has been 2-3/10 in lower back and into quads since last tx. He reports he knows his limits and can limit his pain. LTG Duration 11/13/22 progressing/not consistent 10/10/22 One Impairment gait impairment Impairment 2 min walk test 237 ft using 4WW, limited by low back pain and fatigue Short Term Goal (STG) Patient will be able to tolerate 6 min walk test and ambulate at least 800 ft with least restrictive device. 10/03/22- progressin min walk test: Performed 405ft in 4 Min 21sec w/ use of 4WW. 10/17/22-progressin min walk test: Performed 480 ft in 4 mins 16 secs w/ use of 4ww. STG Duration 09/13/22 progressing 10/03/22 It Service Manager Goal (LTG) 1400 ft on 6 min walk test using SPC to improve functional gait in the home and community 10/03/22- progressin min walk test: Performed 405ft in 4 Min 21sec w/ use of 4WW. 10/17/22: 6 min walk test: 480ft 4 mins 16 secs w/ use of 4ww. LTG Duration 11/13/22 progressing 10/03/22 Assessment Summary Assessment Patient only able to perform 8 sit to stands today but was at very end of session after majority of session done in standing with frequent rest breaks. Only fair compliance to HEP, but continues to progress with functional strength, balance, and gait. Physical Therapy Plan Frequency and Duration Frequency of Treatment 2x/Week Duration of treatment (weeks) 12 Plan of Care Start Date 08/14/22 Plan of Care End Date 11/12/22 Therapeutic Interventions Therapeutic Interventions Aquatic Therapy,Balance Training,Gait Training,Home Exercise Program,Manual Therapy,Neuromuscular Re- education,Patient/Caregiver Education,Self-Care/Home Management,Soft Tissue Mobilization,Taping, Therapeutic Activities, Therapeutic Exercises Modalities Cold Pack/Ice Massage,Electric Stimulation,Hot Packs Next Visit Focus/Plan Next Note Type Treatment Note Next Visit Plan Review seated core ex on ball, continue strengthening, gait training, balance training including further balloon vb standing on blue foam.
--- NOTE | 2022-11-02 13:45 | PT.OTN ---
Current Diagnoses Weakness (11/02/22) Physical Therapy Treatment Note PT-OP-A Visit Information Start: 08/14/22 08:13 Freq: Status: Active Protocol: Document 11/02/22 13:03 SP (Rec: 11/02/22 13:50 SP [id number]) Out-Patient Physical Therapy Visit Information Visit Information Visit Type Treatment Note Visit Start Time 13:03 Visit Stop Time 13:45 Total Visit Minutes 42 Visit Number 13 Number of RESORT HOST Visits 1 Evaluation Information Evaluation Date 08/14/22 Precautions Precautions HTN, a-fib, depression, history blood clots, falls, neuropathy, PE, SOB, thyroid dysfunction, carpal tunnel surgery. *08/24/22: pt reported PMH caution exersion with UEs can cause tingling and lower SaO2 and gets weak/lightheadedness/ low RBCs feeling that can cause instability. PT-OP-B Current Condition Start: 08/14/22 08:13 Freq: Status: Active Protocol: Document 08/30/22 13:00 SAK (Rec: 08/30/22 13:44 SAK [id number]) Current Condition History of Current Condition Onset Date 10 years. Current Complaints weakness History of Current Condition back surgery 15 years ago, major back surgery 10 years ago with fusion; prior to surgery flat on back 6 months prior to surgery. Reports fair recovery from surger but states stamina and weakness very low at this time, uses cane or FWW at home and in the community. Self-care independent but painful and takes a long time. No regular exercise routine. 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 Has treadmill at home, hasn't used for 20 yrs, recumbant bike hasn't used for 1 year. Prior Treatments and Tests No recent imaging. Future Testing and Treatments Planned unsure of any further MD appointment schedule. Treatment Goals Patient/Caregiver Goals move easier, improve balance, reeceptive to HEP PT-OP-C Subjective Start: 08/14/22 08:13 Freq: Status: Active Protocol: Document 11/02/22 13:03 SP (Rec: 11/02/22 13:50 SP [id number]) OP-PT Subjective Patient Comments Patient Comments Pt stated able to do grocery shopping trip with less back pain 2-3/10, uses cart for support. Patient Reported Progress Improving PT-OP-D Balance Start: 08/14/22 08:13 Freq: Status: Active Protocol: Document 08/14/22 11:16 [facility] (Rec: 08/15/22 15:21 [facility] [id number]) OP-PT Balance Assessment Sitting Balance Static Sitting Balance Ability Normal Dynamic Sitting Balance Ability Normal Standing Balance Device Used 4WW Tinetti Balance Assessment Sitting Balance Sitting Balance Steady, safe Arising from Chair Ability to Arise Able, uses arms to help Attempts to Arise Arises on 1st attempt Standing Balance Immediate Standing Balance Steady with support Standing Balance Steady, wide stance Nudged Response Staggers, catches self Standing with Eyes Closed Unsteady Turning Step Pattern Turning 360 Degrees Discontinuous steps Stability Turning 360 Degrees Unsteady, grabs/staggers Sitting Down Sitting Down Uses arms or unsteady Gait and Step Initiation of Gait No hesitancy Right Foot Step Length Does not pass stance ft. Right Foot Step Height Does not clear floor Left Foot Step Length Does not pass stance foot Left Foot Step Height Does not clear floor Step Description Step Symmetry Step length appears equal Step Continuity Steps appear continuous Gait Description Path Description Mild/moderate deviation Trunk Description Marked sway or uses aide Walking Stance Heels apart Scoring and Interpretation Tinetti Composite Score (points) 12 Pepe Fall Scale Copyright Permission PT-OP-G Mobility & Gait Start: 08/14/22 08:13 Freq: Status: Active Protocol: Document 08/14/22 11:16 [facility] (Rec: 08/15/22 15:21 [facility] [id number]) OP Gait Assessment Gait Gait Assistance Required: Independent Distance (Feet) 237 Assistive Devices Assistive Device 4 Wheeled Walker Gait Deviations General Gait Pattern Decreased Stride Length, Decreased Feet Clearance, Flexed Trunk,Wide Based Gait Factors Limiting Gait Function Factors Limiting Gait Function Decreased Strength,Pain PT-OP-H Neuro Start: 08/14/22 08:13 Freq: Status: Active Protocol: Document 08/14/22 11:16 [facility] (Rec: 08/15/22 15:21 [facility] [id number]) Sensation Evaluation Gross Sensation Gross Sensation Left LE Impaired,Right LE Impaired Sensation Description Paresthesia,Numbness,Tingling PT-OP-J Posture/Palpation/Skin Start: 08/14/22 08:13 Freq: Status: Active Protocol: Document 08/14/22 11:16 [facility] (Rec: 08/15/22 15:21 [facility] [id number]) Posture Evaluation Position Standing Head/C-Spine Posture Forward Head T-Spine Posture Increased Kyphosis L-Spine Posture Increased Lordosis Shoulder Posture (L) Rounded,(R) Rounded Scapula Posture (L) Protracted,(R) Protracted Arm Posture (L) Internally Rotated,(R) Internally Rotated Pelvis Posture Anteriorly Tilted PT-OP-K Range of Motion Start: 08/14/22 08:13 Freq: Status: Active Protocol: Document 08/14/22 11:16 SAK (Rec: 08/15/22 15:21 SAK [id number]) Lumbar Spine Range of Motion Lumbar Spine Active ROM Limitations Pain Comments moderate decrease due to pain Hip Goniometric Range of Motion Hip ROM Limitations Hip ROM Limitations Soft Tissue Tightness,Pain Comments moderate decrease oxana Knee Goniometric Range of Motion Knee oxana Knee ROM WFL Yes Ankle and Foot Goniometric Range of Motion Ankle and Foot oxana Ankle/Foot ROM WFL Yes PT-OP-M Strength Start: 08/14/22 08:13 Freq: Status: Active Protocol: Document 08/14/22 11:16 [facility] (Rec: 08/15/22 15:21 [facility] [id number]) Trunk Strength Trunk Manual Muscle Testing Core Stabilization poor Hip Strength Hip Manual Muscle Testing Left Flexion (L2) 3- Fair- Extension (S1) 2+ Poor+ Abduction 3- Fair- Adduction 3- Fair- External Rotation 3- Fair- Internal Rotation 3- Fair- Right Flexion (L2) 3- Fair- Extension (S1) 3- Fair- Abduction 3- Fair- Adduction 3- Fair- External Rotation 3- Fair- Internal Rotation 3+ Fair+ Knee Strength Knee Manual Muscle Testing Left Flexion (S2) 4- Good- Extension (L3) 4- Good- Right Flexion (S2) 4 Good Extension (L3) 4 Good Ankle/Foot Strength Ankle and Foot Manual Muscle Testing Left Dorsiflexion (L4) 3+ Fair+ Plantarflexion (S1) 3+ Fair+ Right Dorsiflexion (L4) 4+ Good+ Plantarflexion (S1) 4+ Good+ PT-OP-Q Treatments Start: 08/14/22 08:13 Freq: Status: Active Protocol: Document 11/02/22 13:03 SP (Rec: 11/02/22 13:50 SP [id number]) Cardio Equipment Recumbent Stepper (Sci-Fit) Duration (Minutes) 8 Resistance 2.5 Seat Position 14 Other 40-45 RPM's, LEs only Gym Equipment Sport Cord green Exercise Details F/L Side stepping before need sit rest Cord/Resistance green Reps/Duration 5 reps each direction Comments good core stability but tires after 2 directions before requires to sit rest recovery. Limited tx time didn;t get to perform left lateral or back stepping. Therapeutic Exercises Standing Exercises core press outs/paloff press Standing Exercise Name added to HEP Side bilateral Resistance TB #3 Reps/Minutes 2x10 each side Comments good form, soft knee sit <> stands Equipment Used mesh chair Reps/Minutes 5x STS 21 sec no UE support reuqired Comments good posture and comes to full stand row, shoulder ext Standing Exercise Name shld ext Side bilateral Resistance TB #3 Reps/Minutes 2x10 Comments good form, stated steady on feet, good work soft knees Gait Training Gait Activity 6 Min walk test Description 6 min walk test lrg laps around gym Device Used 4FWW Level of Assistance SBA Comments 562 ft in 5 min w/ 4WW, good self posturing for decrease LBP. PT-OP-T Assessment and Plan Start: 08/14/22 08:13 Freq: Status: Active Protocol: Document 11/02/22 13:03 SP (Rec: 11/02/22 13:50 SP [id number]) Physical Therapy Assessment Goals Five Impairment balance dysfunction Impairment Tinetti gait and balance score 11/28 indicating at high risk for falls Short Term Goal (STG) Improve Tinetti score to moderate fall risk range. 10/03/22 Goal Met- Tinetti: Balance:16/16, Gait:10/13, total. STG Duration 09/13/22 GOAL MET 10/03/22 Casing Crew Goal (LTG) Improve Tinetti score to low fall risk range as measure of improved mobility and safety. 10/03/22 Goal Met- Tinetti: Balance:16/16, Gait:10/13, total. LTG Duration 11/13/22 Met Goal 10/03/22 Four Impairment trunk weakness and postural impairment Impairment patient with excess lumbar lordosis and forward flexion at trunk Short Term Goal (STG) Patient to be independent in HEP addressing trunk muscle weakness and postural correction STG Duration 09/13/22 Casing Crew Goal (LTG) Patient will demonstrate improved functional trunk strength as evidenced by at least 50% improvement in standing and walking posture LTG Duration 11/13/22 Three Impairment LE weakness Impairment unable to move from sit to stand from standard height chair without moderate use of UE's Short Term Goal (STG) Patient will be able to transfer from sit to stand from standard height chair without minimal to no use of UE's and be independent in [facility] for LE strengthening. 10/03/22: progressin STS in 30 sec, on black 19 height table without use UEs 10/17/22: progressing 10 STS in 53 from 18 table. 11/02/22: GOAL MET: 5 STS in 21 sec without UE support from standard mesh chair. STG Duration 09/13/22 GOAL MET 11/02/22 Alf Goal (LTG) Patient will improve functional LE strength as evidenced by ability to transfer sit to stand from standard height chair 10x in a row. 10/03/22: progressin10/03/22: progressin STS in 30 sec, on black 19 height table without use UEs 10/10/22: 8 reps from 18 table before quads tire and SOB. 10/17/22: Goal Met form 18 table. LTG Duration 11/13/22 Goal Met 10/17/22 Two Impairment pain ranging from 1-9/10 lumbar spine Short Term Goal (STG) decrease pain to no greater than 6/10 with all usual activities. 10/03/22- Slow progression able to stand 4 mins before pain increases to 9/10. 11/02/22: MET GOAL States LBP better average worst 2/10 unless doing strenuous activities STG Duration 09/13/22 goal met 11/02/22 Alf Goal (LTG) Decrease pain to no greater than 3/10 with all usual activities 10/10/22:Pain has been 2-3/10 in lower back and into quads since last tx. He reports he knows his limits and can limit his pain. 11/02/22: GOAL MET: 2/10 worst unless doing strenuous activities like pushing grocery cart around store 3/10 . LTG Duration 11/13/22 GOAl MET 11/02/22 One Impairment gait impairment Impairment 2 min walk test 237 ft using 4WW, limited by low back pain and fatigue Short Term Goal (STG) Patient will be able to tolerate 6 min walk test and ambulate at least 800 ft with least restrictive device. 10/03/22- progressin min walk test: Performed 405ft in 4 Min 21sec w/ use of 4WW. 10/17/22-progressin min walk test: Performed 480 ft in 4 mins 16 secs w/ use of 4ww. 11/02/22: progressin ft in 5 min using 4WW, good intermittent upright posturing during gait without cues. STG Duration 09/13/22 progressing 11/02/22 Alf Goal (LTG) 1400 ft on 6 min walk test using SPC to improve functional gait in the home and community 10/03/22- progressin min walk test: Performed 405ft in 4 Min 21sec w/ use of 4WW. 10/17/22: 6 min walk test: 480ft 4 mins 16 secs w/ use of 4ww. 11/02/22: progressin ft in 5 min using 4WW, good intermittent upright posturing during gait without cues. LTG Duration 11/13/22 progressing 11/02/22 Progress Towards Goals Progress Towards Goals Progressing Toward Goals Progress Comments MET goal 1, 3, 2 and progressing STG/ LTG #1. Assessment Summary Assessment Pt improving less LB pain with mobility and further distance gait with AD support before needs rest break. Gained 82 ft and 5 min before needed to sit, using 4WW. Physical Therapy Plan Frequency and Duration Frequency of Treatment 2x/Week Duration of treatment (weeks) 12 Plan of Care Start Date 08/14/22 Plan of Care End Date 11/12/22 Therapeutic Interventions Therapeutic Interventions Aquatic Therapy,Balance Training,Gait Training,Home Exercise Program,Manual Therapy,Neuromuscular Re- education,Patient/Caregiver Education,Self-Care/Home Management,Soft Tissue Mobilization,Taping, Therapeutic Activities, Therapeutic Exercises Modalities Cold Pack/Ice Massage,Electric Stimulation,Hot Packs Next Visit Focus/Plan Next Note Type Treatment Note Next Visit Plan Review seated core ex on ball, continue strengthening, gait training, balance training including further balloon vb standing on blue foam.
--- NOTE | 2022-11-09 13:50 | PT.OTN ---
Current Diagnoses Weakness (11/09/22) Physical Therapy Treatment Note PT-OP-A Visit Information Start: 08/14/22 08:13 Freq: Status: Active Protocol: Document 11/09/22 13:00 SP (Rec: 11/09/22 13:52 SP [id number]) Out-Patient Physical Therapy Visit Information Visit Information Visit Type Treatment Note Visit Note POC expires 11/12, will need update POC completed next appt 11/20 withPT. Visit Start Time 13:00 Visit Stop Time 13:50 Total Visit Minutes 50 Visit Number 15 Number of CURTAIN STRETCHER Visits 1 Evaluation Information Evaluation Date 08/14/22 Precautions Precautions HTN, a-fib, depression, history blood clots, falls, neuropathy, PE, SOB, thyroid dysfunction, carpal tunnel surgery. *08/24/22: pt reported PMH caution exersion with UEs can cause tingling and lower SaO2 and gets weak/lightheadedness/ low RBCs feeling that can cause instability. PT-OP-B Current Condition Start: 08/14/22 08:13 Freq: Status: Active Protocol: Document 08/30/22 13:00 SAK (Rec: 08/30/22 13:44 SAK [id number]) Current Condition History of Current Condition Onset Date 10 years. Current Complaints weakness History of Current Condition back surgery 15 years ago, major back surgery 10 years ago with fusion; prior to surgery flat on back 6 months prior to surgery. Reports fair recovery from surger but states stamina and weakness very low at this time, uses cane or FWW at home and in the community. Self-care independent but painful and takes a long time. No regular exercise routine. 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 Has treadmill at home, hasn't used for 20 yrs, recumbant bike hasn't used for 1 year. Prior Treatments and Tests No recent imaging. Future Testing and Treatments Planned unsure of any further MD appointment schedule. Treatment Goals Patient/Caregiver Goals move easier, improve balance, reeceptive to HEP PT-OP-C Subjective Start: 08/14/22 08:13 Freq: Status: Active Protocol: Document 11/09/22 13:00 SP (Rec: 11/09/22 13:52 SP [id number]) OP-PT Subjective Patient Comments Patient Comments No new complaints. His energy hasn't returned to baseline since medical blood loss. Feels is improving with PT. He states not doing HEP as much as should. He states gets busy with daily activities and forgets/ to busy. [employer] hand outs reminder is available. Patient Reported Progress Improving PT-OP-D Balance Start: 08/14/22 08:13 Freq: Status: Active Protocol: Document 08/14/22 11:16 [facility] (Rec: 08/15/22 15:21 [facility] [id number]) OP-PT Balance Assessment Sitting Balance Static Sitting Balance Ability Normal Dynamic Sitting Balance Ability Normal Standing Balance Device Used 4WW Tinetti Balance Assessment Sitting Balance Sitting Balance Steady, safe Arising from Chair Ability to Arise Able, uses arms to help Attempts to Arise Arises on 1st attempt Standing Balance Immediate Standing Balance Steady with support Standing Balance Steady, wide stance Nudged Response Staggers, catches self Standing with Eyes Closed Unsteady Turning Step Pattern Turning 360 Degrees Discontinuous steps Stability Turning 360 Degrees Unsteady, grabs/staggers Sitting Down Sitting Down Uses arms or unsteady Gait and Step Initiation of Gait No hesitancy Right Foot Step Length Does not pass stance ft. Right Foot Step Height Does not clear floor Left Foot Step Length Does not pass stance foot Left Foot Step Height Does not clear floor Step Description Step Symmetry Step length appears equal Step Continuity Steps appear continuous Gait Description Path Description Mild/moderate deviation Trunk Description Marked sway or uses aide Walking Stance Heels apart Scoring and Interpretation Tinetti Composite Score (points) 12 Pepe Fall Scale Copyright Permission PT-OP-G Mobility & Gait Start: 08/14/22 08:13 Freq: Status: Active Protocol: Document 08/14/22 11:16 [facility] (Rec: 08/15/22 15:21 [facility] [id number]) OP Gait Assessment Gait Gait Assistance Required: Independent Distance (Feet) 237 Assistive Devices Assistive Device 4 Wheeled Walker Gait Deviations General Gait Pattern Decreased Stride Length, Decreased Feet Clearance, Flexed Trunk,Wide Based Gait Factors Limiting Gait Function Factors Limiting Gait Function Decreased Strength,Pain PT-OP-H Neuro Start: 08/14/22 08:13 Freq: Status: Active Protocol: Document 08/14/22 11:16 [facility] (Rec: 08/15/22 15:21 [facility] [id number]) Sensation Evaluation Gross Sensation Gross Sensation Left LE Impaired,Right LE Impaired Sensation Description Paresthesia,Numbness,Tingling PT-OP-J Posture/Palpation/Skin Start: 08/14/22 08:13 Freq: Status: Active Protocol: Document 08/14/22 11:16 [facility] (Rec: 08/15/22 15:21 SAK [id number]) Posture Evaluation Position Standing Head/C-Spine Posture Forward Head T-Spine Posture Increased Kyphosis L-Spine Posture Increased Lordosis Shoulder Posture (L) Rounded,(R) Rounded Scapula Posture (L) Protracted,(R) Protracted Arm Posture (L) Internally Rotated,(R) Internally Rotated Pelvis Posture Anteriorly Tilted PT-OP-K Range of Motion Start: 08/14/22 08:13 Freq: Status: Active Protocol: Document 08/14/22 11:16 [facility] (Rec: 08/15/22 15:21 [facility] [id number]) Lumbar Spine Range of Motion Lumbar Spine Active ROM Limitations Pain Comments moderate decrease due to pain Hip Goniometric Range of Motion Hip ROM Limitations Hip ROM Limitations Soft Tissue Tightness,Pain Comments moderate decrease oxana Knee Goniometric Range of Motion Knee oxana Knee ROM WFL Yes Ankle and Foot Goniometric Range of Motion Ankle and Foot oxana Ankle/Foot ROM WFL Yes PT-OP-M Strength Start: 08/14/22 08:13 Freq: Status: Active Protocol: Document 08/14/22 11:16 [facility] (Rec: 08/15/22 15:21 [facility] [id number]) Trunk Strength Trunk Manual Muscle Testing Core Stabilization poor Hip Strength Hip Manual Muscle Testing Left Flexion (L2) 3- Fair- Extension (S1) 2+ Poor+ Abduction 3- Fair- Adduction 3- Fair- External Rotation 3- Fair- Internal Rotation 3- Fair- Right Flexion (L2) 3- Fair- Extension (S1) 3- Fair- Abduction 3- Fair- Adduction 3- Fair- External Rotation 3- Fair- Internal Rotation 3+ Fair+ Knee Strength Knee Manual Muscle Testing Left Flexion (S2) 4- Good- Extension (L3) 4- Good- Right Flexion (S2) 4 Good Extension (L3) 4 Good Ankle/Foot Strength Ankle and Foot Manual Muscle Testing Left Dorsiflexion (L4) 3+ Fair+ Plantarflexion (S1) 3+ Fair+ Right Dorsiflexion (L4) 4+ Good+ Plantarflexion (S1) 4+ Good+ PT-OP-Q Treatments Start: 08/14/22 08:13 Freq: Status: Active Protocol: Document 11/09/22 13:00 SP (Rec: 11/09/22 13:52 SP [id number]) Therapeutic Exercises Sitting Exercises shoulder ext Sitting Exercise Name stand Resistance 2x10- seated rest between sets Reps/Minutes 10x2 standing Comments tires quickly back, L hip discomfort, arms work out burn need recovery row Resistance Lvl 4 Equipment Used TB #3 therapist anchored Reps/Minutes sit x10 Comments cues for scapular squeeze. crunch Sitting Exercise Name flexion and rotation- reviewed HEP Resistance TB #4 (anchored high wall frame), states can hook to shld height post. Equipment Used seated on 4WW locked Reps/Minutes 2x10 Comments Holds TB B hands rear facing and trunk flexion crunch- good effort and alig Standing Exercises sit <> stands Equipment Used green fabric chair (18) Reps/Minutes 5x STS 24 sec, no UE support ( arms held from momentum last 2 reps) Comments good posture and comes to full stand Manual Therapy Treatment Soft Tissue Mobilization R hip Body Location R prox glut med, Piriformis, TFL Mobilization Type Cross-Friction,Strumming, Sustained Pressure Intensity/Depth Moderate Body Position Sidelying Comments Manual and discussion self STMs with tennis ball on wall. Neuro Re-Education Treatment Balance Activities tandem gait Details fwd, retro stagger step Comments 30% subjective UE lateral/ weblogic administrator hand contact on //bars, cued for tall/ core and posture to assist balance, challenging without UE support CGA wiht contact, Min/Mod A CURTAIN STRETCHER without UE support. balloon vb Surface blue foam Equipment parallel bars Reps/Duration 20 sec Comments Tended to lean forward but self recovery standing, stated lateral and anterior thighs tired out and need stop and rest, little SOB as well with mask PT-OP-T Assessment and Plan Start: 08/14/22 08:13 Freq: Status: Active Protocol: Document 11/09/22 13:00 SP (Rec: 11/09/22 13:52 SP [id number]) Physical Therapy Assessment Goals Five Impairment balance dysfunction Impairment Tinetti gait and balance score 11/28 indicating at high risk for falls Short Term Goal (STG) Improve Tinetti score to moderate fall risk range. 10/03/22 Goal Met- Tinetti: Balance:, Gait:10/13, total. STG Duration 09/13/22 GOAL MET 10/03/22 Long-Term Goal (LTG) Improve Tinetti score to low fall risk range as measure of improved mobility and safety. 10/03/22 Goal Met- Tinetti: Balance:, Gait:10/13, total. LTG Duration 11/13/22 Met Goal 10/03/22 Four Impairment trunk weakness and postural impairment Impairment patient with excess lumbar lordosis and forward flexion at trunk Short Term Goal (STG) Patient to be independent in HEP addressing trunk muscle weakness and postural correction STG Duration 09/13/22 Long-Term Goal (LTG) Patient will demonstrate improved functional trunk strength as evidenced by at least 50% improvement in standing and walking posture LTG Duration 11/13/22 Three Impairment LE weakness Impairment unable to move from sit to stand from standard height chair without moderate use of UE's Short Term Goal (STG) Patient will be able to transfer from sit to stand from standard height chair without minimal to no use of UE's and be independent in HEP for LE strengthening. 10/03/22: progressin STS in 30 sec, on black 19 height table without use UEs 10/17/22: progressing 10 STS in 53 from 18 table. 11/02/22: GOAL MET: 5 STS in 21 sec without UE support from standard mesh chair. STG Duration 09/13/22 GOAL MET 11/02/22 Long-Term Goal (LTG) Patient will improve functional LE strength as evidenced by ability to transfer sit to stand from standard height chair 10x in a row. 10/03/22: progressin10/03/22: progressin STS in 30 sec, on black 19 height table without use UEs 10/10/22: 8 reps from 18 table before quads tire and SOB. 10/17/22: Goal Met form 18 table. LTG Duration 11/13/22 Goal Met 10/17/22 Two Impairment pain ranging from 1-9/10 lumbar spine Short Term Goal (STG) decrease pain to no greater than 6/10 with all usual activities. 10/03/22- Slow progression able to stand 4 mins before pain increases to 9/10. 11/02/22: MET GOAL States LBP better average worst 2/10 unless doing strenuous activities STG Duration 09/13/22 goal met 11/02/22 Setter Off Goal (LTG) Decrease pain to no greater than 3/10 with all usual activities 10/10/22:Pain has been 2-3/10 in lower back and into quads since last tx. He reports he knows his limits and can limit his pain. 11/02/22: GOAL MET: 2/10 worst unless doing strenuous activities like pushing grocery cart around store 3/10 . LTG Duration 11/13/22 GOAl MET 11/02/22 One Impairment gait impairment Impairment 2 min walk test 237 ft using 4WW, limited by low back pain and fatigue Short Term Goal (STG) Patient will be able to tolerate 6 min walk test and ambulate at least 800 ft with least restrictive device. 10/03/22- progressin min walk test: Performed 405ft in 4 Min 21sec w/ use of 4WW. 10/17/22-progressin min walk test: Performed 480 ft in 4 mins 16 secs w/ use of 4ww. 11/02/22: progressin ft in 5 min using 4WW, good intermittent upright posturing during gait without cues. STG Duration 09/13/22 progressing 11/02/22 Setter Off Goal (LTG) 1400 ft on 6 min walk test using SPC to improve functional gait in the home and community 10/03/22- progressin min walk test: Performed 405ft in 4 Min 21sec w/ use of 4WW. 10/17/22: 6 min walk test: 480ft 4 mins 16 secs w/ use of 4ww. 11/02/22: progressin ft in 5 min using 4WW, good intermittent upright posturing during gait without cues. LTG Duration 11/13/22 progressing 11/02/22 Assessment Summary Assessment Pt light headed coming L SL> sit post manual, time needed to acclimate no dizziness before coming to standing. Pt reported good tiring in quads and arms during standing ther ex today, continues to require seated rest between sets for recovery. Decreased tightness/ discomfort L anterolateral hip post manaul end tx. Pt stated doesn't feel is back to his normal activity level, especially after the blood loss. Pt reports isn't doing HEP as much as should, when asked why stated has been busy with other activities which tires him to unable to do HEP, still requires rest recovery. Pt would benefit from continued skilled PT to progress standing endurance for community shopping trips. Physical Therapy Plan Frequency and Duration Frequency of Treatment 2x/Week Duration of treatment (weeks) 12 Plan of Care Start Date 08/14/22 Plan of Care End Date 11/12/22 Therapeutic Interventions Therapeutic Interventions Aquatic Therapy,Balance Training,Gait Training,Home Exercise Program,Manual Therapy,Neuromuscular Re- education,Patient/Caregiver Education,Self-Care/Home Management,Soft Tissue Mobilization,Taping, Therapeutic Activities, Therapeutic Exercises Modalities Cold Pack/Ice Massage,Electric Stimulation,Hot Packs Next Visit Focus/Plan Next Note Type Treatment Note Next Visit Plan Check GOALs next tx with progress making, PT to complete updated POC after next tx.. POC: Assess HEP compliance, continue PT per POC to improve gait, strength, balance.
--- NOTE | 2022-11-12 15:18 | PT.OTN ---
Current Diagnoses Weakness (11/12/22) Physical Therapy Treatment Note PT-OP-A Visit Information Start: 08/14/22 08:13 Freq: Status: Active Protocol: Document 11/12/22 14:36 SP (Rec: 11/12/22 15:31 SP [id number]) Out-Patient Physical Therapy Visit Information Visit Information Visit Type Treatment Note Visit Note *POC completed next appt 11/20 with PT. Visit Start Time 14:36 Visit Stop Time 15:18 Total Visit Minutes 42 Visit Number 16 Number of CAFETERIA MONITOR Visits 2 Evaluation Information Evaluation Date 08/14/22 Precautions Precautions HTN, a-fib, depression, history blood clots, falls, neuropathy, PE, SOB, thyroid dysfunction, carpal tunnel surgery. *08/24/22: pt reported PMH caution exersion with UEs can cause tingling and lower SaO2 and gets weak/lightheadedness/ low RBCs feeling that can cause instability. PT-OP-B Current Condition Start: 08/14/22 08:13 Freq: Status: Active Protocol: Document 08/30/22 13:00 SAK (Rec: 08/30/22 13:44 SAK [id number]) Current Condition History of Current Condition Onset Date 10 years. Current Complaints weakness History of Current Condition back surgery 15 years ago, major back surgery 10 years ago with fusion; prior to surgery flat on back 6 months prior to surgery. Reports fair recovery from surger but states stamina and weakness very low at this time, uses cane or FWW at home and in the community. Self-care independent but painful and takes a long time. No regular exercise routine. 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 Has treadmill at home, hasn't used for 20 yrs, recumbant bike hasn't used for 1 year. Prior Treatments and Tests No recent imaging. Future Testing and Treatments Planned unsure of any further MD appointment schedule. Treatment Goals Patient/Caregiver Goals move easier, improve balance, reeceptive to HEP PT-OP-C Subjective Start: 08/14/22 08:13 Freq: Status: Active Protocol: Document 11/12/22 14:36 SP (Rec: 11/12/22 15:31 SP [id number]) OP-PT Subjective Patient Comments Patient Comments Pt reported was sore after last tx til next morning but not pain. Didn't stop him from doing his ADLs just had to move slower and take more rests. Patient Reported Progress Improving PT-OP-D Balance Start: 08/14/22 08:13 Freq: Status: Active Protocol: Document 08/14/22 11:16 SAK (Rec: 08/15/22 15:21 [facility] [id number]) OP-PT Balance Assessment Sitting Balance Static Sitting Balance Ability Normal Dynamic Sitting Balance Ability Normal Standing Balance Device Used 4WW Tinetti Balance Assessment Sitting Balance Sitting Balance Steady, safe Arising from Chair Ability to Arise Able, uses arms to help Attempts to Arise Arises on 1st attempt Standing Balance Immediate Standing Balance Steady with support Standing Balance Steady, wide stance Nudged Response Staggers, catches self Standing with Eyes Closed Unsteady Turning Step Pattern Turning 360 Degrees Discontinuous steps Stability Turning 360 Degrees Unsteady, grabs/staggers Sitting Down Sitting Down Uses arms or unsteady Gait and Step Initiation of Gait No hesitancy Right Foot Step Length Does not pass stance ft. Right Foot Step Height Does not clear floor Left Foot Step Length Does not pass stance foot Left Foot Step Height Does not clear floor Step Description Step Symmetry Step length appears equal Step Continuity Steps appear continuous Gait Description Path Description Mild/moderate deviation Trunk Description Marked sway or uses aide Walking Stance Heels apart Scoring and Interpretation Tinetti Composite Score (points) 12 Pepe Fall Scale Copyright Permission PT-OP-E Functional Tests Start: 08/14/22 08:13 Freq: Status: Active Protocol: Document 11/12/22 14:36 SP (Rec: 11/12/22 15:31 SP [id number]) Functional Tests 6 Minute Walk Test Distance 738ft, able to carry on conversation most time w/ Mask on Device Used 4WW Comments 1 stop stand brief rest, good self postural corrections, UE WB light> mod PT-OP-G Mobility & Gait Start: 08/14/22 08:13 Freq: Status: Active Protocol: Document 08/14/22 11:16 SAK (Rec: 08/15/22 15:21 [facility] [id number]) OP Gait Assessment Gait Gait Assistance Required: Independent Distance (Feet) 237 Assistive Devices Assistive Device 4 Wheeled Walker Gait Deviations General Gait Pattern Decreased Stride Length, Decreased Feet Clearance, Flexed Trunk,Wide Based Gait Factors Limiting Gait Function Factors Limiting Gait Function Decreased Strength,Pain PT-OP-H Neuro Start: 08/14/22 08:13 Freq: Status: Active Protocol: Document 08/14/22 11:16 SAK (Rec: 08/15/22 15:21 [facility] [id number]) Sensation Evaluation Gross Sensation Gross Sensation Left LE Impaired,Right LE Impaired Sensation Description Paresthesia,Numbness,Tingling PT-OP-J Posture/Palpation/Skin Start: 08/14/22 08:13 Freq: Status: Active Protocol: Document 08/14/22 11:16 [facility] (Rec: 08/15/22 15:21 [facility] [id number]) Posture Evaluation Position Standing Head/C-Spine Posture Forward Head T-Spine Posture Increased Kyphosis L-Spine Posture Increased Lordosis Shoulder Posture (L) Rounded,(R) Rounded Scapula Posture (L) Protracted,(R) Protracted Arm Posture (L) Internally Rotated,(R) Internally Rotated Pelvis Posture Anteriorly Tilted PT-OP-K Range of Motion Start: 08/14/22 08:13 Freq: Status: Active Protocol: Document 08/14/22 11:16 [facility] (Rec: 08/15/22 15:21 [facility] [id number]) Lumbar Spine Range of Motion Lumbar Spine Active ROM Limitations Pain Comments moderate decrease due to pain Hip Goniometric Range of Motion Hip ROM Limitations Hip ROM Limitations Soft Tissue Tightness,Pain Comments moderate decrease oxana Knee Goniometric Range of Motion Knee oxana Knee ROM WFL Yes Ankle and Foot Goniometric Range of Motion Ankle and Foot oxana Ankle/Foot ROM WFL Yes PT-OP-M Strength Start: 08/14/22 08:13 Freq: Status: Active Protocol: Document 08/14/22 11:16 [facility] (Rec: 08/15/22 15:21 [facility] [id number]) Trunk Strength Trunk Manual Muscle Testing Core Stabilization poor Hip Strength Hip Manual Muscle Testing Left Flexion (L2) 3- Fair- Extension (S1) 2+ Poor+ Abduction 3- Fair- Adduction 3- Fair- External Rotation 3- Fair- Internal Rotation 3- Fair- Right Flexion (L2) 3- Fair- Extension (S1) 3- Fair- Abduction 3- Fair- Adduction 3- Fair- External Rotation 3- Fair- Internal Rotation 3+ Fair+ Knee Strength Knee Manual Muscle Testing Left Flexion (S2) 4- Good- Extension (L3) 4- Good- Right Flexion (S2) 4 Good Extension (L3) 4 Good Ankle/Foot Strength Ankle and Foot Manual Muscle Testing Left Dorsiflexion (L4) 3+ Fair+ Plantarflexion (S1) 3+ Fair+ Right Dorsiflexion (L4) 4+ Good+ Plantarflexion (S1) 4+ Good+ PT-OP-Q Treatments Start: 08/14/22 08:13 Freq: Status: Active Protocol: Document 11/12/22 14:36 SP (Rec: 11/12/22 15:31 SP [id number]) Gait Training Gait Activity 6 Min walk test Description 6 min walk test Device Used 4WW Level of Assistance SBA Surface carpet, tile Distance/Duration 738 ft in 5 min 41 sec Comments 1 brief stop stand rest, good self posturing for decrease LBP. Light>Moderate UE WB on 4WW end tx. Suggested last tx call company of 4WW and ask if have extensions to allow elevate 4WW 1 more knotch. Neuro Re-Education Treatment Balance Activities obstacle course Details balance recovery, functional strengthening Equipment 2 blue mat, green oval cushions, 2 hurdles, 4 step Comments Cue tall posture, core fac during opp LE advancement. step ups Equipment 6 step Reps/Duration 2x5 reps Comments cued sequence patterning, slow eccentric step back down, cued core for balance control tiltboard Details balance recovery Reps/Duration 8 min total, 2 seated rests Comments 1. wt shift 2. HTs 3. arm swing 4. isometric trunk pressure, release. PT-OP-T Assessment and Plan Start: 08/14/22 08:13 Freq: Status: Active Protocol: Document 11/12/22 14:36 SP (Rec: 11/12/22 15:31 SP [id number]) Physical Therapy Assessment Goals Five Impairment balance dysfunction Impairment Tinetti gait and balance score 11/28 indicating at high risk for falls Short Term Goal (STG) Improve Tinetti score to moderate fall risk range. 10/03/22 Goal Met- Tinetti: Balance:1616, Gait:10/13, total. STG Duration 09/13/22 GOAL MET 10/03/22 [facility] Goal (LTG) Improve Tinetti score to low fall risk range as measure of improved mobility and safety. 10/03/22 Goal Met- Tinetti: Balance:16/16, Gait:10/13, total. LTG Duration 11/13/22 Met Goal 10/03/22 Four Impairment trunk weakness and postural impairment Impairment patient with excess lumbar lordosis and forward flexion at trunk Short Term Goal (STG) Patient to be independent in HEP addressing trunk muscle weakness and postural correction 11/12/22: improved posture corrections walking, upright posturing during 6MWT. STG Duration 09/13/22 improving 11/12 [employer] Specialist Goal (LTG) Patient will demonstrate improved functional trunk strength as evidenced by at least 50% improvement in standing and walking posture 11/12/22: improved posture corrections walking, upright posturing during 6MWT. LTG Duration 11/13/22 improved 11/12/22 Three Impairment LE weakness Impairment unable to move from sit to stand from standard height chair without moderate use of UE's Short Term Goal (STG) Patient will be able to transfer from sit to stand from standard height chair without minimal to no use of UE's and be independent in HEP for LE strengthening. 10/03/22: progressin STS in 30 sec, on black 19 height table without use UEs 10/17/22: progressing 10 STS in 53 from 18 table. 11/02/22: GOAL MET: 5 STS in 21 sec without UE support from standard mesh chair. STG Duration 09/13/22 GOAL MET 11/02/22 [facility] Goal (LTG) Patient will improve functional LE strength as evidenced by ability to transfer sit to stand from standard height chair 10x in a row. 10/03/22: progressin10/03/22: progressin STS in 30 sec, on black 19 height table without use UEs 10/10/22: 8 reps from 18 table before quads tire and SOB. 10/17/22: Goal Met form 18 table. LTG Duration 11/13/22 Goal Met 10/17/22 Two Impairment pain ranging from 1-9/10 lumbar spine Short Term Goal (STG) decrease pain to no greater than 6/10 with all usual activities. 10/03/22- Slow progression able to stand 4 mins before pain increases to 9/10. 11/02/22: MET GOAL States LBP better average worst 2/10 unless doing strenuous activities STG Duration 09/13/22 goal met 11/02/22 [facility] Goal (LTG) Decrease pain to no greater than 3/10 with all usual activities 10/10/22:Pain has been 2-3/10 in lower back and into quads since last tx. He reports he knows his limits and can limit his pain. 11/02/22: GOAL MET: 01/11 worst unless doing strenuous activities like pushing grocery cart around store 02/08 . LTG Duration 11/13/22 GOAl MET 11/02/22 One Impairment gait impairment Impairment 2 min walk test 237 ft using 4WW, limited by low back pain and fatigue Short Term Goal (STG) Patient will be able to tolerate 6 min walk test and ambulate at least 800 ft with least restrictive device. 10/03/22- progressin min walk test: Performed 405ft in 4 Min 21sec w/ use of 4WW. 10/17/22-progressin min walk test: Performed 480 ft in 4 mins 16 secs w/ use of 4ww. 11/02/22: progressin ft in 5 min using 4WW, good intermittent upright posturing during gait without cues 11/12/22: 738 ft in 5 min 41 sec with 1 stop stand brief rest, use 4WW. STG Duration 09/13/22 progressing 11/12/22 [facility] Goal (LTG) 1400 ft on 6 min walk test using SPC to improve functional gait in the home and community 10/03/22- progressin min walk test: Performed 405ft in 4 Min 21sec w/ use of 4WW. 10/17/22: 6 min walk test: 480ft 4 mins 16 secs w/ use of 4ww. 11/02/22: progressin ft in 5 min using 4WW, good intermittent upright posturing during gait without cues. 11/12/22: 738 ft in 5 min 41 sec with 1 stop stand brief rest, use 4WW. LTG Duration 11/13/22 progressing 11/12/22 Assessment Summary Assessment Pt making gains in endurance gait w/ 4WW completed 738 ft 5 min 41 sec, 1 stop stand rest , able to carry on conversation most time w/ Mask on. He continue to need seated rest between sets activities. Will time standing endurance in future tx. Encouraged to perform strengthening TB HEP in standing as performed last tx at home carryover and increase time standing during ADLs. Pt states not having pain, just winded. Found worked up a good sweat during tx, provided washcloth. Encouraged dydration, declined during tx. Physical Therapy Plan Frequency and Duration Frequency of Treatment 2x/Week Duration of treatment (weeks) 12 Plan of Care Start Date 08/14/22 Plan of Care End Date 11/12/22 Therapeutic Interventions Therapeutic Interventions Aquatic Therapy,Balance Training,Gait Training,Home Exercise Program,Manual Therapy,Neuromuscular Re- education,Patient/Caregiver Education,Self-Care/Home Management,Soft Tissue Mobilization,Taping, Therapeutic Activities, Therapeutic Exercises Modalities Cold Pack/Ice Massage,Electric Stimulation,Hot Packs Next Visit Focus/Plan Next Note Type Progress Note Next Visit Plan Updated POC next tx, see if added appts, needed. POC: Assess HEP compliance, continue PT per POC to improve gait, strength, balance.
--- NOTE | 2022-11-20 13:46 | PT.OTRE ---
Current Diagnoses Weakness (11/20/22) Past Medical History (Last Reviewed 07/10/22 @ 13:26 by Tong Rice MD) Anemia Arthritis Depression Elevated cholesterol History of back pain History of GI bleed HTN (hypertension) Hypothyroidism Knee pain, bilateral Neuropathy BARBER (obstructive sleep apnea) Shortness of breath Sleep apnea Visit Care Team Role Provider Type Tong Landon MD Attending Provider Physician Primary Care Provider Referring Provider Specialty: [facility] Address: [address] [place] [address], [facility] [place] [place], [facility] Email: [email or web address] Physical Therapy Re-Evaluation PT-OP-A Visit Information Start: 08/14/22 08:13 Freq: Status: Active Protocol: Document 11/20/22 13:00 [facility] (Rec: 11/20/22 13:46 [facility] [id number]) Out-Patient Physical Therapy Visit Information Visit Information Visit Type Treatment Note Visit Note *POC completed next appt 11/20 with PT. Visit Start Time 13:00 Visit Stop Time 13:00 Visit Number 17 Number of HELMINTHOLOGIST Visits 0 Evaluation Information Evaluation Date 08/14/22 Precautions Precautions HTN, a-fib, depression, history blood clots, falls, neuropathy, PE, SOB, thyroid dysfunction, carpal tunnel surgery. *08/24/22: pt reported PMH caution exersion with UEs can cause tingling and lower SaO2 and gets weak/lightheadedness/ low RBCs feeling that can cause instability. PT-OP-B Current Condition Start: 08/14/22 08:13 Freq: Status: Active Protocol: Document 08/30/22 13:00 [facility] (Rec: 08/30/22 13:44 [facility] [id number]) Current Condition History of Current Condition Onset Date 10 years. Current Complaints weakness History of Current Condition back surgery 15 years ago, major back surgery 10 years ago with fusion; prior to surgery flat on back 6 months prior to surgery. Reports fair recovery from surger but states stamina and weakness very low at this time, uses cane or FWW at home and in the community. Self-care independent but painful and takes a long time. No regular exercise routine. 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 Has treadmill at home, hasn't used for 20 yrs, recumbant bike hasn't used for 1 year. Prior Treatments and Tests No recent imaging. Future Testing and Treatments Planned unsure of any further MD appointment schedule. Treatment Goals Patient/Caregiver Goals move easier, improve balance, reeceptive to HEP PT-OP-C Subjective Start: 08/14/22 08:13 Freq: Status: Active Protocol: Document 11/20/22 13:00 [facility] (Rec: 11/20/22 13:46 [facility]AK [id number]) OP-PT Subjective Patient Comments Patient Comments Legs were very tired after last session, especially 6 min walk test, states took about 4 days to recover. Patient Reported Progress Improving PT-OP-D Balance Start: 08/14/22 08:13 Freq: Status: Active Protocol: Document 08/14/22 11:16 [facility] (Rec: 08/15/22 15:21 [facility] [id number]) OP-PT Balance Assessment Sitting Balance Static Sitting Balance Ability Normal Dynamic Sitting Balance Ability Normal Standing Balance Device Used 4WW Tinetti Balance Assessment Sitting Balance Sitting Balance Steady, safe Arising from Chair Ability to Arise Able, uses arms to help Attempts to Arise Arises on 1st attempt Standing Balance Immediate Standing Balance Steady with support Standing Balance Steady, wide stance Nudged Response Staggers, catches self Standing with Eyes Closed Unsteady Turning Step Pattern Turning 360 Degrees Discontinuous steps Stability Turning 360 Degrees Unsteady, grabs/staggers Sitting Down Sitting Down Uses arms or unsteady Gait and Step Initiation of Gait No hesitancy Right Foot Step Length Does not pass stance ft. Right Foot Step Height Does not clear floor Left Foot Step Length Does not pass stance foot Left Foot Step Height Does not clear floor Step Description Step Symmetry Step length appears equal Step Continuity Steps appear continuous Gait Description Path Description Mild/moderate deviation Trunk Description Marked sway or uses aide Walking Stance Heels apart Scoring and Interpretation Tinetti Composite Score (points) 12 Pepe Fall Scale Copyright Permission Afshin JM, Afshin RM, Luis SJ. Development of a scale to identify the fall- prone patient. Can J Aging 1989;8;366-7. Marilyn Pepe (2009). Preventing patient falls. (2nd ed). [place]: Mac. PT-OP-E Functional Tests Start: 08/14/22 08:13 Freq: Status: Active Protocol: Document 11/12/22 14:36 SP (Rec: 11/12/22 15:31 SP [id number]) Functional Tests 6 Minute Walk Test Distance 738ft, able to carry on conversation most time w/ Mask on Device Used 4WW Comments 1 stop stand brief rest, good self postural corrections, UE WB light> mod PT-OP-G Mobility & Gait Start: 08/14/22 08:13 Freq: Status: Active Protocol: Document 08/14/22 11:16 [facility] (Rec: 08/15/22 15:21 [facility] [id number]) OP Gait Assessment Gait Gait Assistance Required: Independent Distance (Feet) 237 Assistive Devices Assistive Device 4 Wheeled Walker Gait Deviations General Gait Pattern Decreased Stride Length, Decreased Feet Clearance, Flexed Trunk,Wide Based Gait Factors Limiting Gait Function Factors Limiting Gait Function Decreased Strength,Pain PT-OP-H Neuro Start: 08/14/22 08:13 Freq: Status: Active Protocol: Document 08/14/22 11:16 [facility] (Rec: 08/15/22 15:21 [facility] [id number]) Sensation Evaluation Gross Sensation Gross Sensation Left LE Impaired,Right LE Impaired Sensation Description Paresthesia,Numbness,Tingling PT-OP-J Posture/Palpation/Skin Start: 08/14/22 08:13 Freq: Status: Active Protocol: Document 08/14/22 11:16 [facility] (Rec: 08/15/22 15:21 [facility] [id number]) Posture Evaluation Position Standing Head/C-Spine Posture Forward Head T-Spine Posture Increased Kyphosis L-Spine Posture Increased Lordosis Shoulder Posture (L) Rounded,(R) Rounded Scapula Posture (L) Protracted,(R) Protracted Arm Posture (L) Internally Rotated,(R) Internally Rotated Pelvis Posture Anteriorly Tilted PT-OP-K Range of Motion Start: 08/14/22 08:13 Freq: Status: Active Protocol: Document 08/14/22 11:16 [facility] (Rec: 08/15/22 15:21 [facility] [id number]) Lumbar Spine Range of Motion Lumbar Spine Active ROM Limitations Pain Comments moderate decrease due to pain Hip Goniometric Range of Motion Hip ROM Limitations Hip ROM Limitations Soft Tissue Tightness,Pain Comments moderate decrease oxana Knee Goniometric Range of Motion Knee Measured in Degrees oxana Knee ROM WFL Yes Ankle and Foot Goniometric Range of Motion Ankle and Foot Measured in Degrees oxana Ankle/Foot ROM WFL Yes PT-OP-M Strength Start: 08/14/22 08:13 Freq: Status: Active Protocol: Document 08/14/22 11:16 [facility] (Rec: 08/15/22 15:21 [facility] [id number]) Trunk Strength Trunk Manual Muscle Testing Core Stabilization poor Hip Strength Hip Manual Muscle Testing Left Flexion (L2) 3- Fair- Extension (S1) 2+ Poor+ Abduction 3- Fair- Adduction 3- Fair- External Rotation 3- Fair- Internal Rotation 3- Fair- Right Flexion (L2) 3- Fair- Extension (S1) 3- Fair- Abduction 3- Fair- Adduction 3- Fair- External Rotation 3- Fair- Internal Rotation 3+ Fair+ Knee Strength Knee Manual Muscle Testing Left Flexion (S2) 4- Good- Extension (L3) 4- Good- Right Flexion (S2) 4 Good Extension (L3) 4 Good Ankle/Foot Strength Ankle and Foot Manual Muscle Testing Left Dorsiflexion (L4) 3+ Fair+ Plantarflexion (S1) 3+ Fair+ Right Dorsiflexion (L4) 4+ Good+ Plantarflexion (S1) 4+ Good+ PT-OP-Q Treatments Start: 08/14/22 08:13 Freq: Status: Active Protocol: Document 11/20/22 13:00 [facility] (Rec: 11/20/22 13:46 [facility] [id number]) Cardio Equipment Recumbent Stepper (Sci-Fit) Duration (Minutes) 10 Resistance 2.5 Seat Position 14 Other 45-50 RPM's, LEs only, 1.17 miles Therapeutic Exercises Standing Exercises core press outs/paloff press Standing Exercise Name added to HEP Side bilateral Resistance TB #3 Reps/Minutes 2x10 each side Comments good form, soft knee sit <> stands Equipment Used green fabric chair (18) Reps/Minutes 5x STS 24 sec, no UE support ( arms held from momentum last 2 reps) Comments good posture and comes to full stand row, shoulder ext Standing Exercise Name shld ext Side bilateral Resistance TB #3 Reps/Minutes 2x10 Comments good form, stated steady on feet, good work soft knees Gait Training Gait Activity gait 4WW Device Used 4WW Level of Assistance S Surface firm Treatment Focus tall posturing, proper breath, activity tolerance Comments 5 min, stopped due to rubber knees Neuro Re-Education Treatment Balance Activities obstacle course Details balance recovery, functional strengthening Equipment 2 blue mat, green oval cushions, 2 hurdles, 4 step Comments Cue tall posture, core fac during opp LE advancement. step ups Equipment 6 step Reps/Duration 2x5 reps Comments cued sequence patterning, slow eccentric step back down, cued core for balance control tiltboard Details balance recovery Reps/Duration 8 min total, 2 seated rests Comments 1. wt shift 2. HTs 3. arm swing 4. isometric trunk pressure, release. PT-OP-T Assessment and Plan Start: 08/14/22 08:13 Freq: Status: Active Protocol: Document 11/20/22 13:00 [facility] (Rec: 11/20/22 13:46 [facility] [id number]) Physical Therapy Assessment Goals Five Impairment balance dysfunction Impairment Tinetti gait and balance score 11/28 indicating at high risk for falls Short Term Goal (STG) Improve Tinetti score to moderate fall risk range. 10/03/22 Goal Met- Tinetti: Balance:16/16, Gait:10/13, total. STG Duration 09/13/22 GOAL MET 10/03/22 Client Service Consultant Goal (LTG) Improve Tinetti score to low fall risk range as measure of improved mobility and safety. 10/03/22 Goal Met- Tinetti: Balance:1616, Gait:10/13, total. LTG Duration 11/13/22 Met Goal 10/03/22 Four Impairment trunk weakness and postural impairment Impairment patient with excess lumbar lordosis and forward flexion at trunk Short Term Goal (STG) Patient to be independent in HEP addressing trunk muscle weakness and postural correction 11/12/22: improved posture corrections walking, upright posturing during 6MWT. STG Duration 09/13/22 improving 11/12 Usp Goal (LTG) Patient will demonstrate improved functional trunk strength as evidenced by at least 50% improvement in standing and walking posture 11/12/22: improved posture corrections walking, upright posturing during 6MWT. LTG Duration 01/01/22 Three Impairment LE weakness Impairment unable to move from sit to stand from standard height chair without moderate use of UE's Short Term Goal (STG) Patient will be able to transfer from sit to stand from standard height chair without minimal to no use of UE's and be independent in HEP for LE strengthening. 10/03/22: progressin STS in 30 sec, on black 19 height table without use UEs 10/17/22: progressing 10 STS in 53 from 18 table. 11/02/22: GOAL MET: 5 STS in 21 sec without UE support from standard mesh chair. STG Duration 09/13/22 GOAL MET 11/02/22 Client Service Consultant Goal (LTG) Patient will improve functional LE strength as evidenced by ability to transfer sit to stand from standard height chair 10x in a row. 10/03/22: progressin10/03/22: progressin STS in 30 sec, on black 19 height table without use UEs 10/10/22: 8 reps from 18 table before quads tire and SOB. 10/17/22: Goal Met form 18 table. LTG Duration 11/13/22 Goal Met 10/17/22 Two Impairment pain ranging from 1-9/10 lumbar spine Short Term Goal (STG) decrease pain to no greater than 6/10 with all usual activities. 10/03/22- Slow progression able to stand 4 mins before pain increases to 9/10. 11/02/22: MET GOAL States LBP better average worst 2/10 unless doing strenuous activities STG Duration 09/13/22 goal met 11/02/22 Client Service Consultant Goal (LTG) Decrease pain to no greater than 3/10 with all usual activities 10/10/22:Pain has been 2-3/10 in lower back and into quads since last tx. He reports he knows his limits and can limit his pain. 11/02/22: GOAL MET: 2/10 worst unless doing strenuous activities like pushing grocery cart around store 3/10 . LTG Duration 11/13/22 GOAl MET 11/02/22 One Impairment gait impairment Impairment 2 min walk test 237 ft using 4WW, limited by low back pain and fatigue Short Term Goal (STG) Patient will be able to tolerate 6 min walk test and ambulate at least 800 ft with least restrictive device. 10/03/22- progressin min walk test: Performed 405ft in 4 Min 21sec w/ use of 4WW. 10/17/22-progressin min walk test: Performed 480 ft in 4 mins 16 secs w/ use of 4ww. 11/02/22: progressin ft in 5 min using 4WW, good intermittent upright posturing during gait without cues 11/12/22: 738 ft in 5 min 41 sec with 1 stop stand brief rest, use 4WW. STG Duration 09/13/22 progressing 11/12/22 Client Service Consultant Goal (LTG) 1400 ft on 6 min walk test using SPC to improve functional gait in the home and community 10/03/22- progressin min walk test: Performed 405ft in 4 Min 21sec w/ use of 4WW. 10/17/22: 6 min walk test: 480ft 4 mins 16 secs w/ use of 4ww. 11/02/22: progressin ft in 5 min using 4WW, good intermittent upright posturing during gait without cues. 11/12/22: 738 ft in 5 min 41 sec with 1 stop stand brief rest, use 4WW. LTG Duration 01/01/22 Assessment Summary Assessment Patient continues to make progress with strength, balance, activity tolerance. Feel he would benefit from further skilled PT to help him fully achieve his PT goals. Physical Therapy Plan Frequency and Duration Frequency of Treatment 2x/Week Duration of treatment (weeks) 4 Plan of Care Start Date 11/20/22 Plan of Care End Date 01/01/22 Therapeutic Interventions Therapeutic Interventions Aquatic Therapy,Balance Training,Gait Training,Home Exercise Program,Manual Therapy,Neuromuscular Re- education,Patient/Caregiver Education,Self-Care/Home Management,Soft Tissue Mobilization,Taping, Therapeutic Activities, Therapeutic Exercises Modalities Cold Pack/Ice Massage,Electric Stimulation,Hot Packs Next Visit Focus/Plan Next Note Type Treatment Note Next Visit Plan Continue PT to work on gait training, strengthening, activity tolerance progression .
--- NOTE | 2022-11-22 15:51 | PT.OTN ---
Current Diagnoses Weakness (11/22/22) Physical Therapy Treatment Note PT-OP-A Visit Information Start: 08/14/22 08:13 Freq: Status: Active Protocol: Document 11/22/22 15:11 [facility] (Rec: 11/22/22 15:51 [facility] [id number]) Out-Patient Physical Therapy Visit Information Visit Information Visit Type Treatment Note Visit Note PT. Visit Start Time 15:12 Visit Stop Time 15:57 Total Visit Minutes 45 Visit Number 18 Number of BISCUIT PACKER Visits 0 Evaluation Information Evaluation Date 08/14/22 Precautions Precautions HTN, a-fib, depression, history blood clots, falls, neuropathy, PE, SOB, thyroid dysfunction, carpal tunnel surgery. *08/24/22: pt reported PMH caution exersion with UEs can cause tingling and lower SaO2 and gets weak/lightheadedness/ low RBCs feeling that can cause instability. PT-OP-B Current Condition Start: 08/14/22 08:13 Freq: Status: Active Protocol: Document 08/30/22 13:00 [facility] (Rec: 08/30/22 13:44 [facility] [id number]) Current Condition History of Current Condition Onset Date 10 years. Current Complaints weakness History of Current Condition back surgery 15 years ago, major back surgery 10 years ago with fusion; prior to surgery flat on back 6 months prior to surgery. Reports fair recovery from surger but states stamina and weakness very low at this time, uses cane or FWW at home and in the community. Self-care independent but painful and takes a long time. No regular exercise routine. 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 Has treadmill at home, hasn't used for 20 yrs, recumbant bike hasn't used for 1 year. Prior Treatments and Tests No recent imaging. Future Testing and Treatments Planned unsure of any further MD appointment schedule. Treatment Goals Patient/Caregiver Goals move easier, improve balance, reeceptive to HEP PT-OP-C Subjective Start: 08/14/22 08:13 Freq: Status: Active Protocol: Document 11/22/22 15:11 [facility] (Rec: 11/22/22 15:51 [facility] [id number]) OP-PT Subjective Patient Comments Patient Comments No new c/o PT-OP-D Balance Start: 08/14/22 08:13 Freq: Status: Active Protocol: Document 08/14/22 11:16 [facility] (Rec: 08/15/22 15:21 [facility] [id number]) OP-PT Balance Assessment Sitting Balance Static Sitting Balance Ability Normal Dynamic Sitting Balance Ability Normal Standing Balance Device Used 4WW Tinetti Balance Assessment Sitting Balance Sitting Balance Steady, safe Arising from Chair Ability to Arise Able, uses arms to help Attempts to Arise Arises on 1st attempt Standing Balance Immediate Standing Balance Steady with support Standing Balance Steady, wide stance Nudged Response Staggers, catches self Standing with Eyes Closed Unsteady Turning Step Pattern Turning 360 Degrees Discontinuous steps Stability Turning 360 Degrees Unsteady, grabs/staggers Sitting Down Sitting Down Uses arms or unsteady Gait and Step Initiation of Gait No hesitancy Right Foot Step Length Does not pass stance ft. Right Foot Step Height Does not clear floor Left Foot Step Length Does not pass stance foot Left Foot Step Height Does not clear floor Step Description Step Symmetry Step length appears equal Step Continuity Steps appear continuous Gait Description Path Description Mild/moderate deviation Trunk Description Marked sway or uses aide Walking Stance Heels apart Scoring and Interpretation Tinetti Composite Score (points) 12 Peep Fall Scale Copyright Permission PT-OP-E Functional Tests Start: 08/14/22 08:13 Freq: Status: Active Protocol: Document 11/12/22 14:36 [facility] (Rec: 11/12/22 15:31 [facility] [id number]) Functional Tests 6 Minute Walk Test Distance 738ft, able to carry on conversation most time w/ Mask on Device Used 4WW Comments 1 stop stand brief rest, good self postural corrections, UE WB light> mod PT-OP-G Mobility & Gait Start: 08/14/22 08:13 Freq: Status: Active Protocol: Document 08/14/22 11:16 [facility] (Rec: 08/15/22 15:21 [facility] [id number]) OP Gait Assessment Gait Gait Assistance Required: Independent Distance (Feet) 237 Assistive Devices Assistive Device 4 Wheeled Walker Gait Deviations General Gait Pattern Decreased Stride Length, Decreased Feet Clearance, Flexed Trunk,Wide Based Gait Factors Limiting Gait Function Factors Limiting Gait Function Decreased Strength,Pain PT-OP-H Neuro Start: 08/14/22 08:13 Freq: Status: Active Protocol: Document 08/14/22 11:16 [facility] (Rec: 08/15/22 15:21 [facility] [id number]) Sensation Evaluation Gross Sensation Gross Sensation Left LE Impaired,Right LE Impaired Sensation Description Paresthesia,Numbness,Tingling PT-OP-J Posture/Palpation/Skin Start: 08/14/22 08:13 Freq: Status: Active Protocol: Document 08/14/22 11:16 [facility] (Rec: 08/15/22 15:21 [facility] [id number]) Posture Evaluation Position Standing Head/C-Spine Posture Forward Head T-Spine Posture Increased Kyphosis L-Spine Posture Increased Lordosis Shoulder Posture (L) Rounded,(R) Rounded Scapula Posture (L) Protracted,(R) Protracted Arm Posture (L) Internally Rotated,(R) Internally Rotated Pelvis Posture Anteriorly Tilted PT-OP-K Range of Motion Start: 08/14/22 08:13 Freq: Status: Active Protocol: Document 08/14/22 11:16 [facility] (Rec: 08/15/22 15:21 [facility] [id number]) Lumbar Spine Range of Motion Lumbar Spine Active ROM Limitations Pain Comments moderate decrease due to pain Hip Goniometric Range of Motion Hip ROM Limitations Hip ROM Limitations Soft Tissue Tightness,Pain Comments moderate decrease oxana Knee Goniometric Range of Motion Knee oxana Knee ROM WFL Yes Ankle and Foot Goniometric Range of Motion Ankle and Foot oxana Ankle/Foot ROM WFL Yes PT-OP-M Strength Start: 08/14/22 08:13 Freq: Status: Active Protocol: Document 08/14/22 11:16 [facility] (Rec: 08/15/22 15:21 [facility] [id number]) Trunk Strength Trunk Manual Muscle Testing Core Stabilization poor Hip Strength Hip Manual Muscle Testing Left Flexion (L2) 3- Fair- Extension (S1) 2+ Poor+ Abduction 3- Fair- Adduction 3- Fair- External Rotation 3- Fair- Internal Rotation 3- Fair- Right Flexion (L2) 3- Fair- Extension (S1) 3- Fair- Abduction 3- Fair- Adduction 3- Fair- External Rotation 3- Fair- Internal Rotation 3+ Fair+ Knee Strength Knee Manual Muscle Testing Left Flexion (S2) 4- Good- Extension (L3) 4- Good- Right Flexion (S2) 4 Good Extension (L3) 4 Good Ankle/Foot Strength Ankle and Foot Manual Muscle Testing Left Dorsiflexion (L4) 3+ Fair+ Plantarflexion (S1) 3+ Fair+ Right Dorsiflexion (L4) 4+ Good+ Plantarflexion (S1) 4+ Good+ PT-OP-Q Treatments Start: 08/14/22 08:13 Freq: Status: Active Protocol: Document 11/22/22 15:11 [facility] (Rec: 11/22/22 15:51 [facility] [id number]) Cardio Equipment Recumbent Stepper (Sci-Fit) Duration (Minutes) 10 Resistance 2.5 Seat Position 14 Other 45-50 RPM's, LEs only, 1.17 miles Therapeutic Exercises Sitting Exercises sit to stand Reps/Minutes 10x Comments 21 surface mat, no UE's Standing Exercises core press outs/paloff press Standing Exercise Name added to HEP Side bilateral Resistance TB #3 Reps/Minutes 2x10 each side Comments good form, soft knee row, shoulder ext Standing Exercise Name shld ext Side bilateral Resistance TB #3 Reps/Minutes 2x10 Comments good form, stated steady on feet, good work soft knees Gait Training Gait Activity walk without device Description fwd,back, sideways Device Used parallel bars Level of Assistance min UE support Surface firm Distance/Duration 10'x4 Treatment Focus upright posture, dec support gait 4WW Device Used 4WW Level of Assistance S Surface firm Treatment Focus tall posturing, proper breath, activity tolerance Comments 3.5 min,2.5 min Neuro Re-Education Treatment Balance Activities obstacle course Details balance recovery, functional strengthening Equipment 2 blue mat, green oval cushions, 2 hurdles, 4 step Comments Cue tall posture, core fac during opp LE advancement. balloon vb Surface blue foam Equipment parallel bars Reps/Duration 2 min x 2 Comments Tended to lean forward but self recovery standing, stated lateral and anterior thighs tired out and need stop and rest, little SOB as well with mask PT-OP-T Assessment and Plan Start: 08/14/22 08:13 Freq: Status: Active Protocol: Document 11/22/22 15:11 [facility] (Rec: 11/22/22 15:51 [facility] [id number]) Physical Therapy Assessment Goals Five Impairment balance dysfunction Impairment Tinetti gait and balance score 11/28 indicating at high risk for falls Short Term Goal (STG) Improve Tinetti score to moderate fall risk range. 10/03/22 Goal Met- Tinetti: Balance:16/16, Gait:10/13, total. STG Duration 09/13/22 GOAL MET 10/03/22 Foreign Exchange Services Manager Goal (LTG) Improve Tinetti score to low fall risk range as measure of improved mobility and safety. 10/03/22 Goal Met- Tinetti: Balance:, Gait:10/13, total. LTG Duration 11/13/22 Met Goal 10/03/22 Four Impairment trunk weakness and postural impairment Impairment patient with excess lumbar lordosis and forward flexion at trunk Short Term Goal (STG) Patient to be independent in HEP addressing trunk muscle weakness and postural correction 11/12/22: improved posture corrections walking, upright posturing during 6MWT. STG Duration 09/13/22 improving 11/12 Residential Goal (LTG) Patient will demonstrate improved functional trunk strength as evidenced by at least 50% improvement in standing and walking posture 11/12/22: improved posture corrections walking, upright posturing during 6MWT. LTG Duration 01/01/22 Three Impairment LE weakness Impairment unable to move from sit to stand from standard height chair without moderate use of UE's Short Term Goal (STG) Patient will be able to transfer from sit to stand from standard height chair without minimal to no use of UE's and be independent in HEP for LE strengthening. 10/03/22: progressin STS in 30 sec, on black 19 height table without use UEs 10/17/22: progressing 10 STS in 53 from 18 table. 11/02/22: GOAL MET: 5 STS in 21 sec without UE support from standard mesh chair. STG Duration 09/13/22 GOAL MET 11/02/22 Residential Goal (LTG) Patient will improve functional LE strength as evidenced by ability to transfer sit to stand from standard height chair 10x in a row. 10/03/22: progressin10/03/22: progressin STS in 30 sec, on black 19 height table without use UEs 10/10/22: 8 reps from 18 table before quads tire and SOB. 10/17/22: Goal Met form 18 table. LTG Duration 11/13/22 Goal Met 10/17/22 Two Impairment pain ranging from 1-9/10 lumbar spine Short Term Goal (STG) decrease pain to no greater than 6/10 with all usual activities. 10/03/22- Slow progression able to stand 4 mins before pain increases to 9/10. 11/02/22: MET GOAL States LBP better average worst 2/10 unless doing strenuous activities STG Duration 09/13/22 goal met 11/02/22 Residential Goal (LTG) Decrease pain to no greater than 3/10 with all usual activities 10/10/22:Pain has been 2-3/10 in lower back and into quads since last tx. He reports he knows his limits and can limit his pain. 11/02/22: GOAL MET: 2/10 worst unless doing strenuous activities like pushing grocery cart around store 3/10 . LTG Duration 11/13/22 GOAl MET 11/02/22 One Impairment gait impairment Impairment 2 min walk test 237 ft using 4WW, limited by low back pain and fatigue Short Term Goal (STG) Patient will be able to tolerate 6 min walk test and ambulate at least 800 ft with least restrictive device. 10/03/22- progressin min walk test: Performed 405ft in 4 Min 21sec w/ use of 4WW. 10/17/22-progressin min walk test: Performed 480 ft in 4 mins 16 secs w/ use of 4ww. 11/02/22: progressin ft in 5 min using 4WW, good intermittent upright posturing during gait without cues 11/12/22: 738 ft in 5 min 41 sec with 1 stop stand brief rest, use 4WW. STG Duration 09/13/22 progressing 11/12/22 Foreign Exchange Services Manager Goal (LTG) 1400 ft on 6 min walk test using SPC to improve functional gait in the home and community 10/03/22- progressin min walk test: Performed 405ft in 4 Min 21sec w/ use of 4WW. 10/17/22: 6 min walk test: 480ft 4 mins 16 secs w/ use of 4ww. 11/02/22: progressin ft in 5 min using 4WW, good intermittent upright posturing during gait without cues. 11/12/22: 738 ft in 5 min 41 sec with 1 stop stand brief rest, use 4WW. LTG Duration 01/01/22 Assessment Summary Assessment Started with standing ex and gait training today, working to increase standing savanah. Physical Therapy Plan Frequency and Duration Frequency of Treatment 2x/Week Duration of treatment (weeks) 4 Plan of Care Start Date 11/20/22 Plan of Care End Date 01/01/22 Therapeutic Interventions Therapeutic Interventions Aquatic Therapy,Balance Training,Gait Training,Home Exercise Program,Manual Therapy,Neuromuscular Re- education,Patient/Caregiver Education,Self-Care/Home Management,Soft Tissue Mobilization,Taping, Therapeutic Activities, Therapeutic Exercises Modalities Cold Pack/Ice Massage,Electric Stimulation,Hot Packs Next Visit Focus/Plan Next Note Type Treatment Note Next Visit Plan Continue PT to work on gait training, strengthening, activity tolerance progression .
--- NOTE | 2022-11-28 15:10 | PT.OTN ---
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 *08/24/22: pt reported PMH caution exersion with UEs can cause tingling and lower SaO2 and gets weak/lightheadedness/ low RBCs feeling that can cause instability. PT-OP-B Current Condition Start: 08/14/22 08:13 Freq: Status: Active Protocol: Document 08/30/22 13:00 [facility]AK (Rec: 08/30/22 13:44 [facility] [id number]) Current Condition History of Current Condition Onset Date 10 years. Current Complaints weakness History of Current Condition back surgery 15 years ago, major back surgery 10 years ago with fusion; prior to surgery flat on back 6 months prior to surgery. Reports fair recovery from surger but states stamina and weakness very low at this time, uses cane or FWW at home and in the community. Self-care independent but painful and takes a long time. No regular exercise routine. 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 Has treadmill at home, hasn't used for 20 yrs, recumbant bike hasn't used for 1 year. Prior Treatments and Tests No recent imaging. Future Testing and Treatments Planned unsure of any further MD appointment schedule. Treatment Goals Patient/Caregiver Goals move easier, improve balance, reeceptive to HEP PT-OP-C Subjective Start: 08/14/22 08:13 Freq: Status: Active Protocol: Document 11/28/22 14:28 [facility] (Rec: 11/28/22 15:09 [facility] [id number]) OP-PT Subjective Patient Comments Patient Comments Fell last week on the ice; scraped his knees and knuckles , had increased neurological symptoms in his LE's especially toes, seems to be going away slowly. Pleased he was able to get up off the ground PT-OP-D Balance Start: 08/14/22 08:13 Freq: Status: Active Protocol: Document 08/14/22 11:16 [facility]AK (Rec: 08/15/22 15:21 [facility] [id number]) OP-PT Balance Assessment Sitting Balance Static Sitting Balance Ability Normal Dynamic Sitting Balance Ability Normal Standing Balance Device Used 4WW Tinetti Balance Assessment Sitting Balance Sitting Balance Steady, safe Arising from Chair Ability to Arise Able, uses arms to help Attempts to Arise Arises on 1st attempt Standing Balance Immediate Standing Balance Steady with support Standing Balance Steady, wide stance Nudged Response Staggers, catches self Standing with Eyes Closed Unsteady Turning Step Pattern Turning 360 Degrees Discontinuous steps Stability Turning 360 Degrees Unsteady, grabs/staggers Sitting Down Sitting Down Uses arms or unsteady Gait and Step Initiation of Gait No hesitancy Right Foot Step Length Does not pass stance ft. Right Foot Step Height Does not clear floor Left Foot Step Length Does not pass stance foot Left Foot Step Height Does not clear floor Step Description Step Symmetry Step length appears equal Step Continuity Steps appear continuous Gait Description Path Description Mild/moderate deviation Trunk Description Marked sway or uses aide Walking Stance Heels apart Scoring and Interpretation Tinetti Composite Score (points) 12 Pepe Fall Scale Copyright Permission PT-OP-E Functional Tests Start: 08/14/22 08:13 Freq: Status: Active Protocol: Document 11/12/22 14:36 SP (Rec: 11/12/22 15:31 SP [id number]) Functional Tests 6 Minute Walk Test Distance 738ft, able to carry on conversation most time w/ Mask on Device Used 4WW Comments 1 stop stand brief rest, good self postural corrections, UE WB light> mod PT-OP-G Mobility & Gait Start: 08/14/22 08:13 Freq: Status: Active Protocol: Document 08/14/22 11:16 [facility]AK (Rec: 08/15/22 15:21 [facility]AK [id number]) OP Gait Assessment Gait Gait Assistance Required: Independent Distance (Feet) 237 Assistive Devices Assistive Device 4 Wheeled Walker Gait Deviations General Gait Pattern Decreased Stride Length, Decreased Feet Clearance, Flexed Trunk,Wide Based Gait Factors Limiting Gait Function Factors Limiting Gait Function Decreased Strength,Pain PT-OP-H Neuro Start: 08/14/22 08:13 Freq: Status: Active Protocol: Document 08/14/22 11:16 SAK (Rec: 08/15/22 15:21 [facility] [id number]) Sensation Evaluation Gross Sensation Gross Sensation Left LE Impaired,Right LE Impaired Sensation Description Paresthesia,Numbness,Tingling PT-OP-J Posture/Palpation/Skin Start: 08/14/22 08:13 Freq: Status: Active Protocol: Document 08/14/22 11:16 [facility] (Rec: 08/15/22 15:21 [facility] [id number]) Posture Evaluation Position Standing Head/C-Spine Posture Forward Head T-Spine Posture Increased Kyphosis L-Spine Posture Increased Lordosis Shoulder Posture (L) Rounded,(R) Rounded Scapula Posture (L) Protracted,(R) Protracted Arm Posture (L) Internally Rotated,(R) Internally Rotated Pelvis Posture Anteriorly Tilted PT-OP-K Range of Motion Start: 08/14/22 08:13 Freq: Status: Active Protocol: Document 08/14/22 11:16 [facility] (Rec: 08/15/22 15:21 [facility] [id number]) Lumbar Spine Range of Motion Lumbar Spine Active ROM Limitations Pain Comments moderate decrease due to pain Hip Goniometric Range of Motion Hip ROM Limitations Hip ROM Limitations Soft Tissue Tightness,Pain Comments moderate decrease oxana Knee Goniometric Range of Motion Knee oxana Knee ROM WFL Yes Ankle and Foot Goniometric Range of Motion Ankle and Foot oxana Ankle/Foot ROM WFL Yes PT-OP-M Strength Start: 08/14/22 08:13 Freq: Status: Active Protocol: Document 08/14/22 11:16 [facility] (Rec: 08/15/22 15:21 [facility] [id number]) Trunk Strength Trunk Manual Muscle Testing Core Stabilization poor Hip Strength Hip Manual Muscle Testing Left Flexion (L2) 3- Fair- Extension (S1) 2+ Poor+ Abduction 3- Fair- Adduction 3- Fair- External Rotation 3- Fair- Internal Rotation 3- Fair- Right Flexion (L2) 3- Fair- Extension (S1) 3- Fair- Abduction 3- Fair- Adduction 3- Fair- External Rotation 3- Fair- Internal Rotation 3+ Fair+ Knee Strength Knee Manual Muscle Testing Left Flexion (S2) 4- Good- Extension (L3) 4- Good- Right Flexion (S2) 4 Good Extension (L3) 4 Good Ankle/Foot Strength Ankle and Foot Manual Muscle Testing Left Dorsiflexion (L4) 3+ Fair+ Plantarflexion (S1) 3+ Fair+ Right Dorsiflexion (L4) 4+ Good+ Plantarflexion (S1) 4+ Good+ PT-OP-Q Treatments Start: 08/14/22 08:13 Freq: Status: Active Protocol: Document 11/28/22 14:28 [facility] (Rec: 11/28/22 15:09 [facility] [id number]) Cardio Equipment Recumbent Stepper (Sci-Fit) Duration (Minutes) 10 Resistance 2.5 Seat Position 14 Other 45-50 RPM's, LEs only, 1.26 miles Gym Equipment Shuttle Balance chains red Details balance fwd/bck Reps/Duration 2 min Comments mod UE support, stopped due to back cramping Therapeutic Exercises Standing Exercises core press outs/paloff press Standing Exercise Name added to HEP Side bilateral Resistance TB #3 Reps/Minutes 2x10 each side Comments good form, soft knee row, shoulder ext Standing Exercise Name shld ext Side bilateral Resistance TB #3 Reps/Minutes 2x10 Comments good form, stated steady on feet, good work soft knees wall posture Reps/Minutes 5x5 Gait Training Gait Activity walk without device Description fwd,back, sideways Device Used parallel bars Level of Assistance min UE support Surface firm Distance/Duration 10'x4 Treatment Focus upright posture, dec support gait with SPC Device Used SPCx2 Level of Assistance SBA Surface carpet/tile Distance/Duration 185 ft Treatment Focus posturing, equal WB stability, activity tolerance Comments cued scap and upright posture , required rest break after 1 lap gait 4WW Device Used 4WW Level of Assistance S Surface firm Treatment Focus tall posturing, proper breath, activity tolerance Comments 3.5 Neuro Re-Education Treatment Balance Activities obstacle course Details balance recovery, functional strengthening Equipment 2 blue mat, green oval cushions, 2 hurdles, 4 & 6 step Comments Cue tall posture, core fac during opp LE advancement. balloon vb Surface blue foam Equipment parallel bars Reps/Duration 2 min x 2 Comments Tended to lean forward but self recovery standing, stated lateral and anterior thighs tired out and need stop and rest, little SOB as well with mask tiltboard Details balance recovery Reps/Duration 8 min total, 2 seated rests Comments 1. wt shift 2. HTs 3. arm swing 4. isometric trunk pressure, release. PT-OP-T Assessment and Plan Start: 08/14/22 08:13 Freq: Status: Active Protocol: Document 11/28/22 14:28 [facility] (Rec: 11/28/22 15:09 [facility] [id number]) Physical Therapy Assessment Goals Five Impairment balance dysfunction Impairment Tinetti gait and balance score 11/28 indicating at high risk for falls Short Term Goal (STG) Improve Tinetti score to moderate fall risk range. 10/03/22 Goal Met- Tinetti: Balance:16/16, Gait:10/13, total. STG Duration 09/13/22 GOAL MET 10/03/22 Hr Advisor Goal (LTG) Improve Tinetti score to low fall risk range as measure of improved mobility and safety. 10/03/22 Goal Met- Tinetti: Balance:1616, Gait:10/13, total. LTG Duration 11/13/22 Met Goal 10/03/22 Four Impairment trunk weakness and postural impairment Impairment patient with excess lumbar lordosis and forward flexion at trunk Short Term Goal (STG) Patient to be independent in HEP addressing trunk muscle weakness and postural correction 11/12/22: improved posture corrections walking, upright posturing during 6MWT. STG Duration 09/13/22 improving 11/12 Intermediate Goal (LTG) Patient will demonstrate improved functional trunk strength as evidenced by at least 50% improvement in standing and walking posture 11/12/22: improved posture corrections walking, upright posturing during 6MWT. LTG Duration 01/01/22 Three Impairment LE weakness Impairment unable to move from sit to stand from standard height chair without moderate use of UE's Short Term Goal (STG) Patient will be able to transfer from sit to stand from standard height chair without minimal to no use of UE's and be independent in HEP for LE strengthening. 10/03/22: progressin STS in 30 sec, on black 19 height table without use UEs 10/17/22: progressing 10 STS in 53 from 18 table. 11/02/22: GOAL MET: 5 STS in 21 sec without UE support from standard mesh chair. STG Duration 09/13/22 GOAL MET 11/02/22 Hr Advisor Goal (LTG) Patient will improve functional LE strength as evidenced by ability to transfer sit to stand from standard height chair 10x in a row. 10/03/22: progressin10/03/22: progressin STS in 30 sec, on black 19 height table without use UEs 10/10/22: 8 reps from 18 table before quads tire and SOB. 10/17/22: Goal Met form 18 table. LTG Duration 11/13/22 Goal Met 10/17/22 Two Impairment pain ranging from 1-9/10 lumbar spine Short Term Goal (STG) decrease pain to no greater than 6/10 with all usual activities. 10/03/22- Slow progression able to stand 4 mins before pain increases to 9/10. 11/02/22: MET GOAL States LBP better average worst 2/10 unless doing strenuous activities STG Duration 09/13/22 goal met 11/02/22 Hr Advisor Goal (LTG) Decrease pain to no greater than 3/10 with all usual activities 10/10/22:Pain has been 2-3/10 in lower back and into quads since last tx. He reports he knows his limits and can limit his pain. 11/02/22: GOAL MET: 2/10 worst unless doing strenuous activities like pushing grocery cart around store 3/10 . LTG Duration 11/13/22 GOAl MET 11/02/22 One Impairment gait impairment Impairment 2 min walk test 237 ft using 4WW, limited by low back pain and fatigue Short Term Goal (STG) Patient will be able to tolerate 6 min walk test and ambulate at least 800 ft with least restrictive device. 10/03/22- progressin min walk test: Performed 405ft in 4 Min 21sec w/ use of 4WW. 10/17/22-progressin min walk test: Performed 480 ft in 4 mins 16 secs w/ use of 4ww. 11/02/22: progressin ft in 5 min using 4WW, good intermittent upright posturing during gait without cues 11/12/22: 738 ft in 5 min 41 sec with 1 stop stand brief rest, use 4WW. STG Duration 09/13/22 progressing 11/12/22 Hr Advisor Goal (LTG) 1400 ft on 6 min walk test using SPC to improve functional gait in the home and community 10/03/22- progressin min walk test: Performed 405ft in 4 Min 21sec w/ use of 4WW. 10/17/22: 6 min walk test: 480ft 4 mins 16 secs w/ use of 4ww. 11/02/22: progressin ft in 5 min using 4WW, good intermittent upright posturing during gait without cues. 11/12/22: 738 ft in 5 min 41 sec with 1 stop stand brief rest, use 4WW. LTG Duration 01/01/22 Assessment Summary Assessment Improving functional strength. Better posture with gait using SPC's Physical Therapy Plan Frequency and Duration Frequency of Treatment 2x/Week Duration of treatment (weeks) 4 Plan of Care Start Date 11/20/22 Plan of Care End Date 01/01/22 Therapeutic Interventions Therapeutic Interventions Aquatic Therapy,Balance Training,Gait Training,Home Exercise Program,Manual Therapy,Neuromuscular Re- education,Patient/Caregiver Education,Self-Care/Home Management,Soft Tissue Mobilization,Taping, Therapeutic Activities, Therapeutic Exercises Modalities Cold Pack/Ice Massage,Electric Stimulation,Hot Packs Next Visit Focus/Plan Next Note Type Progress Note Next Visit Plan Continue PT to work on gait training, strengthening, activity tolerance progression .
--- NOTE | 2022-12-05 14:21 | PT.OTN ---
Current Diagnoses Weakness (12/05/22) Physical Therapy Treatment Note PT-OP-A Visit Information Start: 08/14/22 08:13 Freq: Status: Active Protocol: Document 12/05/22 13:46 SAK (Rec: 12/05/22 14:20 [facility] [id number]) Out-Patient Physical Therapy Visit Information Visit Information Visit Type Treatment Note Visit Start Time 13:47 Visit Stop Time 14:30 Total Visit Minutes 43 Visit Number 20 Number of NCA CERTIFIED CONCIERGE Visits 0 Evaluation Information Evaluation Date 08/14/22 Precautions Precautions HTN, a-fib, depression, history blood clots, falls, neuropathy, PE, SOB, thyroid dysfunction, carpal tunnel surgery. *08/24/22: pt reported PMH caution exersion with UEs can cause tingling and lower SaO2 and gets weak/lightheadedness/ low RBCs feeling that can cause instability. PT-OP-B Current Condition Start: 08/14/22 08:13 Freq: Status: Active Protocol: Document 08/30/22 13:00 SAK (Rec: 08/30/22 13:44 [facility] [id number]) Current Condition History of Current Condition Onset Date 10 years. Current Complaints weakness History of Current Condition back surgery 15 years ago, major back surgery 10 years ago with fusion; prior to surgery flat on back 6 months prior to surgery. Reports fair recovery from surger but states stamina and weakness very low at this time, uses cane or FWW at home and in the community. Self-care independent but painful and takes a long time. No regular exercise routine. 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 Has treadmill at home, hasn't used for 20 yrs, recumbant bike hasn't used for 1 year. Prior Treatments and Tests No recent imaging. Future Testing and Treatments Planned unsure of any further MD appointment schedule. Treatment Goals Patient/Caregiver Goals move easier, improve balance, reeceptive to HEP PT-OP-C Subjective Start: 08/14/22 08:13 Freq: Status: Active Protocol: Document 12/05/22 13:46 SAK (Rec: 12/05/22 14:20 [facility] [id number]) OP-PT Subjective Patient Comments Patient Comments No new c/o, denies any new falls. Feeling kind of whimpy lately PT-OP-D Balance Start: 08/14/22 08:13 Freq: Status: Active Protocol: Document 08/14/22 11:16 SAK (Rec: 08/15/22 15:21 [facility] [id number]) OP-PT Balance Assessment Sitting Balance Static Sitting Balance Ability Normal Dynamic Sitting Balance Ability Normal Standing Balance Device Used 4WW Tinetti Balance Assessment Sitting Balance Sitting Balance Steady, safe Arising from Chair Ability to Arise Able, uses arms to help Attempts to Arise Arises on 1st attempt Standing Balance Immediate Standing Balance Steady with support Standing Balance Steady, wide stance Nudged Response Staggers, catches self Standing with Eyes Closed Unsteady Turning Step Pattern Turning 360 Degrees Discontinuous steps Stability Turning 360 Degrees Unsteady, grabs/staggers Sitting Down Sitting Down Uses arms or unsteady Gait and Step Initiation of Gait No hesitancy Right Foot Step Length Does not pass stance ft. Right Foot Step Height Does not clear floor Left Foot Step Length Does not pass stance foot Left Foot Step Height Does not clear floor Step Description Step Symmetry Step length appears equal Step Continuity Steps appear continuous Gait Description Path Description Mild/moderate deviation Trunk Description Marked sway or uses aide Walking Stance Heels apart Scoring and Interpretation Tinetti Composite Score (points) 12 Pepe Fall Scale Copyright Permission PT-OP-E Functional Tests Start: 08/14/22 08:13 Freq: Status: Active Protocol: Document 11/12/22 14:36 SP (Rec: 11/12/22 15:31 SP [id number]) Functional Tests 6 Minute Walk Test Distance 738ft, able to carry on conversation most time w/ Mask on Device Used 4WW Comments 1 stop stand brief rest, good self postural corrections, UE WB light> mod PT-OP-G Mobility & Gait Start: 08/14/22 08:13 Freq: Status: Active Protocol: Document 08/14/22 11:16 SAK (Rec: 08/15/22 15:21 [facility] [id number]) OP Gait Assessment Gait Gait Assistance Required: Independent Distance (Feet) 237 Assistive Devices Assistive Device 4 Wheeled Walker Gait Deviations General Gait Pattern Decreased Stride Length, Decreased Feet Clearance, Flexed Trunk,Wide Based Gait Factors Limiting Gait Function Factors Limiting Gait Function Decreased Strength,Pain PT-OP-H Neuro Start: 08/14/22 08:13 Freq: Status: Active Protocol: Document 08/14/22 11:16 SAK (Rec: 08/15/22 15:21 SAK [id number]) Sensation Evaluation Gross Sensation Gross Sensation Left LE Impaired,Right LE Impaired Sensation Description Paresthesia,Numbness,Tingling PT-OP-J Posture/Palpation/Skin Start: 08/14/22 08:13 Freq: Status: Active Protocol: Document 08/14/22 11:16 [facility] (Rec: 08/15/22 15:21 [facility] [id number]) Posture Evaluation Position Standing Head/C-Spine Posture Forward Head T-Spine Posture Increased Kyphosis L-Spine Posture Increased Lordosis Shoulder Posture (L) Rounded,(R) Rounded Scapula Posture (L) Protracted,(R) Protracted Arm Posture (L) Internally Rotated,(R) Internally Rotated Pelvis Posture Anteriorly Tilted PT-OP-K Range of Motion Start: 08/14/22 08:13 Freq: Status: Active Protocol: Document 08/14/22 11:16 [facility] (Rec: 08/15/22 15:21 [facility] [id number]) Lumbar Spine Range of Motion Lumbar Spine Active ROM Limitations Pain Comments moderate decrease due to pain Hip Goniometric Range of Motion Hip ROM Limitations Hip ROM Limitations Soft Tissue Tightness,Pain Comments moderate decrease oxana Knee Goniometric Range of Motion Knee oxana Knee ROM WFL Yes Ankle and Foot Goniometric Range of Motion Ankle and Foot oxana Ankle/Foot ROM WFL Yes PT-OP-M Strength Start: 08/14/22 08:13 Freq: Status: Active Protocol: Document 08/14/22 11:16 [facility] (Rec: 08/15/22 15:21 [facility] [id number]) Trunk Strength Trunk Manual Muscle Testing Core Stabilization poor Hip Strength Hip Manual Muscle Testing Left Flexion (L2) 3- Fair- Extension (S1) 2+ Poor+ Abduction 3- Fair- Adduction 3- Fair- External Rotation 3- Fair- Internal Rotation 3- Fair- Right Flexion (L2) 3- Fair- Extension (S1) 3- Fair- Abduction 3- Fair- Adduction 3- Fair- External Rotation 3- Fair- Internal Rotation 3+ Fair+ Knee Strength Knee Manual Muscle Testing Left Flexion (S2) 4- Good- Extension (L3) 4- Good- Right Flexion (S2) 4 Good Extension (L3) 4 Good Ankle/Foot Strength Ankle and Foot Manual Muscle Testing Left Dorsiflexion (L4) 3+ Fair+ Plantarflexion (S1) 3+ Fair+ Right Dorsiflexion (L4) 4+ Good+ Plantarflexion (S1) 4+ Good+ PT-OP-Q Treatments Start: 08/14/22 08:13 Freq: Status: Active Protocol: Document 12/05/22 13:46 [facility] (Rec: 12/05/22 14:20 [facility] [id number]) Therapeutic Exercises Sitting Exercises sit to stand Reps/Minutes 5x2 Comments 19 surface mat, no UE's Standing Exercises row, shoulder ext Standing Exercise Name shld ext Side bilateral Resistance TB #3 Reps/Minutes 2x10 Comments good form, stated steady on feet, good work soft knees wall posture Reps/Minutes 5x5 Gait Training Gait Activity walk without device Description fwd,back, sideways Device Used parallel bars Level of Assistance min UE support Surface firm Distance/Duration 10'x4 Treatment Focus upright posture, dec support gait with SPC Device Used SPCx2 Level of Assistance SBA Surface carpet/tile Distance/Duration 3.5 min, Treatment Focus posturing, equal WB stability, activity tolerance Comments cued scap and upright posture , required rest break after 2 lap Neuro Re-Education Treatment Balance Activities obstacle course Details balance recovery, functional strengthening Equipment 2 blue mat, green oval cushions, 2 hurdles, 4 & 6 step Comments Cue tall posture, core fac during opp LE advancement. balloon vb Surface blue foam Equipment parallel bars Reps/Duration 2 min x 2 Comments Tended to lean forward but self recovery standing, stated lateral and anterior thighs tired out and need stop and rest, little SOB as well with mask tiltboard Details balance recovery Reps/Duration 8 min total, 2 seated rests Comments 1. wt shift 2. HTs 3. arm swing 4. isometric trunk pressure, release. PT-OP-T Assessment and Plan Start: 08/14/22 08:13 Freq: Status: Active Protocol: Document 12/05/22 13:46 [facility] (Rec: 12/05/22 14:20 [facility] [id number]) Physical Therapy Assessment Goals Five Impairment balance dysfunction Impairment Tinetti gait and balance score 11/28 indicating at high risk for falls Short Term Goal (STG) Improve Tinetti score to moderate fall risk range. 10/03/22 Goal Met- Tinetti: Balance:1616, Gait:10/13, total. STG Duration 09/13/22 GOAL MET 10/03/22 Suede Cleaner Goal (LTG) Improve Tinetti score to low fall risk range as measure of improved mobility and safety. 11/2/22 Goal Met- Tinetti: Balance:, Gait:10/13, total. LTG Duration 11/13/22 Met Goal 10/03/22 Four Impairment trunk weakness and postural impairment Impairment patient with excess lumbar lordosis and forward flexion at trunk Short Term Goal (STG) Patient to be independent in HEP addressing trunk muscle weakness and postural correction 11/12/22: improved posture corrections walking, upright posturing during 6MWT. STG Duration 09/13/22 improving 11/12 Suede Cleaner Goal (LTG) Patient will demonstrate improved functional trunk strength as evidenced by at least 50% improvement in standing and walking posture 11/12/22: improved posture corrections walking, upright posturing during 6MWT. 12/05/22:Improved posture with gait with SPC x 2 LTG Duration 01/01/22 Three Impairment LE weakness Impairment unable to move from sit to stand from standard height chair without moderate use of UE's Short Term Goal (STG) Patient will be able to transfer from sit to stand from standard height chair without minimal to no use of UE's and be independent in HEP for LE strengthening. 10/03/22: progressin STS in 30 sec, on black 19 height table without use UEs 10/17/22: progressing 10 STS in 53 from 18 table. 11/02/22: GOAL MET: 5 STS in 21 sec without UE support from standard mesh chair. STG Duration 09/13/22 GOAL MET 11/02/22 Custodial Goal (LTG) Patient will improve functional LE strength as evidenced by ability to transfer sit to stand from standard height chair 10x in a row. 10/03/22: progressin10/03/22: progressin STS in 30 sec, on black 19 height table without use UEs 10/10/22: 8 reps from 18 table before quads tire and SOB. 10/17/22: Goal Met form 18 table. LTG Duration 11/13/22 Goal Met 10/17/22 Two Impairment pain ranging from 1-9/10 lumbar spine Short Term Goal (STG) decrease pain to no greater than 6/10 with all usual activities. 10/03/22- Slow progression able to stand 4 mins before pain increases to 9/10. 11/02/22: MET GOAL States LBP better average worst 2/10 unless doing strenuous activities STG Duration 09/13/22 goal met 11/02/22 Suede Cleaner Goal (LTG) Decrease pain to no greater than 3/10 with all usual activities 10/10/22:Pain has been 2-3/10 in lower back and into quads since last tx. He reports he knows his limits and can limit his pain. 11/02/22: GOAL MET: 2/10 worst unless doing strenuous activities like pushing grocery cart around store 3/10 . LTG Duration 11/13/22 GOAl MET 11/02/22 One Impairment gait impairment Impairment 2 min walk test 237 ft using 4WW, limited by low back pain and fatigue Short Term Goal (STG) Patient will be able to tolerate 6 min walk test and ambulate at least 800 ft with least restrictive device. 10/03/22- progressin min walk test: Performed 405ft in 4 Min 21sec w/ use of 4WW. 10/17/22-progressin min walk test: Performed 480 ft in 4 mins 16 secs w/ use of 4ww. 11/02/22: progressin ft in 5 min using 4WW, good intermittent upright posturing during gait without cues 11/12/22: 738 ft in 5 min 41 sec with 1 stop stand brief rest, use 4WW. STG Duration 09/13/22 progressing 11/12/22 Suede Cleaner Goal (LTG) 1400 ft on 6 min walk test using SPC to improve functional gait in the home and community 10/03/22- progressin min walk test: Performed 405ft in 4 Min 21sec w/ use of 4WW. 10/17/22: 6 min walk test: 480ft 4 mins 16 secs w/ use of 4ww. 11/02/22: progressin ft in 5 min using 4WW, good intermittent upright posturing during gait without cues. 11/12/22: 738 ft in 5 min 41 sec with 1 stop stand brief rest, use 4WW. 12/05/21: 3.5 min 2 laps 1.5 min 1 lap LTG Duration 01/01/22 Progress Towards Goals Progress Towards Goals Progressing Toward Goals Assessment Summary Assessment More fatigued today, needed increase rest breaks. Not as compliant with HEP due to fatigue. Physical Therapy Plan Frequency and Duration Frequency of Treatment 2x/Week Duration of treatment (weeks) 4 Plan of Care Start Date 11/20/22 Plan of Care End Date 01/01/22 Therapeutic Interventions Therapeutic Interventions Aquatic Therapy,Balance Training,Gait Training,Home Exercise Program,Manual Therapy,Neuromuscular Re- education,Patient/Caregiver Education,Self-Care/Home Management,Soft Tissue Mobilization,Taping, Therapeutic Activities, Therapeutic Exercises Modalities Cold Pack/Ice Massage,Electric Stimulation,Hot Packs Next Visit Focus/Plan Next Note Type Treatment Note Next Visit Plan Continue PT to work on gait training, strengthening, activity tolerance progression .
--- NOTE | 2022-12-12 13:43 | PT.OTN ---
Current Diagnoses Weakness (12/12/22) Physical Therapy Treatment Note PT-OP-A Visit Information Start: 08/14/22 08:13 Freq: Status: Active Protocol: Document 12/12/22 13:00 [facility] (Rec: 12/12/22 13:43 [facility] [id number]) Out-Patient Physical Therapy Visit Information Visit Information Visit Type Treatment Note Visit Start Time 13:00 Visit Stop Time 13:43 Total Visit Minutes 43 Visit Number 21 Number of COMMUNICATION CONSULTANT Visits 0 Precautions Precautions HTN, a-fib, depression, history blood clots, falls, neuropathy, PE, SOB, thyroid dysfunction, carpal tunnel surgery. *08/24/22: pt reported PMH caution exersion with UEs can cause tingling and lower SaO2 and gets weak/lightheadedness/ low RBCs feeling that can cause instability. PT-OP-B Current Condition Start: 08/14/22 08:13 Freq: Status: Active Protocol: Document 08/30/22 13:00 [facility] (Rec: 08/30/22 13:44 [facility] [id number]) Current Condition History of Current Condition Onset Date 10 years. Current Complaints weakness History of Current Condition back surgery 15 years ago, major back surgery 10 years ago with fusion; prior to surgery flat on back 6 months prior to surgery. Reports fair recovery from surger but states stamina and weakness very low at this time, uses cane or FWW at home and in the community. Self-care independent but painful and takes a long time. No regular exercise routine. 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 Has treadmill at home, hasn't used for 20 yrs, recumbant bike hasn't used for 1 year. Prior Treatments and Tests No recent imaging. Future Testing and Treatments Planned unsure of any further MD appointment schedule. Treatment Goals Patient/Caregiver Goals move easier, improve balance, reeceptive to HEP PT-OP-C Subjective Start: 08/14/22 08:13 Freq: Status: Active Protocol: Document 12/12/22 13:00 [facility] (Rec: 12/12/22 13:43 [facility] [id number]) OP-PT Subjective Patient Comments Patient Comments Patient not feeling as whimpy today. PT-OP-D Balance Start: 08/14/22 08:13 Freq: Status: Active Protocol: Document 08/14/22 11:16 [facility] (Rec: 08/15/22 15:21 [facility] [id number]) OP-PT Balance Assessment Sitting Balance Static Sitting Balance Ability Normal Dynamic Sitting Balance Ability Normal Standing Balance Device Used 4WW Tinetti Balance Assessment Sitting Balance Sitting Balance Steady, safe Arising from Chair Ability to Arise Able, uses arms to help Attempts to Arise Arises on 1st attempt Standing Balance Immediate Standing Balance Steady with support Standing Balance Steady, wide stance Nudged Response Staggers, catches self Standing with Eyes Closed Unsteady Turning Step Pattern Turning 360 Degrees Discontinuous steps Stability Turning 360 Degrees Unsteady, grabs/staggers Sitting Down Sitting Down Uses arms or unsteady Gait and Step Initiation of Gait No hesitancy Right Foot Step Length Does not pass stance ft. Right Foot Step Height Does not clear floor Left Foot Step Length Does not pass stance foot Left Foot Step Height Does not clear floor Step Description Step Symmetry Step length appears equal Step Continuity Steps appear continuous Gait Description Path Description Mild/moderate deviation Trunk Description Marked sway or uses aide Walking Stance Heels apart Scoring and Interpretation Tinetti Composite Score (points) 12 Pepe Fall Scale Copyright Permission PT-OP-E Functional Tests Start: 08/14/22 08:13 Freq: Status: Active Protocol: Document 11/12/22 14:36 [facility] (Rec: 11/12/22 15:31 [facility] [id number]) Functional Tests 6 Minute Walk Test Distance 738ft, able to carry on conversation most time w/ Mask on Device Used 4WW Comments 1 stop stand brief rest, good self postural corrections, UE WB light> mod PT-OP-G Mobility & Gait Start: 08/14/22 08:13 Freq: Status: Active Protocol: Document 08/14/22 11:16 [facility] (Rec: 08/15/22 15:21 [facility] [id number]) OP Gait Assessment Gait Gait Assistance Required: Independent Distance (Feet) 237 Assistive Devices Assistive Device 4 Wheeled Walker Gait Deviations General Gait Pattern Decreased Stride Length, Decreased Feet Clearance, Flexed Trunk,Wide Based Gait Factors Limiting Gait Function Factors Limiting Gait Function Decreased Strength,Pain PT-OP-H Neuro Start: 08/14/22 08:13 Freq: Status: Active Protocol: Document 08/14/22 11:16 [facility] (Rec: 08/15/22 15:21 [facility] [id number]) Sensation Evaluation Gross Sensation Gross Sensation Left LE Impaired,Right LE Impaired Sensation Description Paresthesia,Numbness,Tingling PT-OP-J Posture/Palpation/Skin Start: 08/14/22 08:13 Freq: Status: Active Protocol: Document 08/14/22 11:16 [facility] (Rec: 08/15/22 15:21 [facility] [id number]) Posture Evaluation Position Standing Head/C-Spine Posture Forward Head T-Spine Posture Increased Kyphosis L-Spine Posture Increased Lordosis Shoulder Posture (L) Rounded,(R) Rounded Scapula Posture (L) Protracted,(R) Protracted Arm Posture (L) Internally Rotated,(R) Internally Rotated Pelvis Posture Anteriorly Tilted PT-OP-K Range of Motion Start: 08/14/22 08:13 Freq: Status: Active Protocol: Document 08/14/22 11:16 [facility] (Rec: 08/15/22 15:21 [facility] [id number]) Lumbar Spine Range of Motion Lumbar Spine Active ROM Limitations Pain Comments moderate decrease due to pain Hip Goniometric Range of Motion Hip ROM Limitations Hip ROM Limitations Soft Tissue Tightness,Pain Comments moderate decrease oxana Knee Goniometric Range of Motion Knee oxana Knee ROM WFL Yes Ankle and Foot Goniometric Range of Motion Ankle and Foot oxana Ankle/Foot ROM WFL Yes PT-OP-M Strength Start: 08/14/22 08:13 Freq: Status: Active Protocol: Document 08/14/22 11:16 [facility] (Rec: 08/15/22 15:21 [facility] [id number]) Trunk Strength Trunk Manual Muscle Testing Core Stabilization poor Hip Strength Hip Manual Muscle Testing Left Flexion (L2) 3- Fair- Extension (S1) 2+ Poor+ Abduction 3- Fair- Adduction 3- Fair- External Rotation 3- Fair- Internal Rotation 3- Fair- Right Flexion (L2) 3- Fair- Extension (S1) 3- Fair- Abduction 3- Fair- Adduction 3- Fair- External Rotation 3- Fair- Internal Rotation 3+ Fair+ Knee Strength Knee Manual Muscle Testing Left Flexion (S2) 4- Good- Extension (L3) 4- Good- Right Flexion (S2) 4 Good Extension (L3) 4 Good Ankle/Foot Strength Ankle and Foot Manual Muscle Testing Left Dorsiflexion (L4) 3+ Fair+ Plantarflexion (S1) 3+ Fair+ Right Dorsiflexion (L4) 4+ Good+ Plantarflexion (S1) 4+ Good+ PT-OP-Q Treatments Start: 08/14/22 08:13 Freq: Status: Active Protocol: Document 12/12/22 13:00 [facility] (Rec: 12/12/22 13:43 [facility] [id number]) Cardio Equipment Recumbent Stepper (Sci-Fit) Duration (Minutes) 10 Resistance 2.5 Seat Position 14 Other 45-50 RPM's, LEs only, 1.26 miles Gym Equipment Shuttle Balance chains green Reps/Duration 5 min Comments balloon vb x 2 min head turns chains red Details balance fwd/bck Reps/Duration 2 min Comments mod UE support Therapeutic Exercises Sitting Exercises sit to stand Equipment Used blue foam under feet Reps/Minutes 5x2 Comments 19 surface mat, no UE's Standing Exercises core press outs/paloff press Standing Exercise Name added to HEP Side bilateral Resistance TB #3 Reps/Minutes 2x10 each side Comments good form, soft knee row, shoulder ext Standing Exercise Name shld ext Side bilateral Resistance TB #3 Reps/Minutes 2x10 Comments good form, stated steady on feet, good work soft knees wall posture Reps/Minutes 5x5 Gait Training Gait Activity 6 Min walk test Description 6 min walk test Device Used 4WW Level of Assistance SBA Surface carpet, tile Distance/Duration 825 ft in 5 min 47 sec Comments 1 brief stop stand rest, good self posturing for decrease LBP. Light>Moderate UE WB on 4WW end tx. Suggested last tx call company of 4WW and ask if have extensions to allow elevate 4WW 1 more knotch. gait with SPC Device Used SPCx2 Level of Assistance SBA Surface carpet/tile Distance/Duration 2,0 min, Treatment Focus posturing, equal WB stability, activity tolerance Comments cued scap and upright posture , required rest break after 2 lap Neuro Re-Education Treatment Balance Activities balloon vb Surface blue foam Equipment parallel bars Reps/Duration 2 min x 2 Comments Tended to lean forward but self recovery standing, stated lateral and anterior thighs tired out and need stop and rest, little SOB as well with mask PT-OP-T Assessment and Plan Start: 08/14/22 08:13 Freq: Status: Active Protocol: Document 12/12/22 13:00 [facility] (Rec: 12/12/22 13:43 [facility] [id number]) Physical Therapy Assessment Goals Five Impairment balance dysfunction Impairment Tinetti gait and balance score 11/28 indicating at high risk for falls Short Term Goal (STG) Improve Tinetti score to moderate fall risk range. 10/03/22 Goal Met- Tinetti: Balance:16, Gait:10/13, total. STG Duration 09/13/22 GOAL MET 10/03/22 Staff Analyst Goal (LTG) Improve Tinetti score to low fall risk range as measure of improved mobility and safety. 10/03/22 Goal Met- Tinetti: Balance:16, Gait:10/13, total. LTG Duration 11/13/22 Met Goal 10/03/22 Four Impairment trunk weakness and postural impairment Impairment patient with excess lumbar lordosis and forward flexion at trunk Short Term Goal (STG) Patient to be independent in HEP addressing trunk muscle weakness and postural correction 11/12/22: improved posture corrections walking, upright posturing during 6MWT. STG Duration 09/13/22 improving 11/12 Staff Analyst Goal (LTG) Patient will demonstrate improved functional trunk strength as evidenced by at least 50% improvement in standing and walking posture 11/12/22: improved posture corrections walking, upright posturing during 6MWT. 12/05/22:Improved posture with gait with SPC x 2 LTG Duration 01/01/22 Three Impairment LE weakness Impairment unable to move from sit to stand from standard height chair without moderate use of UE's Short Term Goal (STG) Patient will be able to transfer from sit to stand from standard height chair without minimal to no use of UE's and be independent in HEP for LE strengthening. 10/03/22: progressin STS in 30 sec, on black 19 height table without use UEs 10/17/22: progressing 10 STS in 53 from 18 table. 11/02/22: GOAL MET: 5 STS in 21 sec without UE support from standard mesh chair. STG Duration 09/13/22 GOAL MET 11/02/22 Staff Analyst Goal (LTG) Patient will improve functional LE strength as evidenced by ability to transfer sit to stand from standard height chair 10x in a row. 10/03/22: progressin10/03/22: progressin STS in 30 sec, on black 19 height table without use UEs 10/10/22: 8 reps from 18 table before quads tire and SOB. 10/17/22: Goal Met form 18 table. LTG Duration 11/13/22 Goal Met 10/17/22 Two Impairment pain ranging from 1-9/10 lumbar spine Short Term Goal (STG) decrease pain to no greater than 6/10 with all usual activities. 10/03/22- Slow progression able to stand 4 mins before pain increases to 9/10. 11/02/22: MET GOAL States LBP better average worst 2/10 unless doing strenuous activities STG Duration 09/13/22 goal met 11/02/22 Staff Analyst Goal (LTG) Decrease pain to no greater than 3/10 with all usual activities 10/10/22:Pain has been 2-3/10 in lower back and into quads since last tx. He reports he knows his limits and can limit his pain. 11/02/22: GOAL MET: 2/10 worst unless doing strenuous activities like pushing grocery cart around store 3/10 . LTG Duration 11/13/22 GOAl MET 11/02/22 One Impairment gait impairment Impairment 2 min walk test 237 ft using 4WW, limited by low back pain and fatigue Short Term Goal (STG) Patient will be able to tolerate 6 min walk test and ambulate at least 800 ft with least restrictive device. 10/03/22- progressin min walk test: Performed 405ft in 4 Min 21sec w/ use of 4WW. 10/17/22-progressin min walk test: Performed 480 ft in 4 mins 16 secs w/ use of 4ww. 11/02/22: progressin ft in 5 min using 4WW, good intermittent upright posturing during gait without cues 11/12/22: 738 ft in 5 min 41 sec with 1 stop stand brief rest, use 4WW. STG Duration 09/13/22 progressing 11/12/22 Halfway Goal (LTG) 1400 ft on 6 min walk test using SPC to improve functional gait in the home and community 10/03/22- progressin min walk test: Performed 405ft in 4 Min 21sec w/ use of 4WW. 10/17/22: 6 min walk test: 480ft 4 mins 16 secs w/ use of 4ww. 11/02/22: progressin ft in 5 min using 4WW, good intermittent upright posturing during gait without cues. 11/12/22: 738 ft in 5 min 41 sec with 1 stop stand brief rest, use 4WW. 12/05/21: 3.5 min 2 laps 1.5 min 1 lap LTG Duration 01/01/22 Progress Towards Goals Progress Towards Goals Progressing Toward Goals Assessment Summary Assessment IMproved activity tolerance and upright posture, improved HEP compliance per his report. Physical Therapy Plan Frequency and Duration Frequency of Treatment 2x/Week Duration of treatment (weeks) 4 Plan of Care Start Date 11/20/22 Plan of Care End Date 01/01/22 Therapeutic Interventions Therapeutic Interventions Aquatic Therapy,Balance Training,Gait Training,Home Exercise Program,Manual Therapy,Neuromuscular Re- education,Patient/Caregiver Education,Self-Care/Home Management,Soft Tissue Mobilization,Taping, Therapeutic Activities, Therapeutic Exercises Modalities Cold Pack/Ice Massage,Electric Stimulation,Hot Packs Next Visit Focus/Plan Next Note Type Treatment Note Next Visit Plan Progress ther ex for strengthening, gait training, activity tolerance progression .
--- NOTE | 2022-12-17 14:30 | PT.OTN ---
Current Diagnoses Weakness (12/17/22) Physical Therapy Treatment Note PT-OP-A Visit Information Start: 08/14/22 08:13 Freq: Status: Active Protocol: Document 12/17/22 13:47 SP (Rec: 12/17/22 14:33 SP [id number]) Out-Patient Physical Therapy Visit Information Visit Information Visit Type Treatment Note Visit Note update PN/POC in 4 visits 12/31 . Visit Start Time 13:47 Visit Stop Time 14:30 Total Visit Minutes 42 Visit Number 22 Number of SENIOR PASTOR Visits 1 Evaluation Information Evaluation Date 08/14/22 Precautions Precautions HTN, a-fib, depression, history blood clots, falls, neuropathy, PE, SOB, thyroid dysfunction, carpal tunnel surgery. *08/24/22: pt reported PMH caution exersion with UEs can cause tingling and lower SaO2 and gets weak/lightheadedness/ low RBCs feeling that can cause instability. PT-OP-B Current Condition Start: 08/14/22 08:13 Freq: Status: Active Protocol: Document 08/30/22 13:00 SAK (Rec: 08/30/22 13:44 SAK [id number]) Current Condition History of Current Condition Onset Date 10 years. Current Complaints weakness History of Current Condition back surgery 15 years ago, major back surgery 10 years ago with fusion; prior to surgery flat on back 6 months prior to surgery. Reports fair recovery from surger but states stamina and weakness very low at this time, uses cane or FWW at home and in the community. Self-care independent but painful and takes a long time. No regular exercise routine. 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 Has treadmill at home, hasn't used for 20 yrs, recumbant bike hasn't used for 1 year. Prior Treatments and Tests No recent imaging. Future Testing and Treatments Planned unsure of any further MD appointment schedule. Treatment Goals Patient/Caregiver Goals move easier, improve balance, reeceptive to HEP PT-OP-C Subjective Start: 08/14/22 08:13 Freq: Status: Active Protocol: Document 12/17/22 13:47 SP (Rec: 12/17/22 14:33 SP [id number]) OP-PT Subjective Patient Comments Patient Comments Pt stated feeling good. Pt states takes me1.5 day to recover from PT tx day prior, legs feel rubbery but doesn't affect him getting around though. PT-OP-D Balance Start: 08/14/22 08:13 Freq: Status: Active Protocol: Document 08/14/22 11:16 SAK (Rec: 08/15/22 15:21 SAK [id number]) OP-PT Balance Assessment Sitting Balance Static Sitting Balance Ability Normal Dynamic Sitting Balance Ability Normal Standing Balance Device Used 4WW Tinetti Balance Assessment Sitting Balance Sitting Balance Steady, safe Arising from Chair Ability to Arise Able, uses arms to help Attempts to Arise Arises on 1st attempt Standing Balance Immediate Standing Balance Steady with support Standing Balance Steady, wide stance Nudged Response Staggers, catches self Standing with Eyes Closed Unsteady Turning Step Pattern Turning 360 Degrees Discontinuous steps Stability Turning 360 Degrees Unsteady, grabs/staggers Sitting Down Sitting Down Uses arms or unsteady Gait and Step Initiation of Gait No hesitancy Right Foot Step Length Does not pass stance ft. Right Foot Step Height Does not clear floor Left Foot Step Length Does not pass stance foot Left Foot Step Height Does not clear floor Step Description Step Symmetry Step length appears equal Step Continuity Steps appear continuous Gait Description Path Description Mild/moderate deviation Trunk Description Marked sway or uses aide Walking Stance Heels apart Scoring and Interpretation Tinetti Composite Score (points) 12 Pepe Fall Scale Copyright Permission PT-OP-E Functional Tests Start: 08/14/22 08:13 Freq: Status: Active Protocol: Document 11/12/22 14:36 SP (Rec: 11/12/22 15:31 SP [id number]) Functional Tests 6 Minute Walk Test Distance 738ft, able to carry on conversation most time w/ Mask on Device Used 4WW Comments 1 stop stand brief rest, good self postural corrections, UE WB light> mod PT-OP-G Mobility & Gait Start: 08/14/22 08:13 Freq: Status: Active Protocol: Document 08/14/22 11:16 SAK (Rec: 08/15/22 15:21 SAK [id number]) OP Gait Assessment Gait Gait Assistance Required: Independent Distance (Feet) 237 Assistive Devices Assistive Device 4 Wheeled Walker Gait Deviations General Gait Pattern Decreased Stride Length, Decreased Feet Clearance, Flexed Trunk,Wide Based Gait Factors Limiting Gait Function Factors Limiting Gait Function Decreased Strength,Pain PT-OP-H Neuro Start: 08/14/22 08:13 Freq: Status: Active Protocol: Document 08/14/22 11:16 [facility] (Rec: 08/15/22 15:21 [facility] [id number]) Sensation Evaluation Gross Sensation Gross Sensation Left LE Impaired,Right LE Impaired Sensation Description Paresthesia,Numbness,Tingling PT-OP-J Posture/Palpation/Skin Start: 08/14/22 08:13 Freq: Status: Active Protocol: Document 08/14/22 11:16 [facility] (Rec: 08/15/22 15:21 [facility] [id number]) Posture Evaluation Position Standing Head/C-Spine Posture Forward Head T-Spine Posture Increased Kyphosis L-Spine Posture Increased Lordosis Shoulder Posture (L) Rounded,(R) Rounded Scapula Posture (L) Protracted,(R) Protracted Arm Posture (L) Internally Rotated,(R) Internally Rotated Pelvis Posture Anteriorly Tilted PT-OP-K Range of Motion Start: 08/14/22 08:13 Freq: Status: Active Protocol: Document 08/14/22 11:16 [facility] (Rec: 08/15/22 15:21 [facility] [id number]) Lumbar Spine Range of Motion Lumbar Spine Active ROM Limitations Pain Comments moderate decrease due to pain Hip Goniometric Range of Motion Hip ROM Limitations Hip ROM Limitations Soft Tissue Tightness,Pain Comments moderate decrease oxana Knee Goniometric Range of Motion Knee oxana Knee ROM WFL Yes Ankle and Foot Goniometric Range of Motion Ankle and Foot oxana Ankle/Foot ROM WFL Yes PT-OP-M Strength Start: 08/14/22 08:13 Freq: Status: Active Protocol: Document 08/14/22 11:16 [facility] (Rec: 08/15/22 15:21 [facility] [id number]) Trunk Strength Trunk Manual Muscle Testing Core Stabilization poor Hip Strength Hip Manual Muscle Testing Left Flexion (L2) 3- Fair- Extension (S1) 2+ Poor+ Abduction 3- Fair- Adduction 3- Fair- External Rotation 3- Fair- Internal Rotation 3- Fair- Right Flexion (L2) 3- Fair- Extension (S1) 3- Fair- Abduction 3- Fair- Adduction 3- Fair- External Rotation 3- Fair- Internal Rotation 3+ Fair+ Knee Strength Knee Manual Muscle Testing Left Flexion (S2) 4- Good- Extension (L3) 4- Good- Right Flexion (S2) 4 Good Extension (L3) 4 Good Ankle/Foot Strength Ankle and Foot Manual Muscle Testing Left Dorsiflexion (L4) 3+ Fair+ Plantarflexion (S1) 3+ Fair+ Right Dorsiflexion (L4) 4+ Good+ Plantarflexion (S1) 4+ Good+ PT-OP-Q Treatments Start: 08/14/22 08:13 Freq: Status: Active Protocol: Document 12/17/22 13:47 SP (Rec: 12/17/22 14:33 SP [id number]) Cardio Equipment Recumbent Stepper (Sci-Fit) Duration (Minutes) 10 Resistance 2.5>3 Seat Position 14 Other 45-50 RPM's, LEs only, 1.30 miles Gym Equipment Shuttle Balance chains green Reps/Duration 5 min Comments balloon vb x 2 min head turns chains red Details balance fwd/bck Reps/Duration 2 min Comments min UE support, stationary HTs , light cloth printing back tender contact rail , Sport Cord red Exercise Details f/b/lateral R and L, 4 step up Cord/Resistance red Reps/Duration 3 x7 ft each direction, 4 step up/back down Comments seated rest (on 4WW) btwn step out and 4 step up due to back cramping up. Cued safe eccentric return start. CGA Gait Training Gait Activity gait 4WW Device Used 4WW Level of Assistance S Surface firm Distance/Duration 340 ft Treatment Focus tall posturing, proper breath, activity tolerance Comments occasional cues for chest lift posturing. PT-OP-T Assessment and Plan Start: 08/14/22 08:13 Freq: Status: Active Protocol: Document 12/17/22 13:47 SP (Rec: 12/17/22 14:33 SP [id number]) Physical Therapy Assessment Goals Five Impairment balance dysfunction Impairment Tinetti gait and balance score 11/28 indicating at high risk for falls Short Term Goal (STG) Improve Tinetti score to moderate fall risk range. 10/03/22 Goal Met- Tinetti: Balance:1616, Gait:10/13, total. STG Duration 09/13/22 GOAL MET 10/03/22 Correction Goal (LTG) Improve Tinetti score to low fall risk range as measure of improved mobility and safety. 10/03/22 Goal Met- Tinetti: Balance:16/16, Gait:10/13, total. LTG Duration 11/13/22 Met Goal 10/03/22 Four Impairment trunk weakness and postural impairment Impairment patient with excess lumbar lordosis and forward flexion at trunk Short Term Goal (STG) Patient to be independent in HEP addressing trunk muscle weakness and postural correction 11/12/22: improved posture corrections walking, upright posturing during 6MWT. STG Duration 09/13/22 improving 11/12 Correction Goal (LTG) Patient will demonstrate improved functional trunk strength as evidenced by at least 50% improvement in standing and walking posture 11/12/22: improved posture corrections walking, upright posturing during 6MWT. 12/05/22:Improved posture with gait with SPC x 2 LTG Duration 01/01/22 Three Impairment LE weakness Impairment unable to move from sit to stand from standard height chair without moderate use of UE's Short Term Goal (STG) Patient will be able to transfer from sit to stand from standard height chair without minimal to no use of UE's and be independent in HEP for LE strengthening. 10/03/22: progressin STS in 30 sec, on black 19 height table without use UEs 10/17/22: progressing 10 STS in 53 from 18 table. 11/02/22: GOAL MET: 5 STS in 21 sec without UE support from standard mesh chair. STG Duration 09/13/22 GOAL MET 11/02/22 Correction Goal (LTG) Patient will improve functional LE strength as evidenced by ability to transfer sit to stand from standard height chair 10x in a row. 10/03/22: progressin10/03/22: progressin STS in 30 sec, on black 19 height table without use UEs 10/10/22: 8 reps from 18 table before quads tire and SOB. 10/17/22: Goal Met form 18 table. LTG Duration 11/13/22 Goal Met 10/17/22 Two Impairment pain ranging from 1-9/10 lumbar spine Short Term Goal (STG) decrease pain to no greater than 6/10 with all usual activities. 10/03/22- Slow progression able to stand 4 mins before pain increases to 9/10. 11/02/22: MET GOAL States LBP better average worst 2/10 unless doing strenuous activities STG Duration 09/13/22 goal met 11/02/22 Correction Goal (LTG) Decrease pain to no greater than 3/10 with all usual activities 10/10/22:Pain has been 2-3/10 in lower back and into quads since last tx. He reports he knows his limits and can limit his pain. 11/02/22: GOAL MET: 2/10 worst unless doing strenuous activities like pushing grocery cart around store 02/08 . LTG Duration 11/13/22 GOAl MET 11/02/22 One Impairment gait impairment Impairment 2 min walk test 237 ft using 4WW, limited by low back pain and fatigue Short Term Goal (STG) Patient will be able to tolerate 6 min walk test and ambulate at least 800 ft with least restrictive device. 10/03/22- progressin min walk test: Performed 405ft in 4 Min 21sec w/ use of 4WW. 10/17/22-progressin min walk test: Performed 480 ft in 4 mins 16 secs w/ use of 4ww. 11/02/22: progressin ft in 5 min using 4WW, good intermittent upright posturing during gait without cues 11/12/22: 738 ft in 5 min 41 sec with 1 stop stand brief rest, use 4WW. STG Duration 09/13/22 progressing 11/12/22 [employer] Goal (LTG) 1400 ft on 6 min walk test using SPC to improve functional gait in the home and community 10/03/22- progressin min walk test: Performed 405ft in 4 Min 21sec w/ use of 4WW. 10/17/22: 6 min walk test: 480ft 4 mins 16 secs w/ use of 4ww. 11/02/22: progressin ft in 5 min using 4WW, good intermittent upright posturing during gait without cues. 11/12/22: 738 ft in 5 min 41 sec with 1 stop stand brief rest, use 4WW. 12/05/21: 3.5 min 2 laps 1.5 min 1 lap LTG Duration 01/01/22 Assessment Summary Assessment Pt improved standing tolerance decreased being winded just LB cramping during standing activities and only seated rest between different activities needed. Physical Therapy Plan Frequency and Duration Frequency of Treatment 2x/Week Duration of treatment (weeks) 4 Plan of Care Start Date 11/20/22 Plan of Care End Date 01/01/22 Therapeutic Interventions Therapeutic Interventions Aquatic Therapy,Balance Training,Gait Training,Home Exercise Program,Manual Therapy,Neuromuscular Re- education,Patient/Caregiver Education,Self-Care/Home Management,Soft Tissue Mobilization,Taping, Therapeutic Activities, Therapeutic Exercises Modalities Cold Pack/Ice Massage,Electric Stimulation,Hot Packs Next Visit Focus/Plan Next Note Type Treatment Note Next Visit Plan Continue progress standing endurance, progress ther ex for strengthening, gait training, activity tolerance progression.
--- NOTE | 2022-12-19 11:55 | PT.OTN ---
Current Diagnoses Weakness (12/19/22) Physical Therapy Treatment Note PT-OP-A Visit Information Start: 08/14/22 08:13 Freq: Status: Active Protocol: Document 12/19/22 11:19 [facility] (Rec: 12/19/22 11:55 [facility] [id number]) Out-Patient Physical Therapy Visit Information Visit Information Visit Type Treatment Note Visit Note update PN/POC in 4 visits 12/31 . Visit Start Time 11:20 Visit Stop Time 12:00 Total Visit Minutes 40 Visit Number 23 Number of BORDERER Visits 0 Evaluation Information Evaluation Date 08/14/22 Precautions Precautions HTN, a-fib, depression, history blood clots, falls, neuropathy, PE, SOB, thyroid dysfunction, carpal tunnel surgery. *08/24/22: pt reported PMH caution exersion with UEs can cause tingling and lower SaO2 and gets weak/lightheadedness/ low RBCs feeling that can cause instability. PT-OP-B Current Condition Start: 08/14/22 08:13 Freq: Status: Active Protocol: Document 08/30/22 13:00 [facility] (Rec: 08/30/22 13:44 [facility] [id number]) Current Condition History of Current Condition Onset Date 10 years. Current Complaints weakness History of Current Condition back surgery 15 years ago, major back surgery 10 years ago with fusion; prior to surgery flat on back 6 months prior to surgery. Reports fair recovery from surger but states stamina and weakness very low at this time, uses cane or FWW at home and in the community. Self-care independent but painful and takes a long time. No regular exercise routine. 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 Has treadmill at home, hasn't used for 20 yrs, recumbant bike hasn't used for 1 year. Prior Treatments and Tests No recent imaging. Future Testing and Treatments Planned unsure of any further MD appointment schedule. Treatment Goals Patient/Caregiver Goals move easier, improve balance, reeceptive to HEP PT-OP-C Subjective Start: 08/14/22 08:13 Freq: Status: Active Protocol: Document 12/19/22 11:19 [facility] (Rec: 12/19/22 11:55 [facility] [id number]) OP-PT Subjective Patient Comments Patient Comments Patient states he feels a little off. PT-OP-D Balance Start: 08/14/22 08:13 Freq: Status: Active Protocol: Document 08/14/22 11:16 [facility] (Rec: 08/15/22 15:21 [facility] [id number]) OP-PT Balance Assessment Sitting Balance Static Sitting Balance Ability Normal Dynamic Sitting Balance Ability Normal Standing Balance Device Used 4WW Tinetti Balance Assessment Sitting Balance Sitting Balance Steady, safe Arising from Chair Ability to Arise Able, uses arms to help Attempts to Arise Arises on 1st attempt Standing Balance Immediate Standing Balance Steady with support Standing Balance Steady, wide stance Nudged Response Staggers, catches self Standing with Eyes Closed Unsteady Turning Step Pattern Turning 360 Degrees Discontinuous steps Stability Turning 360 Degrees Unsteady, grabs/staggers Sitting Down Sitting Down Uses arms or unsteady Gait and Step Initiation of Gait No hesitancy Right Foot Step Length Does not pass stance ft. Right Foot Step Height Does not clear floor Left Foot Step Length Does not pass stance foot Left Foot Step Height Does not clear floor Step Description Step Symmetry Step length appears equal Step Continuity Steps appear continuous Gait Description Path Description Mild/moderate deviation Trunk Description Marked sway or uses aide Walking Stance Heels apart Scoring and Interpretation Tinetti Composite Score (points) 12 Pepe Fall Scale Copyright Permission PT-OP-E Functional Tests Start: 08/14/22 08:13 Freq: Status: Active Protocol: Document 11/12/22 14:36 [facility] (Rec: 11/12/22 15:31 [facility] [id number]) Functional Tests 6 Minute Walk Test Distance 738ft, able to carry on conversation most time w/ Mask on Device Used 4WW Comments 1 stop stand brief rest, good self postural corrections, UE WB light> mod PT-OP-G Mobility & Gait Start: 08/14/22 08:13 Freq: Status: Active Protocol: Document 08/14/22 11:16 [facility] (Rec: 08/15/22 15:21 [facility] [id number]) OP Gait Assessment Gait Gait Assistance Required: Independent Distance (Feet) 237 Assistive Devices Assistive Device 4 Wheeled Walker Gait Deviations General Gait Pattern Decreased Stride Length, Decreased Feet Clearance, Flexed Trunk,Wide Based Gait Factors Limiting Gait Function Factors Limiting Gait Function Decreased Strength,Pain PT-OP-H Neuro Start: 08/14/22 08:13 Freq: Status: Active Protocol: Document 08/14/22 11:16 [facility] (Rec: 08/15/22 15:21 [facility] [id number]) Sensation Evaluation Gross Sensation Gross Sensation Left LE Impaired,Right LE Impaired Sensation Description Paresthesia,Numbness,Tingling PT-OP-J Posture/Palpation/Skin Start: 08/14/22 08:13 Freq: Status: Active Protocol: Document 08/14/22 11:16 [facility] (Rec: 08/15/22 15:21 [facility] [id number]) Posture Evaluation Position Standing Head/C-Spine Posture Forward Head T-Spine Posture Increased Kyphosis L-Spine Posture Increased Lordosis Shoulder Posture (L) Rounded,(R) Rounded Scapula Posture (L) Protracted,(R) Protracted Arm Posture (L) Internally Rotated,(R) Internally Rotated Pelvis Posture Anteriorly Tilted PT-OP-K Range of Motion Start: 08/14/22 08:13 Freq: Status: Active Protocol: Document 08/14/22 11:16 [facility] (Rec: 08/15/22 15:21 [facility] [id number]) Lumbar Spine Range of Motion Lumbar Spine Active ROM Limitations Pain Comments moderate decrease due to pain Hip Goniometric Range of Motion Hip ROM Limitations Hip ROM Limitations Soft Tissue Tightness,Pain Comments moderate decrease oxana Knee Goniometric Range of Motion Knee oxana Knee ROM WFL Yes Ankle and Foot Goniometric Range of Motion Ankle and Foot oxana Ankle/Foot ROM WFL Yes PT-OP-M Strength Start: 08/14/22 08:13 Freq: Status: Active Protocol: Document 08/14/22 11:16 [facility] (Rec: 08/15/22 15:21 [facility] [id number]) Trunk Strength Trunk Manual Muscle Testing Core Stabilization poor Hip Strength Hip Manual Muscle Testing Left Flexion (L2) 3- Fair- Extension (S1) 2+ Poor+ Abduction 3- Fair- Adduction 3- Fair- External Rotation 3- Fair- Internal Rotation 3- Fair- Right Flexion (L2) 3- Fair- Extension (S1) 3- Fair- Abduction 3- Fair- Adduction 3- Fair- External Rotation 3- Fair- Internal Rotation 3+ Fair+ Knee Strength Knee Manual Muscle Testing Left Flexion (S2) 4- Good- Extension (L3) 4- Good- Right Flexion (S2) 4 Good Extension (L3) 4 Good Ankle/Foot Strength Ankle and Foot Manual Muscle Testing Left Dorsiflexion (L4) 3+ Fair+ Plantarflexion (S1) 3+ Fair+ Right Dorsiflexion (L4) 4+ Good+ Plantarflexion (S1) 4+ Good+ PT-OP-Q Treatments Start: 08/14/22 08:13 Freq: Status: Active Protocol: Document 12/19/22 11:19 [facility] (Rec: 12/19/22 11:55 [facility] [id number]) Cardio Equipment Recumbent Stepper (Sci-Fit) Duration (Minutes) 10 Resistance 2.5>3 Seat Position 14 Other 45-50 RPM's, LEs only, 1.2 miles Gym Equipment Shuttle Balance chains red Details balance and wt shift fw/dbck staggered legs Reps/Duration 5 min Comments mod UE UE support, stationary HTs, light back grinder contact rail, Therapeutic Exercises Standing Exercises core press outs/paloff press Standing Exercise Name added to HEP Side bilateral Resistance TB #4 Reps/Minutes 2x10 each side Comments good form, soft knee row, shoulder ext Standing Exercise Name shld ext Side bilateral Resistance TB #4 Reps/Minutes 2x10 Comments good form, stated steady on feet, good work soft knees Gait Training Gait Activity gait with SPC Device Used SPCx2 Level of Assistance SBA Surface carpet/tile Distance/Duration 2 min Treatment Focus posturing, equal WB stability, activity tolerance Comments cued scap and upright posture , required rest break after 2 lap PT-OP-T Assessment and Plan Start: 08/14/22 08:13 Freq: Status: Active Protocol: Document 12/19/22 11:19 [facility] (Rec: 12/19/22 11:55 [facility] [id number]) Physical Therapy Assessment Goals Five Impairment balance dysfunction Impairment Tinetti gait and balance score 11/28 indicating at high risk for falls Short Term Goal (STG) Improve Tinetti score to moderate fall risk range. 10/03/22 Goal Met- Tinetti: Balance:1616, Gait:10/13, total. STG Duration 09/13/22 GOAL MET 10/03/22 [facility] Goal (LTG) Improve Tinetti score to low fall risk range as measure of improved mobility and safety. 10/03/22 Goal Met- Tinetti: Balance:16/16, Gait:10/13, total. LTG Duration 11/13/22 Met Goal 10/03/22 Four Impairment trunk weakness and postural impairment Impairment patient with excess lumbar lordosis and forward flexion at trunk Short Term Goal (STG) Patient to be independent in HEP addressing trunk muscle weakness and postural correction 11/12/22: improved posture corrections walking, upright posturing during 6MWT. STG Duration 09/13/22 improving 11/12 [employer] Goal (LTG) Patient will demonstrate improved functional trunk strength as evidenced by at least 50% improvement in standing and walking posture 11/12/22: improved posture corrections walking, upright posturing during 6MWT. 12/05/22:Improved posture with gait with SPC x 2 LTG Duration 01/01/22 Three Impairment LE weakness Impairment unable to move from sit to stand from standard height chair without moderate use of UE's Short Term Goal (STG) Patient will be able to transfer from sit to stand from standard height chair without minimal to no use of UE's and be independent in HEP for LE strengthening. 10/03/22: progressin STS in 30 sec, on black 19 height table without use UEs 10/17/22: progressing 10 STS in 53 from 18 table. 11/02/22: GOAL MET: 5 STS in 21 sec without UE support from standard mesh chair. STG Duration 09/13/22 GOAL MET 11/02/22 [facility] Goal (LTG) Patient will improve functional LE strength as evidenced by ability to transfer sit to stand from standard height chair 10x in a row. 10/03/22: progressin10/03/22: progressin STS in 30 sec, on black 19 height table without use UEs 10/10/22: 8 reps from 18 table before quads tire and SOB. 10/17/22: Goal Met form 18 table. LTG Duration 11/13/22 Goal Met 10/17/22 Two Impairment pain ranging from 1-9/10 lumbar spine Short Term Goal (STG) decrease pain to no greater than 6/10 with all usual activities. 10/03/22- Slow progression able to stand 4 mins before pain increases to 9/10. 11/02/22: MET GOAL States LBP better average worst 2/10 unless doing strenuous activities STG Duration 09/13/22 goal met 11/02/22 [facility] Goal (LTG) Decrease pain to no greater than 3/10 with all usual activities 10/10/22:Pain has been 2-3/10 in lower back and into quads since last tx. He reports he knows his limits and can limit his pain. 11/02/22: GOAL MET: 2/10 worst unless doing strenuous activities like pushing grocery cart around store 02/08 . LTG Duration 11/13/22 GOAl MET 11/02/22 One Impairment gait impairment Impairment 2 min walk test 237 ft using 4WW, limited by low back pain and fatigue Short Term Goal (STG) Patient will be able to tolerate 6 min walk test and ambulate at least 800 ft with least restrictive device. 10/03/22- progressin min walk test: Performed 405ft in 4 Min 21sec w/ use of 4WW. 10/17/22-progressin min walk test: Performed 480 ft in 4 mins 16 secs w/ use of 4ww. 11/02/22: progressin ft in 5 min using 4WW, good intermittent upright posturing during gait without cues 11/12/22: 738 ft in 5 min 41 sec with 1 stop stand brief rest, use 4WW. STG Duration 09/13/22 progressing 11/12/22 [facility] Goal (LTG) 1400 ft on 6 min walk test using SPC to improve functional gait in the home and community 10/03/22- progressin min walk test: Performed 405ft in 4 Min 21sec w/ use of 4WW. 10/17/22: 6 min walk test: 480ft 4 mins 16 secs w/ use of 4ww. 11/02/22: progressin ft in 5 min using 4WW, good intermittent upright posturing during gait without cues. 11/12/22: 738 ft in 5 min 41 sec with 1 stop stand brief rest, use 4WW. 12/05/21: 3.5 min 2 laps 1.5 min 1 lap LTG Duration 01/01/22 Assessment Summary Assessment Patient fatigued more quickly today, inc need for rest breaks, o/w savanah well. Posture much better with canes vs FWW . Physical Therapy Plan Frequency and Duration Frequency of Treatment 2x/Week Duration of treatment (weeks) 4 Plan of Care Start Date 11/20/22 Plan of Care End Date 01/01/22 Therapeutic Interventions Therapeutic Interventions Aquatic Therapy,Balance Training,Gait Training,Home Exercise Program,Manual Therapy,Neuromuscular Re- education,Patient/Caregiver Education,Self-Care/Home Management,Soft Tissue Mobilization,Taping, Therapeutic Activities, Therapeutic Exercises Modalities Cold Pack/Ice Massage,Electric Stimulation,Hot Packs Next Visit Focus/Plan Next Note Type Treatment Note Next Visit Plan Continue progress standing endurance, progress ther ex for strengthening, gait training, activity tolerance progression.
--- NOTE | 2022-12-24 14:30 | PT.OTN ---
Current Diagnoses Weakness (12/24/22) Physical Therapy Treatment Note PT-OP-A Visit Information Start: 08/14/22 08:13 Freq: Status: Active Protocol: Document 12/24/22 13:48 SP (Rec: 12/24/22 14:34 SP [id number]) Out-Patient Physical Therapy Visit Information Visit Information Visit Type Treatment Note Visit Note update PN/POC in 2 visits 12/31 . 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 *08/24/22: pt reported PMH caution exersion with UEs can cause tingling and lower SaO2 and gets weak/lightheadedness/ low RBCs feeling that can cause instability. PT-OP-B Current Condition Start: 08/14/22 08:13 Freq: Status: Active Protocol: Document 08/30/22 13:00 SAK (Rec: 08/30/22 13:44 SAK [id number]) Current Condition History of Current Condition Onset Date 10 years. Current Complaints weakness History of Current Condition back surgery 15 years ago, major back surgery 10 years ago with fusion; prior to surgery flat on back 6 months prior to surgery. Reports fair recovery from surger but states stamina and weakness very low at this time, uses cane or FWW at home and in the community. Self-care independent but painful and takes a long time. No regular exercise routine. 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 Has treadmill at home, hasn't used for 20 yrs, recumbant bike hasn't used for 1 year. Prior Treatments and Tests No recent imaging. Future Testing and Treatments Planned unsure of any further MD appointment schedule. 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 1/2 dozen trips to the store, uses riding cart to [employer], push cart but few trips taking in groceries and big step to get in door uses door jam to get in, no rail. PT-OP-D Balance Start: 08/14/22 08:13 Freq: Status: Active Protocol: Document 08/14/22 11:16 SAK (Rec: 08/15/22 15:21 [facility] [id number]) OP-PT Balance Assessment Sitting Balance Static Sitting Balance Ability Normal Dynamic Sitting Balance Ability Normal Standing Balance Device Used 4WW Tinetti Balance Assessment Sitting Balance Sitting Balance Steady, safe Arising from Chair Ability to Arise Able, uses arms to help Attempts to Arise Arises on 1st attempt Standing Balance Immediate Standing Balance Steady with support Standing Balance Steady, wide stance Nudged Response Staggers, catches self Standing with Eyes Closed Unsteady Turning Step Pattern Turning 360 Degrees Discontinuous steps Stability Turning 360 Degrees Unsteady, grabs/staggers Sitting Down Sitting Down Uses arms or unsteady Gait and Step Initiation of Gait No hesitancy Right Foot Step Length Does not pass stance ft. Right Foot Step Height Does not clear floor Left Foot Step Length Does not pass stance foot Left Foot Step Height Does not clear floor Step Description Step Symmetry Step length appears equal Step Continuity Steps appear continuous Gait Description Path Description Mild/moderate deviation Trunk Description Marked sway or uses aide Walking Stance Heels apart Scoring and Interpretation Tinetti Composite Score (points) 12 Pepe Fall Scale Copyright Permission PT-OP-E Functional Tests Start: 08/14/22 08:13 Freq: Status: Active Protocol: Document 11/12/22 14:36 SP (Rec: 11/12/22 15:31 SP [id number]) Functional Tests 6 Minute Walk Test Distance 738ft, able to carry on conversation most time w/ Mask on Device Used 4WW Comments 1 stop stand brief rest, good self postural corrections, UE WB light> mod PT-OP-G Mobility & Gait Start: 08/14/22 08:13 Freq: Status: Active Protocol: Document 08/14/22 11:16 [facility] (Rec: 08/15/22 15:21 [facility] [id number]) OP Gait Assessment Gait Gait Assistance Required: Independent Distance (Feet) 237 Assistive Devices Assistive Device 4 Wheeled Walker Gait Deviations General Gait Pattern Decreased Stride Length, Decreased Feet Clearance, Flexed Trunk,Wide Based Gait Factors Limiting Gait Function Factors Limiting Gait Function Decreased Strength,Pain PT-OP-H Neuro Start: 08/14/22 08:13 Freq: Status: Active Protocol: Document 08/14/22 11:16 [facility] (Rec: 08/15/22 15:21 [facility] [id number]) Sensation Evaluation Gross Sensation Gross Sensation Left LE Impaired,Right LE Impaired Sensation Description Paresthesia,Numbness,Tingling PT-OP-J Posture/Palpation/Skin Start: 08/14/22 08:13 Freq: Status: Active Protocol: Document 08/14/22 11:16 [facility] (Rec: 08/15/22 15:21 [facility] [id number]) Posture Evaluation Position Standing Head/C-Spine Posture Forward Head T-Spine Posture Increased Kyphosis L-Spine Posture Increased Lordosis Shoulder Posture (L) Rounded,(R) Rounded Scapula Posture (L) Protracted,(R) Protracted Arm Posture (L) Internally Rotated,(R) Internally Rotated Pelvis Posture Anteriorly Tilted PT-OP-K Range of Motion Start: 08/14/22 08:13 Freq: Status: Active Protocol: Document 08/14/22 11:16 [facility] (Rec: 08/15/22 15:21 [facility] [id number]) Lumbar Spine Range of Motion Lumbar Spine Active ROM Limitations Pain Comments moderate decrease due to pain Hip Goniometric Range of Motion Hip ROM Limitations Hip ROM Limitations Soft Tissue Tightness,Pain Comments moderate decrease oxana Knee Goniometric Range of Motion Knee oxana Knee ROM WFL Yes Ankle and Foot Goniometric Range of Motion Ankle and Foot oxana Ankle/Foot ROM WFL Yes PT-OP-M Strength Start: 08/14/22 08:13 Freq: Status: Active Protocol: Document 08/14/22 11:16 [facility] (Rec: 08/15/22 15:21 [facility] [id number]) Trunk Strength Trunk Manual Muscle Testing Core Stabilization poor Hip Strength Hip Manual Muscle Testing Left Flexion (L2) 3- Fair- Extension (S1) 2+ Poor+ Abduction 3- Fair- Adduction 3- Fair- External Rotation 3- Fair- Internal Rotation 3- Fair- Right Flexion (L2) 3- Fair- Extension (S1) 3- Fair- Abduction 3- Fair- Adduction 3- Fair- External Rotation 3- Fair- Internal Rotation 3+ Fair+ Knee Strength Knee Manual Muscle Testing Left Flexion (S2) 4- Good- Extension (L3) 4- Good- Right Flexion (S2) 4 Good Extension (L3) 4 Good Ankle/Foot Strength Ankle and Foot Manual Muscle Testing Left Dorsiflexion (L4) 3+ Fair+ Plantarflexion (S1) 3+ Fair+ Right Dorsiflexion (L4) 4+ Good+ Plantarflexion (S1) 4+ Good+ PT-OP-Q Treatments Start: 08/14/22 08:13 Freq: Status: Active Protocol: Document 12/24/22 13:48 SP (Rec: 12/24/22 14:34 SP [id number]) Gym Equipment Shuttle Recovery Single squats Details cued knee alignment target adduction midline Resistance 37# (1 new band) Shuttle Recovery Platform Stable Reps/Time 2x10- *be sure start position far from platform. B squats Details cued closer space btn B knees Resistance 75# (1 new band) Shuttle Recovery Platform Stable Reps/Time x20 Therapeutic Exercises Standing Exercises sit <> stands Standing Exercise Name btwn each lap clinic Resistance no UE Equipment Used 4WW, mesh chair Reps/Minutes 5 STS: not timed, mesh chair 30s Comments good posture and comes to full stand Gait Training Gait Activity gait with SPC Device Used SPCx2 Level of Assistance SBA Surface carpet/tile Distance/Duration 170 ft clinic lap: 1min 41 sec , 1m31s Treatment Focus posturing, equal WB stability, activity tolerance Comments occasional scap and upright posture, required rest break after 1 inner loop clinic lap Neuro Re-Education Treatment Balance Activities step ups Equipment 8 step (compareable to home porch) Reps/Duration x5 R HR, x3 reps L HR Comments cued sequence patterning, slow eccentric step back down, cued core for balance control Self-Care/Home Management Treatment Education Patient Education Safety Other Education Discussed installing handle/ rail and maybe adding additional step to lessen height step entering laundry home for safety bringing groceries. Pt stated might be good idea. PT-OP-T Assessment and Plan Start: 08/14/22 08:13 Freq: Status: Active Protocol: Document 12/24/22 13:48 SP (Rec: 12/24/22 14:34 SP [id number]) Physical Therapy Assessment Goals Five Impairment balance dysfunction Impairment Tinetti gait and balance score 11/28 indicating at high risk for falls Short Term Goal (STG) Improve Tinetti score to moderate fall risk range. 10/03/22 Goal Met- Tinetti: Balance:, Gait:10/13, total. STG Duration 09/13/22 GOAL MET 10/03/22 Binder Caser Goal (LTG) Improve Tinetti score to low fall risk range as measure of improved mobility and safety. 10/03/22 Goal Met- Tinetti: Balance:16, Gait:10/13, total. LTG Duration 11/13/22 Met Goal 10/03/22 Four Impairment trunk weakness and postural impairment Impairment patient with excess lumbar lordosis and forward flexion at trunk Short Term Goal (STG) Patient to be independent in HEP addressing trunk muscle weakness and postural correction 11/12/22: improved posture corrections walking, upright posturing during 6MWT. STG Duration 09/13/22 improving 11/12 Binder Caser Goal (LTG) Patient will demonstrate improved functional trunk strength as evidenced by at least 50% improvement in standing and walking posture 11/12/22: improved posture corrections walking, upright posturing during 6MWT. 12/05/22:Improved posture with gait with SPC x 2 LTG Duration 01/01/22 Three Impairment LE weakness Impairment unable to move from sit to stand from standard height chair without moderate use of UE's Short Term Goal (STG) Patient will be able to transfer from sit to stand from standard height chair without minimal to no use of UE's and be independent in HEP for LE strengthening. 10/03/22: progressin STS in 30 sec, on black 19 height table without use UEs 10/17/22: progressing 10 STS in 53 from 18 table. 11/02/22: GOAL MET: 5 STS in 21 sec without UE support from standard mesh chair. STG Duration 09/13/22 GOAL MET 11/02/22 [facility] Goal (LTG) Patient will improve functional LE strength as evidenced by ability to transfer sit to stand from standard height chair 10x in a row. 10/03/22: progressin10/03/22: progressin STS in 30 sec, on black 19 height table without use UEs 10/10/22: 8 reps from 18 table before quads tire and SOB. 10/17/22: Goal Met form 18 table. LTG Duration 11/13/22 Goal Met 10/17/22 Two Impairment pain ranging from 1-9/10 lumbar spine Short Term Goal (STG) decrease pain to no greater than 6/10 with all usual activities. 10/03/22- Slow progression able to stand 4 mins before pain increases to 9/10. 11/02/22: MET GOAL States LBP better average worst 2/10 unless doing strenuous activities STG Duration 09/13/22 goal met 11/02/22 [facility] Goal (LTG) Decrease pain to no greater than 3/10 with all usual activities 10/10/22:Pain has been 2-3/10 in lower back and into quads since last tx. He reports he knows his limits and can limit his pain. 11/02/22: GOAL MET: 2/10 worst unless doing strenuous activities like pushing grocery cart around store 3/10 . LTG Duration 11/13/22 GOAl MET 11/02/22 One Impairment gait impairment Impairment 2 min walk test 237 ft using 4WW, limited by low back pain and fatigue Short Term Goal (STG) Patient will be able to tolerate 6 min walk test and ambulate at least 800 ft with least restrictive device. 10/03/22- progressin min walk test: Performed 405ft in 4 Min 21sec w/ use of 4WW. 10/17/22-progressin min walk test: Performed 480 ft in 4 mins 16 secs w/ use of 4ww. 11/02/22: progressin ft in 5 min using 4WW, good intermittent upright posturing during gait without cues 11/12/22: 738 ft in 5 min 41 sec with 1 stop stand brief rest, use 4WW. STG Duration 09/13/22 progressing 11/12/22 Binder Caser Goal (LTG) 1400 ft on 6 min walk test using SPC to improve functional gait in the home and community 10/03/22- progressin min walk test: Performed 405ft in 4 Min 21sec w/ use of 4WW. 10/17/22: 6 min walk test: 480ft 4 mins 16 secs w/ use of 4ww. 11/02/22: progressin ft in 5 min using 4WW, good intermittent upright posturing during gait without cues. 11/12/22: 738 ft in 5 min 41 sec with 1 stop stand brief rest, use 4WW. 12/05/21: 3.5 min 2 laps 1.5 min 1 lap LTG Duration 01/01/22 Assessment Summary Assessment Pt good effort ther ex, endurance and Le fatigues quickly requires seated rest breaks bwtween each set activity 2min recovery time. Good self postural corrections required use B SPC during gait and 1 HR support step ups . Discused safety step/ HR entering home for safety support. Physical Therapy Plan Frequency and Duration Frequency of Treatment 2x/Week Duration of treatment (weeks) 4 Plan of Care Start Date 11/20/22 Plan of Care End Date 01/01/22 Therapeutic Interventions Therapeutic Interventions Aquatic Therapy,Balance Training,Gait Training,Home Exercise Program,Manual Therapy,Neuromuscular Re- education,Patient/Caregiver Education,Self-Care/Home Management,Soft Tissue Mobilization,Taping, Therapeutic Activities, Therapeutic Exercises Modalities Cold Pack/Ice Massage,Electric Stimulation,Hot Packs Next Visit Focus/Plan Next Note Type Treatment Note Next Visit Plan Continue progress standing endurance, progress ther ex for strengthening, gait training, activity tolerance progression.
--- NOTE | 2022-12-26 14:24 | PT.OTN ---
Current Diagnoses Weakness (12/26/22) Physical Therapy Treatment Note PT-OP-A Visit Information Start: 08/14/22 08:13 Freq: Status: Active Protocol: Document 12/26/22 13:46 SAK (Rec: 12/26/22 14:24 [facility] [id number]) Out-Patient Physical Therapy Visit Information Visit Information Visit Type Treatment Note Visit Note PN next visit Visit Start Time 13:48 Visit Stop Time 14:30 Total Visit Minutes 42 Visit Number 24 Number of PLASTIC PRINTER Visits 1 Evaluation Information Evaluation Date 08/14/22 Precautions Precautions HTN, a-fib, depression, history blood clots, falls, neuropathy, PE, SOB, thyroid dysfunction, carpal tunnel surgery. *08/24/22: pt reported PMH caution exersion with UEs can cause tingling and lower SaO2 and gets weak/lightheadedness/ low RBCs feeling that can cause instability. PT-OP-B Current Condition Start: 08/14/22 08:13 Freq: Status: Active Protocol: Document 08/30/22 13:00 SAK (Rec: 08/30/22 13:44 SAK [id number]) Current Condition History of Current Condition Onset Date 10 years. Current Complaints weakness History of Current Condition back surgery 15 years ago, major back surgery 10 years ago with fusion; prior to surgery flat on back 6 months prior to surgery. Reports fair recovery from surger but states stamina and weakness very low at this time, uses cane or FWW at home and in the community. Self-care independent but painful and takes a long time. No regular exercise routine. 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 Has treadmill at home, hasn't used for 20 yrs, recumbant bike hasn't used for 1 year. Prior Treatments and Tests No recent imaging. Future Testing and Treatments Planned unsure of any further MD appointment schedule. Treatment Goals Patient/Caregiver Goals move easier, improve balance, reeceptive to HEP PT-OP-C Subjective Start: 08/14/22 08:13 Freq: Status: Active Protocol: Document 12/26/22 13:46 SAK (Rec: 12/26/22 14:24 [facility] [id number]) OP-PT Subjective Patient Comments Patient Comments Fatigued but ok after last session. PT-OP-D Balance Start: 08/14/22 08:13 Freq: Status: Active Protocol: Document 08/14/22 11:16 SAK (Rec: 08/15/22 15:21 [facility] [id number]) OP-PT Balance Assessment Sitting Balance Static Sitting Balance Ability Normal Dynamic Sitting Balance Ability Normal Standing Balance Device Used 4WW Tinetti Balance Assessment Sitting Balance Sitting Balance Steady, safe Arising from Chair Ability to Arise Able, uses arms to help Attempts to Arise Arises on 1st attempt Standing Balance Immediate Standing Balance Steady with support Standing Balance Steady, wide stance Nudged Response Staggers, catches self Standing with Eyes Closed Unsteady Turning Step Pattern Turning 360 Degrees Discontinuous steps Stability Turning 360 Degrees Unsteady, grabs/staggers Sitting Down Sitting Down Uses arms or unsteady Gait and Step Initiation of Gait No hesitancy Right Foot Step Length Does not pass stance ft. Right Foot Step Height Does not clear floor Left Foot Step Length Does not pass stance foot Left Foot Step Height Does not clear floor Step Description Step Symmetry Step length appears equal Step Continuity Steps appear continuous Gait Description Path Description Mild/moderate deviation Trunk Description Marked sway or uses aide Walking Stance Heels apart Scoring and Interpretation Tinetti Composite Score (points) 12 Pepe Fall Scale Copyright Permission PT-OP-E Functional Tests Start: 08/14/22 08:13 Freq: Status: Active Protocol: Document 11/12/22 14:36 SP (Rec: 11/12/22 15:31 SP [id number]) Functional Tests 6 Minute Walk Test Distance 738ft, able to carry on conversation most time w/ Mask on Device Used 4WW Comments 1 stop stand brief rest, good self postural corrections, UE WB light> mod PT-OP-G Mobility & Gait Start: 08/14/22 08:13 Freq: Status: Active Protocol: Document 08/14/22 11:16 [facility] (Rec: 08/15/22 15:21 [facility] [id number]) OP Gait Assessment Gait Gait Assistance Required: Independent Distance (Feet) 237 Assistive Devices Assistive Device 4 Wheeled Walker Gait Deviations General Gait Pattern Decreased Stride Length, Decreased Feet Clearance, Flexed Trunk,Wide Based Gait Factors Limiting Gait Function Factors Limiting Gait Function Decreased Strength,Pain PT-OP-H Neuro Start: 08/14/22 08:13 Freq: Status: Active Protocol: Document 08/14/22 11:16 SAK (Rec: 08/15/22 15:21 [facility] [id number]) Sensation Evaluation Gross Sensation Gross Sensation Left LE Impaired,Right LE Impaired Sensation Description Paresthesia,Numbness,Tingling PT-OP-J Posture/Palpation/Skin Start: 08/14/22 08:13 Freq: Status: Active Protocol: Document 08/14/22 11:16 [facility] (Rec: 08/15/22 15:21 [facility] [id number]) Posture Evaluation Position Standing Head/C-Spine Posture Forward Head T-Spine Posture Increased Kyphosis L-Spine Posture Increased Lordosis Shoulder Posture (L) Rounded,(R) Rounded Scapula Posture (L) Protracted,(R) Protracted Arm Posture (L) Internally Rotated,(R) Internally Rotated Pelvis Posture Anteriorly Tilted PT-OP-K Range of Motion Start: 08/14/22 08:13 Freq: Status: Active Protocol: Document 08/14/22 11:16 [facility] (Rec: 08/15/22 15:21 [facility] [id number]) Lumbar Spine Range of Motion Lumbar Spine Active ROM Limitations Pain Comments moderate decrease due to pain Hip Goniometric Range of Motion Hip ROM Limitations Hip ROM Limitations Soft Tissue Tightness,Pain Comments moderate decrease oxana Knee Goniometric Range of Motion Knee oxana Knee ROM WFL Yes Ankle and Foot Goniometric Range of Motion Ankle and Foot oxana Ankle/Foot ROM WFL Yes PT-OP-M Strength Start: 08/14/22 08:13 Freq: Status: Active Protocol: Document 08/14/22 11:16 [facility] (Rec: 08/15/22 15:21 [facility] [id number]) Trunk Strength Trunk Manual Muscle Testing Core Stabilization poor Hip Strength Hip Manual Muscle Testing Left Flexion (L2) 3- Fair- Extension (S1) 2+ Poor+ Abduction 3- Fair- Adduction 3- Fair- External Rotation 3- Fair- Internal Rotation 3- Fair- Right Flexion (L2) 3- Fair- Extension (S1) 3- Fair- Abduction 3- Fair- Adduction 3- Fair- External Rotation 3- Fair- Internal Rotation 3+ Fair+ Knee Strength Knee Manual Muscle Testing Left Flexion (S2) 4- Good- Extension (L3) 4- Good- Right Flexion (S2) 4 Good Extension (L3) 4 Good Ankle/Foot Strength Ankle and Foot Manual Muscle Testing Left Dorsiflexion (L4) 3+ Fair+ Plantarflexion (S1) 3+ Fair+ Right Dorsiflexion (L4) 4+ Good+ Plantarflexion (S1) 4+ Good+ PT-OP-Q Treatments Start: 08/14/22 08:13 Freq: Status: Active Protocol: Document 12/26/22 13:46 [facility] (Rec: 12/26/22 14:24 [facility] [id number]) Cardio Equipment Recumbent Stepper (Sci-Fit) Duration (Minutes) 10 Resistance 2.5>3 Seat Position 14 Other 45-50 RPM's, LEs only, 1.2 miles Gym Equipment Shuttle Recovery Single squats Details cued knee alignment target adduction midline Resistance 37# (1 new band) Shuttle Recovery Platform Stable Reps/Time 2x10- *be sure start position far from platform. B squats Details cued closer space btn B knees Resistance 75# (1 new band) Shuttle Recovery Platform Stable Reps/Time x20 Shuttle Balance chains red Details balance and wt shift fw/dbck staggered legs Reps/Duration 5 min Comments mod UE UE support, stationary HTs, light hose tubing backer contact rail, Therapeutic Exercises Standing Exercises trunk rot Resistance L4 RB Reps/Minutes 10x core press outs/paloff press Standing Exercise Name added to HEP Side bilateral Resistance TB #4 Reps/Minutes 2x10 each side Comments good form, soft knee row, shoulder ext Standing Exercise Name shld ext Side bilateral Resistance TB #4 Reps/Minutes 2x10 Comments good form, stated steady on feet, good work soft knees Gait Training Gait Activity gait with SPC Device Used Vinglex2 Level of Assistance SBA Surface carpet/tile Distance/Duration 340 ft Treatment Focus posturing, equal WB stability, activity tolerance Comments occasional cues for scap and upright posture, required rest break after 1 inner loop clinic lap Neuro Re-Education Treatment Balance Activities step ups Equipment 8 step (compareable to home porch) Reps/Duration x5 R HR, x5 reps L HR Comments cued sequence patterning, slow eccentric step back down, cued core for balance control Self-Care/Home Management Treatment Education Patient Education Safety Other Education Discussed installing handle/ rail and maybe adding additional step to lessen height step entering house; reviewed PT-OP-T Assessment and Plan Start: 08/14/22 08:13 Freq: Status: Active Protocol: Document 12/26/22 13:46 [facility] (Rec: 12/26/22 14:24 [facility] [id number]) Physical Therapy Assessment Goals Five Impairment balance dysfunction Impairment Tinetti gait and balance score 12/28 indicating at high risk for falls Short Term Goal (STG) Improve Tinetti score to moderate fall risk range. 10/03/22 Goal Met- Tinetti: Balance:, Gait:10/13, total. STG Duration 09/13/22 GOAL MET 10/03/22 Senior Care Goal (LTG) Improve Tinetti score to low fall risk range as measure of improved mobility and safety. 10/03/22 Goal Met- Tinetti: Balance:, Gait:10/13, total. LTG Duration 11/13/22 Met Goal 10/03/22 Four Impairment trunk weakness and postural impairment Impairment patient with excess lumbar lordosis and forward flexion at trunk Short Term Goal (STG) Patient to be independent in HEP addressing trunk muscle weakness and postural correction 11/12/22: improved posture corrections walking, upright posturing during 6MWT. STG Duration 09/13/22 improving 11/12 Senior Care Goal (LTG) Patient will demonstrate improved functional trunk strength as evidenced by at least 50% improvement in standing and walking posture 11/12/22: improved posture corrections walking, upright posturing during 6MWT. 12/05/22:Improved posture with gait with SPC x 2 LTG Duration 01/01/22 Three Impairment LE weakness Impairment unable to move from sit to stand from standard height chair without moderate use of UE's Short Term Goal (STG) Patient will be able to transfer from sit to stand from standard height chair without minimal to no use of UE's and be independent in HEP for LE strengthening. 10/03/22: progressin STS in 30 sec, on black 19 height table without use UEs 10/17/22: progressing 10 STS in 53 from 18 table. 11/02/22: GOAL MET: 5 STS in 21 sec without UE support from standard mesh chair. STG Duration 09/13/22 GOAL MET 11/02/22 Custom Applicator Goal (LTG) Patient will improve functional LE strength as evidenced by ability to transfer sit to stand from standard height chair 10x in a row. 10/03/22: progressin10/03/22: progressin STS in 30 sec, on black 19 height table without use UEs 10/10/22: 8 reps from 18 table before quads tire and SOB. 10/17/22: Goal Met form 18 table. LTG Duration 11/13/22 Goal Met 10/17/22 Two Impairment pain ranging from 1-9/10 lumbar spine Short Term Goal (STG) decrease pain to no greater than 6/10 with all usual activities. 10/03/22- Slow progression able to stand 4 mins before pain increases to 9/10. 11/02/22: MET GOAL States LBP better average worst 2/10 unless doing strenuous activities STG Duration 09/13/22 goal met 11/02/22 Senior Care Goal (LTG) Decrease pain to no greater than 3/10 with all usual activities 10/10/22:Pain has been 2-3/10 in lower back and into quads since last tx. He reports he knows his limits and can limit his pain. 11/02/22: GOAL MET: 2/10 worst unless doing strenuous activities like pushing grocery cart around store 3/10 . LTG Duration 11/13/22 GOAl MET 11/02/22 One Impairment gait impairment Impairment 2 min walk test 237 ft using 4WW, limited by low back pain and fatigue Short Term Goal (STG) Patient will be able to tolerate 6 min walk test and ambulate at least 800 ft with least restrictive device. 10/03/22- progressin min walk test: Performed 405ft in 4 Min 21sec w/ use of 4WW. 10/17/22-progressin min walk test: Performed 480 ft in 4 mins 16 secs w/ use of 4ww. 11/02/22: progressin ft in 5 min using 4WW, good intermittent upright posturing during gait without cues 11/12/22: 738 ft in 5 min 41 sec with 1 stop stand brief rest, use 4WW. STG Duration 09/13/22 progressing 11/12/22 Custom Applicator Goal (LTG) 1400 ft on 6 min walk test using SPC to improve functional gait in the home and community 10/03/22- progressin min walk test: Performed 405ft in 4 Min 21sec w/ use of 4WW. 10/17/22: 6 min walk test: 480ft 4 mins 16 secs w/ use of 4ww. 11/02/22: progressin ft in 5 min using 4WW, good intermittent upright posturing during gait without cues. 11/12/22: 738 ft in 5 min 41 sec with 1 stop stand brief rest, use 4WW. 12/05/21: 3.5 min 2 laps 1.5 min 1 lap LTG Duration 01/01/22 Assessment Summary Assessment Increased speed of gait noted today, but SOB, frequent rest breaks required. Patient expressing that he plans to install 2nd step and handrail. Poor compliance to HEP. Physical Therapy Plan Frequency and Duration Frequency of Treatment 2x/Week Duration of treatment (weeks) 4 Plan of Care Start Date 11/20/22 Plan of Care End Date 01/01/22 Therapeutic Interventions Therapeutic Interventions Aquatic Therapy,Balance Training,Gait Training,Home Exercise Program,Manual Therapy,Neuromuscular Re- education,Patient/Caregiver Education,Self-Care/Home Management,Soft Tissue Mobilization,Taping, Therapeutic Activities, Therapeutic Exercises Modalities Cold Pack/Ice Massage,Electric Stimulation,Hot Packs Next Visit Focus/Plan Next Note Type Progress Note Next Visit Plan reassess all objective measures. Anticipate discharge to independent [facility].
--- NOTE | 2022-12-31 14:23 | PT.OTN ---
Current Diagnoses Weakness (12/31/22) Physical Therapy Treatment Note PT-OP-A Visit Information Start: 08/14/22 08:13 Freq: Status: Active Protocol: Document 12/31/22 13:54 SAK (Rec: 12/31/22 14:22 SAK [id number]) Out-Patient Physical Therapy Visit Information Visit Information Visit Type Progress Note Visit Start Time 13:46 Visit Stop Time 14:30 Total Visit Minutes 44 Visit Number 25 Number of AVIATION SURVIVAL TECHNICIAN Visits 0 Evaluation Information Evaluation Date 08/14/22 Precautions Precautions HTN, a-fib, depression, history blood clots, falls, neuropathy, PE, SOB, thyroid dysfunction, carpal tunnel surgery. *08/24/22: pt reported PMH caution exersion with UEs can cause tingling and lower SaO2 and gets weak/lightheadedness/ low RBCs feeling that can cause instability. PT-OP-B Current Condition Start: 08/14/22 08:13 Freq: Status: Active Protocol: Document 08/30/22 13:00 SAK (Rec: 08/30/22 13:44 [facility] [id number]) Current Condition History of Current Condition Onset Date 10 years. Current Complaints weakness History of Current Condition back surgery 15 years ago, major back surgery 10 years ago with fusion; prior to surgery flat on back 6 months prior to surgery. Reports fair recovery from surger but states stamina and weakness very low at this time, uses cane or FWW at home and in the community. Self-care independent but painful and takes a long time. No regular exercise routine. 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 Has treadmill at home, hasn't used for 20 yrs, recumbant bike hasn't used for 1 year. Prior Treatments and Tests No recent imaging. Future Testing and Treatments Planned unsure of any further MD appointment schedule. Treatment Goals Patient/Caregiver Goals move easier, improve balance, reeceptive to HEP PT-OP-C Subjective Start: 08/14/22 08:13 Freq: Status: Active Protocol: Document 12/31/22 13:54 SAK (Rec: 12/31/22 14:22 SAK [id number]) OP-PT Subjective Patient Comments Patient Comments a little soreness left knee. Agreeable to discharge today. PT-OP-D Balance Start: 08/14/22 08:13 Freq: Status: Active Protocol: Document 08/14/22 11:16 SAK (Rec: 08/15/22 15:21 [facility] [id number]) OP-PT Balance Assessment Sitting Balance Static Sitting Balance Ability Normal Dynamic Sitting Balance Ability Normal Standing Balance Device Used 4WW Tinetti Balance Assessment Sitting Balance Sitting Balance Steady, safe Arising from Chair Ability to Arise Able, uses arms to help Attempts to Arise Arises on 1st attempt Standing Balance Immediate Standing Balance Steady with support Standing Balance Steady, wide stance Nudged Response Staggers, catches self Standing with Eyes Closed Unsteady Turning Step Pattern Turning 360 Degrees Discontinuous steps Stability Turning 360 Degrees Unsteady, grabs/staggers Sitting Down Sitting Down Uses arms or unsteady Gait and Step Initiation of Gait No hesitancy Right Foot Step Length Does not pass stance ft. Right Foot Step Height Does not clear floor Left Foot Step Length Does not pass stance foot Left Foot Step Height Does not clear floor Step Description Step Symmetry Step length appears equal Step Continuity Steps appear continuous Gait Description Path Description Mild/moderate deviation Trunk Description Marked sway or uses aide Walking Stance Heels apart Scoring and Interpretation Tinetti Composite Score (points) 12 Pepe Fall Scale Copyright Permission PT-OP-E Functional Tests Start: 08/14/22 08:13 Freq: Status: Active Protocol: Document 11/12/22 14:36 SP (Rec: 11/12/22 15:31 SP [id number]) Functional Tests 6 Minute Walk Test Distance 738ft, able to carry on conversation most time w/ Mask on Device Used 4WW Comments 1 stop stand brief rest, good self postural corrections, UE WB light> mod PT-OP-G Mobility & Gait Start: 08/14/22 08:13 Freq: Status: Active Protocol: Document 08/14/22 11:16 [facility] (Rec: 08/15/22 15:21 [facility] [id number]) OP Gait Assessment Gait Gait Assistance Required: Independent Distance (Feet) 237 Assistive Devices Assistive Device 4 Wheeled Walker Gait Deviations General Gait Pattern Decreased Stride Length, Decreased Feet Clearance, Flexed Trunk,Wide Based Gait Factors Limiting Gait Function Factors Limiting Gait Function Decreased Strength,Pain PT-OP-H Neuro Start: 08/14/22 08:13 Freq: Status: Active Protocol: Document 08/14/22 11:16 SAK (Rec: 08/15/22 15:21 [facility] [id number]) Sensation Evaluation Gross Sensation Gross Sensation Left LE Impaired,Right LE Impaired Sensation Description Paresthesia,Numbness,Tingling PT-OP-J Posture/Palpation/Skin Start: 08/14/22 08:13 Freq: Status: Active Protocol: Document 08/14/22 11:16 [facility] (Rec: 08/15/22 15:21 [facility] [id number]) Posture Evaluation Position Standing Head/C-Spine Posture Forward Head T-Spine Posture Increased Kyphosis L-Spine Posture Increased Lordosis Shoulder Posture (L) Rounded,(R) Rounded Scapula Posture (L) Protracted,(R) Protracted Arm Posture (L) Internally Rotated,(R) Internally Rotated Pelvis Posture Anteriorly Tilted PT-OP-K Range of Motion Start: 08/14/22 08:13 Freq: Status: Active Protocol: Document 08/14/22 11:16 [facility] (Rec: 08/15/22 15:21 [facility] [id number]) Lumbar Spine Range of Motion Lumbar Spine Active ROM Limitations Pain Comments moderate decrease due to pain Hip Goniometric Range of Motion Hip ROM Limitations Hip ROM Limitations Soft Tissue Tightness,Pain Comments moderate decrease oxana Knee Goniometric Range of Motion Knee oxana Knee ROM WFL Yes Ankle and Foot Goniometric Range of Motion Ankle and Foot oxana Ankle/Foot ROM WFL Yes PT-OP-M Strength Start: 08/14/22 08:13 Freq: Status: Active Protocol: Document 08/14/22 11:16 [facility] (Rec: 08/15/22 15:21 [facility] [id number]) Trunk Strength Trunk Manual Muscle Testing Core Stabilization poor Hip Strength Hip Manual Muscle Testing Left Flexion (L2) 3- Fair- Extension (S1) 2+ Poor+ Abduction 3- Fair- Adduction 3- Fair- External Rotation 3- Fair- Internal Rotation 3- Fair- Right Flexion (L2) 3- Fair- Extension (S1) 3- Fair- Abduction 3- Fair- Adduction 3- Fair- External Rotation 3- Fair- Internal Rotation 3+ Fair+ Knee Strength Knee Manual Muscle Testing Left Flexion (S2) 4- Good- Extension (L3) 4- Good- Right Flexion (S2) 4 Good Extension (L3) 4 Good Ankle/Foot Strength Ankle and Foot Manual Muscle Testing Left Dorsiflexion (L4) 3+ Fair+ Plantarflexion (S1) 3+ Fair+ Right Dorsiflexion (L4) 4+ Good+ Plantarflexion (S1) 4+ Good+ PT-OP-Q Treatments Start: 08/14/22 08:13 Freq: Status: Active Protocol: Document 12/31/22 13:54 [facility] (Rec: 12/31/22 14:22 [facility] [id number]) Cardio Equipment Recumbent Stepper (Sci-Fit) Duration (Minutes) 10 Resistance 2.5>3 Seat Position 14 Other 45-50 RPM's, LEs only, 1.2 miles Therapeutic Exercises Standing Exercises tote raise Reps/Minutes 10x january Standing Exercise Name january in place Equipment Used // bars Reps/Minutes x10 each LE Comments Cues for upright posture and eyes up. BUE for rebalancing mini-squat Standing Exercise Name HEP reviewed Reps/Minutes x5 before anterior knee pain Comments cued hip hinge posterior chain recruitment heel raises Standing Exercise Name HEP reviewed Reps/Minutes 10 Comments good form. Self-Care/Home Management Treatment Education Patient Education Home Exercise Program PT-OP-T Assessment and Plan Start: 08/14/22 08:13 Freq: Status: Active Protocol: Document 12/31/22 13:54 [facility] (Rec: 12/31/22 14:22 [facility] [id number]) Physical Therapy Assessment Goals Five Impairment balance dysfunction Impairment Tinetti gait and balance score 11/28 indicating at high risk for falls Short Term Goal (STG) Improve Tinetti score to moderate fall risk range. 10/03/22 Goal Met- Tinetti: Balance:16/16, Gait:10/13, total. STG Duration 09/13/22 GOAL MET 10/03/22 Dielectric Machine Operator Goal (LTG) Improve Tinetti score to low fall risk range as measure of improved mobility and safety. 10/03/22 Goal Met- Tinetti: Balance:16/16, Gait:10/13, total. LTG Duration 11/13/22 Met Goal 10/03/22 Four Impairment trunk weakness and postural impairment Impairment patient with excess lumbar lordosis and forward flexion at trunk Short Term Goal (STG) Patient to be independent in HEP addressing trunk muscle weakness and postural correction 11/12/22: improved posture corrections walking, upright posturing during 6MWT. STG Duration 09/13/22 improving 11/12 Dielectric Machine Operator Goal (LTG) Patient will demonstrate improved functional trunk strength as evidenced by at least 50% improvement in standing and walking posture 11/12/22: improved posture corrections walking, upright posturing during 6MWT. 12/05/22:Improved posture with gait with SPC x 2 LTG Duration 01/01/22 Three Impairment LE weakness Impairment unable to move from sit to stand from standard height chair without moderate use of UE's Short Term Goal (STG) Patient will be able to transfer from sit to stand from standard height chair without minimal to no use of UE's and be independent in [facility] for LE strengthening. 10/03/22: progressin STS in 30 sec, on black 19 height table without use UEs 10/17/22: progressing 10 STS in 53 from 18 table. 11/02/22: GOAL MET: 5 STS in 21 sec without UE support from standard mesh chair. STG Duration 09/13/22 GOAL MET 11/02/22 Usp Goal (LTG) Patient will improve functional LE strength as evidenced by ability to transfer sit to stand from standard height chair 10x in a row. 10/03/22: progressin10/03/22: progressin STS in 30 sec, on black 19 height table without use UEs 10/10/22: 8 reps from 18 table before quads tire and SOB. 10/17/22: Goal Met form 18 table. LTG Duration 11/13/22 Goal Met 10/17/22 Two Impairment pain ranging from 1-9/10 lumbar spine Short Term Goal (STG) decrease pain to no greater than 6/10 with all usual activities. 10/03/22- Slow progression able to stand 4 mins before pain increases to 9/10. 11/02/22: MET GOAL States LBP better average worst 2/10 unless doing strenuous activities STG Duration 09/13/22 goal met 11/02/22 Usp Goal (LTG) Decrease pain to no greater than 3/10 with all usual activities 10/10/22:Pain has been 2-3/10 in lower back and into quads since last tx. He reports he knows his limits and can limit his pain. 11/02/22: GOAL MET: 2/10 worst unless doing strenuous activities like pushing grocery cart around store 3/10 . LTG Duration 11/13/22 GOAl MET 11/02/22 One Impairment gait impairment Impairment 2 min walk test 237 ft using 4WW, limited by low back pain and fatigue Short Term Goal (STG) Patient will be able to tolerate 6 min walk test and ambulate at least 800 ft with least restrictive device. 10/03/22- progressin min walk test: Performed 405ft in 4 Min 21sec w/ use of 4WW. 10/17/22-progressin min walk test: Performed 480 ft in 4 mins 16 secs w/ use of 4ww. 11/02/22: progressin ft in 5 min using 4WW, good intermittent upright posturing during gait without cues 11/12/22: 738 ft in 5 min 41 sec with 1 stop stand brief rest, use 4WW. STG Duration 09/13/22 progressing 11/12/22 Dielectric Machine Operator Goal (LTG) 1400 ft on 6 min walk test using SPC to improve functional gait in the home and community 10/03/22- progressin min walk test: Performed 405ft in 4 Min 21sec w/ use of 4WW. 10/17/22: 6 min walk test: 480ft 4 mins 16 secs w/ use of 4ww. 11/02/22: progressin ft in 5 min using 4WW, good intermittent upright posturing during gait without cues. 11/12/22: 738 ft in 5 min 41 sec with 1 stop stand brief rest, use 4WW. 12/05/21: 3.5 min 2 laps 1.5 min 1 lap LTG Duration 01/01/22 Assessment Summary Assessment Progress has plateaued. Majority of session spent reviewing HEP, issued new HO. Physical Therapy Plan Discharge Physical Therapy Discharge Reasons Plateau in Progress
== END 2023-07-30 13:07 ==
LOC: PHYS 13:45
PROVIDERS: PCP Family Medicine; Referring Provider Family Medicine; Visit Provider Family Medicine
DX: R53.1 Weakness (principal)
CPT/HCPCS: 97110; 97112; 97116; 97162; 97530; 97535

== ENCOUNTER → 2023-07-10 12:34 | Outpatient (CLI) | payer MEDICARE, SELFPAY ==
[2021-01-02 09:05] VITALS: BMI 44.9
--- NOTE | 2023-07-10 | DI.ECHO.S_ITS ---
[facility] +---------+ : : [address] : : : : [id number] : : : : Phone: [phone]+ Echocardiogram Report + + :Name: NAE COX Study Date: 07/10/2023 Height: 74 in : :[facility] ReadingLocation: Weight: 340 lb : : Gender: Male BSA: 2.7 m2 : :: 1945 Age: 77 yrs BP: 120/75 mmHg: :Reason For Study: [id number] : :Ordering Physician: TA, : :JIM Performed By: María Brito : :Referring: JIM CHAPPELL : + + Interpretation Summary Left ventricular systolic function is likely normal with an estimated ejection fraction of 60 to 65% without focal wall motion abnormality except for akinesis of the very base of the inferior wall which appears unchanged. Left ventricular size and wall thickness remain normal; wall thickness measures smaller compared to the previous study. Diastolic function is challenging to assess because of the presence of atrial fibrillation but there is no compelling evidence for elevated filling pressures which are likely similar to the previous exam. The right ventricle is not well-seen but likely remains mildly enlarged with normal systolic function. Right ventricular systolic pressure is estimated at 33 mmHg with a CVP of 3 mmHg. There is severe left atrial enlargement although significantly smaller compared to the previous exam. There is moderate right atrial enlargement that measures slightly larger. There is no significant valvular heart disease. The aortic root maintains mildly enlarged at 4.1 cm compared to 4.0 cm previously. The patient remained in atrial fibrillation at 65-85 bpm during the exam. Procedure: A two-dimensional transthoracic echocardiogram with color flow and Doppler was performed. The study quality was technically adequate. Comparison is made with the echocardiogram of 12/28/2019. The patient was in atrial fibrillation with heart rates between 65-86 bpm during the exam. Left Ventricle: The left ventricle is normal in size and wall thickness. Left ventricular systolic function is probably normal. The ejection fraction is estimated to be 60-65%. There are no focal wall motion abnormality except for akinesis at the base of the inferior wall which appears unchanged. Diastolic function could not be accurately assessed due to atrial fibrillation. This is unchanged compared to the previous study. Right Ventricle: The right ventricle is not well visualized. The right ventricle is mildly dilated. The right ventricular systolic function is normal. This is likely unchanged compared to the previous study. Atria: The left atrium is severely dilated. The left atrium has significantly decreased in size since the prior echo exam. The right atrium is moderately dilated. The right atrium has mildly increased in size since the prior echo exam. There is no Doppler evidence for an interatrial shunt. Mitral Valve: The mitral valve leaflets appear mildly thickened, but open well. There is a flat closure plane of the the mitral valve leaflets. There is trace mitral regurgitation. This is unchanged compared to the previous study. Aortic Valve: The aortic valve is mildly calcified. There is discrete nodular thickening of the non- coronary cusp. The aortic valve opens well. There is no aortic valve stenosis. No aortic regurgitation is present. Tricuspid Valve: The tricuspid valve is normal in structure and function. There is trace tricuspid regurgitation. The right ventricular systolic pressure is estimated to be at least 33 mmHg based on an estimated right atrial pressure of 3 mm Hg. Pulmonic Valve: The pulmonic valve leaflets are thin and pliable; valve motion is normal. There is a trace or physiologic amount of pulmonic regurgitation. Great Vessels: The aortic root is mildly dilated. This is unchanged compared to the previous study. The dimensions of the ascending aorta are normal. The IVC is of normal diameter and collapses greater than 50% with a sniff. This suggests a low right atrial pressure of 3 mm Hg. Pericardium/ Pleura There is no pericardial effusion. There is no pleural effusion. MMode/2D Measurements & Calculations LVIDd: 5.3 cm LVOT diam: 2.5 cm LVIDs: 3.3 cm Ao root diam: 4.1 cm FS: 36.9 % asc Aorta Diam: 3.4 cm IVSd: 0.98 cm Ao Arch Diam (Prox Trans): 3.0 cm LVPWd: 1.1 cm LV carmona. diameter/BSA (cm/m^2): 1.9 LV sys. diameter/BSA (cm/m^2): 1.2 LA A2 area: 34.6 cm2 RA long axis: 6.2 cm LA A4 area: 39.6 cm2 RA area: 29.6 cm2 LA length (vol): 7.4 cm RA vol: 120.5 ml LA vol: 156.9 ml RA : 44.2 ml/m2 LA vol index: 57.6 ml/m2 IVC diam: 1.4 cm TAPSE: 2.5 cm Doppler Measurements & Calculations Ao V2 max: 169.9 cm/sec LVOT Max Larry: 100.8 cm/sec Ao V2 mean: 126.6 cm/sec LV V1 max P.1 mmHg Ao max P.6 mmHg LV V1 VTI: 18.4 cm Ao mean P.0 mmHg MARTIR(I,D): 2.8 cm2 Ao V2 VTI: 31.5 cm MARTIR(V,D): 2.9 cm2 sev ratio: 0.59 MARTIR indexed to BSA (cm^2/m^2): 1.0 MV E max larry: 100.4 cm/sec TR max larry: 274.1 cm/sec MV A max larry: 1.3 cm/sec TR max P.0 mmHg MV E/A: 79.9 PA V2 max: 124.3 cm/sec Med Peak E' Larry: 7.9 cm/sec PA V2 mean: 81.4 cm/sec E/E' med: 12.8 PA mean P.1 mmHg Lat Peak E' Larry: 11.2 cm/sec PA pr(Accel): 36.6 mmHg E/E' lat: 9.0 E/e' average: 10.9 MV dec time: 0.19 sec SV(LVOT): 89.2 ml Reading Physician:05:19 PM
== END ==
PROVIDERS: PCP Family Medicine; Referring Provider Specialist; Visit Provider Physician Assistant Medical
DX: R06.09 Other forms of dyspnea (principal); I77.810 Thoracic aortic ectasia
CPT/HCPCS: 93306